=== PATIENT | female | born 1940 | race Caucasian/White ===

== ENCOUNTER 2016-06-23 11:47 | Emergency (ER) | payer OTHER ==
[~2016-06-23] VITALS: Ht 157.5 cm; Wt 65.1 kg
[~2016-06-23 11:47] MED LIST: ESTCR PV
[2016-06-23 11:53] VITALS: TEMP 36.6; Ht 157.5 cm; Wt 65.1 kg
[2016-06-23] MEDS ORDERED: AMOX500C3 PO (12:12)
[2016-06-23] MEDS ORDERED: ALBUT/IPRATROP 3MG/0.5MG NEB 3 ML VIAL INH STA (12:40)
[2016-06-23 13:08] LABS: BASO % 0.7 %; BASO ABS # 0.05 K/uL (0-0.2); COMPLETE YES; EOS % 3.1 %; HEMATOCRIT 43.4 % (37-47); IG% 0.3 %; LYMPH % 32.3 %; LYMPH ABS # 2.22 K/uL (1.2-3.4); MEAN CELL VOLUME 91.8 fL (80-100); MEAN CORPUSCULAR HEMOGLOBIN 31.9 pg (25-34); MEAN CORPUSCULAR HGB CONC 34.8 g/dl (32-36); MEAN PLATELET VOLUME 9.5 fL (7.4-10.4); MONO % 14.7 %; NEUT % 48.9 %; PLATELET COUNT 241 K/uL (130-400); RED BLOOD COUNT 4.73 M/uL (4.2-5.4); WHITE BLOOD COUNT 6.88 K/uL (4.8-10.8)
--- NOTE | 2016-06-23 13:15 | EMERGENCY ROOM VISIT NOTE ---
History Report prepared by Yo: Karen Gabriel Under the Supervision of: Dr. Anabel Lui M.D. First contact with patient: 12:07 Chief Complaint: FLU LIKE SX Stated Complaint: HEADACHE, COUGHING History of Present Illness The patient is a 76 year old female who presents to the Emergency Room with complaints of worsening flu-like symptoms that started 2 days ago. The patient is experiencing a headache, "scratchy" throat, cough, rhinorrhea, and fatigue. She has not noticed any fevers. She also experienced shortness of breath but she states that resolved with Advair and an albuterol inhaler. The patient has COPD which is why she has those medications at home. She does not have a nebulizer and denies recent prednisone use. The patient got her flu shot this year. Her adds that the patient experiences similar symptoms annually and they wanted to catch it before it developed into bronchitis like it typically does. The patient states that she called her PCP two days ago and he prescribed her amoxicillin. Source of History: patient, spouse/significant other () Onset: two days ago Position: other (generalized) Quality: other (flu-like symptoms) Timing: worsening Associated Symptoms: + SOB, + cough, + fatigue, + headache, + sorethroat ( "scratchy throat"), No fevers Note: rhinorrhea Review of Systems See HPI for pertinent positives & negatives. A total of 10 systems reviewed and were otherwise negative. Past Medical & Surgical Medical Problems: (1) Emphysema/COPD (2) GERD (gastroesophageal reflux disease) (3) HTN (hypertension) Surgical Problems: (1) History of cataract extraction Family History No pertinent family history Social History Smoking Status: Never Smoker Alcohol Use: none Marital Status: Housing Status: lives with family Occupation Status: retired Current/Historical Medications Scheduled Amoxicillin (Amoxil), 500 MG PO BID Aspirin (Aspirin Ec), 81 MG PO DAILY Atenolol (Tenormin), 50 MG PO DAILY Estradiol Vag 0.01% (Estrace Vag 0.01% ), 0.5 GM PV 2XWK Estrogens, Conjugated (Premarin), 1.25 MG PO DAILY Fluticasone Prop/Salmeterol (Advair Diskus 250/50 60 Dose), 1 PUFF INH BID Pantoprazole (Protonix), 20 MG PO DAILY Prednisone (Prednisone), 10 MG PO DIRECTED Allergies Coded Allergies: Ciprofloxacin (Verified Allergy, Unknown, HEADACHE "feel DRUNK", 06/23/16) Physical Exam Vital Signs Date Time Temp Pulse Resp B/P Pulse Ox O2 Delivery O2 Flow Rate FiO2 06/23/16 14:43 65 13 156/79 97 Room Air 06/23/16 13:46 66 15 155/80 94 Room Air 06/23/16 13:11 84 06/23/16 11:53 36.6 68 18 156/74 93 Room Air Physical Exam Vital signs reviewed. General: Well-appearing female, in no significant distress. HEENT: No scleral icterus, PERRLA, neck supple. TMs clear bilaterally. Posterior oropharynx is clear. Atraumatic. Cardiovascular: Regular rate and rhythm, no extra sounds. Pulmonary: Rancorous breath sounds bilaterally, normal work of breathing. Abdomen: Soft, nontender, nondistended, positive bowel sounds. Musculoskeletal: Atraumatic, no peripheral edema. Neurologic: Patient awake alert and oriented x 3, full strength in all 4 extremities. Cranial nerves 2 through 12 grossly intact. Skin: Warm, dry, no rash Medical Decision & Procedures ER Provider Diagnostic Interpretation: X-ray results as stated below per interpretation by me and the radiologist: CHEST ONE VIEW PORTABLE IMPRESSION: No acute process. Electronically signed by: Kishore Evans M.D. 06/23/2016 1:18 PM Dictated Date/Time: 06/23/2016 1:16 PM Laboratory Results 06/23/16 12:50 Red Blood Count 4.73, Mean Corpuscular Volume 91.8, Mean Corpuscular Hemoglobin 31.9, Mean Corpuscular Hemoglobin Concent 34.8, Mean Platelet Volume 9.5, Neutrophils (%) (Auto) 48.9, Lymphocytes (%) (Auto) 32.3, Monocytes (%) (Auto) 14.7, Eosinophils (%) (Auto) 3.1, Basophils (%) (Auto) 0.7, Neutrophils # (Auto ) 3.37, Lymphocytes # (Auto) 2.22, Monocytes # (Auto) 1.01, Eosinophils # (Auto ) 0.21, Basophils # (Auto) 0.05 06/23/16 12:50 Test 06/23/16 12:50 06/23/16 12:56 White Blood Count 6.88 K/uL (4.8-10.8) Red Blood Count 4.73 M/uL (4.2-5.4) Hemoglobin 15.1 g/dL (12.0-16.0) Hematocrit 43.4 % (37-47) Mean Corpuscular Volume 91.8 fL (80-100) Mean Corpuscular Hemoglobin 31.9 pg (25-34) Mean Corpuscular Hemoglobin Concent 34.8 g/dl (32-36) Platelet Count 241 K/uL (130-400) Mean Platelet Volume 9.5 fL (7.4-10.4) Neutrophils (%) (Auto) 48.9 % Lymphocytes (%) (Auto) 32.3 % Monocytes (%) (Auto) 14.7 % Eosinophils (%) (Auto) 3.1 % Basophils (%) (Auto) 0.7 % Neutrophils # (Auto) 3.37 K/uL (1.4-6.5) Lymphocytes # (Auto) 2.22 K/uL (1.2-3.4) Monocytes # (Auto) 1.01 K/uL (0.11-0.59) Eosinophils # (Auto) 0.21 K/uL (0-0.5) Basophils # (Auto) 0.05 K/uL (0-0.2) RDW Standard Deviation 48.1 fL (36.4-46.3) RDW Coefficient of Variation 14.1 % (11.5-14.5) Immature Granulocyte % (Auto) 0.3 % Immature Granulocyte # (Auto) 0.02 K/uL (0.00-0.02) Anion Gap 11.0 mmol/L (3-11) Est Creatinine Clear Calc Drug Dose 44.9 ml/min Estimated GFR () 67.1 Estimated GFR (Non- 57.9 BUN/Creatinine Ratio 19.9 (10-20) Calcium Level 8.9 mg/dl (8.5-10.1) Magnesium Level 2.1 mg/dl (1.8-2.4) Total Bilirubin 0.6 mg/dl (0.2-1) Direct Bilirubin 0.1 mg/dl (0-0.2) Aspartate Amino Transf (AST/SGOT) 15 U/L (15-37) Alanine Aminotransferase (ALT/SGPT) 11 U/L (12-78) Alkaline Phosphatase 70 U/L (45-117) Total Protein 7.2 gm/dl (6.4-8.2) Albumin 3.3 gm/dl (3.4-5.0) Influenza Type A Antigen Neg for Influ A (NEG) Influenza Type B Antigen Neg for Influ B (NEG) Laboratory results per my review. Medications Administered Medications (Trade) Dose Ordered Sig/Chela Route Start Time Stop Time Status Last Admin Dose Admin Albuterol/ Ipratropium (Duoneb) 3 ml NOW STAT INH 06/23/16 12:40 06/23/16 12:43 DC 06/23/16 13:00 3 ML ED Course 1238: Past medical records reviewed. The patient was evaluated in room C11. A complete history and physical examination was performed. 1240: Ordered DuoNeb 3 ml INH 1444: Upon reevaluation, the patient appeared to have improvement of her symptoms. I discussed findings with her. She verbalized agreement of the treatment plan. She was discharged home. Medical Decision The patient is a 76 year old female who presents to the Emergency Room with complaints of worsening flu-like symptoms that started 2 days ago. Differentials include viral upper respiratory infection, bronchitis, COPD exacerbation, pneumonia. This patient was evaluated and appeared to be in no significant distress. IV access was obtained and laboratory work was drawn. 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 Patient was given a nebulizer treatment with some improvement. Chest x-ray was obtained and is negative for acute process. The patient is currently taking amoxicillin and will finish this course. She was given a prescription for prednisone taper. The patient's primary care doctor's office was contacted and they will arrange for a nebulizer. The patient will be discharged in care of her and return to the ER for worsening of symptoms or any medical concerns. Impression Primary Impression: COPD exacerbation Additional Impression: Upper respiratory infection Scribe Attestation The scribe's documentation has been prepared under my direction and personally reviewed by me in its entirety. I confirm that the note above accurately reflects all work, treatment, procedures, and medical decision making performed by me. Departure Information Dispostion Home / Self-Care Prescriptions Prednisone (Prednisone) 10 Mg Tab 10 MG PO DIRECTED, #31 TAB 40 mg daily for 4 days, 30 mg for 3 days, 20 mg for 2 days, 10 mg for 2 days Prov: Anabel Lui M.D. 06/23/16 Referrals Arthur Hernandez (PCP) Forms HOME CARE DOCUMENTATION FORM, IMPORTANT VISIT INFORMATION Patient Instructions My [facility] Additional Instructions Diagnosis: Viral upper respiratory infection, bronchitis Continue the amoxicillin as prescribed by your physician. Prednisone 40 mg for 4 days, 30 mg for 3 days, 20 mg for 2 days, 10 mg for 2 days, start tomorrow. Albuterol nebulizer every 4 hours as needed for increased work of breathing or cough. Follow-up with your physician in one week for reevaluation. Return to the ER for worsening of symptoms or any medical concerns. Problem Qualifiers Additional Impression: Upper respiratory infection URI type: unspecified viral URI Qualified Codes: J06.9 - Acute upper respiratory infection, unspecified; B97.89 - Other viral agents as the cause of diseases classified elsewhere
--- NOTE | 2016-06-23 13:20 | DIAGNOSTIC IMAGING REPORT ---
CHEST ONE VIEW PORTABLE HISTORY: cough COMPARISON: Chest and left rib series 12/28/2015. FINDINGS: Small linear density within the right lung base favor scarring or subsegmental atelectasis. No focal lung consolidations to suggest pneumonia. The left lung is clear. Cardiac silhouette is normal in size. No pleural effusions. No pneumothorax. IMPRESSION: No acute process. Electronically signed by: Kishore Evans M.D. 06/23/2016 1:18 PM Dictated Date/Time: 06/23/2016 1:16 PM
[2016-06-23 13:32] LABS: BUN/CREATININE RATIO 19.9 (10-20); CALCIUM 8.9 mg/dl (8.5-10.1); CREATININE 0.96 mg/dl (0.60-1.20); MAGNESIUM 2.1 mg/dl (1.8-2.4); POTASSIUM 3.9 mmol/L (3.5-5.1)
[2016-06-23] MEDS ORDERED: PRED10TA PO ×2 (14:38→14:39)
[2016-06-23 14:43] VITALS: BP 156/79; PULSE 65; O2SAT 97
[2016-09-15] MEDS ORDERED: ESTR1.252 PO (11:10)
[2016-09-15] MEDS ORDERED: ADVIN25/60 INH (11:10)
[2016-09-15] MEDS ORDERED: ASPI81TA28 PO (11:10)
[2016-09-15] MEDS ORDERED: ATEN50TA8 PO (11:10)
[2016-09-15] MEDS ORDERED: PRT/20 PO (11:10)
[2016-11-25] MEDS ORDERED: VNTHFA/IN INH (08:27)
[2016-11-25] MEDS ORDERED: PRD20 PO (08:27)
== END 2016-06-23 15:05 | disposition home or self-care (01) ==
LOC: C.EDB 11:52 → C.EDC 15:05
DX: J44.1 Chronic obstructive pulmonary disease with (acute) exacerbation (principal); J06.9 Acute upper respiratory infection, unspecified; I10 Essential (primary) hypertension; K21.9 Gastro-esophageal reflux disease without esophagitis; Z79.82 Long term (current) use of aspirin; Z79.899 Other long term (current) drug therapy; Z88.2 Allergy status to sulfonamides

== ENCOUNTER 2016-09-15 13:59 | Emergency (ER) | payer OTHER ==
[~2016-09-15] VITALS: Ht 157.5 cm; Wt 64.6 kg
[~2016-09-15 13:59] MED LIST changes: +AMOX500C3 PO; +ASPI81TA28 PO; +ATEN50TA8 PO; +PRED10TA PO; +PRT/20 PO
[2016-09-15 14:06] VITALS: TEMP 36.4; Ht 157.5 cm; Wt 64.6 kg
[2016-09-15] MEDS ORDERED: SODIUM CHLORIDE 0.9% 1000ML 1,000 ML IV STA (16:14)
[2016-09-15] MEDS ORDERED: METHYLPREDNISOLONE 125 MG VIAL IV STA (16:24)
[2016-09-15] MEDS ORDERED: ALBUT/IPRATROP 3MG/0.5MG NEB 3 ML VIAL INH STA ×2 (16:24→18:02)
--- NOTE | 2016-09-15 16:49 | DIAGNOSTIC IMAGING REPORT ---
CHEST ONE VIEW PORTABLE CLINICAL HISTORY: Weakness, cough, headache COMPARISON STUDY: 06/23/2016 FINDINGS: The cardiac and mediastinal contours are normal. There is no evidence of focal pulmonary consolidation. There is no evidence of failure. No pleural effusions are visualized.[ There are minor basilar atelectatic changes. IMPRESSION: No active disease in the chest. Electronically signed by: Manjinder Moreno M.D. 09/15/2016 4:47 PM Dictated Date/Time: 09/15/2016 4:47 PM
[2016-09-15] MEDS ORDERED: AMOX875T PO (16:56)
[2016-09-15] MEDS ORDERED: ESTCR PV (16:56)
[2016-09-15] MEDS ORDERED: METH1TAB81 PO (16:56)
[2016-09-15 16:59] VITALS: O2SAT 94
[2016-09-15 17:08] LABS: BASO % 0.1 %; BASO ABS # 0.01 K/uL (0-0.2); COMPLETE YES; HEMATOCRIT 43.2 % (37-47); IG% 0.2 %; LYMPH % 22.3 %; LYMPH ABS # 2.54 K/uL (1.2-3.4); MEAN CELL VOLUME 90.4 fL (80-100); MEAN CORPUSCULAR HEMOGLOBIN 31.6 pg (25-34); MEAN PLATELET VOLUME 9.5 fL (7.4-10.4); NEUT % 69.4 %; PLATELET COUNT 266 K/uL (130-400); RED BLOOD COUNT 4.78 M/uL (4.2-5.4); WHITE BLOOD COUNT 11.41 K/uL (4.8-10.8)
[2016-09-15 17:17] LABS: INR 0.9 (0.9-1.1); PARTIAL THROMBOPLASTIN RATIO 0.9; PROTHROMBIN TIME (PATIENT) 9.6 SECONDS (9.0-12.0)
[2016-09-15 17:35] LABS: ALT/SGPT 12 U/L (12-78); BLOOD UREA NITROGEN 30 mg/dl (7-18); BUN/CREATININE RATIO 31.7 (10-20); CALCIUM 9.2 mg/dl (8.5-10.1); CARBON DIOXIDE 21 mmol/L (21-32); CHLORIDE 105 mmol/L (98-107); CREATININE 0.95 mg/dl (0.60-1.20); GLUCOSE 95 mg/dl (70-99); MAGNESIUM 2.2 mg/dl (1.8-2.4); POTASSIUM 4.2 mmol/L (3.5-5.1); SODIUM 140 mmol/L (136-145)
[2016-09-15 17:44] LABS: ALKALINE PHOSPHATASE 77 U/L (45-117); AST/SGOT 17 U/L (15-37)
[2016-09-15] MEDS ORDERED: AZIT250T PO (18:19)
[2016-09-15] MEDS ORDERED: AZITHROMYCIN 250 MG TAB PO STA (18:20)
--- NOTE | 2016-09-15 18:20 | EMERGENCY ROOM VISIT NOTE ---
History Report prepared by Yo: Betty Al Under the Supervision of: Dr. Onel Rodrigez M.D. First contact with patient: 16:14 Chief Complaint: COUGH Stated Complaint: COUGH, HEADACHE Nursing Triage Summary: Triage note: pt reports for the past week she has had head congestion, sore throat, cough with sputum. pt reports she saw her pcp last week and was started on antibiotic and steroid. pt reports diarrhea since starting antibiotic sunday. History of Present Illness The patient is a 76 year old female who presents to the Emergency Room with complaints of persistent flu like symptoms for the past several days. She is accompanied by her . She reports she has been experiencing a productive cough, congestion, sore throat and headache. She was started on an antibiotic and a steroid last week by her primary care physician, Dr. Hernandez in [place], but states the antibiotic gives her diarrhea. She complains of some wheezing when she coughs and admits to a history of COPD. The patient denies LOC, chills , diaphoresis, visual changes, neck pain, chest pain, nausea, vomiting, abdominal pain, back pain, melena, hematochezia, urinary symptoms, numbness, weakness, lymphadenopathy, rash, or other complaints. 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 A total of ten systems were reviewed and were otherwise negative. Past Medical & Surgical Medical Problems: (1) Emphysema/COPD (2) GERD (gastroesophageal reflux disease) (3) HTN (hypertension) Surgical Problems: (1) History of cataract extraction Family History No pertinent family history Social History Smoking Status: Never Smoker Alcohol Use: none Drug Use: none Marital Status: Housing Status: lives with family Occupation Status: retired Current/Historical Medications Scheduled Amoxicillin & Pot Clavulanate (Augmentin 875-125 mg), 1 TAB PO BID Aspirin (Aspirin Ec), 81 MG PO DAILY Atenolol (Tenormin), 50 MG PO DAILY Azithromycin (Zithromax), 250 MG PO DAILY Estradiol Vaginal (Estrace), 1 DOSE PV 2XWK Estrogens, Conjugated (Premarin), 1.25 MG PO DAILY Fluticasone Prop/Salmeterol (Advair Diskus 250/50 60 Dose), 1 PUFF INH BID Methylprednisolone (Medrol), 4 MG PO TAPER UD Pantoprazole (Protonix), 20 MG PO DAILY Allergies Coded Allergies: Ciprofloxacin (Verified Allergy, Unknown, HEADACHE "feel DRUNK", 06/23/16) Physical Exam Vital Signs Date Time Temp Pulse Resp B/P Pulse Ox O2 Delivery O2 Flow Rate FiO2 09/15/16 19:10 71 20 181/98 95 Room Air 09/15/16 17:24 78 20 174/91 93 Room Air 09/15/16 16:59 94 Room Air 09/15/16 16:57 72 09/15/16 16:57 75 20 176/101 94 Room Air 09/15/16 14:06 36.4 73 18 193/103 93 Room Air Physical Exam GENERAL: Awake, alert, well-appearing, in no distress HENT: Normocephalic, atraumatic. Oropharynx unremarkable. EYES: Normal conjunctiva. Sclera non-icteric. NECK: Supple. No nuchal rigidity. FROM. No JVD. RESPIRATORY: Coarse breath sounds and wheezing bilaterally. CARDIAC: Regular rate, normal rhythm. Extremities warm and well perfused. Pulses equal. ABDOMEN: Soft, non-distended. No tenderness to palpation. No rebound or guarding. No masses. RECTAL: Deferred. MUSCULOSKELETAL: Chest examination reveals no tenderness. The back is symmetrical on inspection without obvious abnormality. There is no CVA tenderness to palpation. No joint edema. LOWER EXTREMITIES: Calves are equal size bilaterally and non-tender. No edema. No discoloration. NEURO: Normal sensorium. No sensory or motor deficits noted. SKIN: No rash or jaundice noted. Medical Decision & Procedures ER Provider Diagnostic Interpretation: This X-Ray was reviewed and interpreted by myself and the radiologist. CHEST ONE VIEW PORTABLE CLINICAL HISTORY: Weakness, cough, headache COMPARISON STUDY: 06/23/2016 FINDINGS: The cardiac and mediastinal contours are normal. There is no evidence of focal pulmonary consolidation. There is no evidence of failure. No pleural effusions are visualized. There are minor basilar atelectatic changes. IMPRESSION: No active disease in the chest. Electronically signed by: Manjinder Moreno M.D. 09/15/2016 4:47 PM Laboratory Results 09/15/16 16:35 Red Blood Count 4.78, Mean Corpuscular Volume 90.4, Mean Corpuscular Hemoglobin 31.6, Mean Corpuscular Hemoglobin Concent 35.0, Mean Platelet Volume 9.5, Neutrophils (%) (Auto) 69.4, Lymphocytes (%) (Auto) 22.3, Monocytes (%) (Auto) 8.0, Eosinophils (%) (Auto) 0.0, Basophils (%) (Auto) 0.1, Neutrophils # (Auto) 7.93, Lymphocytes # (Auto) 2.54, Monocytes # (Auto) 0.91, Eosinophils # (Auto) 0.00, Basophils # (Auto) 0.01 09/15/16 16:35 Test 09/15/16 16:35 09/15/16 17:00 White Blood Count 11.41 K/uL (4.8-10.8) Red Blood Count 4.78 M/uL (4.2-5.4) Hemoglobin 15.1 g/dL (12.0-16.0) Hematocrit 43.2 % (37-47) Mean Corpuscular Volume 90.4 fL (80-100) Mean Corpuscular Hemoglobin 31.6 pg (25-34) Mean Corpuscular Hemoglobin Concent 35.0 g/dl (32-36) Platelet Count 266 K/uL (130-400) Mean Platelet Volume 9.5 fL (7.4-10.4) Neutrophils (%) (Auto) 69.4 % Lymphocytes (%) (Auto) 22.3 % Monocytes (%) (Auto) 8.0 % Eosinophils (%) (Auto) 0.0 % Basophils (%) (Auto) 0.1 % Neutrophils # (Auto) 7.93 K/uL (1.4-6.5) Lymphocytes # (Auto) 2.54 K/uL (1.2-3.4) Monocytes # (Auto) 0.91 K/uL (0.11-0.59) Eosinophils # (Auto) 0.00 K/uL (0-0.5) Basophils # (Auto) 0.01 K/uL (0-0.2) RDW Standard Deviation 46.6 fL (36.4-46.3) RDW Coefficient of Variation 14.1 % (11.5-14.5) Immature Granulocyte % (Auto) 0.2 % Immature Granulocyte # (Auto) 0.02 K/uL (0.00-0.02) Prothrombin Time 9.6 SECONDS (9.0-12.0) Prothromb Time International Ratio 0.9 (0.9-1.1) Activated Partial Thromboplast Time 23.1 SECONDS (21.0-31.0) Partial Thromboplastin Ratio 0.9 Anion Gap 14.0 mmol/L (3-11) Est Creatinine Clear Calc Drug Dose 45.2 ml/min Estimated GFR () 67.9 Estimated GFR (Non- 58.6 BUN/Creatinine Ratio 31.7 (10-20) Calcium Level 9.2 mg/dl (8.5-10.1) Magnesium Level 2.2 mg/dl (1.8-2.4) Total Bilirubin 0.3 mg/dl (0.2-1) Direct Bilirubin mg/dl (0-0.2) Aspartate Amino Transf (AST/SGOT) 17 U/L (15-37) Alanine Aminotransferase (ALT/SGPT) 12 U/L (12-78) Alkaline Phosphatase 77 U/L (45-117) Troponin I < 0.015 ng/ml (0-0.045) Total Protein 7.6 gm/dl (6.4-8.2) Albumin 3.5 gm/dl (3.4-5.0) Lipase 131 U/L (73-393) Thyroid Stimulating Hormone (TSH) 1.150 uIu/ml (0.300-4.500) Chemistry Specimen Hemolysis Influenza Type A Antigen Neg for Influ A (NEG) Influenza Type B Antigen Neg for Influ B (NEG) Laboratory results reviewed by me Medications Administered Medications (Trade) Dose Ordered Sig/Chela Route Start Time Stop Time Status Last Admin Dose Admin Sodium Chloride (Nss 1000ml) 1,000 ml @ 125 mls/hr Q8H STAT IV 09/15/16 16:14 09/15/16 19:55 DC 09/15/16 16:49 125 MLS/HR Albuterol/ Ipratropium (Duoneb) 3 ml NOW STAT INH 09/15/16 16:24 09/15/16 16:25 DC 09/15/16 16:47 3 ML Methylprednisolone Sodium Succinate (Solu-Medrol IV) 125 mg NOW STAT IV 09/15/16 16:24 09/15/16 16:25 DC 09/15/16 16:47 125 MG Albuterol/ Ipratropium (Duoneb) 3 ml NOW STAT INH 09/15/16 18:02 09/15/16 18:03 DC 09/15/16 18:45 3 ML Azithromycin (Zithromax Tab) 500 mg NOW STAT PO 09/15/16 18:20 09/15/16 18:21 DC 09/15/16 18:46 500 MG ECG Indication: other (persistent flu like symptoms) Rate (beats per minute): 65 Rhythm: sinus rhythm Findings: 1st degree AV block, no acute ischemic change, left axis deviation, no ectopy ED Course 1614: NSS 1000 ml @ 125 mls/hr IV. 1620: The patient was evaluated in room C7. A complete history and physical exam was performed. 162: Solu-Medrol 125 mg IV, DuoNeb 3 ml INH. 1800: I reevaluated the patient. She is feeling better but is still experiencing some breathing difficulties, so she will get a second breathing treatment. 180: DuoNeb 3 ml INH. 1820: Zithromax Tab 500 mg PO. 1924: I reevaluated the patient. She is feeling much better. I discussed her results and discharge instructions and she verbalized complete understanding and agreement. Medical Decision . Triage Nursing notes reviewed. The patient's presentation and history were concerning for flulike symptoms. Etiologies such as pneumonia, COPD, reactive airway disease, CHF, cardiac ischemia, pulmonary embolism, pneumothorax, musculoskeletal, infections, gastrointestinal, as well as others were entertained. The patient was evaluated. She is history COPD. She is on a Medrol Dosepak, inhalers, and Augmentin. She gets a lot of diarrhea and it sounds like this may be directly related to the Augmentin. She did have some wheezing on examination. She was given Solu-Medrol as well as a DuoNeb 2. Chest imaging did not reveal any evidence of pneumonia. The patient had a slight leukocytosis on CBC that this could be related to her steroid use. CBC and chemistry panel otherwise unremarkable. I discussed conservative management with continuation of her steroid and cessation of the Augmentin. We will initiate azithromycin. The patient was given the first dose of the azithromycin here. This seems to be most consistent with a COPD exacerbation likely triggered by an upper respiratory infection. The patient will use her inhaler, steroid, and Zithromax. She is feeling significantly better at this point in time. I believe she had an adverse effect of the Augmentin with the GI issues and should do better with the Zithromax. If she worsens in any way she will come back to the emergency department otherwise she'll follow-up with her primary physician.I gave my usual and customary discussion regarding this issue. By the evaluation outlined above other emergent etiologies such as those listed in the differential, as well as others, were deemed relatively unlikely. The patient and were informed about the findings as listed above. All questions were answered and they were pleased with the treatment. Return instructions were outlined and the patient was discharged in stable condition. The patient was referred to her PCP for follow-up Sunday for a recheck of the current condition. The chart was completed utilizing [employer] Speech voice recognition software. Grammatical errors, random word insertions, pronoun errors, and incomplete sentences are an occasional consequence of this system due to software limitations, ambient noise, and hardware issues. Any formal questions or concerns about the content, text, or information contained within the body of this dictation should be directly addressed to the physician for clarification. Impression Primary Impression: Chronic obstructive pulmonary disease Additional Impression: Upper respiratory infection Scribe Attestation The scribe's documentation has been prepared under my direction and personally reviewed by me in its entirety. I confirm that the note above accurately reflects all work, treatment, procedures, and medical decision making performed by me. Departure Information Dispostion Home / Self-Care Prescriptions Azithromycin (Zithromax) 250 Mg Tab 250 MG PO DAILY, #4 TAB Prov: Onel Rodrigez MD 09/15/16 Referrals Arthur Hernandez (PCP) Patient Instructions My [facility] Additional Instructions Continue the Medrol Dosepak. Stop the Augmentin. Azithromycin(Zithromax) 250mg: Take one a day for 4 additional days. All antibiotics can cause diarrhea. If this occurs and you feel worse or it does not resolve in 1-2 days follow up with your doctor or return to the Emergency Department as this could be signs of serious underlying problems. Any medication can cause an allergic reaction, stop the pills immediately and return to the ER for rash, hives, breathing difficulties, or swelling. Albuterol Inhaler: Take 2 puffs four times daily for seven days, then as needed. Acetaminophen(Tylenol) may be used for fever or pain. Use 1000mg every six hours as needed. Avoid using more than 4000mg in a 24 hour period. Rest and drink plenty of fluids. Avoid strenuous activity until your symptoms resolve and your breathing returns to normal. Return to the ER for chest pain, difficulty breathing, persistent fevers, vomiting, worsening of your condition, or as needed. Follow up with your primary physician in 3 s for a recheck of the current condition. Problem Qualifiers Primary Impression: Chronic obstructive pulmonary disease COPD type: COPD with acute exacerbation Qualified Codes: J44.1 - Chronic obstructive pulmonary disease with (acute) exacerbation Additional Impression: Upper respiratory infection URI type: unspecified URI Qualified Codes: J06.9 - Acute upper respiratory infection, unspecified
[2016-09-15 19:10] VITALS: BP 181/98; PULSE 71; O2SAT 95
--- NOTE | 2016-09-20 09:33 | CODING QUERY MEDICAL NECESSITY ---
SUPPORTING DIAGNOSIS NEEDED Dr. Petty, A supporting diagnosis is required for the test/procedure performed on this patient in order for us to be reimbursed by the patient's insurance. Please provide a supporting diagnosis for the following test/procedure listed below next to the test name along with your signature. *If there is no additional diagnosis for this patient that would support the following test/procedure please document that below next to the test/procedure. Test(s)/Procedure(s) that require a supporting diagnosis: * ([id number]) B12 VITAMIN LEVEL DIAGNOSIS: DATE OF SERVICE: 09/15/16 Provider Signature: Date: Thank you Eduardo Gil [facility] Information Management Once completed, please kindly fax back to [phone] For questions please call [phone]
[2016-11-25] MEDS ORDERED: PRD20 PO (08:27)
[2016-11-25] MEDS ORDERED: VNTHFA/IN INH (08:27)
[2017-03-29] MEDS ORDERED: ESTR1.252 PO (11:10)
[2017-03-29] MEDS ORDERED: ADVIN25/60 INH (11:10)
== END 2016-09-15 19:39 | disposition home or self-care (01) ==
LOC: C.EDB 14:00 → C.EDC 19:39
DX: J44.1 Chronic obstructive pulmonary disease with (acute) exacerbation (principal); J06.9 Acute upper respiratory infection, unspecified; I10 Essential (primary) hypertension; K21.9 Gastro-esophageal reflux disease without esophagitis; Z79.82 Long term (current) use of aspirin

== ENCOUNTER 2016-11-23 10:28 | Inpatient (IN) | payer OTHER ==
[~2016-11-23] VITALS: Ht 157.5 cm; Wt 64.2 kg
[~2016-11-23 10:28] MED LIST changes: -AMOX500C3 PO; +AMOX875T PO; +AZIT250T PO; +METH1TAB81 PO; -PRED10TA PO
[2016-11-23] MEDS ORDERED: SODIUM CHLORIDE 0.9% 1000ML 1,000 ML IV STA (11:10)
[2016-11-23 11:21] LABS: BASO % 0.2 %; BASO ABS # 0.02 K/uL (0-0.2); COMPLETE YES; EOS % 1.4 %; HEMATOCRIT 43.3 % (37-47); IG% 0.1 %; LYMPH ABS # 1.95 K/uL (1.2-3.4); MEAN CELL VOLUME 93.7 fL (80-100); MEAN CORPUSCULAR HEMOGLOBIN 31.8 pg (25-34); MEAN CORPUSCULAR HGB CONC 33.9 g/dl (32-36); MEAN PLATELET VOLUME 9.1 fL (7.4-10.4); MONO % 13.1 %; NEUT % 61.2 %; PLATELET COUNT 230 K/uL (130-400); RED BLOOD COUNT 4.62 M/uL (4.2-5.4); WHITE BLOOD COUNT 8.12 K/uL (4.8-10.8)
[2016-11-23 11:31] LABS: INR 0.9 (0.9-1.1); PROTHROMBIN TIME (PATIENT) 9.7 SECONDS (9.0-12.0)
[2016-11-23 11:33] LABS: CALCIUM 8.7 mg/dl (8.5-10.1)
[2016-11-23 11:38] LABS: ALT/SGPT 15 U/L (12-78); BLOOD UREA NITROGEN 20 mg/dl (7-18); BUN/CREATININE RATIO 17.8 (10-20); CARBON DIOXIDE 21 mmol/L (21-32); CHLORIDE 107 mmol/L (98-107); GLUCOSE 97 mg/dl (70-99); MAGNESIUM 2.1 mg/dl (1.8-2.4); POTASSIUM 4.5 mmol/L (3.5-5.1); SODIUM 139 mmol/L (136-145)
--- NOTE | 2016-11-23 11:43 | DIAGNOSTIC IMAGING REPORT ---
CHEST ONE VIEW PORTABLE CLINICAL HISTORY: EVALUATE ALTERED MENTAL STATUS/WEAKNESS COMPARISON STUDY: 09/15/2016 FINDINGS: The bones soft tissues and hemidiaphragms are normal. The cardiomediastinal silhouette is normal. The lungs are clear. The pulmonary vasculature is normal. IMPRESSION: Negative chest. Electronically signed by: Conner Glaser M.D. 11/23/2016 11:41 AM Dictated Date/Time: 11/23/2016 11:41 AM
[2016-11-23 11:48] LABS: ALKALINE PHOSPHATASE 74 U/L (45-117); AST/SGOT 17 U/L (15-37); CKMB/CK RATIO 2.1 (0-3.0)
[2016-11-23] MEDS ORDERED: ALUMINUM/MAGNESIUM/SIMETH (MAALOX MAX) 30 ML UDC PO PRN (13:00)
[2016-11-23] MEDS ORDERED: MAGNESIUM HYDROXIDE SUSP 30 ML UDC PO PRN (13:00)
[2016-11-23] MEDS ORDERED: ONDANSETRON INJ 2 MG/ML 2 ML VIAL IV PRN (13:00)
[2016-11-23] MEDS ORDERED: ACETAMINOPHEN 325 MG TAB PO PRN (13:00)
[2016-11-23] MEDS ORDERED: POLYETHYLENE (MIRALAX) 17 GM PACK PO PRN (13:00)
--- NOTE | 2016-11-23 13:11 | History and Physical ---
History & Physical Date & Time of Service: Nov 23, 2016 at 12:54 Chief Complaint: Sorethroat, Headache Primary Care Physician: Arthur Hernandez History of Present Illness Source: patient 76 y/o F Hx COPD, HTN - states that she has had upper respiratory symptoms such as cough and congestion for approximately 2 weeks. Her symptoms have worsened over the past day as well. She also describes a brief episode of dizziness, blurred vision and near-syncope. She has been having these episodes for several months and has previously had nondiagnostic workups. While in the ER she developed a 5 second pause on her EKG. This corresponded with her above symptoms. She denies CP, N/V, fevers prior to arrival. Past Medical/Surgical History Medical Problems: (1) Emphysema/COPD Status: Chronic (2) GERD (gastroesophageal reflux disease) Status: Chronic (3) HTN (hypertension) Status: Chronic Surgical Problems: (1) History of cataract extraction Status: Resolved Family History No pertinent family history Mother COPD Social History Quit smoking x 15 years Smoking Status: Former Smoker Drug Use: none Marital Status: Occupational Status: retired Allergies Coded Allergies: Ciprofloxacin (Verified Allergy, Unknown, HEADACHE "feel DRUNK", 11/23/16) Home Medications Scheduled Aspirin (Aspirin Ec), 81 MG PO DAILY Atenolol (Tenormin), 50 MG PO DAILY Estradiol Vaginal (Estrace), 1 DOSE PV 2XWK Estrogens, Conjugated (Premarin), 1.25 MG PO DAILY Fluticasone Prop/Salmeterol (Advair Diskus 250/50 60 Dose), 1 PUFF INH BID Pantoprazole (Protonix), 20 MG PO DAILY Review of Systems Constitutional: No fever, No chills, No sweats Eyes: No worsening of vision ENT: + sore throat, No hearing loss, No unusual epistaxis, No nasal symptoms Respiratory: + cough, + shortness of breath Cardiovascular: No chest pain, No orthopnea, No PND Abdomen: No pain, No nausea, No vomiting Musculoskeletal: No joint pain Genitourinary - Female: No dysuria Neurologic: No memory loss Psychiatric: No depression symptoms Endocrine: No fatigue Hematologic / Lymphatic: No abnormal bleeding/bruising Allergic / Immunologic: No environmental allergies Physical Exam Vital Signs Date Time Temp Pulse Resp B/P (MAP) Pulse Ox O2 Delivery O2 Flow Rate FiO2 11/23/16 12:48 42 11/23/16 12:00 72 16 155/101 96 Room Air 11/23/16 11:18 96 Room Air 11/23/16 11:14 37 11/23/16 11:14 46 11/23/16 11:09 56 11/23/16 11:01 76 11/23/16 11:00 74 11/23/16 10:58 76 11/23/16 10:45 96 Room Air 11/23/16 10:29 36.6 75 18 157/88 96 Room Air General Appearance: WD/WN, no apparent distress Head: normocephalic Eyes: normal inspection ENT: normal ENT inspection Neck: supple, no JVD Respiratory/Chest: chest non-tender, lungs clear, normal breath sounds, + decreased breath sounds Cardiovascular: regular rate, rhythm, no edema, no gallop Abdomen/GI: normal bowel sounds, non tender, soft Back: normal inspection, no CVA tenderness, no muscle spasm, normal range of motion Extremities/Musculoskelatal: normal inspection, normal range of motion Neurologic/Psych: pattern puncher II-XII nml as tested, no motor/sensory deficits, alert, normal mood/affect, normal reflexes, oriented x 3 Skin: normal color Diagnostics Laboratory Results Results Past 24 Hours Test 11/23/16 10:48 11/23/16 11:10 Range/Units Bedside Glucose 100 70-90 mg/dl White Blood Count 8.12 4.8-10.8 K/uL Red Blood Count 4.62 4.2-5.4 M/uL Hemoglobin 14.7 12.0-16.0 g/dL Hematocrit 43.3 37-47 % Mean Corpuscular Volume 93.7 80-100 fL Mean Corpuscular Hemoglobin 31.8 25-34 pg Mean Corpuscular Hemoglobin Concent 33.9 32-36 g/dl Platelet Count 230 130-400 K/uL Mean Platelet Volume 9.1 7.4-10.4 fL Neutrophils (%) (Auto) 61.2 % Lymphocytes (%) (Auto) 24.0 % Monocytes (%) (Auto) 13.1 % Eosinophils (%) (Auto) 1.4 % Basophils (%) (Auto) 0.2 % Neutrophils # (Auto) 4.97 1.4-6.5 K/uL Lymphocytes # (Auto) 1.95 1.2-3.4 K/uL Monocytes # (Auto) 1.06 0.11-0.59 K/uL Eosinophils # (Auto) 0.11 0-0.5 K/uL Basophils # (Auto) 0.02 0-0.2 K/uL RDW Standard Deviation 48.3 36.4-46.3 fL RDW Coefficient of Variation 14.2 11.5-14.5 % Immature Granulocyte % (Auto) 0.1 % Immature Granulocyte # (Auto) 0.01 0.00-0.02 K/uL Prothrombin Time 9.7 9.0-12.0 SECONDS Prothromb Time International Ratio 0.9 0.9-1.1 Activated Partial Thromboplast Time 25.7 21.0-31.0 SECONDS Partial Thromboplastin Ratio 1.0 Sodium Level 139 136-145 mmol/L Potassium Level 4.5 3.5-5.1 mmol/L Chloride Level 107 98-107 mmol/L Carbon Dioxide Level 21 21-32 mmol/L Anion Gap 11.0 3-11 mmol/L Blood Urea Nitrogen 20 7-18 mg/dl Creatinine 1.10 0.60-1.20 mg/dl Est Creatinine Clear Calc Drug Dose 39.3 ml/min Estimated GFR () 56.9 Estimated GFR (Non- 49.1 BUN/Creatinine Ratio 17.8 10-20 Random Glucose 97 70-99 mg/dl Calcium Level 8.7 8.5-10.1 mg/dl Magnesium Level 2.1 1.8-2.4 mg/dl Total Bilirubin 0.4 0.2-1 mg/dl Direct Bilirubin < 0.1 0-0.2 mg/dl Aspartate Amino Transf (AST/SGOT) 17 15-37 U/L Alanine Aminotransferase (ALT/SGPT) 15 12-78 U/L Alkaline Phosphatase 74 45-117 U/L Total Creatine Kinase 66 26-192 U/L Creatine Kinase MB 1.4 0.5-3.6 ng/ml Creatine Kinase MB Ratio 2.1 0-3.0 Troponin I 0.018 0-0.045 ng/ml Total Protein 7.1 6.4-8.2 gm/dl Albumin 3.2 3.4-5.0 gm/dl Lipase 159 73-393 U/L Thyroid Stimulating Hormone (TSH) 2.150 0.300-4.500 uIu/ml Diagnostic Radiology CXR: The bones soft tissues and hemidiaphragms are normal. The cardiomediastinal silhouette is normal. The lungs are clear. The pulmonary vasculature is normal. EKG 5 second pause seen on initial EKG Impression Assessment and Plan 6 y/o F Hx COPD, HTN - states that she has had upper respiratory symptoms such as cough and congestion for approximately 2 weeks. Her symptoms have worsened over the past day as well. She also describes a brief episode of dizziness, blurred vision and near-syncope. She has been having these episodes for several months and has previously had a nondiagnostic workup. While in the ER she developed a 5 second pause on her EKG. This corresponded with her above symptoms. She denies CP, N/V, fevers prior to arrival. 1) Upper respiratory system - appears to be a bronchitis related to her COPD - symptoms are persistent bu relatively mild - will treat with nebs, steroids, low dose antibiotics. This in itself would no keep her in the hospital. 2) Pauses - pt to be evaluated by cardiology - may need pacer prior to d/ - monitor on telemetry and DC Atenolol Full code - Heparin prophylaxis Total time for this admit including review of labs , meds , EKG Discussion with pt and ground crew chief - 38 min Level of Care Telemetry Resuscitation Status FULL RESUSCITATION VTE Prophylaxis Given or contraindicated: Unfractionated heparin SQ
--- NOTE | 2016-11-23 14:34 | EMERGENCY ROOM VISIT NOTE ---
History Report prepared by Yo: Stefanie Vázquez Under the Supervision of: Dr. Natalio Ott D.O. First contact with patient: 10:49 Chief Complaint: SORETHROAT Stated Complaint: SORETHROAT, HEADACHE History of Present Illness The patient is a 76 year old female who presents to the Emergency Room with complaints of a worsening illness beginning last night. The patient states that she was feeling fine yesterday and went to a baseball game last night with her . While she was there she started sneezing and developed sinus congestion. When she got home she developed a cough that worsened throughout the night. This morning she woke up with the same symptoms and a sore throat. states that he has been sick with similar symptoms for the past two weeks. The patient also notes that this morning she had an episode of dizziness and blurred vision that resolved after a few seconds. She felt like she was going to pass out. She states that this has happened to her multiple times over the past 6 years, and she has been evaluated by her PCP for these symptoms. She did not eat anything this morning and came to the ED for further evaluation. Source of History: patient Onset: last night Position: other (global) Quality: other (illness) Timing: worsening Associated Symptoms: + sorethroat, + cough Note: Pt had an episode of dizziness and blurry vision. Review of Systems See HPI for pertinent positives & negatives. A total of 10 systems reviewed and were otherwise negative. Past Medical & Surgical Medical Problems: (1) Bronchitis (2) Emphysema/COPD (3) GERD (gastroesophageal reflux disease) (4) HTN (hypertension) (5) Sinus pause Surgical Problems: (1) History of cataract extraction Family History No pertinent family history Social History Smoking Status: Former Smoker Alcohol Use: none Drug Use: none Marital Status: Housing Status: lives with family Occupation Status: retired Current/Historical Medications Scheduled Aspirin (Aspirin Ec), 81 MG PO DAILY Atenolol (Tenormin), 50 MG PO DAILY Estradiol Vaginal (Estrace), 1 DOSE PV 2XWK Estrogens, Conjugated (Premarin), 1.25 MG PO DAILY Fluticasone Prop/Salmeterol (Advair Diskus 250/50 60 Dose), 1 PUFF INH BID Pantoprazole (Protonix), 20 MG PO DAILY Allergies Coded Allergies: Ciprofloxacin (Verified Allergy, Unknown, HEADACHE "feel DRUNK", 11/23/16) Physical Exam Vital Signs Date Time Temp Pulse Resp B/P (MAP) Pulse Ox O2 Delivery O2 Flow Rate FiO2 11/23/16 14:28 66 16 162/86 96 Room Air 11/23/16 12:55 25 11/23/16 12:48 42 11/23/16 12:00 72 16 155/101 96 Room Air 11/23/16 11:18 96 Room Air 11/23/16 11:14 37 11/23/16 11:14 46 11/23/16 11:09 56 11/23/16 11:01 76 11/23/16 11:00 74 11/23/16 10:58 76 11/23/16 10:45 96 Room Air 11/23/16 10:29 36.6 75 18 157/88 96 Room Air Physical Exam CONSTITUTIONAL/VITAL SIGNS: Reviewed / noted above. GENERAL: Non-toxic in appearance. INTEGUMENTARY: Warm, dry, and [place]. HEAD: Normocephalic. EYES: without scleral icterus or trauma. ENT/OROPHARYNX: clear and moist. LYMPHADENOPATHY/NECK: Is supple without lymphadenopathy or meningismus. RESPIRATORY: Lungs clear and equal. CARDIOVASCULAR: Regular rate and rhythm. She has several episodes of feeling lightheaded with slow pulse rate at that time. GI/ABDOMEN: Soft and nontender. No organomegaly or pulsatile mass. No rebound or guarding. Normal bowel sounds. EXTREMITIES: Warm and well perfused. BACK: No CVA tenderness. NEUROLOGICAL: Intact without focal deficits. PSYCHIATRIC: normal affect. MUSCULOSKELETAL: Normally developed with good muscle tone. Medical Decision & Procedures ER Provider Diagnostic Interpretation: Radiology results as stated below per my review and radiologist interpretation: CHEST ONE VIEW PORTABLE CLINICAL HISTORY: EVALUATE ALTERED MENTAL STATUS/WEAKNESS COMPARISON STUDY: 09/15/2016 FINDINGS: The bones soft tissues and hemidiaphragms are normal. The cardiomediastinal silhouette is normal. The lungs are clear. The pulmonary vasculature is normal. IMPRESSION: Negative chest. Electronically signed by: Conner Glaser M.D. 11/23/2016 11:41 AM Dictated Date/Time: 11/23/2016 11:41 AM Laboratory Results 11/23/16 11:10 Red Blood Count 4.62, Mean Corpuscular Volume 93.7, Mean Corpuscular Hemoglobin 31.8, Mean Corpuscular Hemoglobin Concent 33.9, Mean Platelet Volume 9.1, Neutrophils (%) (Auto) 61.2, Lymphocytes (%) (Auto) 24.0, Monocytes (%) (Auto) 13.1, Eosinophils (%) (Auto) 1.4, Basophils (%) (Auto) 0.2, Neutrophils # (Auto ) 4.97, Lymphocytes # (Auto) 1.95, Monocytes # (Auto) 1.06, Eosinophils # (Auto ) 0.11, Basophils # (Auto) 0.02 11/23/16 11:10 Test 11/23/16 10:48 11/23/16 11:10 Bedside Glucose 100 mg/dl (70-90) White Blood Count 8.12 K/uL (4.8-10.8) Red Blood Count 4.62 M/uL (4.2-5.4) Hemoglobin 14.7 g/dL (12.0-16.0) Hematocrit 43.3 % (37-47) Mean Corpuscular Volume 93.7 fL (80-100) Mean Corpuscular Hemoglobin 31.8 pg (25-34) Mean Corpuscular Hemoglobin Concent 33.9 g/dl (32-36) Platelet Count 230 K/uL (130-400) Mean Platelet Volume 9.1 fL (7.4-10.4) Neutrophils (%) (Auto) 61.2 % Lymphocytes (%) (Auto) 24.0 % Monocytes (%) (Auto) 13.1 % Eosinophils (%) (Auto) 1.4 % Basophils (%) (Auto) 0.2 % Neutrophils # (Auto) 4.97 K/uL (1.4-6.5) Lymphocytes # (Auto) 1.95 K/uL (1.2-3.4) Monocytes # (Auto) 1.06 K/uL (0.11-0.59) Eosinophils # (Auto) 0.11 K/uL (0-0.5) Basophils # (Auto) 0.02 K/uL (0-0.2) RDW Standard Deviation 48.3 fL (36.4-46.3) RDW Coefficient of Variation 14.2 % (11.5-14.5) Immature Granulocyte % (Auto) 0.1 % Immature Granulocyte # (Auto) 0.01 K/uL (0.00-0.02) Prothrombin Time 9.7 SECONDS (9.0-12.0) Prothromb Time International Ratio 0.9 (0.9-1.1) Activated Partial Thromboplast Time 25.7 SECONDS (21.0-31.0) Partial Thromboplastin Ratio 1.0 Anion Gap 11.0 mmol/L (3-11) Est Creatinine Clear Calc Drug Dose 39.3 ml/min Estimated GFR () 56.9 Estimated GFR (Non- 49.1 BUN/Creatinine Ratio 17.8 (10-20) Calcium Level 8.7 mg/dl (8.5-10.1) Magnesium Level 2.1 mg/dl (1.8-2.4) Total Bilirubin 0.4 mg/dl (0.2-1) Direct Bilirubin < 0.1 mg/dl (0-0.2) Aspartate Amino Transf (AST/SGOT) 17 U/L (15-37) Alanine Aminotransferase (ALT/SGPT) 15 U/L (12-78) Alkaline Phosphatase 74 U/L (45-117) Total Creatine Kinase 66 U/L (26-192) Creatine Kinase MB 1.4 ng/ml (0.5-3.6) Creatine Kinase MB Ratio 2.1 (0-3.0) Troponin I 0.018 ng/ml (0-0.045) Total Protein 7.1 gm/dl (6.4-8.2) Albumin 3.2 gm/dl (3.4-5.0) Lipase 159 U/L (73-393) Thyroid Stimulating Hormone (TSH) 2.150 uIu/ml (0.300-4.500) Lyme Disease IgM Antibody NEG (NEG) Laboratory results as stated above per my review. Medications Administered Medications (Trade) Dose Ordered Sig/Chela Route Start Time Stop Time Status Last Admin Dose Admin Sodium Chloride 1,000 ml @ 200 mls/hr Q5H STAT IV 11/23/16 11:10 11/23/16 16:09 11/23/16 11:24 200 MLS/HR ECG Indication: weakness Rate (beats per minute): 45 Rhythm: sinus bradycardia Findings: no acute ischemic change, other (sinus arrest) ED Course 1049: Previous medical records were reviewed. The patient was evaluated in room B5. A complete history and physical examination was performed. 1110: NSS 1000 ml @ 200 mls/hr IV 1248: I spoke with Dr. Cooper. We discussed the patient's results and treatment plan. The patient will be evaluated by the [facility] for further management. 1250: I reassessed the patient at this time. She is resting comfortably. I discussed the results and treatment plan with the patient. I answered all pertaining questions that she had. She expressed understanding and verbalized agreement. Medical Decision The differential was considered includes acute myocardial infarction, acute coronary syndrome, myocarditis, pericarditis, pericardial effusions/tamponade, esophageal perforation, thoracic aortic dissection, pulmonary embolism, pneumonia, pneumothorax, pancreatitis, shingles, acute cholecystitis, perforated abdominal viscus. Medication Reconciliation: I attest that I have personally reviewed the patient' s current medication list. This is a 76-year-old female who presents to the ED with a chief complaint of a sore throat. She also reports having episodes of lightheadedness. She has had sore throat for the past few days. She is had some nasal congestion and a slight cough. The transient lightheadedness, the patient attributed to low blood sugars. She states that she has had Ingerman symptoms like this for years but it has recently increased over the past few days. The patient states that she feels as though she might pass out and she does not lie down. Her initial blood pressure was slightly elevated. Her vital signs are otherwise stable. Her physical exam was unremarkable. Chest x-ray did not show acute disease. CBC, complete metabolic panel, TSH and troponin are normal. Monitor revealed sinus arrest as did a twelve-lead EKG. During these episodes, the patient will become symptomatic and feels that she might pass out. She had several episodes during her initial ED evaluation here. Because of this, pacemaker pads were placed on the patient's chest. The patient's vital signs remained stable otherwise. She will be seen the hospital for further inpatient evaluation and intervention. Consults Time Called: 1235 Consulting Physician: Dr. Cooper Returned Call: [address] Cooper. We discussed the patient's results and treatment plan. The patient will be evaluated by the [facility] for further management. Impression Primary Impression: Sinus arrest Additional Impression: Near syncope Scribe Attestation The scribe's documentation has been prepared under my direction and personally reviewed by me in its entirety. I confirm that the note above accurately reflects all work, treatment, procedures, and medical decision making performed by me. Departure Information Dispostion Being Evaluated By Hospitalist Referrals Arthur Hernandez (PCP) Patient Instructions My [facility] Problem Qualifiers
--- NOTE | 2016-11-23 15:29 | CARDIOLOGY CONSULTATION ---
DATE OF CONSULTATION: 11/23/2016 TIME: 14:48 p.m. CONSULTING PHYSICIAN: Dr. Cooper. REASON FOR CONSULTATION: Sinus pauses. HISTORY OF PRESENT ILLNESS: Ms. Chaudhary is a very pleasant 76-year-old female with a history significant for COPD and hypertension, who presented to [facility] Emergency Department today with a 1-day history of sore throat and headache. She developed headache and sore throat last evening. She has COPD and was concerned about developing bronchitis. Her became ill approximately 2 weeks ago with the same symptoms, which progressed to bronchitis and he is currently on a Z-COURTNEY. She was hoping to obtain early treatment to avoid issues with her lungs given her COPD. While walking to the Emergency Department from her car, she had an episode of near syncope. She continued to have episodes of near syncope while in the Emergency Department. On telemetry, it was noted that she was having sinus pauses of up to 5-6 seconds in length. On further questioning, she has been having near syncope for a few years and these episodes can occur at any time. She denies any actual true syncope. Episodes have been increasing in frequency and severity over the past 6-8 months. She states that she has had "quite a few" episodes today. It was also noted that she was not symptomatic with all the episodes that were on telemetry. She has a history of palpitations in the past, described as a pounding sensation. She has not had any palpitations today. These episodes tend to occur when she was anxious or nervous. She denies shortness of breath at rest, orthopnea, chest pain, edema, melena, hematochezia, hematuria, or other bleeding. She denies fevers or chills. She denies nausea, vomiting or abdominal pain. She has occasional dyspnea with exertion, especially while climbing stairs and overall feels weak at times while walking. She was placed on atenolol many years ago for hypertension. She is certain that she did not take any extra doses of this medication. REVIEW OF SYSTEMS: As above and review of systems is otherwise negative. PAST MEDICAL HISTORY: 1. Hypertension. 2. GERD. 3. Emphysema/COPD. 4. Status post appendectomy. 5. Status post hysterectomy. 6. Status post cataract extraction. HOME MEDICATIONS: Include atenolol 50 mg daily, aspirin 81 mg daily, Premarin, Advair Diskus, and Protonix 20 mg daily. CURRENT INPATIENT MEDICATIONS THAT ARE ORDERED: Aspirin 81 mg daily, heparin 5,000 units subQ q. 8 hours, Protonix 40 mg daily, and Advair Diskus 1 puff b.i.d. ALLERGIES: CIPROFLOXACIN. SOCIAL HISTORY: Quit smoking in approximately 1999. She smoked for approximately 20 years, less than 1 pack per day. Rare alcohol. No drugs. She is and lives with her . Her is present at the bedside. They have 2 children. One grandchild. FAMILY HISTORY: No known premature CAD. PHYSICAL EXAMINATION: VITAL SIGNS: Temperature 36.6 degrees, heart rate 66 beats per minute, respiratory rate 16, blood pressure 162/86 mmHg, oxygen saturation 96% on room air, and weight 65.8 kg. GENERAL: No acute distress. She is alert and oriented. HEENT: Anicteric sclerae. NECK: No appreciable JVD. No bruits. Normal carotid upstrokes bilaterally. CARDIAC EXAMINATION: PMI was nonpalpable. There was no ventricular heave. Regular, normal S1 and S2. There were no audible murmurs, rubs or gallops. LUNGS: Clear to auscultation bilaterally without wheezes, rales or rhonchi. ABDOMEN: Soft, nontender, and nondistended. Normoactive bowel sounds. No bruits noted. EXTREMITIES: No cyanosis or pitting edema. 2+ radial pulses bilaterally. 2+ dorsalis pedis pulses bilaterally. No palpable cords. PSYCHIATRIC: Affect appears appropriate. LABORATORY DATA: White blood cell count 8.12, hemoglobin 14.7, and platelets 230. Sodium 139, potassium 4.5, BUN 20, creatinine 1.1, glucose 97, and magnesium 2.1. AST 17 and ALT 15. Troponin 0.018. Albumin 3.2. TSH 2.15. INR is 0.9. Lyme IgM antibody negative. Telemetry personally reviewed. Predominantly sinus rhythm with first degree AV block. There were episodes of sinus pause up to 5-6 seconds in duration. ECG personally reviewed at 11:14 a.m., sinus rhythm with Mobitz I. Possible septal infarct. Chest x-ray image personally reviewed. No obvious infiltrate on personally review. Radiology as interpreted this chest x-ray as "negative chest." ASSESSMENT AND PLAN: 1. Sinus pauses: She is having symptomatic sinus pauses. She is on beta-dorian and this medication will be discontinued. It was recommended that she remain on bed rest. We have discussed potential for pacemaker placement. Electrophysiology consultation is being ordered. Case has been discussed with Dr. Tolliver, who plans on meeting with her this evening with tentative pacemaker placement tomorrow. She has not had syncope and is not always symptomatic, but does have near syncope. No urgent indication for temporary transvenous pacemaker or permanent pacemaker, especially given the fact that her symptoms have been occurring for several years, but have been increasing in frequency recently. Continue to keep pacing pads in place and use as necessary. Currently, she does not require transcutaneous pacing. Avoid any medications that may further slower her heart rate. 2. Near syncope: Symptoms seem to correlate with sinus pauses as above. Plan as above. 3. Mobitz I: She does have Mobitz 1 on her ECG, but sinus pauses noted on telemetry. Beta-dorian discontinued. Echocardiogram ordered due to her presentation and near syncope and rhythm issues. 4. Hypertension: Blood pressure is elevated. Would recommend treatment as appropriate with medications that would not slow her heart rate. Can consider CHARLIE inhibitor if her blood pressure remains elevated. 5. Disposition: Electrophysiology consultation is recommended. Plan of care has been discussed with Dr. Tolliver of electrophysiology and Dr. Cooper of the admitting hospitalist service. Highly complex medical issues. Thank you for allowing me to participate in the care of Ms. Chaudhary. Please call with any further questions or concerns. Dr. Tolliver will continue with her cardiology care from electrophysiology standpoint.
[2016-11-23 15:39] VITALS: BP 175/85; PULSE 70; TEMP 36.9; O2SAT 95
[2016-11-23 15:45] VITALS: BP 175/85; PULSE 70; TEMP 36.9; O2SAT 95; Ht 157.5 cm; Wt 64.2 kg
--- NOTE | 2016-11-23 16:10 | ECHOCARDIOGRAM REPORT ---
*NOTICE TO RECEIVING [employer]Y This information is strictly Confidential and protected under [place] law. [place] law prohibits you from making any further disclosure of this information unless further disclosure is expressly permitted by the written consent of the person to whom it pertains or is authorized by law. A general authorization for the release of medical or other information is not sufficient for this purpose. Hospital accepts no responsibility if the information is made available to any other person, INCLUDING THE PATIENT. Interpretation Summary * Name: TEVIN ALFORD Study Date: 11/23/2016 02:54 PM BP: 162/86 mmHg * Patient Location: C.EDB HR: 66 * : 1940 (M/d/yyyy) Gender: Female Height: 62 in * Age: 76 yrs Ethnicity: CA Weight: 145 lb * Ordering Physician: Darwin Thakkar * Referring Physician: Self, Referred * Performed By: Mago Stewart RDCS * * Reason For Study: NEAR SYNCOPE, SINUS PAUSE * BSA: 1.7 m2 * -- Conclusions -- * 1. Normal left ventricular size and systolic function. EF 55-60%. No regional wall motion abnormalities. No left ventricular hypertrophy. Type I diastolic dysfunction. * 2. No significant valvular abnormalities visualized. * 3. Normal estimated right ventricular systolic pressure; 22mmHg. * 4. No prior study available for comparison. Procedure Details * A complete two-dimensional transthoracic echocardiogram was performed (2D, M-mode, Doppler and color flow Doppler). Left Ventricle * Normal left ventricular size and systolic function. EF 55-60%. No regional wall motion abnormalities. No left ventricular hypertrophy. Type I diastolic dysfunction. Right Ventricle * The right ventricle is normal in size and function. * The right ventricular systolic function is normal as assessed by tricuspid annular plane systolic excursion (TAPSE) (normal >1.5 cm). Atria * The left atrial size is normal. * Right atrial size is normal. * There is no evidence of atrial septal defect, but resolution does not allow assessment for a patent foramen ovale. Mitral Valve * The mitral valve is grossly normal. * There is no mitral valve stenosis. * There is trace mitral regurgitation. Tricuspid Valve * The tricuspid valve is not well visualized, but is grossly normal. * There is no tricuspid stenosis. * There is trace tricuspid regurgitation. Aortic Valve * The aortic valve is trileaflet. * No hemodynamically significant valvular aortic stenosis. * Trace aortic regurgitation. Pulmonic Valve * The pulmonary valve is inadequately visualized, but the Doppler data is adequate for interpretation. * There is no pulmonic valvular stenosis. * There is no significant pulmonary regurgitation. Great Vessels * The aortic root is normal size. * Aortic arch of normal dimension. Pericardium/Pleural * There is no pericardial effusion. Great Vessels * Normal inferior vena cava size and collapsability with sniff indicates a normal right atrial pressure of 3 mmHg MMode 2D Measurements and Calculations IVSd 1.1 cm IVSs 1.8 cm LVIDd 4.1 cm LVIDs 2.9 cm LVPWd 0.94 cm LVPWs 1.3 cm IVS/LVPW 1.2 FS 29.5 % EDV(Teich) 75.1 ml ESV(Teich) 32.3 ml EF(Teich) 57.0 % EDV(cubed) 70.0 ml ESV(cubed) 24.5 ml EF(cubed) 65.0 % % IVS thick 64.7 % % LVPW thick 34.2 % LV mass(C)d 138.0 grams LV mass(C)dI 82.8 grams/m\S\2 LV mass(C)s 159.5 grams LV mass(C)sI 95.6 grams/m\S\2 SV(Teich) 42.8 ml SI(Teich) 25.7 ml/m\S\2 SV(cubed) 45.5 ml SI(cubed) 27.3 ml/m\S\2 Ao root diam 3.3 cm Ao root area 8.8 cm\S\2 LA dimension 3.2 cm LA/Ao 0.97 LVAd ap4 24.7 cm\S\2 LVLd ap4 7.8 cm EDV(MOD-sp4) 65.4 ml EDV(sp4-el) 66.3 ml LVAs ap4 14.5 cm\S\2 LVLs ap4 6.7 cm ESV(MOD-sp4) 27.2 ml ESV(sp4-el) 26.4 ml EF(MOD-sp4) 58.5 % EF(sp4-el) 60.2 % LVAd ap2 25.9 cm\S\2 LVLd ap2 8.4 cm EDV(MOD-sp2) 66.4 ml EDV(sp2-el) 68.1 ml LVAs ap2 15.4 cm\S\2 LVLs ap2 6.9 cm ESV(MOD-sp2) 29.3 ml ESV(sp2-el) 28.9 ml EF(MOD-sp2) 55.9 % EF(sp2-el) 57.6 % LVLd %diff 6.4 % EDV(MOD-bp) 67.9 ml LVLs %diff 2.9 % ESV(MOD-bp) 28.6 ml EF(MOD-bp) 57.8 % SV(MOD-sp4) 38.3 ml SI(MOD-sp4) 23.0 ml/m\S\2 SV(MOD-sp2) 37.1 ml SI(MOD-sp2) 22.3 ml/m\S\2 SV(MOD-bp) 39.3 ml SI(MOD-bp) 23.6 ml/m\S\2 SV(sp4-el) 40.0 ml SI(sp4-el) 24.0 ml/m\S\2 SV(sp2-el) 39.2 ml SI(sp2-el) 23.5 ml/m\S\2 Doppler Measurements and Calculations MV E max hermes 83.9 cm/sec MV A max hermes 115.1 cm/sec MV E/A 0.73 MV dec time 0.25 sec Ao V2 max 108.0 cm/sec Ao max PG 4.7 mmHg Ao max PG (full) 2.8 mmHg LV V1 max PG 1.9 mmHg LV V1 max 69.2 cm/sec TR max hermes 217.2 cm/sec RVSP(TR) 21.9 mmHg RAP systole 3.0 mmHg
--- NOTE | 2016-11-23 17:13 | Cardiology Consultation ---
Cardiology Consultation Date of Consultation: Nov 23, 2016. Requesting Physician: Dr. Thakkar Reason for Consultation: Symptomatic bradycardia Pt evaluation today including: conversation w/ patient, conversation w/ family , physical exam, lab review, review of studies, conversation w/ knowledge management consultant, review of inpatient medication list History of Present Illness This is a very pleasant 76-year-old woman with a long history of hypertension treated with atenolol for many years, as well as COPD. The reason for her visit today was 4 possible URI symptoms, however her background history is notable for a long history of presyncope. These symptoms go back about 6 years when she first got them following a surgical procedure for an abdominal mesh, she had multiple episodes of lightheadedness, dizziness and near syncope at the time. She then did not have much difficulty for some time after that but occasionally would get presyncopal events. The episodes are becoming more frequent and today she was having a lot of difficulty with them when she came into the emergency room and was observed to have periods of sinus arrest. Of note, she will sometimes have these episodes of presyncope when she gets out of bed in the morning before she takes her medications and she takes her atenolol 50 mg in the morning. This makes it unlikely that the atenolol is the sole cause of these symptoms. She has never passed out, the symptoms are not exertional and she is not have a specific limitation in her exercise ability. Past Medical/Surgical History (1) Near syncope (2) Emphysema/COPD (3) GERD (gastroesophageal reflux disease) (4) HTN (hypertension) Family History No pertinent family history Social History Smoking Status: Former Smoker Review of Systems Constitutional: No fever, No weight loss, No weakness Respiratory: + see HPI, + problem reported (sore throat), No cough, No wheezing , No shortness of breath, No dyspnea on exertion Cardiac: + see HPI, + problem reported (dizziness and presyncope), No chest pain, No orthopnea, No PND, No edema, No palpitations Abdomen: No pain, No nausea, No vomiting, No diarrhea, No GI bleeding Female : No problem reported Neurologic: No paralysis, No weakness, No numbness/tingling, No balance problems Heme: No abnormal bleeding/bruising, No clotting problems Endo: No fatigue Skin: No problem reported All Other Systems: Reviewed and Negative Allergies Coded Allergies: Ciprofloxacin (Verified Allergy, Unknown, HEADACHE "feel DRUNK", 11/23/16) Medications Current Inpatient Medications Medications (Trade) Dose Ordered Sig/Chela Route Start Time Stop Time Status Last Admin Dose Admin Aspirin (Ecotrin Tab) 81 mg DAILY PO 11/24/16 09:00 12/24/16 08:59 Salmeterol Xinafoate/ Fluticasone (Advair Diskus 250/50 Inh) 1 puff BID INH 11/23/16 21:00 12/23/16 20:59 Estrogens Conjugated (Premarin Tab) 1.25 mg DAILY PO 11/24/16 09:00 12/24/16 08:59 Pantoprazole Sodium (Protonix Tab) 40 mg DAILY PO 11/24/16 09:00 12/24/16 08:59 Heparin Sodium (Porcine) (Heparin Sq 5000 Unit/0.5ml) 5,000 unit Q8 SQ 11/23/16 14:00 12/23/16 13:59 UNV Acetaminophen (Tylenol Tab) 650 mg Q4H PRN PO 11/23/16 13:00 12/23/16 12:59 Al Hydrox/Mg Hydrox/Simethicone (Maalox Max Susp) 15 ml Q4H PRN PO 11/23/16 13:00 12/23/16 12:59 Magnesium Hydroxide (Milk Of Magnesia Susp) 30 ml Q12H PRN PO 11/23/16 13:00 12/23/16 12:59 Ondansetron HCl (Zofran Inj) 4 mg Q6H PRN IV 11/23/16 13:00 12/23/16 12:59 Polyethylene (Miralax Powder Packet) 17 gm DAILY PRN PO 11/23/16 13:00 12/23/16 12:59 Physical Exam Vital Signs Past 12 Hours Date Time Temp Pulse Resp B/P (MAP) Pulse Ox O2 Delivery O2 Flow Rate FiO2 11/23/16 15:45 36.9 70 22 175/85 95 Room Air 11/23/16 15:39 36.9 70 22 175/85 (115) 95 Room Air 11/23/16 15:29 66 16 162/86 96 11/23/16 14:28 66 16 162/86 96 Room Air 11/23/16 12:55 25 11/23/16 12:48 42 11/23/16 12:00 72 16 155/101 96 Room Air 11/23/16 11:18 96 Room Air 11/23/16 11:14 37 11/23/16 11:14 46 11/23/16 11:09 56 11/23/16 11:01 76 11/23/16 11:00 74 11/23/16 10:58 76 11/23/16 10:45 96 Room Air 11/23/16 10:29 36.6 75 18 157/88 96 Room Air Constitutional: General Apperance: heathly-appearing Level of Distress: NAD Psychiatric: Mental Status: active & alert Head: normocephalic Eyes: EOM: EOMI ENMT: normal ENT inspection, hearing grossly normal Neck: supple, no masses Lungs: Respiratory effort: no dyspnea, good air movement Auscultation: breath sounds normal, no wheezing Cardiovascular: Heart Auscultation: RRR, no murmurs, no rubs, no gallops Peripheral Pulses: Bruits: none appreciated Abdomen: Bowel Sounds: normal Inspection & Palpation: soft, no tenderness, guarding & rebound, no masses Musculoskeletal: normal strength (5/5 throughout) Extremities: no edema Neurologic: Cranial Nerves: grossly intact Sensation: grossly intact Data Laboratory Results: Last 24 Hours Test 11/23/16 10:48 11/23/16 11:10 Bedside Glucose 100 mg/dl White Blood Count 8.12 K/uL Red Blood Count 4.62 M/uL Hemoglobin 14.7 g/dL Hematocrit 43.3 % Mean Corpuscular Volume 93.7 fL Mean Corpuscular Hemoglobin 31.8 pg Mean Corpuscular Hemoglobin Concent 33.9 g/dl Platelet Count 230 K/uL Mean Platelet Volume 9.1 fL Neutrophils (%) (Auto) 61.2 % Lymphocytes (%) (Auto) 24.0 % Monocytes (%) (Auto) 13.1 % Eosinophils (%) (Auto) 1.4 % Basophils (%) (Auto) 0.2 % Neutrophils # (Auto) 4.97 K/uL Lymphocytes # (Auto) 1.95 K/uL Monocytes # (Auto) 1.06 K/uL Eosinophils # (Auto) 0.11 K/uL Basophils # (Auto) 0.02 K/uL RDW Standard Deviation 48.3 fL RDW Coefficient of Variation 14.2 % Immature Granulocyte % (Auto) 0.1 % Immature Granulocyte # (Auto) 0.01 K/uL Prothrombin Time 9.7 SECONDS Prothromb Time International Ratio 0.9 Activated Partial Thromboplast Time 25.7 SECONDS Partial Thromboplastin Ratio 1.0 Sodium Level 139 mmol/L Potassium Level 4.5 mmol/L Chloride Level 107 mmol/L Carbon Dioxide Level 21 mmol/L Anion Gap 11.0 mmol/L Blood Urea Nitrogen 20 mg/dl Creatinine 1.10 mg/dl Est Creatinine Clear Calc Drug Dose 39.3 ml/min Estimated GFR () 56.9 Estimated GFR (Non- 49.1 BUN/Creatinine Ratio 17.8 Random Glucose 97 mg/dl Calcium Level 8.7 mg/dl Magnesium Level 2.1 mg/dl Total Bilirubin 0.4 mg/dl Direct Bilirubin < 0.1 mg/dl Aspartate Amino Transf (AST/SGOT) 17 U/L Alanine Aminotransferase (ALT/SGPT) 15 U/L Alkaline Phosphatase 74 U/L Total Creatine Kinase 66 U/L Creatine Kinase MB 1.4 ng/ml Creatine Kinase MB Ratio 2.1 Troponin I 0.018 ng/ml Total Protein 7.1 gm/dl Albumin 3.2 gm/dl Lipase 159 U/L Thyroid Stimulating Hormone (TSH) 2.150 uIu/ml Lyme Disease IgM Antibody NEG Imaging: Chest x-ray is unremarkable. Echocardiography: Normal left ventricular size and function EKG: Sinus rhythm with periods of sinus arrest Telemetry reviewed: Sinus rhythm with periods of sinus arrest with pauses as long as 5 or 6 seconds. Assessment & Plan #1. Lightheadedness and presyncope: These are almost certainly due to her pauses , which are primarily sinus [place]. She may have AV afriac disease as well but her bradycardia appears to be due to periods of sinus arrest. #2. Sinus node dysfunction: She has clear evidence of sinus node dysfunction on monitoring, some of this may be aggravated by atenolol however it is unlikely that a low dose of atenolol would have this marked in effect and this has been getting progressively worse over the last 6 years. In addition atenolol is a relatively short acting drug and she is on a relatively low dose and she has had symptoms upon arising in the morning for she takes her medications, this would argue against it being a significant beta-blocking effect. I discussed options with her which include discontinuation of atenolol and observation, but it is unlikely that would correct the problem, even if it did it is almost certainly progressive and she will probably need a pacemaker in the near future in any case. The other option is to proceed with a pacemaker which is my recommendation. She is agreeable and I discussed on the telephone with her and he is agreeable as well. I discussed the indications, procedure, risks and alternatives to pacemaker implantation and they understand and she agrees to proceed. Consent obtained. We will plan on pacemaker implantation tomorrow morning first case. Thank you for allowing me to participate in her care.
[2016-11-23 20:00] VITALS: BP 158/91; PULSE 73; TEMP 36.8; O2SAT 97
[2016-11-23] MEDS: FLUTICASONE/SALMETEROL 250/50 (ADVAIR) 14 PUFF/1 INHALER INH SCH (20:24)
[2016-11-23] MEDS: HEPARIN SOD 5000 UNIT/0.5 ML CARP SQ SCH (21:57)
[2016-11-23 23:35] VITALS: BP 142/77; PULSE 67; TEMP 37.1; O2SAT 92
[2016-11-24] VITALS (8 sets, daily range): BP systolic 113–174; BP diastolic 75–95; PULSE 68–98; TEMP 36.6–37; O2SAT 91–94
[2016-11-24] MEDS: HEPARIN SOD 5000 UNIT/0.5 ML CARP SQ SCH ×3 (05:16→21:33)
[2016-11-24] MEDS ORDERED: LACTATED RINGER'S 1000ML 1,000 ML IV ONE (06:00)
[2016-11-24] MEDS ORDERED: CEFAZOLIN IV 1,000 MG in DEXTROSE 5% 50ML 50 ML IV SCH (06:00)
[2016-11-24] MEDS ORDERED: CEFAZOLIN SOD 1000MG/55 ML D5W IV SCH (06:00)
[2016-11-24] MEDS ORDERED: BACITRACIN OINT 0.9 GM PKT ONE (07:24)
[2016-11-24] MEDS ORDERED: MIDAZOLAM HCL 5 MG/ML 1 ML VIAL ONE (07:24)
[2016-11-24] MEDS ORDERED: BACITRACIN 50000 UNIT VIAL ONE (07:24)
[2016-11-24] MEDS ORDERED: FENTANYL CITRATE INJ 50 MCG/1 ML 2 ML VIAL ONE (07:24)
[2016-11-24] MEDS ORDERED: LIDOCAINE HCL 1% 20 ML VIAL ONE (07:26)
--- NOTE | 2016-11-24 08:27 | Procedure Note ---
Pre-Mod Sedation Assessment General Date of Moderate Sedation: Nov 24, 2016. Vital Signs: Vital Signs Past 12 Hours Date Time Temp Pulse Resp B/P (MAP) Pulse Ox O2 Delivery O2 Flow Rate FiO2 11/24/16 07:55 36.6 68 20 161/83 (109) 93 Room Air 11/24/16 04:00 Room Air 11/24/16 03:05 37.0 69 19 138/90 (106) 94 Room Air 11/24/16 00:00 Room Air 11/23/16 23:35 37.1 67 18 142/77 (98) 92 Room Air Review Cardiovascular: regular rate, rhythm Abdomen: normal bowel sounds Lungs: lungs clear Pre-Sedation Airway Assessment Smoking Status: Former Smoker Procedure Planning Contraindications-for Mod Sed: None Yes Notes The planned sedation has been discussed with the patient and consent obtained. I have identified the patient, determined the appropriateness of sedation and have assessed the patient immediately prior to the procedure. All medicine(s) and interventions are by my order.
--- NOTE | 2016-11-24 08:27 | History & Physical Bridge Note ---
H&P Re-Evaluation Bridge Note: I have examined the patient, reviewed the History & Physical and in the interval since the performance of the History & Physical I have noted the following changes of clinical significance: No changes noted
--- NOTE | 2016-11-24 09:35 | Cardiology Procedure Brief Nt ---
Preliminary Cardiology Note Procedure Date Nov 24, 2016. Pre-Procedure Diagnosis sinus node dysfunction Post-Procedure Diagnosis same Procedure(s) Performed Left subclavian venogram Dual chamber pacemaker implantation Temperature Regulator Dr. Tolliver Ceramic Mold Designer(s) none Estimated Blood Loss 30 cc Preliminary Findings Good lead position, good measurements Recommendations Monitor overnight Specimens None Anesthesia local with sedation Complication(s) None Disposition PCU
--- NOTE | 2016-11-24 09:35 | Procedure Note ---
Post-Mod Sedation Assessment General Date of Moderate Sedation Nov 24, 2016. Vital Signs: Vital Signs Past 12 Hours Date Time Temp Pulse Resp B/P (MAP) Pulse Ox O2 Delivery O2 Flow Rate FiO2 11/24/16 07:55 36.6 68 20 161/83 (109) 93 Room Air 11/24/16 04:00 Room Air 11/24/16 03:05 37.0 69 19 138/90 (106) 94 Room Air 11/24/16 00:00 Room Air 11/23/16 23:35 37.1 67 18 142/77 (98) 92 Room Air Review - Discharge Criteria Vital Signs Stable: Yes Alert/Oriented/Conversant: Yes Returned to Baseline Mental St: Yes Nausea Absent/Minimal: Yes Pain/Discomfort/Absent/Minimal: Yes Normal/Baseline Respirations: Yes Active Bleeding?: No
[2016-11-24] MEDS ORDERED: KETOROLAC TROMETHAMINE 10 MG TAB PO PRN (09:45)
[2016-11-24] MEDS ORDERED: ACETAMINOPHEN 325 MG TAB PO PRN (09:45)
[2016-11-24] MEDS: ASPIRIN 81 MG ECTAB PO SCH (12:36)
[2016-11-24] MEDS: ESTROGENS, CONJUGATED 0.625 MG TAB PO SCH (12:36)
[2016-11-24] MEDS: PANTOprazole SOD 40 MG TAB PO SCH (12:36)
[2016-11-24] MEDS: CEFAZOLIN IV 1,000 MG in DEXTROSE 5% 50ML 50 ML IV SCH ×2 (12:36→19:54)
[2016-11-24] MEDS: FLUTICASONE/SALMETEROL 250/50 (ADVAIR) 14 PUFF/1 INHALER INH SCH (12:36)
--- NOTE | 2016-11-24 16:15 | Progress Note ---
Subjective Date of Service: Nov 24, 2016. Subjective Pt evaluation today including: conversation w/ patient, conversation w/ family (), physical exam, lab review, review of studies, conversation w/ consultant dietitian, review of inpatient medication list Pain: sore throat PO Intake: adequate Voiding: no voiding problems permanent pacer placed today, left chest, no issues ate well afterwards denies chest pain, dyspnea still with mild cough and sore throat, ongoing bronchitis Problem List Medical Problems: (1) Chronic obstructive pulmonary disease Status: Acute (2) Contusion of left knee Status: Acute (3) Contusion of right wrist Status: Acute (4) COPD exacerbation Status: Acute (5) Corneal foreign body Status: Acute (6) Emphysema/COPD Status: Chronic (7) GERD (gastroesophageal reflux disease) Status: Chronic (8) HTN (hypertension) Status: Chronic (9) Near syncope Status: Chronic (10) Rib contusion Status: Acute (11) Sinus arrest Status: Acute (12) Upper respiratory infection Status: Acute (13) Upper respiratory infection Status: Acute Review of Systems ENT: + sore throat Respiratory: + cough All Other Systems: Reviewed and Negative Medications Current Inpatient Medications Medications (Trade) Dose Ordered Sig/Chela Route Start Time Stop Time Status Last Admin Dose Admin Aspirin (Ecotrin Tab) 81 mg DAILY PO 11/24/16 09:00 12/24/16 08:59 11/24/16 12:36 81 MG Salmeterol Xinafoate/ Fluticasone (Advair Diskus 250/50 Inh) 1 puff BID INH 11/23/16 21:00 12/23/16 20:59 11/24/16 12:36 1 PUFF Estrogens Conjugated (Premarin Tab) 1.25 mg DAILY PO 11/24/16 09:00 12/24/16 08:59 11/24/16 12:36 1.25 MG Pantoprazole Sodium (Protonix Tab) 40 mg DAILY PO 11/24/16 09:00 12/24/16 08:59 11/24/16 12:36 40 MG Heparin Sodium (Porcine) (Heparin Sq 5000 Unit/0.5ml) 5,000 unit Q8 SQ 11/23/16 22:00 12/23/16 21:59 11/23/16 21:57 5,000 UNIT Acetaminophen (Tylenol Tab) 650 mg Q4H PRN PO 11/23/16 13:00 12/23/16 12:59 Al Hydrox/Mg Hydrox/Simethicone (Maalox Max Susp) 15 ml Q4H PRN PO 11/23/16 13:00 12/23/16 12:59 Magnesium Hydroxide (Milk Of Magnesia Susp) 30 ml Q12H PRN PO 11/23/16 13:00 12/23/16 12:59 Ondansetron HCl (Zofran Inj) 4 mg Q6H PRN IV 11/23/16 13:00 12/23/16 12:59 Polyethylene (Miralax Powder Packet) 17 gm DAILY PRN PO 11/23/16 13:00 12/23/16 12:59 Lactated Ringer's 1,000 ml @ 15 mls/hr Q24H ONCE IV 11/24/16 06:00 11/25/16 05:59 11/24/16 06:00 15 MLS/HR Cefazolin Sodium 1000 mg/Dextrose 55 ml @ 100 mls/hr Q8H IV 11/24/16 12:00 11/25/16 11:59 11/24/16 12:36 100 MLS/HR Acetaminophen (Tylenol Tab) 650 mg Q4H PRN PO 11/24/16 09:45 12/24/16 09:44 Ketorolac Tromethamine (Toradol Tab) 10 mg Q6H PRN PO 11/24/16 09:45 11/29/16 09:44 Objective Vital Signs Date Time Temp Pulse Resp B/P (MAP) Pulse Ox O2 Delivery O2 Flow Rate FiO2 11/24/16 15:27 36.7 80 16 130/85 (100) 91 Room Air 11/24/16 12:00 Room Air 11/24/16 11:38 36.6 73 22 113/75 (88) 93 Room Air 11/24/16 09:40 77 18 123/78 (93) 92 Room Air 11/24/16 09:30 70 18 114/82 (93) 95 Room Air 11/24/16 08:00 Room Air 11/24/16 07:55 36.6 68 20 161/83 (109) 93 Room Air 11/24/16 07:30 Room Air 11/24/16 04:00 Room Air 11/24/16 03:05 37.0 69 19 138/90 (106) 94 Room Air 11/24/16 00:00 Room Air 11/23/16 23:35 37.1 67 18 142/77 (98) 92 Room Air 11/23/16 20:00 Room Air 11/23/16 20:00 36.8 73 18 158/91 (113) 97 Room Air Physical Exam General Appearance: WD/WN, no apparent distress ENT: normal ENT inspection, hearing grossly normal, pharynx normal Neck: supple, no adenopathy, no JVD Respiratory/Chest: chest non-tender, lungs clear, normal breath sounds, no respiratory distress, no accessory muscle use, + pertinent finding (left chest with pacer, skin clean, dressing dry) Cardiovascular: regular rate, rhythm, no edema, no gallop, no JVD, no murmur Abdomen: normal bowel sounds, non tender, soft, no organomegaly Extremities: normal range of motion, non-tender, normal inspection, no pedal edema, no calf tenderness, pelvis stable Neurologic/Psychiatric: 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 Her symptoms have worsened over the past day as well. She also describes a brief episode of dizziness, blurred vision and near-syncope. She has been having these episodes for several months and has previously had a nondiagnostic workup. While in the ER she developed a 5 second pause on her EKG. This corresponded with her above symptoms. She denies CP, N/V, fevers prior to arrival. - Sinus pause, 5 seconds, recent h/o pre-syncope s/p pacer today, tolerated well keep overnight, empiric antibiotics likely d/c tomorrow - Bronchitis: nebulizers, no need for antibiotics, steroids - COPD: no exacerbation, continue maintenance inhalers DVT prophylaxis: heparin
[2016-11-24] MEDS ORDERED: ALBUT/IPRATROP 3MG/0.5MG NEB 3 ML VIAL INH PRN (16:30)
[2016-11-24] MEDS: ALBUT/IPRATROP 3MG/0.5MG NEB 3 ML VIAL INH SCH (19:26)
[2016-11-25] MEDS: CEFAZOLIN IV 1,000 MG in DEXTROSE 5% 50ML 50 ML IV SCH (03:36)
[2016-11-25 03:40] VITALS: BP 155/89; PULSE 87; TEMP 36.3; O2SAT 94
[2016-11-25] MEDS: HEPARIN SOD 5000 UNIT/0.5 ML CARP SQ SCH (05:27)
--- NOTE | 2016-11-25 06:53 | DIAGNOSTIC IMAGING REPORT ---
CHEST 2 VIEWS ROUTINE CLINICAL HISTORY: EXACT TIME ORDERED Evaluate for pneumothorax and lead placement COMPARISON STUDY: 11/23/2016 FINDINGS: Permanent bipolar cardiac pacemaker. Leads are in good position. No evidence of pneumothorax. IMPRESSION: Bipolar cardiac pacemaker in good position. No evidence pneumothorax. Electronically signed by: Conner Glaser M.D. 11/25/2016 6:52 AM Dictated Date/Time: 11/25/2016 6:51 AM
[2016-11-25 07:13] VITALS: BP 177/69; PULSE 70; TEMP 36.4; O2SAT 95
[2016-11-25] MEDS: ALBUT/IPRATROP 3MG/0.5MG NEB 3 ML VIAL INH SCH (07:23)
[2016-11-25 07:25] VITALS: PULSE 80; O2SAT 94
[2016-11-25] MEDS: ASPIRIN 81 MG ECTAB PO SCH (07:35)
[2016-11-25] MEDS: PANTOprazole SOD 40 MG TAB PO SCH (07:36)
[2016-11-25] MEDS: ESTROGENS, CONJUGATED 0.625 MG TAB PO SCH (07:39)
--- NOTE | 2016-11-25 08:19 | Cardiology Follow-Up ---
Subjective Date of Service: Nov 25, 2016. Pt evaluation today including: conversation w/ patient, physical exam, lab review, review of studies, review of inpatient medication list History of Present Illness This is a very pleasant 76-year-old woman with a long history of hypertension treated with atenolol for many years, as well as COPD. The reason for her visit today was 4 possible URI symptoms, however her background history is notable for a long history of presyncope. These symptoms go back about 6 years when she first got them following a surgical procedure for an abdominal mesh, she had multiple episodes of lightheadedness, dizziness and near syncope at the time. She then did not have much difficulty for some time after that but occasionally would get presyncopal events. The episodes are becoming more frequent and today she was having a lot of difficulty with them when she came into the emergency room and was observed to have periods of sinus arrest. Of note, she will sometimes have these episodes of presyncope when she gets out of bed in the morning before she takes her medications and she takes her atenolol 50 mg in the morning. This makes it unlikely that the atenolol is the sole cause of these findings. She has never passed out, the symptoms are not exertional and she is not have a specific limitation in her exercise ability. With severe symptomatic sinus node dysfunction she underwent dual-chamber pacemaker implantation yesterday without apparent difficulty. Today she has only minor incisional discomfort. Social History Smoking Status: Former Smoker Review of Systems Respiratory: + cough Cardiac: + see HPI, No chest pain, No orthopnea, No PND, No edema, No palpitations Objective Vital Signs Past 12 Hours Date Time Temp Pulse Resp B/P (MAP) Pulse Ox O2 Delivery O2 Flow Rate FiO2 11/25/16 07:25 80 16 94 Room Air 11/25/16 07:13 36.4 70 18 177/69 (105) 95 Room Air 11/25/16 04:00 Room Air 11/25/16 03:40 36.3 87 18 155/89 (111) 94 Room Air 11/25/16 00:01 Room Air 11/24/16 23:08 36.7 98 18 159/93 (115) 92 Room Air 11/24/16 20:54 98 163/92 (115) Last Recorded Weight-Kilograms: 64.200 Physical Exam Constitutional: General Apperance: heathly-appearing Level of Distress: NAD Lungs: Respiratory effort: no dyspnea, good air movement Auscultation: breath sounds normal, no wheezing Cardiovascular: Heart Auscultation: RRR, no murmurs, no rubs, no gallops Peripheral Pulses: Bruits: none appreciated Extremities: no edema Pacer site is clean and dry Data Imaging: Chest x-ray shows good lead position, no pneumothorax EKG: Nl pacer operation Telemetry reviewed: Normal pacemaker function Pacer evaluation: Normal function Assessment and Plan #1. Lightheadedness and presyncope: These are almost certainly due to her pauses , which are primarily sinus africa. She may have AV africa disease as well but her bradycardia appears to be due to periods of sinus arrest. #2. Sinus node dysfunction: Now with pacer in place #3. Post-op day #1: Doing well, site looks good, pacer working well. Stable for discharge from my standpoint. I will arrange followup on Sunday, will provide instructions Thank you for allowing me to participate in her care.
--- NOTE | 2016-11-25 08:21 | Consultant Recommendations ---
Appeals Examiner Recommendations Date of Service Nov 25, 2016. Appeals Examiner Recommendations ACTIVITY RECOMMENDATIONS: * Do not raise affected arm over head for 2 weeks. SPECIAL CARE INSTRUCTIONS: * If bleeding occurs, apply direct pressure to area for 5 minutes. * Call your doctor if you have severe pain, fever, drainage or bleeding at site. * Keep dressing on and dry for 48 hours then remove. * Keep any scheduled doctor's appointment. * Implant Card - hand held device with website information given. SKIN IRRITATION: * You may experience some redness and/or swelling in the area where radiation was administered. If any skin irritation occurs, please contact your family physician. FOLLOW UP VISIT: Followup Dr. Tolliver Sunday11/27/2016 11:00 AM
[2016-11-25] MEDS ORDERED: VNTHFA/IN INH (08:27)
[2016-11-25] MEDS ORDERED: PRD20 PO (08:27)
--- NOTE | 2016-11-25 08:33 | Discharge Instructions ---
Discharge Instructions Date of Service Nov 25, 2016. Admission Reason for Admission: Bronchitis, Sinus Pause Discharge Discharge Diagnosis / Problem: Sinus pause, s/p pacemaker, acute bronchitis Discharge Goals Goal(s): Improve function, Improve disease control Activity Recommendations Activity Limitations: resume your previous activity Shower/Bathe: keep incision dry Driving or Machine Use: no limitations Instructions / Follow-Up Instructions / Follow-Up Medications: - PREDNISONE: take 20mg daily for 3 more days, starting tomorrow, for bronchitis - ALBUTEROL: take as needed for dyspnea for the next several days Pacemaker: see the below instructions from Dr. Tolliver, follow up in office on November 27 FOLLOW UP - Dr. Hernandez in 1-2 weeks, call for hospital follow up Current Hospital Diet Patient's current hospital diet: AHA Diet (Heart Healthy) Discharge Diet Recommended Diet: AHA Diet (Heart Healthy) Pending Studies Studies pending at discharge: no Medical Emergencies . Who to Call and When: Medical Emergencies: If at any time you feel your situation is an emergency, please call 911 immediately. . Non-Emergent Contact Non-Emergency issues call your: Primary Care Provider, Music Instructor Call Non-Emergent contact if: you have a fever, your pain is worsening, wound has increased drainage, wound has increased redness, wound has increased pain, you have any medication questions . . "Provider Documentation" section prepared by Dejuan Szymanski. . Industrial Servicer Recommendations Industrial Servicer Recommendations: ACTIVITY RECOMMENDATIONS: * Do not raise affected arm over head for 2 weeks. SPECIAL CARE INSTRUCTIONS: * If bleeding occurs, apply direct pressure to area for 5 minutes. * Call your doctor if you have severe pain, fever, drainage or bleeding at site. * Keep dressing on and dry for 48 hours then remove. * Keep any scheduled doctor's appointment. * Implant Card - hand held device with website information given. SKIN IRRITATION: * You may experience some redness and/or swelling in the area where radiation was administered. If any skin irritation occurs, please contact your family physician. FOLLOW UP VISIT: Followup Dr. Tolliver Sunday11/27/2016 11:00 AM VTE Core Measure Inpt VTE Proph given/why not?: Unfractionated heparin SQ [place] Drug Monitoring Program Search Results: no issues identified
[2016-11-25 09:49] VITALS: BP 177/69; PULSE 80; TEMP 36.4; O2SAT 94
--- NOTE | 2016-11-25 15:01 | Discharge Summary ---
Discharge Summary Date of Service Nov 25, 2016. Discharge Summary Admission Date: Nov 23, 2016 at 12:58 Discharge Date: Nov 25, 2016 Discharge Disposition: Home Principal Diagnosis: Sinus pause s/p pacemaker Problems/Secondary Diagnoses: Acute bronchitis Procedures: Permanent pacemaker placement, 11/24 Consultations: Cardiology Medication Reconciliation New Medications: Albuterol Hfa (Ventolin Hfa) 200 Puffs/58540 Mcg Aers 2-4 PUFFS INH Q6H PRN for Shortness of Breath, #1 INHALER Prednisone (Prednisone) 20 Mg Tab 20 MG PO QAM, #3 TAB 0 Refills Continued Medications: Aspirin (Aspirin Ec) 81 Mg Tab 81 MG PO DAILY Atenolol (Tenormin) 50 Mg Tab 50 MG PO DAILY, TAB Estradiol Vaginal (Estrace) Unknown Strength Cre 1 DOSE PV 2XWK Estrogens, Conjugated (Premarin) 1.25 Mg Tab 1.25 MG PO DAILY, TAB Fluticasone Prop/Salmeterol (Advair Diskus 250/50 60 Dose) 1 Ea Aerp 1 PUFF INH BID, INHALER Pantoprazole (Protonix) 20 Mg Tab 20 MG PO DAILY, #30 TAB Discharge Exam patient feeling well this AM, cough improving, no sore throat, breathing stable some mild chest discomfort on left side, likely from pacemaker placement ready to go home Review of Systems: Constitutional: No fever, No chills, No sweats, No weight loss, No weakness , No fatigue, No problem reported Eyes: No worsening of vision, No eye pain, No redness, No discharge, No diplopia, No problem reported ENT: No hearing loss, No unusual epistaxis, No nasal symptoms, No sore throat, No tinnitus, No dental problems, No trouble swallowing, No problem reported Respiratory: + cough (improving), No sputum, No wheezing, No shortness of breath, No dyspnea on exertion, No dyspnea at rest, No hemoptysis, No problem reported Cardiovascular: + chest pain (mild, left sided from pacer), No orthopnea, No PND, No edema, No claudication, No palpitations, No problem reported Abdomen: No pain, No nausea, No vomiting, No diarrhea, No constipation, No GI bleeding, No problem reported Musculoskeletal: No joint pain, No muscle pain, No swelling, No calf pain, No problem reported Genitourinary - Female: No dysuria, No urinary frequency, No urinary urgency , No urinary incontinence, No urinary retention, No hematuria Neurologic: No memory loss, No paralysis, No weakness, No numbness/tingling , No vertigo, No balance problems, No problem reported Psychiatric: No depression symptoms, No anhedonism, No anxiety, No insomnia , No substance abuse, No problem reported Endocrine: No fatigue, No excessive thirst, No excessive urination, No problem reported Integumentary: No rash, No itch, No new/changing skin lesions, No color change, No bleeding, No problem reported Physical Exam: General Appearance: WD/WN, no apparent distress Eyes: normal inspection, EOMI, sclerae normal ENT: normal ENT inspection, hearing grossly normal, pharynx normal Neck: supple, no adenopathy, no JVD, trachea midline Respiratory/Chest: chest non-tender, lungs clear, normal breath sounds, no respiratory distress, no accessory muscle use Cardiovascular: regular rate, rhythm, no edema, no gallop, no JVD, no murmur , normal peripheral pulses Abdomen / GI: normal bowel sounds, non tender, soft, no organomegaly Extremities: normal inspection, no calf tenderness, normal capillary refill , no pedal edema, normal range of motion, pelvis stable Neurologic/Psychiatric: transit vehicle inspector II-XII nml as tested, no motor/sensory deficits , alert, normal mood/affect, normal reflexes, oriented x 3 Skin: normal color, warm/dry, no rash, + pertinent finding (pacemaker incision clean and dry, no erythema) Lymphatic: no adenopathy Hospital Course 76 y/o F Hx COPD, HTN - states that she has had upper respiratory symptoms such as cough and congestion for approximately 2 weeks. Her symptoms have worsened over the past day as well. She also describes a brief episode of dizziness, blurred vision and near-syncope. She has been having these episodes for several months and has previously had a nondiagnostic workup. While in the ER she developed a 5 second pause on her EKG. This corresponded with her above symptoms. She denies CP, N/V, fevers prior to arrival. - Sinus pause, 5 seconds, recent h/o pre-syncope s/p pacemaker on 11/24, tolerated well kept overnight for empiric antibiotics d/c home today, follow up with Dr. Tolliver on Monday 11/27 instruction given to keep incision dry, keep left arm below shoulder and do not reach back - acute Bronchitis: continue albuterol PRN and complete 3 more days of Prednisone 20mg daily - COPD: continue Advair DVT prophylaxis: heparin Total Time Spent: Less than 30 minutes This includes examination of the patient, discharge planning, medication reconciliation, and communication with other providers. Discharge Instructions Please refer to the electronic Patient Visit Report (Discharge Instructions) for additional information. Follow-Up Dr. Tolliver on 11/27 PCP in one week Additional Copies To Jordon Tolliver M.D.; Arthur Hernandez
--- NOTE | 2016-12-18 06:30 | [facility] Operative Report ---
Operative Report Operative Date Dec 18, 2016. Pre-Operative Diagnosis Sinus node dysfunction Post-Operative Diagnosis Same Procedure(s) Performed Left subclavian venogram Dual chamber pacemaker implantation Surgeon Dr. Tolliver Neuro Intensivist Physician Surgeon(s) None Estimated Blood Loss 30 cc Findings Left subclavian vein patent Good atrial and ventricular lead position Specimens None Anesthesia Local with sedation Complication(s) None Disposition PCU Description of Procedure After obtaining informed consent for the procedure, the patient was brought to the laboratory and prepped and draped in the standard sterile manner. The left prepectoral region was anesthetized with 1% lidocaine local anesthetic and left axillary venipuncture was attempted, however initial venipuncture was unsuccessful. Dye was injected via the left arm IV site to opacify left subclavian vein which was found to be patent. Once the location of the vein was identified left subclavian venipuncture was performed by percutaneous technique and a guidewire placed through the left subclavian vein into the superior vena cava. The area was further infiltrated with 1% lidocaine local anesthetic and a 5 cm incision was made parallel to the left clavicle and 2 cm below it and carried down to the anterior pectoralis fascia. A pacemaker pocket was formed by blunt dissection anterior to the pectoralis fascia and a bacitracin-soaked sponge (50,000 units in 50 cc normal saline solution) was placed in the pocket. An 8 Cypriot Medtronic lead introducer was placed over the guidewire into the left subclavian vein, the dilator and guidewire were removed and a bipolar active fixation steroid tipped ventricular lead was advanced through the introducer into the superior vena cava. A guidewire was placed through the introducer and the introducer was stripped from the lead and guidewire. Another 8 Cypriot Medtronic lead introducer was placed over the guidewire into the left subclavian vein, the dilator and guidewire were removed and a bipolar active fixation steroid tipped atrial lead was advanced through the introducer into the superior vena cava. A guidewire was placed back through the introducer and the introducer was stripped from the lead and guidewire. Using a curved stylette the ventricular lead was advanced through the right ventricular outflow tract into the pulmonary artery and then using a straight stylette was positioned in the right ventricular apex. The screw was extended fixing the lead in position. Pacing and sensing thresholds were evaluated in bipolar configuration and are recorded on the implant data sheet. Using a curved stylette the atrial lead was positioned in the region of the atrial appendage and the screw extended fixing the lead in position. Pacing and sensing thresholds were evaluated in bipolar configuration and are recorded on the implant data sheet. Once the leads were in position they were attached to the anterior pectoralis fascia using 2 sutures of 2-0 silk around each lead collar. The bacitracin- soaked sponge was removed from the pocket, hemostasis was obtained, the pacemaker was attached to the leads and placed in the pocket with the leads coiled beneath it. The incision was closed with a running double subcutaneous closure of 3-0 V-Lock absorbable suture, followed by running subcuticular skin closure of 4-0 V-Lock absorbable suture. Bacitracin ointment was placed on the incision and a pressure dressing applied. I attest to the content of the Intraoperative Record and any orders documented therein. Any exceptions are noted below.
[2017-03-29] MEDS ORDERED: ESTR1.252 PO (11:10)
[2017-03-29] MEDS ORDERED: ADVIN25/60 INH (11:10)
== END 2016-11-25 10:35 | disposition home or self-care (01) | DRG 243 ==
LOC: C.EDB 10:29 → C.2T 12:58 → ENRESERV 13:25
PROVIDERS: ADMIT Internal Medicine; ATTEND Internal Medicine
PROC: 02H63JZ Insertion of Pacemaker Lead into Right Atrium, Percutaneous Approach (ICD-10-PCS; principal; 2016-11-24 07:15)
PROC: 0JH606Z Insertion of Pacemaker, Dual Chamber into Chest Subcutaneous Tissue and Fascia, Open Approach (ICD-10-PCS; principal; 2016-11-24 07:15)
PROC: 02HK3JZ Insertion of Pacemaker Lead into Right Ventricle, Percutaneous Approach (ICD-10-PCS; principal; 2016-11-24 07:15)
DX: I49.5 Sick sinus syndrome (principal); J44.0 Chronic obstructive pulmonary disease with (acute) lower respiratory infection; R55 Syncope and collapse; J44.9 Chronic obstructive pulmonary disease, unspecified; J20.9 Acute bronchitis, unspecified; I10 Essential (primary) hypertension; K21.9 Gastro-esophageal reflux disease without esophagitis; Z79.82 Long term (current) use of aspirin; Z79.899 Other long term (current) drug therapy; Z87.891 Personal history of nicotine dependence; Z98.49 Cataract extraction status, unspecified eye; Z83.6 Family history of other diseases of the respiratory system; Z79.2 Long term (current) use of antibiotics; Z88.1 Allergy status to other antibiotic agents

== ENCOUNTER 2017-03-29 19:12 | Emergency (ER) | payer OTHER ==
[~2017-03-29] VITALS: Ht 157.5 cm; Wt 78.2 kg
[~2017-03-29 19:12] MED LIST changes: +ADVIN25/60 INH; -AMOX875T PO; -AZIT250T PO; +ESTR1.252 PO; -METH1TAB81 PO; +PRD20 PO; +VNTHFA/IN INH
[2017-03-29 19:20] VITALS: TEMP 36.7; Ht 157.5 cm; Wt 78.2 kg
[2017-03-29] MEDS ORDERED: OXYCODONE HCL IR 5 MG TAB (IMMEDIATE RELEASE) PO STA ×2 (19:24→21:39)
[2017-03-29] MEDS ORDERED: ONDANSETRON 4MG OD TAB PO ONE (19:30)
--- NOTE | 2017-03-29 19:59 | EMERGENCY ROOM VISIT NOTE ---
History Report prepared by Yo: Juma Prater Under the Supervision of: Dr. Shon Rizzo D.O. First contact with patient: 19:18 Chief Complaint: FALL Stated Complaint: FALL History of Present Illness The patient is a 77 year old female who presents to the Emergency Room with complaints of constant arm pain that started prior to arrival. She rates her pain as a 5/10 in severity. The patient states that she went around the corner at [facility] and slipped. She reports that she fell on the floor and following the incident she needed help getting up. The patient states that after , she started to experience left arm pain, which prompted her to report to the ED. The patient admits that she has a history of hypertension, which she takes medication for, and an irregular heart beat, which she has a pacemaker for. She reports that she takes Xarelto and admits to an allergy to Cipro. The patient denies any loss of consciousness, hitting her head, headache, and tobacco use or alcohol use. Source of History: patient Onset: prior to arrival Position: arm (left) Symptom Intensity: 5/10 Timing: constant Associated Symptoms: No LOC, No headache Review of Systems See HPI for pertinent positives & negatives. A total of 10 systems reviewed and were otherwise negative. Past Medical & Surgical Medical Problems: (1) Bronchitis (2) Emphysema/COPD (3) GERD (gastroesophageal reflux disease) (4) HTN (hypertension) (5) Near syncope (6) Sinus pause Surgical Problems: (1) History of cataract extraction Family History No pertinent family history Social History Smoking Status: Former Smoker Alcohol Use: none Drug Use: none Marital Status: Housing Status: lives with family Occupation Status: retired Current/Historical Medications Scheduled Albuterol Hfa (Ventolin Hfa), 2-4 PUFFS INH Q6H Estrogens, Conjugated (Premarin), 1.25 MG PO DAILY Fluticasone Prop/Salmeterol (Advair Diskus 250/50 60 Dose), 1 PUFF INH BID Gabapentin (Neurontin), 300 MG PO BID Metoprolol Tartrate (Lopressor) (Lopressor), 50 MG PO DAILY Pantoprazole (Protonix), 40 MG PO DAILY Rivaroxaban (Xarelto), 20 MG PO DAILY Allergies Coded Allergies: Ciprofloxacin (Verified Allergy, Unknown, HEADACHE "feel DRUNK", 11/23/16) Physical Exam Vital Signs Date Time Temp Pulse Resp B/P (MAP) Pulse Ox O2 Delivery O2 Flow Rate FiO2 03/29/17 22:30 81 20 180/98 96 03/29/17 21:19 76 18 196/107 94 Room Air 03/29/17 19:20 36.7 81 18 191/108 97 Room Air Physical Exam GENERAL: Patient is awake, alert, and very anxious and uncomfortable appearing. EYES: The conjunctivae are clear. The pupils are round and reactive. EARS, NOSE, MOUTH AND THROAT: The nose is without any evidence of any deformity. Mucous membranes are moist tongue is midline NECK: The neck is nontender and supple. RESPIRATORY: Normal respiratory effort is noted there is no evidence of wheezing rhonchi or rales CARDIOVASCULAR: Regular rate and rhythm noted there no murmurs rubs or gallops normal S1 normal S2 GASTROINTESTINAL: The abdomen is soft. Bowel sounds are present in all quadrants. Abdomen is nontender PELVIS: The Pelvis is stable. No tenderness to palpation is noted. BACK: No midline tenderness or or step-off noted range of motion in flexion extension as well as rotation no signs of muscle spasm noted MUSCULOSKELETAL/EXTREMITIES: Extensive tenderness over the left shoulder. Deltoid step off noted with significant swelling. No tenderness at elbow or wrist. ROM in hips normal. SKIN: There is no obvious evidence of any rash. There are no petechiae, pallor or cyanosis noted. NEUROLOGIC: Patient is awake alert and oriented x3. Medical Decision & Procedures ER Provider Diagnostic Interpretation: Radiology results as stated below per my review and radiologist interpretation: L SHOULDER MIN 2 VIEWS ROUTINE CLINICAL HISTORY: Left shoulder pain following fall. COMPARISON: None FINDINGS: The left humeral head is displaced anteriorly with respect to the glenoid consistent with anterior dislocation. There is a possible Hill-Sachs. No additional fractures are identified. A dual lead left subclavian pacemaker is partially imaged. 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 IMPRESSION: 1. Anterior left shoulder dislocation. 2. Suspected Hill-Sachs. Electronically signed by: Mariano Granados M.D. 03/29/2017 9:20 PM Dictated Date/Time: 03/29/2017 9:19 PM L SHOULDER MIN 2 VIEWS ROUTINE CLINICAL HISTORY: Post reduction. COMPARISON: Left shoulder radiographs March 29, 2017 at 9:12 PM. FINDINGS: Alignment of the left shoulder is anatomic status post reduction. No definite fractures are identified. A left subclavian pacer is incidentally noted. IMPRESSION: Anatomic alignment of the left glenohumeral joint status post reduction. No fracture identified. Electronically signed by: Mariano Granados M.D. 03/29/2017 10:09 PM Dictated Date/Time: 03/29/2017 10:08 PM Medications Administered Medications (Trade) Dose Ordered Sig/Chela Route Start Time Stop Time Status Last Admin Dose Admin Oxycodone HCl (Roxicodone Immediate Rel Tab) 5 mg NOW STAT PO 03/29/17 19:24 03/29/17 19:26 DC 03/29/17 19:43 5 MG Ondansetron HCl (Zofran Odt) 4 mg ONE ONCE PO 03/29/17 19:30 03/29/17 19:31 DC 03/29/17 19:42 4 MG Oxycodone HCl (Roxicodone Immediate Rel Tab) 5 mg NOW STAT PO 03/29/17 21:39 03/29/17 21:40 DC 03/29/17 21:45 5 MG Oxycodone HCl (Roxicodone Immediate Rel 5MG Home Pack) 1 homepack UD ONCE PO 03/29/17 22:15 03/29/17 22:16 DC 03/29/17 22:27 1 HOMEPACK ED Course 1918: The patient was evaluated in room A04A. A complete history and physical examination were performed. 1923: Ordered Oxycodone HCl 5 mg PO. 1929: Ordered Odansetron HCl 4 mg PO. 2138: Ordered Oxycodone HCl 5 mg PO. 2208: Upon reevaluation, the patient is resting comfortably. I discussed the results and treatment plan with the patient. She verbalized agreement of the treatment plan. The patient was discharged home. 2214: Ordered Oxycodone HCl 1 homepack PO. Medical Decision Prior records reviewed and summarized above. Triage Nursing notes reviewed and agree them. Additional history obtained from patient. The patient's history was concerning for traumatic injury. Differential diagnosis: Etiologies such as fracture, dislocation, neurovascular compromise, compartment syndrome, soft tissue injury, as well as others were entertained. The patient is a 77-year-old female who presented to the emergency department for an evaluation of shoulder pain. The patient suffered a mechanical fall and had a shoulder injury. Physical exam appeared to be consistent with shoulder dislocation. X-rays confirm shoulder dislocation. The patient was able to be reduced in usual fashion with her lying prone. She was treated with pain medication. She was placed in a sling. She was given follow-up information with orthopedics and encouraged to follow up this is possible. Otherwise she was encouraged to return to the emergency department immediately symptoms change worsen or the need arises. Medication Reconcilliation Current Medication List: was personally reviewed by me Blood Pressure Screening Patient's blood pressure: Elevated blood pressure Blood pressure disposition: Elevated BP felt to be situational, Referred to PCP Impression Primary Impression: Anterior shoulder dislocation Scribe Attestation The scribe's documentation has been prepared under my direction and personally reviewed by me in its entirety. I confirm that the note above accurately reflects all work, treatment, procedures, and medical decision making performed by me. Departure Information Dispostion Home / Self-Care Referrals Arthur Hernandez (PCP) Forms HOME CARE DOCUMENTATION FORM, IMPORTANT VISIT INFORMATION Patient Instructions ED Dislocation Shoulder Redu, My [facility] Additional Instructions Continue all medications as prescribed. Continue to use Motrin and Tylenol as directed for mild pain. Follow-up with the orthopedic physician as soon as possible. Problem Qualifiers Primary Impression: Anterior shoulder dislocation Encounter type: initial encounter Laterality: left Qualified Codes: S43.015A - Anterior dislocation of left humerus, initial encounter
[2017-03-29] MEDS ORDERED: PANT40TA PO (20:45)
[2017-03-29] MEDS ORDERED: VNTHFA/IN INH (20:45)
[2017-03-29] MEDS ORDERED: METO50TA16 PO (20:47)
[2017-03-29] MEDS ORDERED: GABA-113 PO (20:47)
[2017-03-29] MEDS ORDERED: RIVA1TAB4 PO (20:47)
--- NOTE | 2017-03-29 21:22 | DIAGNOSTIC IMAGING REPORT ---
L SHOULDER MIN 2 VIEWS ROUTINE CLINICAL HISTORY: Left shoulder pain following fall. COMPARISON: None FINDINGS: The left humeral head is displaced anteriorly with respect to the glenoid consistent with anterior dislocation. There is a possible Hill-Sachs. No additional fractures are identified. A dual lead left subclavian pacemaker is partially imaged. 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 IMPRESSION: 1. Anterior left shoulder dislocation. 2. Suspected Hill-Sachs. Electronically signed by: Mariano Granados M.D. 03/29/2017 9:20 PM Dictated Date/Time: 03/29/2017 9:19 PM
--- NOTE | 2017-03-29 22:11 | DIAGNOSTIC IMAGING REPORT ---
L SHOULDER MIN 2 VIEWS ROUTINE CLINICAL HISTORY: Post reduction. COMPARISON: Left shoulder radiographs March 29, 2017 at 9:12 PM. FINDINGS: Alignment of the left shoulder is anatomic status post reduction. No definite fractures are identified. A left subclavian pacer is incidentally noted. IMPRESSION: Anatomic alignment of the left glenohumeral joint status post reduction. No fracture identified. Electronically signed by: Mariano Granados M.D. 03/29/2017 10:09 PM Dictated Date/Time: 03/29/2017 10:08 PM
[2017-03-29] MEDS ORDERED: OXYCODONE IR HOME PACK PO ONE (22:15)
[2017-03-29 22:30] VITALS: BP 180/98; PULSE 81; O2SAT 96
== END 2017-03-29 22:30 | disposition home or self-care (01) ==
LOC: EDBD 19:12 → C.EDA 19:13
DX: S43.015A Anterior dislocation of left humerus, initial encounter (principal); W01.0XXA Fall on same level from slipping, tripping and stumbling without subsequent striking against object, initial encounter; Y92.511 Restaurant or cafe as the place of occurrence of the external cause; I10 Essential (primary) hypertension; I45.5 Other specified heart block; Z95.0 Presence of cardiac pacemaker; Z79.01 Long term (current) use of anticoagulants; J44.9 Chronic obstructive pulmonary disease, unspecified; K21.9 Gastro-esophageal reflux disease without esophagitis

== ENCOUNTER → 2017-04-02 | Outpatient (CLI) | payer OTHER ==
[~2017-04-02] MED LIST changes: -ASPI81TA28 PO; -ATEN50TA8 PO; -ESTCR PV; +GABA-113 PO; +METO50TA16 PO; +PANT40TA PO; -PRD20 PO; -PRT/20 PO; +RIVA1TAB4 PO
--- NOTE | 2017-04-02 11:19 | DIAGNOSTIC IMAGING REPORT ---
(RENAL)RETROPERITON COMP HISTORY: 77 years-old Female N28.1 Renal cyst follow-up study to assess large right renal cysts. COMPARISON: CT 09/09/2015 TECHNIQUE: Multiple real-time sonographic images of the kidneys and urinary bladder were obtained assessing grayscale appearance and color flow FINDINGS: Right kidney measures 9.5 x 4.9 x 5.4 cm. No right-sided renal calculi or hydronephrosis. Large simple appearing cyst of the mid pole right kidney is seen, 6.4 x 5.4 x 6.6 cm which appears stable from comparison. Additionally, there is a 6.3 x 5.9 x 5.9 cm cyst of the upper pole right kidney containing thick and nodular calcified septations causing some posterior acoustic shadowing measuring up to 3 mm. These findings also appear unchanged from comparison CT. No mural soft tissue nodularity identified. The left kidney measures 9.7 x 5.8 x 4.7 cm and demonstrates a few small subcentimeter renal cysts. 8 x 4 mm non-shadowing echogenicity of the mid pole left kidney as noted on image 31 suggesting calculus.. The urinary bladder is unremarkable with bilateral ureteral jets documented. IMPRESSION: 1. Right renal cysts are again seen with unchanged size and appearance from comparison CT 09/09/2015. Cyst within the superior pole right kidney demonstrates internal calcified septations which are somewhat thick and nodular compatible with Bosniak 2F classification. Six-month follow-up recommended. 2. Nonshadowing 8 mm echogenicity of the mid pole left kidney suggests calculus. No hydronephrosis. The above report was generated using voice recognition software. It may contain grammatical, syntax or spelling errors. Electronically signed by: Dony Wallis M.D. 04/02/2017 11:17 AM Dictated Date/Time: 04/02/2017 11:09 AM
== END | disposition home or self-care (01) ==
LOC: C.ULTR 10:33
PROVIDERS: ATTEND Urology
DX: N28.1 Cyst of kidney, acquired (principal)

== ENCOUNTER 2017-06-29 11:17 | Emergency (ER) | payer OTHER ==
[~2017-06-29] VITALS: Ht 157.5 cm; Wt 62.7 kg
[2017-06-29 11:21] VITALS: TEMP 36.5; Ht 157.5 cm; Wt 62.7 kg
--- NOTE | 2017-06-29 12:28 | EMERGENCY ROOM VISIT NOTE ---
History Report prepared by Yo: Tarik Bro Under the Supervision of: Dr. Homar Erickson M.D. First contact with patient: 12:16 Chief Complaint: URINARY SYMPTOMS Stated Complaint: BLOOD IN BLADDER Nursing Triage Summary: pt reports blood in urine started 2 days ago and having frequent urination. denies any n/v/flank pain or abd pain History of Present Illness The patient is a 77 year old female who presents to the Emergency Room for evaluation of blood in urine. Notes chills overnight with increased urinary frequency and suprapubic discomfort. No flank pain, nausea, vomiting, fevers, weakness, swelling, rashes, abdominal pain nor other symptoms. She has history of kidney stones which this is not similar to. Recently on abx last month for foot infection. No significant burning with urination. She is on Xarelto. She is allergic to cipro. Source of History: patient Onset: 1 day ago Position: other (urogenital) Timing: constant Associated Symptoms: + chills, + urinary symptoms, No fevers, No vomiting, No weakness Note: Pt denies swelling in lower extremities. Review of Systems See HPI for pertinent positives & negatives. A total of 10 systems reviewed and were otherwise negative. Past Medical & Surgical Medical Problems: (1) Bronchitis (2) Emphysema/COPD (3) GERD (gastroesophageal reflux disease) (4) HTN (hypertension) (5) Near syncope (6) Sinus pause Surgical Problems: (1) History of cataract extraction Family History No pertinent family history Social History Smoking Status: Never Smoker Alcohol Use: none Drug Use: none Marital Status: Housing Status: lives with family Occupation Status: retired Current/Historical Medications Scheduled Albuterol Hfa (Ventolin Hfa), 2-4 PUFFS INH Q6H Cefdinir (Omnicef), 300 MG PO Q12H Estrogens, Conjugated (Premarin), 1.25 MG PO DAILY Fluticasone Prop/Salmeterol (Advair Diskus 250/50 60 Dose), 1 PUFF INH BID Metoprolol Tartrate (Lopressor) (Lopressor), 50 MG PO DAILY Pantoprazole (Protonix), 40 MG PO DAILY Rivaroxaban (Xarelto), 20 MG PO DAILY Scheduled PRN Gabapentin (Neurontin), 300 MG PO BID PRN for FOOT PAIN Allergies Coded Allergies: Ciprofloxacin (Verified Allergy, Unknown, HEADACHE "feel UNK", 06/29/17) Physical Exam Vital Signs Date Time Temp Pulse Resp B/P (MAP) Pulse Ox O2 Delivery O2 Flow Rate FiO2 06/29/17 12:57 75 136/86 95 06/29/17 11:21 36.5 69 18 139/84 94 Room Air Physical Exam GENERAL: Patient is elderly appearing and in no acute distress. HEENT: No acute trauma, normocephalic atraumatic, mucous membranes moist, no nasal congestion, no scleral icterus. NECK: No stridor, no adenopathy, no meningismus, trachea is midline. LUNGS: No dyspnea. Clear to auscultation and equal bilaterally. No wheeze, no rhonchi. HEART: Regular rate and rhythm. No murmurs, rubs, gallops appreciated. ABDOMEN: Soft, bowel sounds positive, no masses appreciated, no peritonitis. Mild super pubic tenderness to palpation BACK: No midline tenderness, no CVA tenderness EXTREMITIES: Normal motion all extremities, no cyanosis, no edema. NEUROLOGIC: Alert and oriented, no acute motor or sensory deficits, no focal weakness, cranial nerves grossly intact. SKIN: No rash, no jaundice, no diaphoresis. Medical Decision & Procedures Laboratory Results Test 06/29/17 11:35 Urine Color BROWN Urine Appearance CLOUDY (CLEAR) Urine pH 5.5 (4.5-7.5) Urine Specific [place] 1.025 (1.000-1.030) Urine Protein 2+ (NEG) Urine Glucose (UA) NEG (NEG) Urine Ketones NEG (NEG) Urine Occult Blood 3+ (NEG) Urine Nitrite POS (NEG) Urine Bilirubin NEG (NEG) Urine Urobilinogen NEG (NEG) Urine Leukocyte Esterase TRACE (NEG) Urine RBC >30 /hpf (0-4) Urine WBC >30 /hpf (0-5) Urine Epithelial Cells >30 /lpf (0-5) Urine Renal Cells 5-10 /lpf (FEW) Urine Bacteria 4+ (NEG) Laboratory results as reviewed by me. Medications Administered Medications (Trade) Dose Ordered Sig/Chela Route Start Time Stop Time Status Last Admin Dose Admin Cephalexin Monohydrate (Keflex Cap) 1,000 mg NOW ONCE PO 06/29/17 13:00 06/29/17 13:01 DC 06/29/17 12:55 1,000 MG ED Course 1216: The patient was evaluated in room C9. A complete history and physical exam was performed. 1300: Reevaluated the patient. Discussed results and discharge instructions: The patient verbalized understanding and agreement. The patient is ready for discharge. Medical Decision Differential: UTI, Urethritis, Pyelonephritis, Ureteral Stone, Cancer, Bleeding mass, Hemorrhagic Cystitis, amongst other pathologies entertained. 77 yr old female with history of kidney stones arrives with 1 day bloody urine and increased urinary frequency with suprapubic discomfort. Notes maybe some chills last night. Not septic appearing. No pain to suggest stone. 4+ bacteria and nit in urine along with blood thus I feel this is UTI cause of hematuria as she is on Xarelto. She looks well and in no distress. Perfectly comfortable with avoiding labs other than UA which has already been done so that she can get to lunch. Given Keflex but as unclear what abx she was on for foot infection last month will bump up to Omnicef as outpatient. Stressed PCP re-eval with repeat UA. Discussed symptoms requiring RTED. Medication Reconcilliation Current Medication List: was personally reviewed by me Blood Pressure Screening Patient's blood pressure: Normal blood pressure Blood pressure disposition: Did not require urgent referral Impression Primary Impression: Urinary tract infection Additional Impression: Hematuria Scribe Attestation The scribe's documentation has been prepared under my direction and personally reviewed by me in its entirety. I confirm that the note above accurately reflects all work, treatment, procedures, and medical decision making performed by me. Departure Information Dispostion Home / Self-Care Prescriptions Cefdinir (Omnicef) 300 Mg Cap 300 MG PO Q12H for 10 Days, #20 CAP Prov: Homar Erickson M.D. 06/29/17 Referrals Arthur Hernandez (PCP) Patient Instructions My [facility] Additional Instructions It is important you follow up with your primary care provider in 1 week for repeat urine evaluation. Return if fevers, vomiting, passing out, pain or other concerns. Continue to keep well hydrated. Problem Qualifiers
[2017-06-29] MEDS ORDERED: CEFD1CAP14 PO (12:36)
[2017-06-29 12:57] VITALS: BP 136/86; PULSE 75; O2SAT 95
[2017-06-29] MEDS ORDERED: CEPHALEXIN MONOHYDRATE 250 MG CAP PO ONE (13:00)
== END 2017-06-29 12:57 | disposition home or self-care (01) ==
LOC: C.EDB 11:18 → C.EDC 12:57
DX: N39.0 Urinary tract infection, site not specified (principal); R31.9 Hematuria, unspecified; J44.9 Chronic obstructive pulmonary disease, unspecified; J43.9 Emphysema, unspecified; K21.9 Gastro-esophageal reflux disease without esophagitis; I10 Essential (primary) hypertension; Z79.01 Long term (current) use of anticoagulants; Z79.899 Other long term (current) drug therapy

== ENCOUNTER → 2017-07-03 | Outpatient (CLI) | payer OTHER ==
[~2017-07-03] MED LIST changes: +CEFD1CAP14 PO
[2017-07-03 18:33] LABS: BLOOD UREA NITROGEN 18 mg/dl (7-18)
== END | disposition home or self-care (01) ==
LOC: C.LABPBG 11:40
PROVIDERS: ATTEND Nurse Practitioner Adult Health
DX: N28.1 Cyst of kidney, acquired (principal)

== ENCOUNTER → 2017-07-06 | Outpatient (CLI) | payer OTHER ==
[~2017-07-06] MED LIST changes: +OPTIRAY 320 IV PRN
--- NOTE | 2017-07-06 13:39 | DIAGNOSTIC IMAGING REPORT ---
CT ABD/PELVIS COMBO CLINICAL HISTORY: Renal cyst. Hematuria. COMPARISON STUDY: CT of the abdomen and pelvis September 09, 2015 and renal ultrasound April 02, 2017. TECHNIQUE: Initially, unenhanced axial images of the abdomen and pelvis were obtained. Nephrographic phase imaging of the abdomen was then performed following intravenous injection of 119 cc of Optiray 320 IV. 5 minute delayed phase imaging of the abdomen and pelvis was then performed. A dose lowering technique was utilized adhering to the principles of ALARA. CT DOSE: 1697.41 mGycm FINDINGS: Visualized portions of the lower chest demonstrate moderate emphysema. There is right lower lobe atelectasis. Pacer leads are partially imaged. The liver, spleen, adrenal glands and pancreas are unremarkable. There is no biliary or pancreatic ductal dilatation. No renal or ureteral calculi are present. Note is made of a 6.5 cm cyst within the midpole of the right kidney. There is a 6.8 cm cystic lesion within the upper pole the right kidney which contains a thin septation within calcification. This is unchanged and CT of September 09, 2015 and corresponds to the lesion shown on prior ultrasound. This has benign imaging characteristics. There are a few subcentimeter left renal cysts. Bilateral parapelvic cysts are noted. No upper tract urothelial lesions are present. There is evidence for significant pelvic floor relaxation. Bladder is moderately distended. There is multifocal moderate bladder wall irregularity. Numerous tiny bladder calculi measure up to 5 mm. No lymphadenopathy is present within the abdomen or pelvis. Caliber and wall thickness of small and large bowel are normal. There are no suspicious osseous lesions. The uterus has been resected. IMPRESSION: 1. No renal or ureteral calculi. Multiple bladder calculi measure up to 5 mm. 2. No hydronephrosis or hydroureter. No upper tract urothelial lesions. 3. Moderate multifocal bladder wall irregularity, most prominent along the posterior wall of the bladder. This is nonspecific and could be related to chronic obstruction or a neurogenic bladder. However, urothelial lesions could appear similar and could be correlated with cystoscopy. 4. 6.8 cm cystic lesion within the upper pole of the right kidney which contains a thin septation containing thin calcification. This is considered benign given the imaging appearance and stability since earlier CT of September 09, 2015. 5. Pelvic floor relaxation. Electronically signed by: Mariano Granados M.D. 07/06/2017 1:37 PM Dictated Date/Time: 07/06/2017 1:15 PM
== END | disposition home or self-care (01) ==
LOC: C.CTS 12:11
PROVIDERS: ATTEND Urology
DX: N21.0 Calculus in bladder (principal); N28.89 Other specified disorders of kidney and ureter; N32.89 Other specified disorders of bladder; N28.1 Cyst of kidney, acquired

== ENCOUNTER 2017-07-27 19:50 | Inpatient (IN) | payer OTHER ==
[~2017-07-27] VITALS: Ht 157.5 cm; Wt 61.4 kg
[~2017-07-27 19:50] MED LIST changes: -CEFD1CAP14 PO; -GABA-113 PO; -METO50TA16 PO; -OPTIRAY 320 IV PRN; -PANT40TA PO; -RIVA1TAB4 PO; -VNTHFA/IN INH
[2017-07-27] MEDS ORDERED: PANT40TA PO (20:45)
[2017-07-27] MEDS ORDERED: VNTHFA/IN INH (20:45)
[2017-07-27] MEDS ORDERED: GABA-113 PO (20:47)
[2017-07-27] MEDS ORDERED: RIVA1TAB4 PO (20:47)
[2017-07-27] MEDS ORDERED: METO50TA16 PO (20:47)
[2017-07-27] MEDS ORDERED: SODIUM CHLORIDE 0.9% 1000ML 1,000 ML IV STA (21:44)
[2017-07-27] MEDS ORDERED: SODIUM CHLORIDE 0.9% 500ML 500 ML IV STA (22:00)
[2017-07-27 22:20] LABS: BASO % 0.1 %; BASO ABS # 0.01 K/uL (0-0.2); EOS % 0.1 %; EOS ABS # 0.01 K/uL (0-0.5); HEMATOCRIT 50.5 % (37-47); HEMOGLOBIN 16.8 g/dL (12.0-16.0); IG# 0.02 K/uL (0.00-0.02); LYMPH % 14.9 %; LYMPH ABS # 1.13 K/uL (1.2-3.4); MEAN CELL VOLUME 94.9 fL (80-100); MEAN CORPUSCULAR HEMOGLOBIN 31.6 pg (25-34); MEAN CORPUSCULAR HGB CONC 33.3 g/dl (32-36); MEAN PLATELET VOLUME 9.8 fL (7.4-10.4); MONO % 8.3 %; MONO ABS # 0.63 K/uL (0.11-0.59); NEUT % 76.3 %; NEUT ABS # 5.78 K/uL (1.4-6.5); PLATELET COUNT 245 K/uL (130-400); RED CELL DISTRIBUTION WIDTH CV 13.9 % (11.5-14.5); RED CELL DISTRIBUTION WIDTH SD 48.1 fL (36.4-46.3); WHITE BLOOD COUNT 7.58 K/uL (4.8-10.8)
[2017-07-27 22:29] LABS: INR 1.3 (0.9-1.1); PTT PATIENT 40.4 SECONDS (21.0-31.0)
[2017-07-27] MEDS ORDERED: DIPH-416 PO (22:36)
[2017-07-27 22:41] LABS: ALBUMIN 3.5 gm/dl (3.4-5.0); CALCIUM 9.4 mg/dl (8.5-10.1); CREATININE 2.02 mg/dl (0.60-1.20); POTASSIUM 4.6 mmol/L (3.5-5.1)
[2017-07-27 23:01] LABS: CKMB 7.4 ng/ml (0.5-3.6)
[2017-07-27] MEDS ORDERED: GABAPENTIN 300 MG CAP PO PRN (23:30)
[2017-07-27] MEDS ORDERED: ALBUTEROL HFA 8 GM INHALER INH PRN (23:30)
[2017-07-27] MEDS ORDERED: ACETAMINOPHEN 325 MG TAB PO PRN (23:45)
[2017-07-27] MEDS ORDERED: ALUMINUM/MAGNESIUM/SIMETH (MAALOX MAX) 30 ML UDC PO PRN (23:45)
[2017-07-27] MEDS ORDERED: ONDANSETRON INJ 2 MG/ML 2 ML VIAL IV PRN (23:45)
[2017-07-28] VITALS (8 sets, daily range): BP systolic 104–158; BP diastolic 65–85; PULSE 60–67; TEMP 36.4–36.6; O2SAT 62–98; Ht 157.5 cm; Wt 61.4 kg
--- NOTE | 2017-07-28 00:11 | History and Physical ---
History & Physical Date & Time of Service: Jul 27, 2017 at 23:24 Chief Complaint: Diarrhea,Nausea Primary Care Physician: Arthur Hernandez History of Present Illness Source: patient 77 y/o F Hx COPD, HTN, GERD, Bradycardia and pauses with pacer placement . Presents with diarrhea x 1 day, weakness and poor appetite. She states she developed nausea and vomited 3 x after taking Imodium. She states her diarrhea resolved late afternoon. Denies fevers, CP, SOB or dysuria. Initial labs obtained in the ER reveal ARF and an elevated troponin. An EKG does not support acute ischemia. She was recently treated for a UTI with Omnicef. She underwent a cystoscopy a week earlier which revealed some suspicious lesions and is eventually due for a biopsy. She missed a pre-op appt today due to her acute illness. Past Medical/Surgical History 1) COPD 2) Bradycardia and sinus pauses lead to pacer placement in 2015 3) HTN 4) GERD 5) Bladder lesions on recent cystoscopy 6) History of paroxysmal AF Family History No pertinent family history Social History Smoking Status: Never Smoker Drug Use: none Marital Status: Occupational Status: retired Allergies Coded Allergies: Ciprofloxacin (Verified Adverse Reaction, Intermediate, HEADACHE "feel DRUNK", 07/06/17) Home Medications Scheduled Albuterol Hfa (Ventolin Hfa), 2-4 PUFFS INH Q6H Diphenoxylate/Atropine (Lomotil), 1 TAB PO prn ud Estrogens, Conjugated (Premarin), 1.25 MG PO DAILY Fluticasone Prop/Salmeterol (Advair Diskus 250/50 60 Dose), 1 PUFF INH BID Metoprolol Tartrate (Lopressor) (Lopressor), 50 MG PO DAILY Pantoprazole (Protonix), 40 MG PO DAILY Rivaroxaban (Xarelto), 20 MG PO DAILY Scheduled PRN Gabapentin (Neurontin), 300 MG PO BID PRN for FOOT PAIN Review of Systems Constitutional: + weakness, + fatigue, No fever, No chills, No sweats Eyes: No worsening of vision ENT: No hearing loss, No nasal symptoms Respiratory: No cough, No sputum, No wheezing Cardiovascular: No chest pain, No orthopnea, No PND Abdomen: + nausea, + vomiting, + diarrhea, + problem reported (poor appetite) Musculoskeletal: No joint pain Genitourinary - Female: No dysuria, No urinary frequency, No urinary urgency Neurologic: + weakness, No memory loss Psychiatric: No depression symptoms Endocrine: No fatigue, No excessive thirst Hematologic / Lymphatic: No abnormal bleeding/bruising Integumentary: No rash Allergic / Immunologic: No environmental allergies Physical Exam Vital Signs Date Time Temp Pulse Resp B/P (MAP) Pulse Ox O2 Delivery O2 Flow Rate FiO2 07/27/17 22:10 67 07/27/17 22:06 67 23 101/70 95 Room Air 07/27/17 21:55 Room Air 07/27/17 19:53 78 18 97/65 96 Room Air General Appearance: WD/WN, no apparent distress Head: normocephalic Eyes: normal inspection ENT: normal ENT inspection, pharynx normal Neck: supple, no JVD Respiratory/Chest: chest non-tender, lungs clear, normal breath sounds Cardiovascular: regular rate, rhythm, no edema, no gallop Abdomen/GI: normal bowel sounds, non tender, soft Back: normal inspection, no CVA tenderness Extremities/Musculoskelatal: normal inspection, no calf tenderness, normal capillary refill Neurologic/Psych: chicken sexer II-XII nml as tested, no motor/sensory deficits, alert, oriented x 3 Skin: normal color Diagnostics Laboratory Results Results Past 24 Hours Test 07/27/17 22:00 Range/Units White Blood Count 7.58 4.8-10.8 K/uL Red Blood Count 5.32 4.2-5.4 M/uL Hemoglobin 16.8 12.0-16.0 g/dL Hematocrit 50.5 37-47 % Mean Corpuscular Volume 94.9 80-100 fL Mean Corpuscular Hemoglobin 31.6 25-34 pg Mean Corpuscular Hemoglobin Concent 33.3 32-36 g/dl Platelet Count 245 130-400 K/uL Mean Platelet Volume 9.8 7.4-10.4 fL Neutrophils (%) (Auto) 76.3 % Lymphocytes (%) (Auto) 14.9 % Monocytes (%) (Auto) 8.3 % Eosinophils (%) (Auto) 0.1 % Basophils (%) (Auto) 0.1 % Neutrophils # (Auto) 5.78 1.4-6.5 K/uL Lymphocytes # (Auto) 1.13 1.2-3.4 K/uL Monocytes # (Auto) 0.63 0.11-0.59 K/uL Eosinophils # (Auto) 0.01 0-0.5 K/uL Basophils # (Auto) 0.01 0-0.2 K/uL RDW Standard Deviation 48.1 36.4-46.3 fL RDW Coefficient of Variation 13.9 11.5-14.5 % Immature Granulocyte % (Auto) 0.3 % Immature Granulocyte # (Auto) 0.02 0.00-0.02 K/uL Prothrombin Time 13.4 9.0-12.0 SECONDS Prothromb Time International Ratio 1.3 0.9-1.1 Activated Partial Thromboplast Time 40.4 21.0-31.0 SECONDS Partial Thromboplastin Ratio 1.6 Sodium Level 135 136-145 mmol/L Potassium Level 4.6 3.5-5.1 mmol/L Chloride Level 103 98-107 mmol/L Carbon Dioxide Level 20 21-32 mmol/L Anion Gap 13.0 3-11 mmol/L Blood Urea Nitrogen 29 7-18 mg/dl Creatinine 2.02 0.60-1.20 mg/dl Est Creatinine Clear Calc Drug Dose 20.4 ml/min Estimated GFR () 27.1 Estimated GFR (Non- 23.4 BUN/Creatinine Ratio 14.5 10-20 Random Glucose 137 70-99 mg/dl Calcium Level 9.4 8.5-10.1 mg/dl Magnesium Level 2.1 1.8-2.4 mg/dl Total Bilirubin 0.6 0.2-1 mg/dl Direct Bilirubin 0.1 0-0.2 mg/dl Aspartate Amino Transf (AST/SGOT) 16 15-37 U/L Alanine Aminotransferase (ALT/SGPT) 15 12-78 U/L Alkaline Phosphatase 72 45-117 U/L Total Creatine Kinase 79 26-192 U/L Creatine Kinase MB 7.4 0.5-3.6 ng/ml Creatine Kinase MB Ratio 9.4 0-3.0 Troponin I 1.490 0-0.045 ng/ml Total Protein 8.0 6.4-8.2 gm/dl Albumin 3.5 3.4-5.0 gm/dl Thyroid Stimulating Hormone (TSH) 2.430 0.300-4.500 uIu/ml Impression Assessment and Plan 77 y/o F Hx COPD, HTN, GERD, Bradycardia and pauses with pacer placement 2016, PAF. Presents with diarrhea x 1 day, weakness and poor appetite. She states she developed nausea and vomited 3 x after taking Imodium. She states her diarrhea resolved late afternoon. Denies fevers, CP, SOB or dysuria. Initial labs obtained in the ER reveal ARF and an elevated troponin. An EKG does not support acute ischemia. 1) Diarrhea, dehydration. Aggressive fluid resuscitation provided, C diff results pending. She had been taking Lomotil which we will hold until C diff is ruled out. 2) ARF - likely due to dehydration - Aggressive IVF as above, trend BMP - further workup to follow if renal function does not return to normal in the near -term. 3) Troponin elevation - this is more likely due to ARF and dehydration. She will be placed on telemetry and we will trend enzymes - an echo will be ordered for AM - she is anticoagulated with Xarelto and will continue daily Metoprolol. Cardiology should be consulted if her trop does not trend downward as expected , or if there are WMAs on echo. 4) COPD - no evidence of acute exacerbation - cont inhalers as needed 5) GERD - cont Pantoprazole 6) The pt may have had paroxysmal AF and is therefore on Xarelto. Her plant pathologist is considering discontinuation based on pacer interrogations per pt. Full code - Xarelto prophylaxis Total time for this admit including review of labs, meds, imaging, records, EKG - discussion with pt and ER attending - 38 min Level of Care Telemetry Resuscitation Status FULL RESUSCITATION VTE Prophylaxis Given or contraindicated: Other Anticoagulation
[2017-07-28] MEDS: SODIUM CHLORIDE 0.9% 1000ML 1,000 ML IV SCH ×2 (01:04→13:30)
--- NOTE | 2017-07-28 02:11 | EMERGENCY ROOM VISIT NOTE ---
History Report prepared by Yo: Mayra Maxwell Under the Supervision of: Dr. Onel Rodrigez M.D. First contact with patient: 21:44 Chief Complaint: GI ASSESSMENT Stated Complaint: DIARRHEA,NAUSEA Nursing Triage Summary: pt c/o abd pain with n/d that strated last night History of Present Illness The patient is a 77 year old female who presents to the Emergency Room with complaints of persistent diarrhea since 0830 this morning. Per , the patient has been eating yogurt to help as a probiotic. She states that she called her PCP and they prescribed medication for the diarrhea. She was seen in June 2017 for a UTI and was prescribed Omnicef. She takes regularly takes Xarelto. She was supposed to come in today for a follow up of her bladder. She reports weakness. She states that she was able to eat half a slice of toast and drank cranberry and Scarlet lalit this afternoon. She states that she was able to eat a cup of Jell-o. She feels dehydrated. She reports a stuffy nose. Pt denies LOC, headache, fevers, chills, diaphoresis, visual changes, neck pain, chest pain, breathing difficulties, nausea, vomiting, abdominal pain, back pain, melena, hematochezia, urinary symptoms, numbness, swelling, rash, or other complaints. Source of History: patient, spouse/significant other Onset: 0830 this morning Position: other (global ) Quality: other (diarrhea) Timing: other (persistent) Associated Symptoms: + weakness Note: She notes dehydration and a stuffy nose. Review of Systems See HPI for pertinent positives and negatives. A total of ten systems were reviewed and were otherwise negative. Past Medical & Surgical Medical Problems: (1) ARF (acute renal failure) (2) Bronchitis (3) Emphysema/COPD (4) GERD (gastroesophageal reflux disease) (5) HTN (hypertension) (6) Near syncope (7) Sinus pause (8) Troponin I above reference range Surgical Problems: (1) History of cataract extraction Family History No pertinent family history Social History Smoking Status: Never Smoker Alcohol Use: none Drug Use: none Marital Status: Housing Status: lives with family Occupation Status: retired Current/Historical Medications Scheduled Albuterol Hfa (Ventolin Hfa), 2-4 PUFFS INH Q6H Diphenoxylate/Atropine (Lomotil), 1 TAB PO prn ud Estrogens, Conjugated (Premarin), 1.25 MG PO DAILY Fluticasone Prop/Salmeterol (Advair Diskus 250/50 60 Dose), 1 PUFF INH BID Metoprolol Tartrate (Lopressor) (Lopressor), 50 MG PO DAILY Pantoprazole (Protonix), 40 MG PO DAILY Rivaroxaban (Xarelto), 20 MG PO DAILY Scheduled PRN Gabapentin (Neurontin), 300 MG PO BID PRN for FOOT PAIN Allergies Coded Allergies: Ciprofloxacin (Verified Adverse Reaction, Intermediate, HEADACHE "feel DRUNK", 07/06/17) Physical Exam Vital Signs Date Time Temp Pulse Resp B/P (MAP) Pulse Ox O2 Delivery O2 Flow Rate FiO2 07/27/17 23:32 70 15 115/62 94 Room Air 07/27/17 22:10 67 07/27/17 22:06 67 23 101/70 95 Room Air 07/27/17 21:55 Room Air 07/27/17 19:53 78 18 97/65 96 Room Air Physical Exam GENERAL: Awake, alert, tired-appearing, in no distress HENT: Normocephalic, atraumatic. Oropharynx dry mucus membranes. EYES: Normal conjunctiva. Sclera non-icteric. NECK: Supple. No nuchal rigidity. FROM. No masses. RESPIRATORY: Clear to auscultation. No wheezes. CARDIAC: Normal rate. Normal rhythm. No murmurs. No rubs. Extremities warm and well perfused. Pulses equal. No JVD. GI: Soft, non-distended. No tenderness to palpation. No rebound or guarding. No masses. RECTAL: Deferred. MUSCULOSKELETAL: Atraumatic. Chest examination reveals no tenderness. No joint edema. LOWER EXTREMITIES: Calves are equal size bilaterally and non-tender. No edema. No discoloration. NEURO: Normal sensorium. No sensory or motor deficits noted. SKIN: No rash or jaundice noted. Medical Decision & Procedures Laboratory Results 07/27/17 22:00 Red Blood Count 5.32, Mean Corpuscular Volume 94.9, Mean Corpuscular Hemoglobin 31.6, Mean Corpuscular Hemoglobin Concent 33.3, Mean Platelet Volume 9.8, Neutrophils (%) (Auto) 76.3, Lymphocytes (%) (Auto) 14.9, Monocytes (%) (Auto) 8.3, Eosinophils (%) (Auto) 0.1, Basophils (%) (Auto) 0.1, Neutrophils # (Auto) 5.78, Lymphocytes # (Auto) 1.13, Monocytes # (Auto) 0.63, Eosinophils # (Auto) 0.01, Basophils # (Auto) 0.01 07/27/17 22:00 Test 07/27/17 22:00 White Blood Count 7.58 K/uL (4.8-10.8) Red Blood Count 5.32 M/uL (4.2-5.4) Hemoglobin 16.8 g/dL (12.0-16.0) Hematocrit 50.5 % (37-47) Mean Corpuscular Volume 94.9 fL (80-100) Mean Corpuscular Hemoglobin 31.6 pg (25-34) Mean Corpuscular Hemoglobin Concent 33.3 g/dl (32-36) Platelet Count 245 K/uL (130-400) Mean Platelet Volume 9.8 fL (7.4-10.4) Neutrophils (%) (Auto) 76.3 % Lymphocytes (%) (Auto) 14.9 % Monocytes (%) (Auto) 8.3 % Eosinophils (%) (Auto) 0.1 % Basophils (%) (Auto) 0.1 % Neutrophils # (Auto) 5.78 K/uL (1.4-6.5) Lymphocytes # (Auto) 1.13 K/uL (1.2-3.4) Monocytes # (Auto) 0.63 K/uL (0.11-0.59) Eosinophils # (Auto) 0.01 K/uL (0-0.5) Basophils # (Auto) 0.01 K/uL (0-0.2) RDW Standard Deviation 48.1 fL (36.4-46.3) RDW Coefficient of Variation 13.9 % (11.5-14.5) Immature Granulocyte % (Auto) 0.3 % Immature Granulocyte # (Auto) 0.02 K/uL (0.00-0.02) Prothrombin Time 13.4 SECONDS (9.0-12.0) Prothromb Time International Ratio 1.3 (0.9-1.1) Activated Partial Thromboplast Time 40.4 SECONDS (21.0-31.0) Partial Thromboplastin Ratio 1.6 Anion Gap 13.0 mmol/L (3-11) Est Creatinine Clear Calc Drug Dose 20.4 ml/min Estimated GFR () 27.1 Estimated GFR (Non- 23.4 BUN/Creatinine Ratio 14.5 (10-20) Calcium Level 9.4 mg/dl (8.5-10.1) Magnesium Level 2.1 mg/dl (1.8-2.4) Total Bilirubin 0.6 mg/dl (0.2-1) Direct Bilirubin 0.1 mg/dl (0-0.2) Aspartate Amino Transf (AST/SGOT) 16 U/L (15-37) Alanine Aminotransferase (ALT/SGPT) 15 U/L (12-78) Alkaline Phosphatase 72 U/L (45-117) Total Creatine Kinase 79 U/L (26-192) Creatine Kinase MB 7.4 ng/ml (0.5-3.6) Creatine Kinase MB Ratio 9.4 (0-3.0) Troponin I 1.490 ng/ml (0-0.045) Total Protein 8.0 gm/dl (6.4-8.2) Albumin 3.5 gm/dl (3.4-5.0) Thyroid Stimulating Hormone (TSH) 2.430 uIu/ml (0.300-4.500) Laboratory results reviewed by me Medications Administered Medications (Trade) Dose Ordered Sig/Chela Route Start Time Stop Time Status Last Admin Dose Admin Sodium Chloride 1,000 ml @ 125 mls/hr Q8H STAT IV 07/27/17 21:44 07/28/17 00:33 DC 07/27/17 22:07 125 MLS/HR Sodium Chloride 500 ml @ 999 mls/hr Q31M STAT IV 07/27/17 22:00 07/27/17 22:30 DC 07/27/17 22:07 999 MLS/HR ECG Per My Interpretation Indication: weakness Rate (beats per minute): 67 Rhythm: other (paced rhythm) Findings: no acute ischemic change, no ectopy Change: Patient's electrocardiogram was interpreted by me. ED Course 2158: The patient was evaluated in room C7. A complete history and physical exam was performed. 2143: Ordered Sodium Chloride 1,000 ml @ 125 mls/hr IV 0: Ordered Sodium Chloride 500 ml @ 999 mls/hr IV 2312: I reassessed the patient at this time. She is resting comfortably. I discussed the results and treatment plan with the patient. I answered all pertaining questions that she had. She expressed understanding and verbalized agreement. The patient will be further evaluated. 2339: STEPHAN Floyd hospitalist will evaluate the patient. The patient will be evaluated by the [facility] for further management. Medical Decision Triage Nursing notes reviewed. The patient's presentation and history were concerning for diarrhea and weakness. Etiologies such as metabolic, infection, hypo/hyperglycemia, electrolyte abnormalities, cardiac sources, intracerebral event, toxicologic, neurologic, as well as others were entertained. The patient was evaluated. Clinically she looked dry. IV saline hydration was initiated. Blood work was obtained. ECG showed a paced rhythm. Her blood work was for concerning. Her CBC was unremarkable but her chemistry panel revealed findings concerning for acute renal failure. Her creatinine had doubled. Cardiac markers were significantly elevated. The patient was reassessed. She was feeling better. She did not having any chest pain or shortness of breath. There is no diaphoresis. She did just notes significant weakness during this diarrheal episode. Further evaluation and management in the hospital will be necessary. Consultation was made with internal medicine. The patient was evaluated Emergency Room for further management. Medication Reconcilliation Current Medication List: was personally reviewed by me Blood Pressure Screening Patient's blood pressure: Normal blood pressure Consults Time Called: 2309 Consulting Physician: ESTEBAN Floyd hospitalist Returned Call: [phone] ESTEBAN Floyd hospitalist will evaluate the patient. The patient will be evaluated by the [facility] for further management. Impression Primary Impression: Elevated troponin Additional Impressions: Acute renal failure Dehydration Scribe Attestation The scribe's documentation has been prepared under my direction and personally reviewed by me in its entirety. I confirm that the note above accurately reflects all work, treatment, procedures, and medical decision making performed by me. Departure Information Dispostion Being Evaluated By Hospitalist Referrals Arthur Hernandez (PCP) Patient Instructions My [facility] Problem Qualifiers
[2017-07-28 07:20] LABS: HEMOGLOBIN 13.9 g/dL (12.0-16.0); MEAN CORPUSCULAR HEMOGLOBIN 31.9 pg (25-34); MEAN CORPUSCULAR HGB CONC 33.9 g/dl (32-36); MEAN PLATELET VOLUME 9.2 fL (7.4-10.4); PLATELET COUNT 212 K/uL (130-400); RED CELL DISTRIBUTION WIDTH CV 13.7 % (11.5-14.5); RED CELL DISTRIBUTION WIDTH SD 47.3 fL (36.4-46.3); WHITE BLOOD COUNT 5.63 K/uL (4.8-10.8)
[2017-07-28 07:32] LABS: CALCIUM 8.1 mg/dl (8.5-10.1); CREATININE 1.33 mg/dl (0.60-1.20); POTASSIUM 4.1 mmol/L (3.5-5.1)
[2017-07-28] MEDS: ESTROGENS, CONJUGATED 0.625 MG TAB PO SCH (08:28)
[2017-07-28] MEDS: FLUTICASONE/SALMETEROL 250/50 (ADVAIR) 14 PUFF/1 INHALER INH SCH ×2 (08:28→21:39)
[2017-07-28] MEDS: PANTOprazole SOD 40 MG TAB PO SCH (08:28)
[2017-07-28] MEDS: METOPROLOL TARTRATE 50 MG TAB PO SCH (08:29)
[2017-07-28] MEDS ORDERED: RIVAROXABAN 10 MG TAB PO SCH (09:00)
--- NOTE | 2017-07-28 09:02 | Cardiology Consultation ---
Cardiology Consultation Date of Consultation: Jul 28, 2017. Requesting Physician: Dr. Cooper Reason for Consultation: Elevated troponin Pt evaluation today including: conversation w/ patient, physical exam, lab review, review of studies, review of inpatient medication list History of Present Illness This is a very pleasant 77-year-old woman who has a history of hypertension for which she was on atenolol for many years, she developed multiple episodes of lightheadedness, dizziness and near syncope. Her atenolol was held, however she continued to have periods of sinus arrest. She therefore underwent dual-chamber pacemaker implantation on 11/24/2016. Since pacemaker implantation she has had no further lightheaded or presyncopal events. She does have a history of occasional palpitations, sometimes somewhat prolonged, and has been observed to have paroxysmal atrial fibrillation on pacemaker monitoring. It is not clear whether that is associated with symptoms of palpitations but she was started on Xarelto 20 mg daily on 12/20/2016 when this was identified. On the morning of July 27, 2017 she developed a acute GI illness which included initially diarrhea followed by nausea and vomiting. She felt very weak but had no specific cardiovascular symptoms, she had no shortness of breath or chest discomfort. She is having difficulty keeping anything down, including antinausea and diarrheal medications therefore she came to the emergency room. In the emergency room she was noted to have an elevated troponin though her electrocardiogram did not show any specific abnormality. She has not been having difficulty with bleeding on Xarelto and noted no black stools. Her hemoglobin was not low on admission. She is concerned about a fall she had last March, she fell on her left shoulder and dislocated it, and she has been worried about her pacemaker which has not been evaluated in the office since. It was evaluated remotely however in June. This morning she feels well, the diarrhea appears to have resolved and she is feeling stronger. This morning she has no complaints. Past Medical/Surgical History (1) Anterior shoulder dislocation (2) Chronic obstructive pulmonary disease (3) Contusion of left knee (4) Contusion of right wrist (5) Corneal foreign body (6) GERD (gastroesophageal reflux disease) (7) HTN (hypertension) (8) Sinus arrest Pacemaker implantation 2017 Family History No pertinent family history Social History Smoking Status: Never Smoker History of Alcohol Use: No Review of Systems Constitutional: + see HPI, + weakness, No fever, No weight loss Respiratory: No cough, No shortness of breath Cardiac: + see HPI, No chest pain, No palpitations Abdomen: + see HPI, + nausea, + vomiting, + diarrhea, No pain, No GI bleeding Female : No problem reported Neurologic: No paralysis, No weakness, No numbness/tingling, No balance problems Heme: No abnormal bleeding/bruising, No clotting problems Endo: No fatigue Skin: No problem reported All Other Systems: Reviewed and Negative Allergies Coded Allergies: Ciprofloxacin (Verified Adverse Reaction, Intermediate, HEADACHE "feel DRUNK", 07/06/17) Medications Current Inpatient Medications Medications (Trade) Dose Ordered Sig/Chela Route Start Time Stop Time Status Last Admin Dose Admin Albuterol (Ventolin Hfa Inhaler) 2 puffs Q4H PRN INH 07/27/17 23:30 08/26/17 23:29 Salmeterol Xinafoate/ Fluticasone (Advair Diskus 250/50 Inh) 1 puff BID INH 07/28/17 09:00 08/27/17 08:59 07/28/17 08:28 1 PUFF Gabapentin (Neurontin Cap) 300 mg BID PRN PO 07/27/17 23:30 08/26/17 23:29 Metoprolol Tartrate (Lopressor Tab) 50 mg DAILY PO 07/28/17 09:00 08/27/17 08:59 07/28/17 08:29 50 MG Pantoprazole Sodium (Protonix Tab) 40 mg DAILY PO 07/28/17 09:00 08/27/17 08:59 07/28/17 08:28 40 MG Rivaroxaban (Xarelto Tab) 20 mg DAILY PO 07/28/17 09:00 08/27/17 08:59 07/28/17 08:28 20 MG Estrogens Conjugated (Premarin Tab) 1.25 mg DAILY PO 07/28/17 09:00 08/27/17 08:59 07/28/17 08:28 1.25 MG Acetaminophen (Tylenol Tab) 650 mg Q4H PRN PO 07/27/17 23:45 08/26/17 23:44 Al Hydrox/Mg Hydrox/Simethicone (Maalox Max Susp) 15 ml Q4H PRN PO 07/27/17 23:45 3/18/18 23:44 Ondansetron HCl (Zofran Inj) 4 mg Q6H PRN IV 07/27/17 23:45 08/26/17 23:44 Sodium Chloride 1,000 ml @ 100 mls/hr Q10H IV 07/28/17 00:45 07/28/17 20:44 07/28/17 01:04 100 MLS/HR Physical Exam Vital Signs Past 12 Hours Date Time Temp Pulse Resp B/P (MAP) Pulse Ox O2 Delivery O2 Flow Rate FiO2 07/28/17 08:14 36.5 62 18 104/66 (79) 96 Room Air 07/28/17 04:00 Room Air 07/28/17 03:19 36.4 64 20 107/65 (79) 93 Room Air 07/28/17 00:55 36.5 67 18 108/69 97 Room Air 07/28/17 00:05 70 15 115/62 94 07/27/17 23:32 70 15 115/62 94 Room Air 07/27/17 22:10 67 07/27/17 22:06 67 23 101/70 95 Room Air 07/27/17 21:55 Room Air Constitutional: General Apperance: heathly-appearing Level of Distress: NAD Psychiatric: Mental Status: active & alert Head: normocephalic Eyes: EOM: EOMI ENMT: normal ENT inspection, hearing grossly normal Neck: supple, no masses Lungs: Respiratory effort: no dyspnea, good air movement Auscultation: breath sounds normal, no wheezing Cardiovascular: Heart Auscultation: RRR, no murmurs, no rubs, no gallops Peripheral Pulses: Bruits: none appreciated Abdomen: Bowel Sounds: normal Inspection & Palpation: soft, no tenderness, guarding & rebound, no masses Musculoskeletal: normal strength (5/5 throughout) Extremities: no edema Neurologic: Cranial Nerves: grossly intact Sensation: grossly intact Data Laboratory Results: Last 24 Hours Test 07/27/17 22:00 07/28/17 00:31 07/28/17 06:36 07/28/17 08:13 White Blood Count 7.58 K/uL 5.63 K/uL Red Blood Count 5.32 M/uL 4.36 M/uL Hemoglobin 16.8 g/dL 13.9 g/dL Hematocrit 50.5 % 41.0 % Mean Corpuscular Volume 94.9 fL 94.0 fL Mean Corpuscular Hemoglobin 31.6 pg 31.9 pg Mean Corpuscular Hemoglobin Concent 33.3 g/dl 33.9 g/dl Platelet Count 245 K/uL 212 K/uL Mean Platelet Volume 9.8 fL 9.2 fL Neutrophils (%) (Auto) 76.3 % Lymphocytes (%) (Auto) 14.9 % Monocytes (%) (Auto) 8.3 % Eosinophils (%) (Auto) 0.1 % Basophils (%) (Auto) 0.1 % Neutrophils # (Auto) 5.78 K/uL Lymphocytes # (Auto) 1.13 K/uL Monocytes # (Auto) 0.63 K/uL Eosinophils # (Auto) 0.01 K/uL Basophils # (Auto) 0.01 K/uL RDW Standard Deviation 48.1 fL 47.3 fL RDW Coefficient of Variation 13.9 % 13.7 % Immature Granulocyte % (Auto) 0.3 % Immature Granulocyte # (Auto) 0.02 K/uL Prothrombin Time 13.4 SECONDS Prothromb Time International Ratio 1.3 Activated Partial Thromboplast Time 40.4 SECONDS Partial Thromboplastin Ratio 1.6 Sodium Level 135 mmol/L 138 mmol/L Potassium Level 4.6 mmol/L 4.1 mmol/L Chloride Level 103 mmol/L 108 mmol/L Carbon Dioxide Level 20 mmol/L 21 mmol/L Anion Gap 13.0 mmol/L 9.0 mmol/L Blood Urea Nitrogen 29 mg/dl 29 mg/dl Creatinine 2.02 mg/dl 1.33 mg/dl Est Creatinine Clear Calc Drug Dose 20.4 ml/min 30.9 ml/min Estimated GFR () 27.1 44.9 Estimated GFR (Non- 23.4 38.7 BUN/Creatinine Ratio 14.5 22.1 Random Glucose 137 mg/dl 92 mg/dl Calcium Level 9.4 mg/dl 8.1 mg/dl Magnesium Level 2.1 mg/dl Total Bilirubin 0.6 mg/dl Direct Bilirubin 0.1 mg/dl Aspartate Amino Transf (AST/SGOT) 16 U/L Alanine Aminotransferase (ALT/SGPT) 15 U/L Alkaline Phosphatase 72 U/L Total Creatine Kinase 79 U/L Creatine Kinase MB 7.4 ng/ml Creatine Kinase MB Ratio 9.4 Troponin I 1.490 ng/ml Total Protein 8.0 gm/dl Albumin 3.5 gm/dl Thyroid Stimulating Hormone (TSH) 2.430 uIu/ml Urine Color YELLOW Urine Appearance CLOUDY Urine pH 5.0 Urine Specific [place] 1.019 Urine Protein NEG Urine Glucose (UA) NEG Urine Ketones NEG Urine Occult Blood 2+ Urine Nitrite NEG Urine Bilirubin NEG Urine Urobilinogen NEG Urine Leukocyte Esterase NEG Urine WBC (Auto) 1-5 /hpf Urine RBC (Auto) 0-4 /hpf Urine Hyaline Casts (Auto) 10-30 /lpf Urine Epithelial Cells (Auto) >30 /lpf Urine Bacteria (Auto) 1+ Urine Crystals CALCIUM OXALATE Imaging: Echo pending EKG: Atrial pacing with intact AV conduction with a prolonged NV interval, no acute changes on intrinsically conducted QRS. Telemetry reviewed: Predominantly atrial pacing appropriately, some sinus rhythm , predominantly intact AV conduction with a long NV interval. Pacemaker evaluation: Her pacemaker was evaluated remotely on June 18, 2017, she had no atrial fibrillation identified, lead measurements were unremarkable. Assessment & Plan #1. Acute GI illness: This appears to be improving, no evidence of GI bleed on Xarelto. #2. Elevated troponin: She does have an elevated troponin, the cause is not obvious. Her electrocardiogram looks unremarkable, she could have coronary disease but we have never investigated that to my knowledge. She did have an elevated creatinine on admission, which has now improved significantly, but that does not seem to explain it. I agree with an echocardiogram to look for wall motion abnormalities and serial cardiac enzymes. Her symptoms do not suggest an acute cardiac event although it is conceivable, she did not appear to be hypotensive or have other hemodynamic alteration to explain demand ischemia. #3. Dual-chamber pacemaker: Functioning well by electrocardiography and telemetry, when checked remotely in June everything appeared to be in order. I do not think we need to further investigate. #4. Atrial fibrillation: She had atrial fibrillation identified during the first month after pacemaker implantation, she has a history of palpitations but I don't know if her palpitations are due to the atrial fibrillation. She has had neither palpitations nor atrial fibrillation of any significance recently ( based on pacemaker monitoring which is reliable). She seems to be tolerating Xarelto well, I would probably continue it for now but if there is any concern about the need for an operative procedure or intervention it could certainly be stopped safely temporarily. #5. Sinus node dysfunction: She is pacing in the atrium consistent with sinus node dysfunction. Her overall heart rate appears to be appropriate. #6. Sick sinus syndrome: She appears to have sick sinus syndrome with sinus bradycardia and paroxysmal atrial fibrillation, although her atrial fibrillation has not been much of a problem since early after pacemaker implantation. Thank you for allowing me to participate in her care.
--- NOTE | 2017-07-28 15:47 | Hospitalist Progress Note ---
Hospitalist Progress Note Date of Service Jul 28, 2017. (Heidy Bustos .KATHERYN) Objective Vital Signs Date Time Temp Pulse Resp B/P (MAP) Pulse Ox O2 Delivery O2 Flow Rate FiO2 07/28/17 12:00 95 Room Air 07/28/17 08:14 36.5 62 18 104/66 (79) 96 Room Air 07/28/17 08:00 93 Room Air 07/28/17 04:00 Room Air 07/28/17 03:19 36.4 64 20 107/65 (79) 93 Room Air 07/28/17 00:55 36.5 67 18 108/69 97 Room Air 07/28/17 00:05 70 15 115/62 94 07/27/17 23:32 70 15 115/62 94 Room Air 07/27/17 22:10 67 07/27/17 22:06 67 23 101/70 95 Room Air 07/27/17 21:55 Room Air 07/27/17 19:53 78 18 97/65 96 Room Air (Heidy Bustos CRNP) Laboratory Results Last 24 Hours Test 07/27/17 22:00 07/28/17 00:31 07/28/17 06:36 White Blood Count 7.58 K/uL 5.63 K/uL Red Blood Count 5.32 M/uL 4.36 M/uL Hemoglobin 16.8 g/dL 13.9 g/dL Hematocrit 50.5 % 41.0 % Mean Corpuscular Volume 94.9 fL 94.0 fL Mean Corpuscular Hemoglobin 31.6 pg 31.9 pg Mean Corpuscular Hemoglobin Concent 33.3 g/dl 33.9 g/dl Platelet Count 245 K/uL 212 K/uL Mean Platelet Volume 9.8 fL 9.2 fL Neutrophils (%) (Auto) 76.3 % Lymphocytes (%) (Auto) 14.9 % Monocytes (%) (Auto) 8.3 % Eosinophils (%) (Auto) 0.1 % Basophils (%) (Auto) 0.1 % Neutrophils # (Auto) 5.78 K/uL Lymphocytes # (Auto) 1.13 K/uL Monocytes # (Auto) 0.63 K/uL Eosinophils # (Auto) 0.01 K/uL Basophils # (Auto) 0.01 K/uL RDW Standard Deviation 48.1 fL 47.3 fL RDW Coefficient of Variation 13.9 % 13.7 % Immature Granulocyte % (Auto) 0.3 % Immature Granulocyte # (Auto) 0.02 K/uL Prothrombin Time 13.4 SECONDS Prothromb Time International Ratio 1.3 Activated Partial Thromboplast Time 40.4 SECONDS Partial Thromboplastin Ratio 1.6 Sodium Level 135 mmol/L 138 mmol/L Potassium Level 4.6 mmol/L 4.1 mmol/L Chloride Level 103 mmol/L 108 mmol/L Carbon Dioxide Level 20 mmol/L 21 mmol/L Anion Gap 13.0 mmol/L 9.0 mmol/L Blood Urea Nitrogen 29 mg/dl 29 mg/dl Creatinine 2.02 mg/dl 1.33 mg/dl Est Creatinine Clear Calc Drug Dose 20.4 ml/min 30.9 ml/min Estimated GFR () 27.1 44.9 Estimated GFR (Non- 23.4 38.7 BUN/Creatinine Ratio 14.5 22.1 Random Glucose 137 mg/dl 92 mg/dl Calcium Level 9.4 mg/dl 8.1 mg/dl Magnesium Level 2.1 mg/dl Total Bilirubin 0.6 mg/dl Direct Bilirubin 0.1 mg/dl Aspartate Amino Transf (AST/SGOT) 16 U/L Alanine Aminotransferase (ALT/SGPT) 15 U/L Alkaline Phosphatase 72 U/L Total Creatine Kinase 79 U/L Creatine Kinase MB 7.4 ng/ml Creatine Kinase MB Ratio 9.4 Troponin I 1.490 ng/ml 0.791 ng/ml Total Protein 8.0 gm/dl Albumin 3.5 gm/dl Thyroid Stimulating Hormone (TSH) 2.430 uIu/ml Urine Color YELLOW Urine Appearance CLOUDY Urine pH 5.0 Urine Specific [place] 1.019 Urine Protein NEG Urine Glucose (UA) NEG Urine Ketones NEG Urine Occult Blood 2+ Urine Nitrite NEG Urine Bilirubin NEG Urine Urobilinogen NEG Urine Leukocyte Esterase NEG Urine WBC (Auto) 1-5 /hpf Urine RBC (Auto) 0-4 /hpf Urine Hyaline Casts (Auto) 10-30 /lpf Urine Epithelial Cells (Auto) >30 /lpf Urine Bacteria (Auto) 1+ Urine Crystals CALCIUM OXALATE (Heidy Bustos ., KATHERYN) Assessment and Plan 77 y/o F Hx COPD, HTN, GERD, Bradycardia and pauses with pacer placement 2016, PAF. Presents with diarrhea x 1 day, weakness and poor appetite. Diarrhea, dehydration, ARF - continue fluid resuscitation provided, C diff results pending. - diarrhea has resolved - Creat 2 on admission, 1.3 today - repeat prp in am Troponin elevation - peaked at 1.49 and trended down - will continue to trend - renal dosing Xarelto and will continue daily Metoprolol - Cardiology consulted - Echo pending COPD - no evidence of acute exacerbation - cont inhalers as needed GERD - cont Pantoprazole PAF - per cardiology pacer interrogation showed this has only occurred once since having pacer put in. Their recommendation is to continue Xeralto for now. 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 Discussed with KATHERYN Bustos and agree with findings and plan as documented in the note. Any exceptions or clarifications are listed here: Scratch that Patient feeling markedly improved today. She is no longer having any diarrhea. She is no longer nauseated or having vomiting. She tolerated eating throughout the day. No abdominal pain. No chest pain or shortness of breath. Her troponin is starting to trend downward. In telemetry she is pacing in the 60s-70s. Her creatinine is also improved. I discussed the case with cardiology today. Vitals and telemetry reviewed Gen: AAOx3, NAD HEENT: anicteric sclerae, EOMI CV: RRR no mgr nl S1S2 Pulm: CTAB no wcr Abd: +BS soft NT ND no masses or hernias Ext: no edema, 2+ DP pulses Skin: no rashes, warm/dry Neuro: full strength throughout Patient is a 77-year-old female with a history of symptomatic bradycardia with PPM, PAF on Xarelto, COPD, hypertension, GERD, abnormal bladder lesions currently undergoing workup, who presents with likely acute viral gastroenteritis with nausea vomiting and diarrhea, along with acute kidney injury and a positive troponin. ECGs negative for ischemia, troponin is trending down and is likely secondary to demand ischemia possibly from acute illness. Echo reviewed and shows mild to moderate aortic regurgitation and grade 1 diastolic dysfunction with preserved EF, there are no wall motion abnormalities. It is unlikely that she had acute coronary syndrome. -Continue IV fluids, trend troponin one more time to make sure continues to drop lower -Appreciate cardiology consultation -Can likely discharge to home tomorrow. Documented By: Iliana Farrell (Iliana Farrell MD)
--- NOTE | 2017-07-28 17:37 | ECHOCARDIOGRAM REPORT ---
*NOTICE TO RECEIVING [employer]ENCY This information is strictly Confidential and protected under [place] law. [place] law prohibits you from making any further disclosure of this information unless further disclosure is expressly permitted by the written consent of the person to whom it pertains or is authorized by law. A general authorization for the release of medical or other information is not sufficient for this purpose. Hospital accepts no responsibility if the information is made available to any other person, INCLUDING THE PATIENT. Interpretation Summary * Name: TEVIN ALFORD Study Date: 07/28/2017 10:40 AM BP: 107/65 mmHg * Patient Location: C.2T\S\S242\S\2 HR: 68 * : 1940 (M/d/yyyy) Gender: Female Height: 62 in * Age: 77 yrs Ethnicity: CA Weight: 135 lb * Ordering Physician: Tj Cooper * Referring Physician: Self, Referred * Performed By: Ashwin Ro RDCS * * Reason For Study: Troponin elevation * BSA: 1.6 m2 * -- Conclusions -- * 1. Normal LV size, borderline concentric LVH. * 2. Normal LV systolic function. LVEF 55-60%. No regional wall motion abnormalities. * 3. Normal RV size and function. * 4. Mild to moderate aortic regurgitation. * 5. Mild mitral regurgitation. * 6. Grade I diastolic dysfunction. * 7. Normal estimated RA and PA pressures. * 8. Borderline dilated ascending aorta (3.7 cm). * 8. Compared with prior study on 11/23/2016: aortic regurgitation better appreciated. No other significant changes. Procedure Details * A complete two-dimensional transthoracic echocardiogram was performed (2D, M-mode, Doppler and color flow Doppler). * The study was technically adequate. Left Ventricle * The left ventricle is grossly normal size. * There is borderline concentric left ventricular hypertrophy. * Ejection Fraction = 55-60%. Right Ventricle * The right ventricle is grossly normal size. * There is a pacemaker lead in the right ventricle. * The right ventricular systolic function is normal as assessed by tricuspid annular plane systolic excursion (TAPSE) (normal >1.5 cm). Atria * Borderline left atrial enlargement. * Right atrial size is normal. * No ASD detected; PFO is not assessed. Mitral Valve * The mitral valve is grossly normal. * There is no mitral valve stenosis. * There is mild mitral regurgitation. Tricuspid Valve * There is trace tricuspid regurgitation. Aortic Valve * The aortic valve opens well. * The aortic valve is trileaflet. * No hemodynamically significant valvular aortic stenosis. * Mild to moderate aortic regurgitation. Pulmonic Valve * The pulmonary valve is inadequately visualized, but the Doppler data is adequate for interpretation. * There is no pulmonic valvular stenosis. * Trace pulmonic valvular regurgitation. Great Vessels * Borderline dilated ascending aorta. * Asc Aorta 3.7 cm * Normal inferior vena cava size and collapsability with sniff indicates a normal right atrial pressure of 3 mmHg * There is no evidence of pulmonary hypertension. The PA systolic pressure is less than 36 mmHg. Left Ventricular Diastolic Function * Grade I diastolic dysfunction, (abnormal relaxation pattern). MMode 2D Measurements and Calculations IVSd 1.1 cm IVSs 1.4 cm LVIDd 3.7 cm LVIDs 2.3 cm LVPWd 1.1 cm LVPWs 1.5 cm IVS/LVPW 1.0 FS 36.8 % EDV(Teich) 57.5 ml ESV(Teich) 18.7 ml EF(Teich) 67.5 % EDV(cubed) 50.0 ml ESV(cubed) 12.6 ml EF(cubed) 74.7 % % IVS thick 31.9 % % LVPW thick 36.9 % LV mass(C)d 126.4 grams LV mass(C)dI 78.2 grams/m\S\2 LV mass(C)s 110.8 grams LV mass(C)sI 68.5 grams/m\S\2 SV(Teich) 38.8 ml SI(Teich) 24.0 ml/m\S\2 SV(cubed) 37.3 ml SI(cubed) 23.1 ml/m\S\2 EPSS 0.36 cm Ao root diam 3.3 cm Ao root area 8.4 cm\S\2 ACS 1.9 cm LA dimension 3.3 cm asc Aorta Diam 3.6 cm LA/Ao 1.0 LVOT diam 2.0 cm LVOT area 3.1 cm\S\2 LVAd ap4 24.3 cm\S\2 LVLd ap4 8.0 cm EDV(MOD-sp4) 58.5 ml EDV(sp4-el) 62.3 ml LVAs ap4 14.1 cm\S\2 LVLs ap4 7.1 cm ESV(MOD-sp4) 25.1 ml ESV(sp4-el) 24.0 ml EF(MOD-sp4) 57.1 % EF(sp4-el) 61.4 % LVAd ap2 23.4 cm\S\2 LVLd ap2 8.0 cm EDV(MOD-sp2) 57.7 ml EDV(sp2-el) 58.3 ml LVAs ap2 13.5 cm\S\2 LVLs ap2 7.0 cm ESV(MOD-sp2) 21.8 ml ESV(sp2-el) 22.3 ml EF(MOD-sp2) 62.2 % EF(sp2-el) 61.7 % LVLd %diff -0.28 % EDV(MOD-bp) 58.0 ml LVLs %diff -0.98 % ESV(MOD-bp) 23.2 ml EF(MOD-bp) 60.1 % SV(MOD-sp4) 33.4 ml SI(MOD-sp4) 20.6 ml/m\S\2 SV(MOD-sp2) 35.9 ml SI(MOD-sp2) 22.2 ml/m\S\2 SV(MOD-bp) 34.9 ml SI(MOD-bp) 21.6 ml/m\S\2 SV(sp4-el) 38.3 ml SI(sp4-el) 23.7 ml/m\S\2 SV(sp2-el) 36.0 ml SI(sp2-el) 22.2 ml/m\S\2 Doppler Measurements and Calculations MV E max hermes 68.8 cm/sec MV A max hermes 88.7 cm/sec MV E/A 0.78 MV dec time 0.20 sec Ao V2 max 130.1 cm/sec Ao max PG 6.8 mmHg Ao max PG (full) 4.4 mmHg JOSE(V,A) 1.9 cm\S\2 JOSE(V,D) 1.9 cm\S\2 AI max hermes 393.8 cm/sec AI max PG 62.0 mmHg AI dec slope 251.5 cm/sec\S\2 AI P1/2t 458.6 msec LV V1 max PG 2.4 mmHg LV V1 max 77.3 cm/sec PA V2 max 71.6 cm/sec PA max PG 2.1 mmHg PA acc slope 275.9 cm/sec\S\2 PA acc time 0.18 sec PI end-d hermes 113.0 cm/sec TR max hermes 206.4 cm/sec PA pr(Accel) -0.17 mmHg
[2017-07-29] VITALS (8 sets, daily range): BP systolic 138–156; BP diastolic 70–80; PULSE 60–65; TEMP 36.3–36.6; O2SAT 95–97
[2017-07-29 05:47] LABS: HEMATOCRIT 37.4 % (37-47); HEMOGLOBIN 12.7 g/dL (12.0-16.0); MEAN CELL VOLUME 92.8 fL (80-100); MEAN CORPUSCULAR HEMOGLOBIN 31.5 pg (25-34); PLATELET COUNT 188 K/uL (130-400); RED CELL DISTRIBUTION WIDTH CV 13.4 % (11.5-14.5); RED CELL DISTRIBUTION WIDTH SD 45.8 fL (36.4-46.3); WHITE BLOOD COUNT 6.28 K/uL (4.8-10.8)
[2017-07-29 06:28] LABS: CALCIUM 8.1 mg/dl (8.5-10.1); CREATININE 0.91 mg/dl (0.60-1.20)
[2017-07-29] MEDS: FLUTICASONE/SALMETEROL 250/50 (ADVAIR) 14 PUFF/1 INHALER INH SCH (08:49)
[2017-07-29] MEDS: PANTOprazole SOD 40 MG TAB PO SCH (08:50)
[2017-07-29] MEDS: ESTROGENS, CONJUGATED 0.625 MG TAB PO SCH (08:50)
[2017-07-29] MEDS: METOPROLOL TARTRATE 50 MG TAB PO SCH (08:50)
[2017-07-29] MEDS ORDERED: RIVAROXABAN TAB 15 MG TAB PO SCH (09:00)
[2017-07-29] MEDS ORDERED: XRL15 PO (09:55)
[2017-07-29] MEDS ORDERED: METR500T PO (09:55)
[2017-07-29] MEDS ORDERED: METRONIDAZOLE 500 MG TAB PO STA (09:56)
--- NOTE | 2017-07-29 10:04 | Discharge Instructions ---
Discharge Instructions Date of Service Jul 29, 2017. Admission Reason for Admission: Arf, Troponin I Level Above Reference Range Discharge Discharge Diagnosis / Problem: C.diff colitis, acute renal failure, elevated troponin Discharge Goals Goal(s): Improve disease control Activity Recommendations Activity Limitations: resume your previous activity . Instructions / Follow-Up Instructions / Follow-Up Please follow up with your primary care provider in about a week. Please finish your antibiotics as prescribed Current Hospital Diet Patient's current hospital diet: AHA Diet (Heart Healthy) Discharge Diet Recommended Diet: AHA Diet (Heart Healthy) Pending Studies Studies pending at discharge: no Medical Emergencies . Who to Call and When: Medical Emergencies: If at any time you feel your situation is an emergency, please call 911 immediately. . Non-Emergent Contact Non-Emergency issues call your: Primary Care Provider Call Non-Emergent contact if: you have a fever, you have any medication questions . . "Provider Documentation" section prepared by Heidy Bustos. . VTE Core Measure Inpt VTE Proph given/why not?: Other Anticoagulation
--- NOTE | 2017-07-29 10:08 | Discharge Summary ---
Discharge Summary Date of Service Jul 29, 2017. Discharge Summary Admission Date: Jul 27, 2017 at 23:43 Discharge Date: Jul 29, 2017 Discharge Disposition: Home Principal Diagnosis: C.diff, ARF, elevated troponin Problems/Secondary Diagnoses: Demand ischemia Dehydration COPD GERD PAF on long term care social worker anticoagulant with Xarelto Pacer in situ HTN Abnormal bladder lesions Mild to moderate aortic regurgitation Chronic diastolic CHF Procedures: Echo Interpretation Summary * Name: TEVIN ALFORD Study Date: 07/28/2017 10:40 AM BP: 107/65 mmHg * Patient Location: .2T\S\S242\S\2 HR: 68 * : 1940 (M/d/yyyy) Gender: Female Height: 62 in * Age: 77 yrs Ethnicity: [place] Weight: 135 lb * Ordering Physician: Tj Cooper * Referring Physician: Self, Referred * Performed By: Ashwin Ro RDCS * * Reason For Study: Troponin elevation * BSA: 1.6 m2 * -- Conclusions -- * 1. Normal LV size, borderline concentric LVH. * 2. Normal LV systolic function. LVEF 55-60%. No regional wall motion abnormalities. * 3. Normal RV size and function. * 4. Mild to moderate aortic regurgitation. * 5. Mild mitral regurgitation. * 6. Grade I diastolic dysfunction. * 7. Normal estimated RA and PA pressures. * 8. Borderline dilated ascending aorta (3.7 cm). * 8. Compared with prior study on 11/23/2016: aortic regurgitation better appreciated. No other significant changes. Procedure Details * A complete two-dimensional transthoracic echocardiogram was performed (2D, M-mode, Doppler and color flow Doppler). * The study was technically adequate. Left Ventricle * The left ventricle is grossly normal size. * There is borderline concentric left ventricular hypertrophy. * Ejection Fraction = 55-60%. Right Ventricle * The right ventricle is grossly normal size. * There is a pacemaker lead in the right ventricle. * The right ventricular systolic function is normal as assessed by tricuspid annular plane systolic excursion (TAPSE) (normal >1.5 cm). Atria * Borderline left atrial enlargement. * Right atrial size is normal. * No ASD detected; PFO is not assessed. Mitral Valve * The mitral valve is grossly normal. * There is no mitral valve stenosis. * There is mild mitral regurgitation. Tricuspid Valve * There is trace tricuspid regurgitation. Aortic Valve * The aortic valve opens well. * The aortic valve is trileaflet. * No hemodynamically significant valvular aortic stenosis. * Mild to moderate aortic regurgitation. Pulmonic Valve * The pulmonary valve is inadequately visualized, but the Doppler data is adequate for interpretation. * There is no pulmonic valvular stenosis. * Trace pulmonic valvular regurgitation. Great Vessels * Borderline dilated ascending aorta. * Asc Aorta 3.7 cm * Normal inferior vena cava size and collapsability with sniff indicates a normal right atrial pressure of 3 mmHg * There is no evidence of pulmonary hypertension. The PA systolic pressure is less than 36 mmHg. Left Ventricular Diastolic Function * Grade I diastolic dysfunction, (abnormal relaxation pattern). Consultations: Cardiology Medication Reconciliation New Medications: Metronidazole (Flagyl) 500 Mg Tab 500 MG PO TID for 10 Days, #30 TAB Rivaroxaban (Xarelto) 15 Mg Tab 15 MG PO DAILY for 30 Days, #30 TAB Continued Medications: Albuterol Hfa (Ventolin Hfa) 200 Puffs/73055 Mcg Aers 2-4 PUFFS INH Q6H for SOB/Wheezing, #1 INHALER Diphenoxylate/Atropine (Lomotil) Tab 1 TAB PO prn ud, TAB max 8 tabs in 24 hr period. Estrogens, Conjugated (Premarin) 1.25 Mg Tab 1.25 MG PO DAILY, TAB Fluticasone Prop/Salmeterol (Advair Diskus 250/50 60 Dose) 1 Ea Aerp 1 PUFF INH BID, INHALER Gabapentin (Neurontin) 300 Mg Cap 300 MG PO BID PRN for FOOT PAIN, SPRAY Metoprolol Tartrate (Lopressor) (Lopressor) 50 Mg Tab 50 MG PO DAILY, TAB Pantoprazole (Protonix) 40 Mg Tab 40 MG PO DAILY, #30 TAB Discontinued Medications: Rivaroxaban (Xarelto) 20 Mg Tab 20 MG PO DAILY, TAB Discharge Exam ROS Constitutional: no chills, aches, sweats or fever Respiratory: no sob,cough, sputum, or wheezing Cardiac: no chest pain, palpitations, edema, orthopnea or lightheadedness GI: no abdominal pain, nausea, vomiting, diarrhea or constipation : no dysuria or hesitancy Extremities: no joint pain or weakness Skin: no rash All other systems reviewed and negative PE General: no distress Eyes: normal inspection, PERLL Respiratory: chest non tender, clear to auscultation, normal breath sounds, no respiratory distress, no accessory muscle use Cardiac: regular rate and rhythm, no rub or gallop, no murmur, no edema, no jvd GI/: active bowel sounds, no abd pain or tenderness, soft, non distended Extremities: normal range of motion, normal strength, non tender Neuro/Psych: alert and oriented x 3, normal mood and affect Skin: normal color, dry Hospital Course 77 y/o F Hx COPD, HTN, GERD, Bradycardia and pauses with pacer placement 2016, PAF. Presents with diarrhea x 1 day, weakness and poor appetite. Diarrhea, dehydration, ARF - continue fluid resuscitation provided, C diff results pending. - diarrhea has resolved - Creat 2 on admission, 1.3 today - repeat prp in am Troponin elevation - peaked at 1.49 and trended down - will continue to trend - renal dosing Xarelto and will continue daily Metoprolol - Cardiology consulted - Echo pending COPD - no evidence of acute exacerbation - cont inhalers as needed GERD - cont Pantoprazole PAF - per cardiology pacer interrogation showed this has only occurred once since having pacer put in. Their recommendation is to continue Xeralto for now. Full code - Xarelto prophylaxis Total Time Spent: Greater than 30 minutes This includes examination of the patient, discharge planning, medication reconciliation, and communication with other providers. Discharge Instructions Please refer to the electronic Patient Visit Report (Discharge Instructions) for additional information. Follow-Up Primary care in a week Cardiology in September Additional Copies To Arthur Hernandez Reviewed: Pt Seen/Exam by Me History KATHERYN Supervision Note: I interviewed and examined the patient. Discussed with KATHERYN Bustos and agree with findings and plan as documented in the note. Any exceptions or clarifications are listed here: Patient feeling very well today. She is no longer having any diarrhea but did have some small BMs that tested positive for C. diff today. Denies abd pain, is serafin po. Video News Editor is normal. Vitals and telemetry reviewed Gen: AAOx3, NAD HEENT: anicteric sclerae, EOMI CV: RRR no mgr nl S1S2 Pulm: CTAB no wcr Abd: +BS soft NT ND no masses or hernias Ext: no edema, 2+ DP pulses Skin: no rashes, warm/dry, left foot plantar surface over MT with small callus, no surrounding erythema, with small central scab, no drainage Neuro: full strength throughout Patient is a 77-year-old female with a history of symptomatic bradycardia with PPM, PAF on Xarelto, COPD, hypertension, GERD, abnormal bladder lesions currently undergoing workup, who presents with nausea vomiting and diarrhea, along with acute kidney injury and a positive troponin. ECGs negative for ischemia, troponin is trending down and is likely secondary to demand ischemia possibly from acute illness. Echo reviewed and shows mild to moderate aortic regurgitation and grade 1 diastolic dysfunction with preserved EF, there are no wall motion abnormalities. It is unlikely that she had acute coronary syndrome. C. diff antigen returned positive and she was recently treated with abx for both a foot infection and a UTI. -Advised Flagyl 500mg tid x 10 days, probiotics or yogurt -received IV fluids and training development director normalized -Her Xarelto dose was lowered to 15mg daily due to her CrCl being < 50 (and has been at least back 2 years as per our records)-renally dosed -Stable for dc to home Documented By: Iliana Farrell
[2017-07-29] MEDS ORDERED: METRONIDAZOLE 500 MG TAB PO SCH (14:00)
== END 2017-07-29 13:41 | disposition home or self-care (01) | DRG 868 ==
LOC: C.EDB 19:51 → C.2T 23:43 → ENRESERV 23:56
PROVIDERS: ADMIT Internal Medicine; ATTEND Family Medicine
DX: B96.89 Other specified bacterial agents as the cause of diseases classified elsewhere (principal); N17.9 Acute kidney failure, unspecified; I24.8 Other forms of acute ischemic heart disease; I50.32 Chronic diastolic (congestive) heart failure; J44.9 Chronic obstructive pulmonary disease, unspecified; I10 Essential (primary) hypertension; K21.9 Gastro-esophageal reflux disease without esophagitis; R00.1 Bradycardia, unspecified; Z88.1 Allergy status to other antibiotic agents; I48.0 Paroxysmal atrial fibrillation; R19.7 Diarrhea, unspecified; E86.0 Dehydration; Z79.01 Long term (current) use of anticoagulants; N32.9 Bladder disorder, unspecified; I35.1 Nonrheumatic aortic (valve) insufficiency

== ENCOUNTER → 2017-08-13 | Day surgery (SDC) | payer OTHER ==
[2017-08-03 10:50] VITALS: BMI 25.0
--- NOTE | 2017-08-03 11:35 | PAT Medication Instructions ---
Service Date Aug 03, 2017. Current Home Medication List Albuterol Hfa (Ventolin Hfa), 2-4 PUFFS INH Q6H Estrogens, Conjugated (Premarin), 1.25 MG PO QAM Fluticasone Prop/Salmeterol (Advair Diskus 250/50 60 Dose), 1 PUFF INH BID Gabapentin (Neurontin), 300 MG PO BID PRN for FOOT PAIN Metoprolol Tartrate (Lopressor) (Lopressor), 50 MG PO QAM Metronidazole (Flagyl), 500 MG PO TID Pantoprazole (Protonix), 40 MG PO QAM Rivaroxaban (Xarelto), 20 MG PO QAM [Magnilife Db], 1 DOSE TOP UD PRN for FOOTCREAM Medication Instructions For Your Scheduled Surgery -Hold the following medications per your cardiologists instructions (OK to hold 2 days) Rivaroxaban (Xarelto), 20 MG PO QAM - Hold the following medications 24 hours prior to surgery: [Magnilife Db], 1 DOSE TOP UD PRN for FOOTCREAM - Take the following medications the morning of surgery with a sip of water: Albuterol Hfa (Ventolin Hfa), 2-4 PUFFS INH Q6H (if needed, and bring it with you to the hospital) Fluticasone Prop/Salmeterol (Advair Diskus 250/50 60 Dose), 1 PUFF INH BID Gabapentin (Neurontin), 300 MG PO BID PRN for FOOT PAIN (if needed) Metoprolol Tartrate (Lopressor) (Lopressor), 50 MG PO QAM Metronidazole (Flagyl), 500 MG PO TID Pantoprazole (Protonix), 40 MG PO QAM Estrogens, Conjugated (Premarin), 1.25 MG PO QAM - Take the following medications as scheduled the night before surgery: Albuterol Hfa (Ventolin Hfa), 2-4 PUFFS INH Q6H (if needed) Fluticasone Prop/Salmeterol (Advair Diskus 250/50 60 Dose), 1 PUFF INH BID Gabapentin (Neurontin), 300 MG PO BID PRN for FOOT PAIN Metronidazole (Flagyl), 500 MG PO TID If you have any questions please call us at [phone] or [phone] or [phone]
[2017-08-03 12:39] LABS: BASO % 0.3 %; BASO ABS # 0.03 K/uL (0-0.2); EOS % 1.1 %; EOS ABS # 0.11 K/uL (0-0.5); HEMATOCRIT 41.2 % (37-47); HEMOGLOBIN 14.3 g/dL (12.0-16.0); IG# 0.01 K/uL (0.00-0.02); LYMPH % 28.3 %; LYMPH ABS # 2.92 K/uL (1.2-3.4); MEAN CELL VOLUME 91.4 fL (80-100); MEAN CORPUSCULAR HEMOGLOBIN 31.7 pg (25-34); MEAN CORPUSCULAR HGB CONC 34.7 g/dl (32-36); MEAN PLATELET VOLUME 8.9 fL (7.4-10.4); MONO % 8.5 %; MONO ABS # 0.88 K/uL (0.11-0.59); NEUT % 61.7 %; NEUT ABS # 6.37 K/uL (1.4-6.5); PLATELET COUNT 278 K/uL (130-400); RED CELL DISTRIBUTION WIDTH CV 13.6 % (11.5-14.5); RED CELL DISTRIBUTION WIDTH SD 44.9 fL (36.4-46.3); WHITE BLOOD COUNT 10.32 K/uL (4.8-10.8)
[2017-08-03 13:11] LABS: CALCIUM 9.2 mg/dl (8.5-10.1); CREATININE 0.9 mg/dl (0.60-1.20); POTASSIUM 4.6 mmol/L (3.5-5.1)
[~2017-08-13] VITALS: Ht 157.5 cm; Wt 62.1 kg
[~2017-08-13] MED LIST changes: +ATROPINE SULFATE 0.1 MG/ML 5ML SYR IV PRN; +CEFAZOLIN 1000MG IV PUSH 7.5 ML IV SCH; +DEXAMETHASONE SOD INJ 4 MG/ML VIAL ONE; +EpHEDrine SULFATE 50MG/5ML SYR ONE; +EpHEDrine SULFATE INJ 50 MG/ML AMP IV PRN; +FENTANYL CITRATE INJ 50 MCG/1 ML 2 ML VIAL IV PRN; +FENTANYL CITRATE INJ 50 MCG/1 ML 2 ML VIAL ONE; +GABA-113 PO; +LACTATED RINGER'S 1000ML 1,000 ML IV SCH; +LIDOCAINE HCL 2% 2 ML VIAL (20MG/ML) ONE; +METO50TA16 PO; +METR-163 PO; +MIDAZOLAM HCL 1 MG/ML 2ML VIAL ONE; +MULT-506 PO; +ONDANSETRON INJ 2 MG/ML 2 ML VIAL IV PRN; +ONDANSETRON INJ 2 MG/ML 2 ML VIAL ONE; +PANT40TA PO; +PROPOFOL IV EMULSION 10 MG/ML 20 ML VIAL IV ONE; +RIVA1TAB4 PO; +TRAMADOL/ACETAMINOPHEN 37.5/325MG TAB PO PRN; +TRAMTAB5 PO; +VNTHFA/IN INH; +[UNRECOGNIZED DRUG - OTHER] TOP
[2017-08-13 05:51] VITALS: BP 145/83; PULSE 78; TEMP 36.6; O2SAT 97; BMI 25.0
[2017-08-13 05:52] VITALS: BP 145/83; PULSE 78; TEMP 36.6; O2SAT 97; Ht 157.5 cm; Wt 62.1 kg
--- NOTE | 2017-08-13 07:48 | [facility] Post Operative Brief Note ---
Immediate Operative Summary Operative Date Aug 13, 2017. Pre-Operative Diagnosis Bladder Lesion Post-Operative Diagnosis Bladder Lesion Procedure(s) Performed Cystoscopy, Bladder Biopsy, Fulguration Surgeon Dr Thompson Staff Field Engineer Surgeon(s) None Estimated Blood Loss 0cc Findings Consistent with Post-Op Diagnosis Specimens Bladder Biospy Drains None Anesthesia Type General Complication(s) none Disposition Accompanied Pt To Recover: yes Disposition: Recovery Room / PACU
--- NOTE | 2017-08-13 07:50 | Discharge Instructions ---
Discharge Instructions Date of Service Aug 13, 2017. Visit Reason for Visit: Bladder Lesions Discharge Discharge Diagnosis / Problem: bladder lesions Discharge Goals Goal(s): Therapeutic intervention Activity Recommendations Activity Limitations: per Instructions/Follow-up section Exercise/Sports Limitations: rest today May Resume Sexual Activity: when tolerated Shower/Bathe: no limitations Driving or Machine Use: resume 1 day after discharge Anesthesia . Post Anesthesia Instructions: If you have had General Anesthesia or IV Sedation: * Do not drive today. * Resume driving when surgeon permits. * Do not make important decisions or sign legal documents today. * Call surgeon for: 1. Temperature elevations greater than 101 degrees F. 2. Uncontrollable pain. 3. Excessive bleeding. 4. Persistent nausea and vomiting. 5. Medication intolerance (nausea, vomiting or rash). * For nausea and vomiting use only clear liquids such as: tea, soda, bouillon until nausea subsides, then gradually increase diet as tolerated. * If you have any concerns or questions, call your surgeon's office. If physician is unavailable and it is an emergency, call 911 or go to the nearest emergency room. . Diet Recommendations Recommended Home Diet: resume previous diet Procedures Procedures Performed: Cystoscopy, Bladder Biopsy, Fulguration Pending Studies Studies pending at discharge: no Medical Emergencies . Who to Call and When: Medical Emergencies: If at any time you feel your situation is an emergency, please call 911 immediately. . Non-Emergent Contact Non-Emergency issues call your: Urologist Call Non-Emergent contact if: temperature is above 101.5, your pain is not controlled . . "Provider Documentation" section prepared by Ethan Thompson. . [place] Drug Monitoring Program Search Results: patient reviewed within database
--- NOTE | 2017-08-13 08:03 | [facility] Operative Report ---
Operative Report Operative Date Aug 13, 2017. Pre-Operative Diagnosis Bladder Lesion Post-Operative Diagnosis Bladder Lesion Procedure(s) Performed Cystoscopy, Bladder Biopsy, Fulguration Surgeon Dr Thompson Communications Superintendent Surgeon(s) None Estimated Blood Loss 0cc Findings Cystoscopic exam revealed a normal urethra and bladder showed multiple erythematous areas with what appear to be a hemangiomas in the center patient also had some fine probable calcium oxalate crystals. She did have 1-2+ trabeculation. Both ureteral orifices were effluxing clear urine Specimens Bladder Biospy Drains None Anesthesia Type General Complication(s) none Disposition yes Recovery Room / PACU Indications Patient with irritative voiding symptoms. Abnormal bladder lesions on cystoscopy Description of Procedure After the induction of an adequate general anesthetic and appropriate timeout patient was placed in the dorsolithotomy position. Lower abdomen and genitalia were prepped with Hibiclens and draped in a sterile fashion. Next using a 22 [place] cystoscope routine cystoscopic exam was performed with the above-noted findings with 30 and 70 lenses. Next using cold cup biopsy forceps several of the abnormal bladder lesions were biopsied. The areas were then fulgurated for hemostasis. Some of the other lesions were just then fulgurated. After completing the fulguration bladder was reinspected there was no bleeding patient 's bladder was drained and cystoscope and sheath were removed. All needle sponge and instrument counts are correct at the end of the case. Patient tolerated the procedure well and was taken to the recovery room in stable condition. I attest to the content of the Intraoperative Record and any orders documented therein. Any exceptions are noted below.
[2017-08-13 08:35] VITALS: BP 124/72; PULSE 75; TEMP 36.6; O2SAT 92
[2017-08-13 09:05] VITALS: BP 122/65; PULSE 63; O2SAT 92
[2017-08-13 09:35] VITALS: BP 145/65; PULSE 66; TEMP 35.6; O2SAT 98
--- NOTE | 2017-08-13 10:00 | Anesthesiology Progress Note ---
Anesthesia Post Op Note Date & Time Aug 13, 2017 at 10:00 Vital Signs Pain Intensity: 0 Vital Signs Past 12 Hours Date Time Temp Pulse Resp B/P (MAP) Pulse Ox O2 Delivery O2 Flow Rate FiO2 08/13/17 09:35 66 18 145/65 98 Room Air 08/13/17 09:05 63 18 122/65 92 Room Air 08/13/17 08:35 36.6 75 18 124/72 92 Room Air 08/13/17 08:25 78 16 117/71 99 Oxymask 3 08/13/17 08:15 36.3 76 16 123/76 99 Oxymask 3 08/13/17 08:05 86 14 122/71 99 Oxymask 5 08/13/17 07:55 72 14 114/68 99 Oxymask 5 08/13/17 07:47 36.2 69 14 109/66 99 Oxymask 10 08/13/17 05:52 36.6 78 18 145/83 (103) 97 Room Air Notes Mental Status: alert / awake / arousable, participated in evaluation Pt Amnestic to Procedure: Yes Nausea / Vomiting: adequately controlled Pain: adequately controlled Airway Patency, RR, SpO2: stable & adequate BP & HR: stable & adequate Hydration State: stable & adequate Anesthetic Complications: no major complications apparent
[2017-08-13 10:08] VITALS: BP 163/73; PULSE 77; TEMP 35.8; O2SAT 95
== END | disposition home or self-care (01) ==
LOC: C.ACU 04:54
PROVIDERS: ATTEND Urology
DX: N30.21 Other chronic cystitis with hematuria (principal); R33.9 Retention of urine, unspecified; I10 Essential (primary) hypertension; J44.9 Chronic obstructive pulmonary disease, unspecified; I48.0 Paroxysmal atrial fibrillation; Z88.1 Allergy status to other antibiotic agents; Z87.442 Personal history of urinary calculi; Z87.440 Personal history of urinary (tract) infections; Z90.710 Acquired absence of both cervix and uterus; Z95.0 Presence of cardiac pacemaker; Z79.01 Long term (current) use of anticoagulants

== ENCOUNTER 2017-08-23 04:39 | Emergency (ER) | payer OTHER ==
[~2017-08-23] VITALS: Ht 157.5 cm; Wt 62.9 kg
[~2017-08-23 04:39] MED LIST changes: -ATROPINE SULFATE 0.1 MG/ML 5ML SYR IV PRN; -CEFAZOLIN 1000MG IV PUSH 7.5 ML IV SCH; -DEXAMETHASONE SOD INJ 4 MG/ML VIAL ONE; -EpHEDrine SULFATE 50MG/5ML SYR ONE; -EpHEDrine SULFATE INJ 50 MG/ML AMP IV PRN; -FENTANYL CITRATE INJ 50 MCG/1 ML 2 ML VIAL IV PRN; -FENTANYL CITRATE INJ 50 MCG/1 ML 2 ML VIAL ONE; -LACTATED RINGER'S 1000ML 1,000 ML IV SCH; -LIDOCAINE HCL 2% 2 ML VIAL (20MG/ML) ONE; -MIDAZOLAM HCL 1 MG/ML 2ML VIAL ONE; -ONDANSETRON INJ 2 MG/ML 2 ML VIAL IV PRN; -ONDANSETRON INJ 2 MG/ML 2 ML VIAL ONE; -PROPOFOL IV EMULSION 10 MG/ML 20 ML VIAL IV ONE; -TRAMADOL/ACETAMINOPHEN 37.5/325MG TAB PO PRN
[2017-08-23 04:43] VITALS: TEMP 36.3; Ht 157.5 cm; Wt 62.9 kg
--- NOTE | 2017-08-23 05:32 | EMERGENCY ROOM VISIT NOTE ---
History Report prepared by Yo: Betty Al Under the Supervision of: Dr. Anabel Lui M.D. First contact with patient: 04:55 Chief Complaint: URINARY SYMPTOMS Stated Complaint: HEAVY BLEEDING History of Present Illness The patient is a 77 year old female who presents to the Emergency Room with complaints of intermittent hematuria since last night. She states when she urinated last night, "it looked like straight blood". She denies passing any clots and states she has no pain. She reports she underwent a bladder biopsy by Dr. Thompson at [facility] 2 weeks ago and was placed on antibiotics , which she finished last week. She notes she has experienced difficulty emptying her bladder completely for several years and states Urology is aware. The patient does take daily Xarelto for a history of a pacemaker, that was placed in November [address] Tolliver of [facility]. She denies any recent abdominal pain. Source of History: patient Onset: last night Position: pelvis (urinary system) Timing: intermittent Modifying Factors (Worsening): other (recent bladder biopsy) Associated Symptoms: No abdominal pain Review of Systems See HPI for pertinent positives & negatives. A total of 10 systems reviewed and were otherwise negative. Past Medical & Surgical Medical Problems: (1) Anterior shoulder dislocation (2) ARF (acute renal failure) (3) Bronchitis (4) C. difficile colitis (5) Chronic obstructive pulmonary disease (6) Contusion of left knee (7) Contusion of right wrist (8) Corneal foreign body (9) Emphysema/COPD (10) GERD (gastroesophageal reflux disease) (11) HTN (hypertension) (12) Near syncope (13) Paroxysmal A-fib (14) Sinus arrest (15) Sinus pause (16) Troponin I above reference range Surgical Problems: (1) History of cataract extraction Family History No pertinent family history Social History Smoking Status: Never Smoker Alcohol Use: none Drug Use: none Marital Status: Housing Status: lives with family Occupation Status: retired Current/Historical Medications Scheduled Albuterol Hfa (Ventolin Hfa), 2-4 PUFFS INH Q6H Cephalexin Monohydrate (Keflex), 500 MG PO BID Estrogens, Conjugated (Premarin), 1.25 MG PO QAM Fluticasone Prop/Salmeterol (Advair Diskus 250/50 60 Dose), 1 PUFF INH BID Metoprolol Tartrate (Lopressor) (Lopressor), 50 MG PO QAM Multivitamin (Multivitamin), 1 TAB PO DAILY Pantoprazole (Protonix), 40 MG PO QAM Rivaroxaban (Xarelto), 20 MG PO QAM Scheduled PRN Gabapentin (Neurontin), 300 MG PO BID PRN for FOOT PAIN Tramadol/Acetaminophen (Ultracet), 1 TAB PO TID PRN for Pain Allergies Coded Allergies: Ciprofloxacin (Verified Adverse Reaction, Intermediate, HEADACHE "feel DRUNK", 08/13/17) Physical Exam Vital Signs Date Time Temp Pulse Resp B/P (MAP) Pulse Ox O2 Delivery O2 Flow Rate FiO2 08/23/17 08:25 158/78 08/23/17 06:42 78 16 162/83 95 Room Air 08/23/17 04:43 36.3 85 18 163/96 96 Room Air Physical Exam Vital signs reviewed. General: Well-appearing 77 year old female, in no significant distress. HEENT: No scleral icterus, PERRLA, neck supple. Atraumatic. Cardiovascular: Regular rate and rhythm, no extra sounds. Pulmonary: Clear to auscultation bilaterally, normal work of breathing. Abdomen: Soft, nontender, nondistended, positive bowel sounds. Musculoskeletal: Atraumatic, no peripheral edema. Neurologic: Patient awake alert and oriented x 3, full strength in all 4 extremities. Cranial nerves 2 through 12 grossly intact. Skin: Warm, dry, no rash Medical Decision & Procedures ER Provider Diagnostic Interpretation: Radiology results as stated below per my review and radiologist interpretation: (RENAL) RETROPERITON COMP CLINICAL HISTORY: 77 years-old Female presenting with hematuria, h/o stones. TECHNIQUE: Real-time grayscale and limited color Doppler ultrasound imaging of the kidneys and bladder was performed. COMPARISON: CT from 07/06/2017. FINDINGS: Right kidney: Normal echogenicity of renal parenchyma. Right kidney measures 9.3 cm. Mild pelviectasis most pronounced at the lower pole, unchanged from most recent CT. No convincing evidence of hydronephrosis Multiple cysts noted, one with thin mural calcification suggested by hyperechogenicity of the cyst wall. This cyst measures 6.2 x 5.0 x 4.8 cm. The largest simple cyst measures 5.3 x 5.4 x 5.4 cm. Left kidney: Normal echogenicity of renal parenchyma. Left kidney measures 9.4 cm. No hydronephrosis. No convincing evidence of calculus or mass. Bladder: Polypoid thickening along the superior bladder dome measuring 7 mm. No demonstrable internal vascularity on color Doppler. Bilateral ureteral jets present. Other: None. IMPRESSION: 1. No hydronephrosis. 2. Polypoid bladder wall thickening at the dome could raise concern for an underlying neoplasm. Urologic consultation recommended and/or correlation with cystoscopy. 3. Multiple right simple cysts as well as a minimally complex cyst (Bosniak 2). Electronically signed by: Mc Bowman M.D. 08/23/2017 7:02 AM Laboratory Results 08/23/17 05:11 Red Blood Count 4.55, Mean Corpuscular Volume 92.7, Mean Corpuscular Hemoglobin 31.6, Mean Corpuscular Hemoglobin Concent 34.1, Mean Platelet Volume 9.0 08/23/17 05:11 Test 08/23/17 05:11 08/23/17 05:27 White Blood Count 7.20 K/uL (4.8-10.8) Red Blood Count 4.55 M/uL (4.2-5.4) Hemoglobin 14.4 g/dL (12.0-16.0) Hematocrit 42.2 % (37-47) Mean Corpuscular Volume 92.7 fL (80-100) Mean Corpuscular Hemoglobin 31.6 pg (25-34) Mean Corpuscular Hemoglobin Concent 34.1 g/dl (32-36) Platelet Count 260 K/uL (130-400) Mean Platelet Volume 9.0 fL (7.4-10.4) RDW Standard Deviation 48.1 fL (36.4-46.3) RDW Coefficient of Variation 14.3 % (11.5-14.5) Neutrophils % (Manual) 42.4 % Lymphocytes % (Manual) 31.0 % Variant Lymphocytes % (manual) 15.9 % Monocytes % (Manual) 7.1 % Eosinophils % (Manual) 2.7 % Basophils % (Manual) 0.9 % Neutrophils # (Manual) 3.05 K/uL (1.4-6.5) Total Absolute Neutrophils 3.05 K/uL (1.4-6.5) Lymphocytes # (Manual) 2.23 K/uL (1.2-3.4) Absolute Variant Lymphocytes 1.14 K/uL Total Absolute Lymphocytes 3.38 K/uL (1.2-3.4) Monocytes # (Manual) 0.51 K/uL (0.11-0.59) Eosinophils # (Manual) 0.19 K/uL (0-0.5) Basophils # (Manual) 0.06 K/uL (0-0.2) Red Blood Cell Morphology Unremarkable Anion Gap 8.0 mmol/L (3-11) Est Creatinine Clear Calc Drug Dose 40.1 ml/min Estimated GFR () 60.4 Estimated GFR (Non- 52.1 BUN/Creatinine Ratio 24.2 (10-20) Calcium Level 8.9 mg/dl (8.5-10.1) Total Bilirubin 0.3 mg/dl (0.2-1) Direct Bilirubin < 0.1 mg/dl (0-0.2) Aspartate Amino Transf (AST/SGOT) 17 U/L (15-37) Alanine Aminotransferase (ALT/SGPT) 18 U/L (12-78) Alkaline Phosphatase 79 U/L (45-117) Total Protein 7.4 gm/dl (6.4-8.2) Albumin 3.5 gm/dl (3.4-5.0) Thyroid Stimulating Hormone (TSH) 3.180 uIu/ml (0.300-4.500) Free Thyroxine 0.92 ng/dl (0.80-1.60) Free Triiodothyronine 3.21 pg/ml (2.30-4.20) Urine Color ORANGE Urine Appearance CLOUDY (CLEAR) Urine pH 5.0 (4.5-7.5) Urine Specific Vill[place]ueva 1.013 (1.000-1.030) Urine Protein 2+ (NEG) Urine Glucose (UA) NEG (NEG) Urine Ketones NEG (NEG) Urine Occult Blood 3+ (NEG) Urine Nitrite NEG (NEG) Urine Bilirubin NEG (NEG) Urine Urobilinogen NEG (NEG) Urine Leukocyte Esterase SMALL (NEG) Urine WBC (Auto) 10-30 /hpf (0-5) Urine RBC (Auto) >30 /hpf (0-4) Urine Hyaline Casts (Auto) 1-5 /lpf (0-5) Urine Epithelial Cells (Auto) >30 /lpf (0-5) Urine Bacteria (Auto) NEG (NEG) Laboratory results per my review. ED Course 0519: Past medical records reviewed. The patient was evaluated in room B5. A complete history and physical examination was performed. 722: I discussed the patients case with Dr. Schmidt, [facility]. He thinks it sounds alright to take her off her Xarelto and will follow up with her in the office to interrogate her pacemaker. 0738: I discussed the patients case with KATHERYN Ruiz, [facility]. She will arrange for follow up in the office. 0750: I reevaluated the patient. She is feeling well and resting comfortably. I discussed her results and discharge instructions and she verbalized complete understanding and agreement. Medical Decision Differential Diagnoses: UTI, hemorrhagic neoplasm, medication effect, kidney stone and renal mass. This pt was evaluated and appeared to be in no distress. Urine was evaluated at the bedside and is a darker tea color. It has been sent for UA and Cx. UA indicated RBC, WBC and LE but is contaminated. US of the retroperitoneum was performed and reveals no obstruction, but bladder thickening, which is no surprise. Pt was d/w Dr Tolliver of cards who agrees if the pt is in a sinus rhythm she was be taken off of the xaralto. He would like close f/u in their office. Urology was paged. Case d/w KATHERYN Ruiz and pt will be placed on keflex and keep appt in several days with Dr Thompson. Urine cx is pending. Pt and were made aware of the plan. Extensive teaching regarding the issues and plan was given. Pt was d/c to and will return to the ED for worsening of symptoms or any medical concerns. Medication Reconcilliation Current Medication List: was personally reviewed by me Blood Pressure Screening Patient's blood pressure: Elevated blood pressure Blood pressure disposition: Referred to PCP Consults Time Called: 718 Consulting Physician: [facility] Returned Call: [phone] I discussed the patients case with [facility]. He thinks it sounds alright to take her off her Xarelto and will follow up with her in the office to interrogate her pacemaker. Additional Consults: Time Called: 734 Consulted Physician: KATHERYN Ruiz, [facility] Returned Call: [phone] Additional Comments: I discussed the patients case with KATHERYN Ruiz, [facility]. She will arrange for follow up in the office. Impression Primary Impression: Post-op bleeding Additional Impression: Anticoagulant effect Scribe Attestation The scribe's documentation has been prepared under my direction and personally reviewed by me in its entirety. I confirm that the note above accurately reflects all work, treatment, procedures, and medical decision making performed by me. Departure Information Dispostion Home / Self-Care Prescriptions Cephalexin Monohydrate (Keflex) 500 Mg Cap 500 MG PO BID, #10 CAP Prov: Anabel Lui M.D. 08/23/17 Referrals Arthur Hernandez (PCP) Patient Instructions My [facility] Additional Instructions Diagnosis: Postoperative bleeding, anticoagulant effect Please start Keflex 500 mg twice daily for 5 days. Drink plenty of clear fluids. Stop your Xarelto. Contact Dr. Tolliver's office for follow-up within the next 1-2 weeks. Follow-up with Dr. Thompson of urology in the office on Sunday as scheduled. Return to the emergency department for worsening of symptoms or any medical concerns. Problem Qualifiers
[2017-08-23 06:42] VITALS: PULSE 78; O2SAT 95
--- NOTE | 2017-08-23 07:04 | DIAGNOSTIC IMAGING REPORT ---
(RENAL)RETROPERITON COMP CLINICAL HISTORY: 77 years-old Female presenting with hematuria, h/o stones. TECHNIQUE: Real-time grayscale and limited color Doppler ultrasound imaging of the kidneys and bladder was performed. COMPARISON: CT from 07/06/2017. FINDINGS: Right kidney: Normal echogenicity of renal parenchyma. Right kidney measures 9.3 cm. Mild pelviectasis most pronounced at the lower pole, unchanged from most recent CT. No convincing evidence of hydronephrosis Multiple cysts noted, one with thin mural calcification suggested by hyperechogenicity of the cyst wall. This cyst measures 6.2 x 5.0 x 4.8 cm. The largest simple cyst measures 5.3 x 5.4 x 5.4 cm. Left kidney: Normal echogenicity of renal parenchyma. Left kidney measures 9.4 cm. No hydronephrosis. No convincing evidence of calculus or mass. Bladder: Polypoid thickening along the superior bladder dome measuring 7 mm. No demonstrable internal vascularity on color Doppler. Bilateral ureteral jets present. Other: None. IMPRESSION: 1. No hydronephrosis. 2. Polypoid bladder wall thickening at the dome could raise concern for an underlying neoplasm. Urologic consultation recommended and/or correlation with cystoscopy. 3. Multiple right simple cysts as well as a minimally complex cyst (Bosniak 2). Electronically signed by: Mc Bowman M.D. 08/23/2017 7:02 AM Dictated Date/Time: 08/23/2017 6:57 AM
[2017-08-23 07:26] LABS: HEMATOCRIT 42.2 % (37-47); HEMOGLOBIN 14.4 g/dL (12.0-16.0); MEAN CELL VOLUME 92.7 fL (80-100); MEAN CORPUSCULAR HEMOGLOBIN 31.6 pg (25-34); MEAN CORPUSCULAR HGB CONC 34.1 g/dl (32-36); PLATELET COUNT 260 K/uL (130-400); RED CELL DISTRIBUTION WIDTH CV 14.3 % (11.5-14.5); RED CELL DISTRIBUTION WIDTH SD 48.1 fL (36.4-46.3)
[2017-08-23 07:36] LABS: ALBUMIN 3.5 gm/dl (3.4-5.0); ALT/SGPT 18 U/L (12-78); BLOOD UREA NITROGEN 25 mg/dl (7-18); CALCIUM 8.9 mg/dl (8.5-10.1); CARBON DIOXIDE 24 mmol/L (21-32); CREATININE 1.04 mg/dl (0.60-1.20); GLUCOSE 88 mg/dl (70-99); POTASSIUM 3.8 mmol/L (3.5-5.1); SODIUM 137 mmol/L (136-145)
[2017-08-23 07:47] LABS: ALKALINE PHOSPHATASE 79 U/L (45-117); AST/SGOT 17 U/L (15-37); TOTAL PROTEIN 7.4 gm/dl (6.4-8.2)
[2017-08-23] MEDS ORDERED: CEPH500C PO (08:00)
[2017-08-23 08:25] VITALS: BP 158/78
== END 2017-08-23 08:41 | disposition home or self-care (01) ==
LOC: C.EDB 04:41
DX: N99.89 Other postprocedural complications and disorders of genitourinary system (principal); T45.515A Adverse effect of anticoagulants, initial encounter; J44.9 Chronic obstructive pulmonary disease, unspecified; I10 Essential (primary) hypertension; I48.91 Unspecified atrial fibrillation; Z79.01 Long term (current) use of anticoagulants; Z95.0 Presence of cardiac pacemaker; Z79.890 Hormone replacement therapy; Z88.1 Allergy status to other antibiotic agents

== ENCOUNTER → 2018-01-21 | Outpatient (CLI) | payer OTHER ==
[~2018-01-21] MED LIST changes: +CEPH500C PO; -METR-163 PO; -TRAMTAB5 PO; -[UNRECOGNIZED DRUG - OTHER] TOP
--- NOTE | 2018-01-21 12:24 | DIAGNOSTIC IMAGING REPORT ---
(RONA/BLAD)RETROPERITON COMP HISTORY: Renal cysts CYST COMPARISON: 08/23/2017 FINDINGS: Right kidney: Maximum linear dimension 8.8 cm. No evidence for hydronephrosis. 2 cysts seen laterally measuring 5.5 and 5.7 cm respectively. These are essentially unchanged given differences in measurements compared to the prior exam. One contains a trace amount calcification and is unchanged. Normal corticomedullary differentiation and cortical thickness. Left kidney: Maximum linear dimension 9.7 cm. 7 mm nonobstructing calcification. No evidence for hydronephrosis. Normal corticomedullary differentiation and cortical thickness. Bladder: No bladder wall thickening. The bilateral ureteral jets were identified. IMPRESSION: 1. Stable right renal cyst showing no change from the prior exam. 2. Single cyst shows several associated calcifications indicative of a Bosniak 2 category. 3. No change from the prior study. 4. Nonobstructing left renal calcification. The above report was generated using voice recognition software. It may contain grammatical, syntax or spelling errors. Electronically signed by: Conner Glaser M.D. 01/21/2018 12:22 PM Dictated Date/Time: 01/21/2018 12:19 PM
== END | disposition home or self-care (01) ==
LOC: C.ULTR 11:10
PROVIDERS: ATTEND Urology
DX: N28.1 Cyst of kidney, acquired (principal); N20.0 Calculus of kidney

== ENCOUNTER 2020-01-16 01:18 | Observation (INO) ==
[2020-01-16] MEDS ORDERED: ACETAMINOPHEN 325 MG TAB PO PRN (02:13)
[2020-01-16] MEDS ORDERED: ONDANSETRON INJ 2 MG/ML 2 ML VIAL IV PRN (02:13)
[2020-01-16] MEDS ORDERED: ALUMINUM/MAGNESIUM SUSP 30 ML UDC PO PRN (02:13)
--- NOTE | 2020-01-16 02:20 | History & Physical Report ---
Date of Service January 16, 2020 Assessment & Plan (1) UTI (urinary tract infection): 79-year-old female with past medical history GERD, COPD, pacemaker, peripheral neuropathy presents as a direct admit from OSH for management of UTI. UTI Patient afebrile on admission. WBC 12.79. Other SIRS criteria not met, VSS. UA yet to be collected this admission Urine culture from January 13, 2020 growing E. coli. Sensitivities reviewed--pansensitive except ampicillin. Previous urine culture from August 19, 2019 growing Klebsiella pneumoniae ESBL Continue IV ceftriaxone. Hold p.o. Macrobid. Patient received IV Vanco/Zosyn at OSH IVF NSS at 100 mL/hr Blood cultures pending -Will not formally consult Urology, may consider curbside courtesy consult as pt follows with Dr. Thompson Peripheral neuropathy Continue gabapentin 300 mg GERD Continue pantoprazole 40 mg COPD Stable Continue fluticasone salmeterol inhaler twice daily FEN/GI: NSS@100. Regular diet DVT prophylaxis: Lovenox SQ DNR/DNI Dispo: Med telemetry Admission and Anticipated Discharge Date Admission Date: January 16, 2020 History of Present Illness Chief Complaint: UTI Primary Care Provider: NO PCP 79-year-old female with past medical history GERD, COPD, pacemaker, peripheral neuropathy presents as a direct admit from [facility]. Patient with complaints of urinary frequency and hesitancy that began a few days ago. Notes that last UTI was years ago. Associated suprapubic pain that is described as sharp, nonradiating. Currently a 2 or 3 out of 10 on pain scale. Patient had similar pain years ago and was seen to have kidney stones. Patient states that this feels similar to that incident. Patient was seen at urology office (Dr. Thompson) where a UA and KUB x-ray was taken. KUB from January 13, 2020 showed no acute abnormalities. UA resulted January 13, 2020 and grew E. coli that was pansensitive except for ampicillin. Patient was prescribed Macrobid 100 mg tw ice daily for 7 days and Azo for which she has been taking for 1 day to this point. Patient noted ongoing fatigue today so presented to OSH ED. At OSH, pt apparently had septic picture with temp 39.3 C, HR 118. Patient otherwise denies any dysuria, hematuria, fevers, chills, nausea, vomiting, diarrhea, known sick contacts or recent travel anywhere. Patient with no other acute concerns or complaints. Patient transferred to our facility for ongoing management and pt requested transfer to our facility because that is where she sees most of her doctors, including urology. OSH pertinent labs: WBC 11.93, glucose 115, BUN 29, creatinine 1.3, sodium 135, albumin 2.6, LA WNL 1.0 Chest x-ray: No acute disease OSH ER course: P.o. Tylenol, IV Vanco, IV Zosyn, NSS 1 L Allergies Allergy/AdvReac Type Severity Reaction Status Date / Time Cipro AdvReac Intermediate HEADACHE Verified 08/13/17 05:44 "feel DRUNK" ciprofloxacin AdvReac Intermediate HEADACHE Verified 07/26/19 14:19 "feel DRUNK" Home Medications Home Medications Medication Instructions Recorded Confirmed Type conjugated estrogens 1.25 mg tablet 1.25 mg PO QAM tab 02/14/19 01/16/20 History pantoprazole 40 mg tablet,delayed 40 mg PO QAM tab 02/14/19 01/16/20 History release cyanocobalamin (vitamin B-12) 1,000 mcg PO QAM 07/26/19 07/26/19 History fluticasone propion-salmeterol 2 inh INHALATION BID 07/26/19 07/26/19 History [Advair Diskus] ondansetron 4 mg PO Q8H PRN #7 tab 07/26/19 01/16/20 Rx metoprolol succinate 100 mg 100 mg PO QAM #90 tab 09/08/19 01/16/20 Rx tablet,extended release 24 hr cefixime 400 mg PO DAILY 5 Days #5 cap 01/16/20 Rx Past Med/Surg History Social History Smoking Status: Former smoker Hx Alcohol Use: No Hx Substance Use: No Preferred Language: Citizen Of [place] Communication Ability: Effective marital status: Current Living Situation: Spouse Feels Safe at Home: Yes Review of Systems Review of Systems: All systems reviewed & are unremarkable except as noted in HPI & below Physical Exam Constitutional: WD/WN, vitals as above Eyes: PERRL, conjunctivae normal, anicteric sclerae ENMT: external ear and nose normal, oropharynx normal Respiratory: normal respiratory effort, lungs clear to auscultation Cardiovascular: RRR, no murmur, no edema Gastrointestinal (Abdomen): Inspection/Auscultation: normal bowel sounds; abdomen not distended Percussion/Palpation: + abdomen tender (Mild TTP suprapubic and over right SI) and abdomen soft; no guarding Skin: no rashes, warm and dry Psychiatric: A+Ox3, euthymic affect Results & Data Results & Data ([facility]) Vital Signs (Past 12 Hours) Vital Signs Temp Pulse Resp BP Pulse Ox 01/16/20 01:45 36.9 C 88 18 127/80 91 Code Status & VTE Plan Code Status DNR/DNI Supervising Physician Co-Signing Physician Notes Attending addendum: I have physically seen this patient, have supervised the medical residents activities, and agree with the H&P unless as otherwise noted. Assessment and Plan: Sepsis secondary to UTI- From referring hospital [facility], temperature was 39.3, heart rate 118, and WBC 11.9. Macrobid has been discontinued. Continue ceftriaxone 1 g IV daily NSS at 100 mils per hour Follow urine cultures from referring hospital and blood cultures. Follows with urology Dr. Thompson. Peripheral neuropathy- Continue gabapentin 300 mg GERD- Continue pantoprazole 40 mg daily COPD- Continue fluticasone submedial inhaler twice daily Remainder of orders and notations as noted Resident Activity Tracking Resident Involvement: Resident Care Provided Care Provided: Adult Hospital Medicine
[2020-01-16 02:59] LABS: Basophils # (auto) 0.02 K/uL (0-0.2); Basophils % (auto) 0.2 %; Eosinophils # (auto) 0.03 K/uL (0-0.5); Eosinophils % (auto) 0.2 %; Hematocrit (blood only) 37.9 % (37-47); Hemoglobin 12.8 g/dL (12.0-16.0); Immature Granulocytes # (auto) 0.03 K/uL (0.00-0.02); Immature Granulocytes % (auto) 0.2 %; Lymphocytes # (auto) 1.04 K/uL (1.2-3.4); Lymphocytes % (auto) 8.1 %; Mean Corpuscular Hemoglobin 31.7 pg (25-34); Mean Corpuscular Volume 93.8 fL (80-100); Mean Platelet Volume 9.1 fL (7.4-10.4); Monocytes % (auto) 5.5 %; Neutrophils # (auto) 10.97 K/uL (1.4-6.5); Neutrophils % (auto) 85.8 %; Platelet Count 238 K/uL (130-400); RDW Coefficient of Variation 13.6 % (11.5-14.5); RDW Standard Deviation 47.1 fL (36.4-46.3); Red Blood Count 4.04 M/uL (4.2-5.4); White Blood Count 12.79 K/uL (4.8-10.8)
[2020-01-16 03:00] LABS: Mean Corpuscular Hgb Conc 33.8 g/dL (32-36)
[2020-01-16 03:13] LABS: Albumin Level 2.2 gm/dl (3.4-5.0); BUN Creatinine Ratio 21.3 (10-20); Calcium 7.7 mg/dl (8.5-10.1); Creatinine Clr Calc Pharmacy 30.6 ml/min; Est GFR (African American) 50.1; Est GFR (Non-African American) 43.3; Potassium 3.7 mmol/L (3.5-5.1)
[2020-01-16 03:16] LABS: Albumin Globulin Ratio 0.5 (0.9-2); Bilirubin,Total 0.9 mg/dl (0.2-1); Globulin 4.3 gm/dl (2.5-4.0); Total Protein 6.5 gm/dl (6.4-8.2)
[2020-01-16] MEDS: SODIUM CHLORIDE 0.9% 1000ML 1,000 ML IV SCH ×2 (03:18→15:51)
[2020-01-16 06:32] LABS: Prothrombin Time 10.6 Seconds (9.0-12.0)
[2020-01-16] MEDS ORDERED: PANTOprazole 40 MG TAB PO SCH (09:00)
[2020-01-16] MEDS ORDERED: FLUTICASONE/VILANTEROL 100/25MCG 14 PUFFS/INHALER INH SCH (09:00)
[2020-01-16] MEDS ORDERED: METOPROLOL SUCC 50MG EXT REL TAB PO SCH (09:00)
[2020-01-16] MEDS ORDERED: ENOXAPARIN INJ 30 MG/0.3 ML SYR SQ SCH (09:00)
[2020-01-16] MEDS ORDERED: ESTROGENS, CONJUGATED 0.625 MG TAB PO SCH (09:00)
[2020-01-16] MEDS ORDERED: CYANOCOBALAMIN 500 MCG TABLET (VITAMIN B-12) PO SCH (09:00)
[2020-01-16] MEDS ORDERED: cefTRIAXone SODIUM 1,000 MG in DEXTROSE 5% 50 ML IV SCH (09:00)
[2020-01-16 12:17] LABS: Appearance Urine Slightly Cloudy (Clear); Color Urine Orange; Protein Urine Positive (Negative); Specific Gravity Urine 1.013 (1.000-1.030); Sulfosalicylic Acid Urine Positive (Negative)
[2020-01-16 12:20] LABS: Epithelial Cell Urine 20-30 /lpf (0-5); WBC Urine >30 /hpf (0-5)
[2020-01-16 12:22] LABS: Bacteria Urine 1+ (Negative)
--- NOTE | 2020-01-16 17:55 | Discharge Summary ---
Date of Service January 16, 2020 Admission HPI Per Admitting Provider 79-year-old female with past medical history GERD, COPD, pacemaker, peripheral neuropathy presents as a direct admit from [facility]. Patient with complaints of urinary frequency and hesitancy that began a few days ago. Notes that last UTI was years ago. Associated suprapubic pain that is described as sharp, nonradiating. Currently a 2 or 3 out of 10 on pain scale. Patient had similar pain years ago and was seen to have kidney stones. Patient states that this feels similar to that incident. Patient was seen at urology office (Dr. Thompson) where a UA and KUB x-ray was taken. KUB from January 13, 2020 showed no acute abnormalities. UA resulted January 13, 2020 and grew E. coli that was pansensitive except for ampicillin. Patient was prescribed Macrobid 100 mg twice daily for 7 days and Azo for which she has been taking for 1 day to this point. Patient noted ongoing fatigue today so presented to OSH ED. At OSH, pt apparently had septic picture with temp 39.3 C, HR 118. Patient otherwise denies any dysuria, hematuria, fevers, chills, nausea, vomiting, diarrhea, known sick contacts or recent travel anywhere. Patient with no other acute concerns or complaints. Patient transferred to our facility for ongoing management and pt requested transfer to our facility because that is where she sees most of her doctors, including urology. OSH pertinent labs: WBC 11.93, glucose 115, BUN 29, creatinine 1.3, sodium 135, albumin 2.6, LA WNL 1.0 Chest x-ray: No acute disease OSH ER course: P.o. Tylenol, IV Vanco, IV Zosyn, NSS 1 L Principal Diagnosis UTI, sepsis POA now resolved Discharge Exam gen aao pleasant nad heent nc at mmm breathing unlabored no accessory muscles good effort skin no rashes no pallor or icterus neuro cn2-12 grossly intact Discharge Data Allergies Allergy/AdvReac Type Severity Reaction Status Date / Time Cipro AdvReac Intermediate HEADACHE Verified 08/13/17 05:44 "feel DRUNK" ciprofloxacin AdvReac Intermediate HEADACHE Verified 07/26/19 14:19 "feel DRUNK" Hospital Course (1) UTI (urinary tract infection): sepsis present on first evaluation - WBC > 12, and initial vitals showing HR 118 -was on macrobid - improved on ceftriaxone -- feeling good and wants to go home - stable for home on PO cephalosporin (last culture showed E Coli sesnitive to all but amp and amp/sul) - suspect that macrobid wasn't aggressive enough since not bacterocidal, and/or if there was any renal parenchymal involvement it would not have covered it (not that she clinically appeared c/w pyelo - but given considerations on why macrobid may not have helped) -outpt f/u PCP and urology Total Time Total Time Spent Total Time Spent (In Minutes): <30 Discharge Plan Discharge Items Patient Disposition: Home - Self-Care Reason For Visit: SEPSIS SECONDARY TO UTI Discharge Diagnosis: UTI Condition on Discharge: Good Activity: Resume your previous activity Non-emergency contact: Primary Care Provider and Urologist Call non-emergency contact if: you have any medication questions, your symptoms worsen and your temperature is above 101.5 Follow-up/Referrals: PCP,NO [Primary Care Provider] - Diet: Regular Addtl Attending Provider Instructions: You were seen at [place] [facility] for concern of urinary tract infection (groin and right flank pain). They gave you some IV fluids, Tylenol pill, and a dose of IV antibiotics (Vancomycin and Zosyn). You were transferred to our hospital because they were concerned by your fever (39.3C) and fast heart rate (118 beats per minute) and also because you normally obtain care from our hospital. Upon transfer to our hospital, your symptoms resolved on their own. The groin pain went away and you did not have fever. The labs at our hospital showed a tiny increase in white blood cells which would point towards infection. We are discharging you with 5 days of oral cefixime 400 mg 1x/day. Please take your first dose tomorrow morning. This is a pill form of a medicine in the same family as the one we gave you through IV (ceftriaxone) while in the hospital. On Sunday, you had seen your urologist for concern of kidney stone because your groin and flank pain felt similar to your episode of kidney stone years ago. The urologist ordered an xray which did not show any stone. You did not remember passing any stone. Please stay well hydrated. The urine culture that your urologist ordered showed E coli so he prescribed you Macrobid. You took your first dose of Macrobid and some home analgesic medicine yesterday. Your urinalysis obtained here in the hospital was also suggestive of infection. It has been sent to the lab for culture. Your calcium was a little low based on our labwork. After you finish your antibiotics, please take a daily caicium + vitamin D supplement that can be obtained at any local pharmacy. There is some concern of interaction with the antibiotic ceftriaxone, so we did not give you any here. You did not have any symptoms from the calcium. Please follow up with your primary care doctor, Dr. Carreon, in 1-2 weeks. Return precautions: If you develop any new or worsening symptoms including fever, chills, sweats, chest pain, chest pressure, difficulty breathing, uncontrolled nausea/vomiting, rash, wheezing, passing out or nearly passing out, bleeding, black/bloody bowel movements, severe groin pain or new inability to control urination or other new or concerning symptoms please call your primary care physician, or call 911 for re-evaluation in the emergency department if you are very concerned. For less pressing issues, please contact your primary care provider. Pending Studies at Discharge: Yes Studies:: urine culture Stand-Alone Forms: My [facility] [employer], Smoking Cessation Medications and DC Order Prescriptions: New cefixime 400 mg capsule 400 mg PO DAILY 5 Days Qty: 5 RF: 0 Continued metoprolol succinate 100 mg tablet extended release 24 hr 100 mg PO QAM Qty: 90 RF: 3 pantoprazole 40 mg tablet,delayed release (DR/EC) 40 mg PO QAM RF: 0 conjugated estrogens 1.25 mg tablet 1.25 mg PO QAM RF: 0 ondansetron 4 mg tablet,disintegrating 4 mg PO Q8H PRN (Reason: nausea and vomiting) Qty: 7 RF: 0 fluticasone propion-salmeterol [Advair Diskus] 250-50 mcg/dose blister with device 2 inh INHALATION BID RF: 0 cyanocobalamin (vitamin B-12) 1,000 mcg Tablet 1,000 mcg PO QAM RF: 0 Discontinued nitrofurantoin monohyd/m-cryst [Macrobid] 100 mg capsule 100 mg PO BID 7 Days Qty: 14 RF: 0 Discharge Orders: Discharge Order (Routine); Ordered 01/16/20 Ordered By: Carlos Godoy Admission Data Admit Date/Time: 01/16/20 01:18 Attending Provider: Carlos Godoy Admit Provider: Raul Miller Primary Care Provider: PCP,NO Other Providers: Raul Miller Other Interventions: Discharge Summary Assessment (RN) Last Done: 01/16/20 17:45 Coding Level of Care Code D/C Day Management <30 mins Diagnoses UTI (urinary tract infection) N39.0
--- NOTE | 2020-01-17 01:07 | Billing Data ---
Date of Service January 17, 2020 Coding Level of Care Code 30115 OBS Care - Level 3
== END 2020-01-16 19:15 | disposition home or self-care (01) | DRG 872 ==
LOC: 2W 01:18 → SUATTDRO 01:18 → INTOOBSV 01:18

== ENCOUNTER 2020-08-19 18:15 | Observation (INO) ==
[2020-08-19] MEDS ORDERED: SODIUM CHLORIDE 0.9% 1000ML 1,000 ML IV SCH (19:15)
[2020-08-19] MEDS ORDERED: SODIUM CHLORIDE 0.9% 500 ML IV SCH (19:15)
[2020-08-19 19:36] LABS: Basophils # (auto) 0.01 K/uL (0-0.2); Basophils % (auto) 0.1 %; Eosinophils # (auto) 0.03 K/uL (0-0.5); Eosinophils % (auto) 0.2 %; Hematocrit (blood only) 43.8 % (37-47); Hemoglobin 15.3 g/dL (12.0-16.0); Immature Granulocytes # (auto) 0.11 K/uL (0.00-0.02); Immature Granulocytes % (auto) 0.9 %; Lymphocytes # (auto) 0.83 K/uL (1.2-3.4); Lymphocytes % (auto) 6.5 %; Mean Corpuscular Hemoglobin 31.8 pg (25-34); Mean Corpuscular Hgb Conc 34.9 g/dL (32-36); Mean Corpuscular Volume 91.1 fL (80-100); Mean Platelet Volume 9.2 fL (7.4-10.4); Monocytes % (auto) 1.6 %; Neutrophils % (auto) 90.7 %; Platelet Count 248 K/uL (130-400); RDW Coefficient of Variation 13.7 % (11.5-14.5); RDW Standard Deviation 45.7 fL (36.4-46.3); Red Blood Count 4.81 M/uL (4.2-5.4); White Blood Count 12.68 K/uL (4.8-10.8)
--- NOTE | 2020-08-19 19:41 | Emergency Department Note ---
Impression & Plan Hypoxia, SOB (shortness of breath) ED Provider Note INFORMANT: Patient ED PROVIDER(S): Onel Rodrigez MD CHIEF COMPLAINT: Shortness of breath PLAN: Disposition: Admitted Condition: Good Outpatient prescription management: none Referral: None MEDICAL DECISION MAKING: Patient presented with acute shortness of breath. She was coughing and was hypoxic. She felt better with supplemental oxygen. Blood work was obtained. Chest x-ray performed. She had some mild increased markings. The patient's ECG did not show any acute ischemic findings. She was found to have a leukocytosis and some mild dehydration on chemistry panel. Her troponin was negative. Patient's lactate was moderately elevated. She was hydrated. She was given broad-spectrum antibiotics. CT imaging was performed. No pulmonary emboli were noted. The patient was found to have consolidations in both lower lobes. Repeat lactate was performed after hydration and the patient was still elevated. She had additional hydration performed. The patient will need further management in the hospital. Consultation was made with Dr. Raul Miller of the [facility] service. Patient was evaluated in the ER for further management. Triage Nursing notes reviewed and agree them. Additional history obtained from patient's Prior medical records reviewed regarding her last visit here. She was discharged with cefdinir and doxycycline. Vital Signs: reviewed and remarkable for no significant abnormalities Differential diagnosis: Reactive airway disease, pneumonia, pneumothorax, COPD, CHF, infections, cardiac ischemia, pulmonary embolism, musculoskeletal, gastrointestinal, as well as other pathologies. Diagnostics interpreted by me: ECG: Twelve-lead ECG reveals a sinus rhythm at 80 bpm. First-degree AV block. No ST elevation or depression. No PACs or PVCs. Normal axis and QRS. Cardiac Monitoring: Cardiac monitoring ordered by me: The patient was placed on continuous cardiac monitoring and observed. It revealed sinus tachycardic rhythm at 108 beats per minute without ectopy or evidence of dysrhythmia. Imaging studies: Chest x-ray and CT scan as noted above. I refer you to the EMR for further de tails. HPI: The patient is a 80 year old female who presents to the Emergency Room with complaints of shortness of breath. This started today at 1600 hrs. and is somewhat improved after ED arrival and nasal cannula supplemental oxygen. Patient was recently admitted to the hospital for community-acquired pneumonia. She was discharged on doxycycline and Omnicef. She is finishing that course. She was feeling short of breath and had a coughing. She had a significant amount of mucus produced. states she was gasping for air. Upon arrival to the ER she was found to be mildly hypoxic. Patient does not wear oxygen at home. The patient also notes the following associated symptoms, headache. The patient has taken no new medication for relieving factors. Current pain is rated as 2/10. Pt denies LOC, fevers, chills, diaphoresis, visual changes, neck pain, chest pain, nausea, vomiting, abdominal pain, back pain, melena, hematochezia, urinary symptoms, numbness, weakness, lymphadenopathy, rash, or other complaints. ROS: See above HPI for pertinent positives & negatives. A total of 10 systems reviewed and were otherwise negative. PAST MEDICAL HISTORY:See Below , pneumonia UTI, paroxysmal A. fib PAST SURGICAL HISTORY:See Below, FAMILY HISTORY:See Below SOCIAL HISTORY:See Below, HOME MEDICATIONS:See Below ALLERGIES:See Below VITALS:See Below PHYSICAL EXAMINATION: GENERAL: Awake, alert, mildly dyspneic-appearing, in no distress HENT: Normocephalic, atraumatic. Oropharynx unremarkable. EYES: Normal conjunctiva. Sclera non-icteric. NECK: Inspection normal. Non-tender. Supple. No nuchal rigidity. FROM. No masses. RESPIRATORY: Clear to auscultation. No wheezes. Scattered crackles. Increased respiratory effort. CARDIAC: Normal rate. Normal rhythm. No murmurs. No rubs. Extremities warm and well perfused. Pulses equal. No JVD. GI: Soft, non-distended. No tenderness to palpation. No rebound or guarding. No masses. RECTAL: Deferred. MUSCULOSKELETAL: Atraumatic. Chest examination reveals no tenderness. The back is symmetrical on inspection without obvious abnormality. There is no CVA tenderness to palpation. No joint edema. LOWER EXTREMITIES: Calves are equal size bilaterally and non-tender. No edema. No discoloration. NEURO: Normal sensorium. No sensory or motor deficits noted. SKIN: No rash or jaundice noted. Onel Rodrigez MD Past Med/Surg History Medical History (Updated 08/19/20 @ 19:39 by Onel Rodrigez MD) Anterior shoulder dislocation ARF (acute renal failure) Bronchitis C. difficile colitis Pacemaker Paroxysmal A-fib Sinus pause Troponin I above reference range Surgical History No pertinent past surgical history Family History (Updated 08/13/20 @ 17:14 by Deangelo Echavarria MD) Mother Diabetes Hypertension Social History Smoking Status: Former smoker Second Hand Exposure: No; Hx Alcohol Use: No Hx Substance Use: No Preferred Language: Scottish Communication Ability: Effective Furnace Process Supervisor Required: No Beliefs That Will Affect Care: None marital status: Current Living Situation: Spouse Feels Safe at Home: Yes Assistive Devices: None Allergies Allergies Allergy/AdvReac Type Severity Reaction Status Date / Time ciprofloxacin AdvReac Intermediate HEADACHE Verified 08/19/20 20:02 "feel DRUNK" Home Meds Home Medications Medication Instructions Recorded Confirmed conjugated estrogens 1.25 mg tablet 1.25 mg PO QAM tab 02/14/19 08/19/20 pantoprazole 40 mg tablet,delayed 40 mg PO QAM tab 02/14/19 08/19/20 release cyanocobalamin (vitamin B-12) 1,000 mcg PO QAM 07/26/19 08/19/20 gabapentin 100 mg capsule 100 mg PO HS PRN cap 03/08/20 08/19/20 Combivent Respimat 1 puff INHALATION QID PRN 08/13/20 08/19/20 nitrofurantoin monohyd/m-cryst 100 mg PO Q12H 08/13/20 08/19/20 [Macrobid] Previous Rx's Medication Instructions Recorded ondansetron 4 mg PO Q8H PRN #7 tab 07/26/19 metoprolol succinate 100 mg 100 mg PO QAM #90 tab 09/08/19 tablet,extended release 24 hr fluticasone propion-salmeterol 1 inh INHALATION BID #60 ea 08/14/20 [Advair Diskus] Results & Data (ED) Vital Signs Vital Signs - 24 hr 08/19/20 18:43 08/19/20 18:47 08/19/20 19:17 Temperature 36.2 C L Temperature Source Temporal Artery Scan Pulse Rate 101 H 90 Pulse Rate from SpO2 Sensor 90 Pulse Rhythm Regular Pulse Strength Normal Respiratory Rate 24 31 H Respiratory Effort / Characteristics Non-Labored Spontaneous Respiratory Depth Normal Respiratory Pattern Regular Blood Pressure 149/83 H 149/86 H Blood Pressure Mean 105 107 Blood Pressure Position Sitting Pulse Oximetry 87 L 93 Oxygen Delivery Method Room Air Nasal Cannula Nasal Cannula Oxygen Flow Rate 2 2 Sepsis Recent Fever Within 48 Hours No Sepsis New/Unexplained Change in Mental Status No Sepsis Action Taken by Nursing No Action Required 08/19/20 19:21 08/19/20 19:34 08/19/20 20:01 Temperature Temperature Source Pulse Rate 90 86 Pulse Rate from SpO2 Sensor 91 H 86 Pulse Rhythm Pulse Strength Respiratory Rate 31 H 32 H Respiratory Effort / Characteristics Respiratory Depth Respiratory Pattern Blood Pressure 143/85 H 150/77 H Blood Pressure Mean 104 101 Blood Pressure Position Pulse Oximetry 95 94 95 Oxygen Delivery Method Nasal Cannula Nasal Cannula Nasal Cannula Oxygen Flow Rate 2 3 3 Sepsis Recent Fever Within 48 Hours Sepsis New/Unexplained Change in Mental Status Sepsis Action Taken by Nursing 08/19/20 20:30 08/19/20 21:07 08/19/20 21:31 Temperature Temperature Source Pulse Rate 87 94 H 93 H Pulse Rate from SpO2 Sensor 87 99 H 94 H Pulse Rhythm Pulse Strength Respiratory Rate 24 26 H 24 Respiratory Effort / Characteristics Respiratory Depth Respiratory Pattern Blood Pressure 161/96 H 145/94 H 179/96 H Blood Pressure Mean 117 111 123 Blood Pressure Position Pulse Oximetry 96 90 98 Oxygen Delivery Method Nasal Cannula Nasal Cannula Nasal Cannula Oxygen Flow Rate 3 3 3 Sepsis Recent Fever Within 48 Hours Sepsis New/Unexplained Change in Mental Status Sepsis Action Taken by Nursing 08/19/20 22:00 08/19/20 22:30 08/19/20 23:00 Temperature Temperature Source Pulse Rate 112 H 118 H 114 H Pulse Rate from SpO2 Sensor 112 H 118 H 114 H Pulse Rhythm Pulse Strength Respiratory Rate 24 30 H 28 H Respiratory Effort / Characteristics Respiratory Depth Respiratory Pattern Blood Pressure 162/108 H 144/103 H 140/88 Blood Pressure Mean 126 116 105 Blood Pressure Position Pulse Oximetry 96 96 96 Oxygen Delivery Method Oxygen Flow Rate Sepsis Recent Fever Within 48 Hours Sepsis New/Unexplained Change in Mental Status Sepsis Action Taken by Nursing 08/19/20 23:30 Temperature Temperature Source Pulse Rate 124 H Pulse Rate from SpO2 Sensor 115 H Pulse Rhythm Pulse Strength Respiratory Rate 28 H Respiratory Effort / Characteristics Respiratory Depth Respiratory Pattern Blood Pressure 108/88 Blood Pressure Mean 94 Blood Pressure Position Pulse Oximetry 94 Oxygen Delivery Method Nasal Cannula Oxygen Flow Rate 3 Sepsis Recent Fever Within 48 Hours Sepsis New/Unexplained Change in Mental Status Sepsis Action Taken by Nursing Laboratory Data Result diagrams: 08/19/20 19:22 08/19/20 19:22 Lab Results 08/19/20 08/19/20 08/19/20 Range/Units 19:22 19:22 19:22 WBC 12.68 H (4.8-10.8) K/uL RBC 4.81 (4.2-5.4) M/uL Hgb 15.3 (12.0-16.0) g/dL Hct 43.8 (37-47) % MCV 91.1 (80-100) fL MCH 31.8 (25-34) pg MCHC 34.9 (32-36) g/dL RDW Std Deviation 45.7 (36.4-46.3) fL RDW Coeff of Marcus 13.7 (11.5-14.5) % Plt Count 248 (130-400) K/uL MPV 9.2 (7.4-10.4) fL Immature Gran % (Auto) 0.9 % Neut % (Auto) 90.7 % Lymph % (Auto) 6.5 % Mcnairy % (Auto) 1.6 % Eos % (Auto) 0.2 % Baso % (Auto) 0.1 % Neut # (Auto) 11.50 H (1.4-6.5) K/uL Lymph # (Auto) 0.83 L (1.2-3.4) K/uL Mcnairy # (Auto) 0.20 (0.11-0.59) K/uL Eos # (Auto) 0.03 (0-0.5) K/uL Baso # (Auto) 0.01 (0-0.2) K/uL Immature Gran # (Auto) 0.11 H (0.00-0.02) K/uL Sodium 139 (136-145) mmol/L Potassium 3.9 (3.5-5.1) mmol/L Chloride 107 (98-107) mmol/L Carbon Dioxide 24 (21-32) mmol/L Anion Gap 8.0 (3-11) BUN 27 H (7-18) mg/dl Creatinine 1.27 H (0.6-1.2) mg/dl Est Cr Clr Drug Dosing 28.4 ml/min Est GFR ( Amer) 46.5 Est GFR (Non-Af Amer) 40.1 BUN/Creatinine Ratio 21.3 H (10-20) Glucose 97 (70-99) mg/dl Lactate 3.2 H* (0.4-2.0) mmol/L Calcium 9.4 (8.5-10.1) mg/dl Magnesium 1.8 (1.8-2.4) mg/dl Total Bilirubin 0.8 (0.2-1) mg/dl AST 14 L (15-37) U/L ALT 13 (12-78) U/L Alkaline Phosphatase 89 (45-117) U/L Troponin I < 0.015 (0-0.045) ng/ml Total Protein 7.8 (6.4-8.2) gm/dl Albumin 3.3 L (3.4-5.0) gm/dl Globulin 4.5 H (2.5-4.0) gm/dl Albumin/Globulin Ratio 0.7 L (0.9-2) TSH 2.680 (0.300-4.500) uIu/ml 08/19/20 Range/Units 21:43 WBC (4.8-10.8) K/uL RBC (4.2-5.4) M/uL Hgb (12.0-16.0) g/dL Hct (37-47) % MCV (80-100) fL MCH (25-34) pg MCHC (32-36) g/dL RDW Std Deviation (36.4-46.3) fL RDW Coeff of Marcus (11.5-14.5) % Plt Count (130-400) K/uL MPV (7.4-10.4) fL Immature Gran % (Auto) % Neut % (Auto) % Lymph % (Auto) % Mcnairy % (Auto) % Eos % (Auto) % Baso % (Auto) % Neut # (Auto) (1.4-6.5) K/uL Lymph # (Auto) (1.2-3.4) K/uL Mcnairy # (Auto) (0.11-0.59) K/uL Eos # (Auto) (0-0.5) K/uL Baso # (Auto) (0-0.2) K/uL Immature Gran # (Auto) (0.00-0.02) K/uL Sodium (136-145) mmol/L Potassium (3.5-5.1) mmol/L Chloride (98-107) mmol/L Carbon Dioxide (21-32) mmol/L Anion Gap (3-11) BUN (7-18) mg/dl Creatinine (0.6-1.2) mg/dl Est Cr Clr Drug Dosing ml/min Est GFR ( Amer) Est GFR (Non-Af Amer) BUN/Creatinine Ratio (10-20) Glucose (70-99) mg/dl Lactate 3.1 H* (0.4-2.0) mmol/L Calcium (8.5-10.1) mg/dl Magnesium (1.8-2.4) mg/dl Total Bilirubin (0.2-1) mg/dl AST (15-37) U/L ALT (12-78) U/L Alkaline Phosphatase (45-117) U/L Troponin I (0-0.045) ng/ml Total Protein (6.4-8.2) gm/dl Albumin (3.4-5.0) gm/dl Globulin (2.5-4.0) gm/dl Albumin/Globulin Ratio (0.9-2) TSH (0.300-4.500) uIu/ml Administered Medications Sodium Chloride (Nss 1000ml) 1,000 mls @ 125 mls/hr IV .Q8H [facility] Stop: 08/20/20 03:14 Last Admin: 08/19/20 19:36 Dose: 125 mls/hr Documented by: [id number] Discontinued Medications Enoxaparin Sodium (Enoxaparin Inj 30 Mg/0.3 Ml Syr) 30 mg SQ ONE STA Stop: 08/19/20 23:50 Last Admin: 08/20/20 00:59 Dose: 30 mg Documented by: [id number] Sodium Chloride (Nss) 500 mls @ 999 mls/hr IV .Q31M JENY Stop: 08/19/20 19:45 Last Infusion: 08/19/20 21:08 Dose: 0 mls/hr Documented by: [id number] Admin: 08/19/20 19:36 Dose: 999 mls/hr Documented by: [id number] Sodium Chloride (Nss 1000ml) 500 mls @ 999 mls/hr IV .Q31M ONE Stop: 08/19/20 21:24 Last Infusion: 08/19/20 21:50 Dose: 0 mls/hr Documented by: [id number] Admin: 08/19/20 21:09 Dose: 999 mls/hr Documented by: [id number] Cefepime HCl (Maxipime) 2,000 mg in 20 mls @ 5 mls/min IV NOW STA; Protocol Stop: 08/19/20 21:35 Last Admin: 08/19/20 21:44 Dose: 5 mls/min Documented by: [id number] Vancomycin HCl 1,250 mg/ (Sodium Chloride) 525 mls @ 200 mls/hr IV NOW ONE Stop: 08/20/20 00:09 Last Admin: 08/19/20 22:37 Dose: 200 mls/hr Documented by: [id number] Piperacillin Sod/Tazobactam Sod (Zosyn) 4.5 gm in 120 mls @ 240 mls/hr IV ONE STA Stop: 08/20/20 00:16 Last Admin: 08/20/20 01:39 Dose: 240 mls/hr Documented by: [id number] Ioversol (Optiray 320 125ml) 116 ml IV ONCE ONE Stop: 08/19/20 20:48 Last Admin: 08/19/20 20:47 Dose: 116 ml Documented by: [id number] Methylprednisolone (Methylprednisolone 40 Mg/Ml Vial) 40 mg IV ONE STA Stop: 08/19/20 23:50 Last Admin: 08/20/20 00:58 Dose: 40 mg Documented by: [id number] Discharge Plan Visit Data Chief Complaint: Shortness of Breath/Dyspnea Stated Complaint: SOB ED Provider: Onel Rodrigez Discharge Problem: Hypoxia, SOB (shortness of breath) Patient Disposition: Admitted As Inpatient Discharge Instructions Interventions: ED Discharge Assessment Last Done: 08/20/20 01:05
--- NOTE | 2020-08-19 19:42 | XRay Report ---
XR chest 1V portable HISTORY: 80 years-old Female hypoxia acute hypoxia COMPARISON: Chest radiograph and CTA chest 08/13/2020 TECHNIQUE: Portable AP view of the chest FINDINGS: Cardiomediastinal and hilar silhouettes are unchanged. Calcified plaque of the thoracic aorta. Left s ubclavian pacer. Mild bibasilar opacities have slightly progressed from the comparison chest radiogra ph. Suggested emphysema. Degenerative changes of the shoulders and spine. IMPRESSION: 1. Mildly progressed bibasilar opacities suggestive of pneumonia or aspiration pneumonitis. Atelectas is could appear similarly. 2. Emphysema. ACT 112: Negative or not required by law. The above report was generated using voice recognition software. It may contain grammatical, syntax o r spelling errors. Electronically signed by: Dony Wallis M.D. 08/19/2020 7:40 PM
[2020-08-19 19:58] LABS: Alanine Aminotransferase 13 U/L (12-78); Albumin Level 3.3 gm/dl (3.4-5.0); Aspartate Aminotransferase 14 U/L (15-37); BUN Creatinine Ratio 21.3 (10-20); Blood Urea Nitrogen 27 mg/dl (7-18); Calcium 9.4 mg/dl (8.5-10.1); Carbon Dioxide 24 mmol/L (21-32); Chloride 107 mmol/L (98-107); Creatinine Clr Calc Pharmacy 28.4 ml/min; Est GFR (African American) 46.5; Est GFR (Non-African American) 40.1; Glucose 97 mg/dl (70-99); Magnesium 1.8 mg/dl (1.8-2.4); Potassium 3.9 mmol/L (3.5-5.1); Sodium 139 mmol/L (136-145)
[2020-08-19 20:08] LABS: Albumin Globulin Ratio 0.7 (0.9-2); Alkaline Phosphatase 89 U/L (45-117); Bilirubin,Total 0.8 mg/dl (0.2-1); Globulin 4.5 gm/dl (2.5-4.0); Total Protein 7.8 gm/dl (6.4-8.2); Troponin I < 0.015 ng/ml (0-0.045)
[2020-08-19] MEDS ORDERED: OPTIRAY 320 125ml IV ONE (20:47)
[2020-08-19] MEDS ORDERED: SODIUM CHLORIDE 0.9% 1000ML 500 ML IV ONE (20:54)
[2020-08-19] MEDS ORDERED: CEFEPIME 2,000 MG/20 ML VIAL IV STA (21:32)
[2020-08-19] MEDS ORDERED: VANCOMYCIN CONSULT ACTIVE PRN ×2 (21:32→23:34)
[2020-08-19] MEDS ORDERED: VANCOMYCIN HCL 1,250 MG in SODIUM CHLORIDE 0.9% 500 ML IV ONE (21:32)
[2020-08-19] MEDS ORDERED: ONDANSETRON INJ 2 MG/ML 2 ML VIAL IV PRN (23:29)
[2020-08-19] MEDS ORDERED: ACETAMINOPHEN 325 MG TAB PO PRN (23:29)
[2020-08-19] MEDS ORDERED: PIPERACILL/TAZOBAC CONSULT ACTIVE PRN (23:34)
[2020-08-19] MEDS ORDERED: GABAPENTIN 100 MG CAP PO PRN (23:38)
[2020-08-19] MEDS ORDERED: PIPERACILLIN/TAZOBACTAM 4.5 GM/120 ML BAG IV STA (23:47)
[2020-08-19] MEDS ORDERED: ENOXAPARIN INJ 30 MG/0.3 ML SYR SQ STA (23:49)
--- NOTE | 2020-08-19 23:59 | History & Physical Report ---
Date of Service August 19, 2020 Assessment & Plan (1) Bronchopneumonia: Acute bronchopneumonia with hypoxia- Admit to monitored bed Vancomycin IV per pharmacokinetic monitoring Cefepime 1 g IV every 8 hours Duonebs every 4 hours while awake and every 2 hours when necessary. Guaifenesin extended release 600 mg p.o. twice daily Methylprednisolone 40 mg IV every 8 hours Nasal cannula oxygen, titrate to keep pulse ox 90 to 94% Present on Admission?: Yes (2) Hypoxia: See above Present on Admission?: Yes (3) GERD (gastroesophageal reflux disease): Continue pantoprazole 40 mg every morning Present on Admission?: Yes (4) Paroxysmal A-fib: Paroxysmal atrial fibrillation/hypertension continue metoprolol succinate extended release 100 mg every morning Present on Admission?: Yes (5) Hypertension: See above Present on Admission?: Yes (6) C. difficile colitis: Placed on probiotics Present on Admission?: Yes History of Present Illness Chief Complaint: The patient presents to the emergency department with worsening shortness of breath, and dyspnea on exertion over the past 24 hours. Primary Care Provider: Viraj Carreon MD The patient is a 80-year-old female with a past medical history including GERD, urinary retention with incomplete bladder emptying, UTI, elevated troponin, paroxysmal atrial fibrillation, C. difficile colitis, anterior shoulder dislocation and acute renal failure. She presents with symptoms as noted above. Chest x-ray and CT angiography chest PE protocol showed bilateral lower lobe pneumonia with bronchitis, and mediastinal/hilar lymphadenopathy. Allergies Allergy/AdvReac Type Severity Reaction Status Date / Time ciprofloxacin AdvReac Intermediate HEADACHE Verified 08/19/20 20:02 "feel DRUNK" Home Medications Medication Instructions Recorded Confirmed Type conjugated estrogens 1.25 mg tablet 1.25 mg PO QAM tab 02/14/19 08/19/20 History pantoprazole 40 mg tablet,delayed 40 mg PO QAM tab 02/14/19 08/19/20 History release cyanocobalamin (vitamin B-12) 1,000 mcg PO QAM 07/26/19 08/19/20 History ondansetron 4 mg PO Q8H PRN #7 tab 07/26/19 08/19/20 Rx metoprolol succinate 100 mg 100 mg PO QAM #90 tab 09/08/19 08/19/20 Rx tablet,extended release 24 hr gabapentin 100 mg capsule 100 mg PO HS PRN cap 03/08/20 08/19/20 History Combivent Respimat 1 puff INHALATION QID PRN 08/13/20 08/19/20 History nitrofurantoin monohyd/m-cryst 100 mg PO Q12H 08/13/20 08/19/20 History [Macrobid] fluticasone propion-salmeterol 1 inh INHALATION BID #60 ea 08/14/20 08/19/20 Rx [Advair Diskus] Past Med/Surg History Medical History (Updated 08/20/20 @ 03:58 by Raul Miller MD) Anterior shoulder dislocation ARF (acute renal failure) Bronchitis C. difficile colitis Hypertension Pacemaker Paroxysmal A-fib Sinus pause Troponin I above reference range Surgical History No pertinent past surgical history Family History (Updated 08/13/20 @ 17:14 by Deangelo Echavarria MD) Mother Diabetes Hypertension Social History Smoking Status: Former smoker Second Hand Exposure: No; Do You Dip or Chew Tobacco: No; Tobacco Cessation Education Requested by Patient: No Hx Alcohol Use: No Hx Substance Use: No Preferred Language: Ukrainian Communication Ability: Effective Residential Therapist Required: No Beliefs That Will Affect Care: None marital status: Current Living Situation: Spouse Feels Safe at Home: Yes Safety Concerns: Feels Safe At This Time Assistive Devices: None Review of Systems Review of Systems: The patient denies chest pain, palpitations, lower extremity swelling, sore throat, fevers, chills, sweats, nausea, vomiting, diarrhea , constipation, abdominal pain, pelvic pain, blood in urine or stool, dysuria, urinary frequency or urgency, lightheadedness, dizziness, headache, memory loss, loss of consciousness, rash, abnormal bruising or bleeding, imbalance, focal or generalized weakness, numbness or tingling in arms or legs, generalized arthralgias or myalgias, back or neck pain, or night sweats. The review of systems is otherwise negative other than for that already noted above, and at least 10 systems have been reviewed. Physical Exam Physical Exam: The patient is awake, alert and oriented 3, well developed and well nourished, normocephalic and atraumatic, lying in bed and in no acute distress. HEENT--PERRL, EOMI, mucous membranes and oropharynx normal. Neck--supple. No JVD. No bruits. Thyroid normal, trachea midline, no adenopathy. Heart--normal S1 and S2. No murmurs, rubs or gallops. Lungs--coarse breath sounds bilaterally. No respiratory distress, no accessory muscle use. Abdomen--normal bowel sounds and soft. Nontender. Nondistended. Extremities--no cyanosis or clubbing. No edema. Dermatologic--normal skin turgor, normal color, no abnormal lymph nodes, no rash. Neurologic--cranial nerves II through XII grossly intact. Rheumatologic--normal range of motion. Psychiatric--normal affect. Results & Data Results & Data ([facility]) Vital Signs (Past 12 Hours) Vital Signs Temp Pulse Resp BP Pulse Ox 08/19/20 23:00 114 H 28 H 140/88 96 08/19/20 22:30 118 H 30 H 144/103 H 96 08/19/20 22:00 112 H 24 162/108 H 96 08/19/20 21:31 93 H 24 179/96 H 98 08/19/20 21:07 94 H 26 H 145/94 H 90 08/19/20 20:30 87 24 161/96 H 96 08/19/20 20:01 86 32 H 150/77 H 95 08/19/20 19:34 90 31 H 143/85 H 94 08/19/20 19:21 95 08/19/20 19:17 90 31 H 149/86 H 93 08/19/20 18:43 97.2 F L 101 H 24 149/83 H 87 L Laboratory Results Laboratory Results WBC 12.68 K/uL (4.8-10.8) H 08/19/20 19: RBC 4.81 M/uL (4.2-5.4) 08/19/20 19:22 Hgb 15.3 g/dL (12.0-16.0) 08/19/20 19:22 Hct 43.8 % (37-47) 08/19/20 19:22 MCV 91.1 fL (80-100) 08/19/20 19: MCH 31.8 pg (25-34) 08/19/20 19: MCHC 34.9 g/dL (32-36) 08/19/20 19: RDW Std Deviation 45.7 fL (36.4-46.3) 08/19/20: RDW Coeff of Marcus 13.7 % (11.5-14.5) 08/19/20: Plt Count 248 K/uL (130-400) 08/19/20: MPV 9.2 fL (7.4-10.4) 08/19/20 19: Immature Gran % (Auto) 0.9 % 08/19/20 19: Neut % (Auto) 90.7 % 08/19/20: Lymph % (Auto) 6.5 % 08/19/20: Lander % (Auto) 1.6 % 08/19/20: Eos % (Auto) 0.2 % 08/19/20: Baso % (Auto) 0.1 % 08/19/20: Neut # (Auto) 11.50 K/uL (1.4-6.5) H 08/19/20 19: Lymph # (Auto) 0.83 K/uL (1.2-3.4) L 08/19/20: Lander # (Auto) 0.20 K/uL (0.11-0.59) 08/19/20 19: Eos # (Auto) 0.03 K/uL (0-0.5) 08/19/20: Baso # (Auto) 0.01 K/uL (0-0.2) 08/19/20: Immature Gran # (Auto) 0.11 K/uL (0.00-0.02) H 08/19/20 19: Sodium 139 mmol/L (136-145) 08/19/20 19: Potassium 3.9 mmol/L (3.5-5.1) 08/19/20 19: Chloride 107 mmol/L (98-107) 08/19/20 19: Carbon Dioxide 24 mmol/L (21-32) 08/19/20 19: Anion Gap 8.0 (3-11) 08/19/20 19: BUN 27 mg/dl (7-18) H 08/19/20 19: Creatinine 1.27 mg/dl (0.6-1.2) H 08/19/20 19: Est Cr Clr Drug Dosing 28.4 ml/min 08/19/20 19: Est GFR ( Amer) 46.5 08/19/20 19: Est GFR (Non-Af Amer) 40.1 08/19/20 19:22 BUN/Creatinine Ratio 21.3 (10-20) H 08/19/20 19:22 Glucose 97 mg/dl (70-99) 08/19/20 19: Lactate 3.1 mmol/L (0.4-2.0) H* 08/19/20 21:43 Calcium 9.4 mg/dl (8.5-10.1) 08/19/20: Magnesium 1.8 mg/dl (1.8-2.4) 08/19/20 19: Total Bilirubin 0.8 mg/dl (0.2-1) 08/19/20 19: AST 14 U/L (15-37) L 08/19/20 19: ALT 13 U/L (12-78) 08/19/20 19: Alkaline Phosphatase 89 U/L (45-117) 08/19/20 19: Troponin I < 0.015 ng/ml (0-0.045) 08/19/20 19: Total Protein 7.8 gm/dl (6.4-8.2) 08/19/20 19: Albumin 3.3 gm/dl (3.4-5.0) L 08/19/20: Globulin 4.5 gm/dl (2.5-4.0) H 08/19/20 19: Albumin/Globulin Ratio 0.7 (0.9-2) L 08/19/20 19: TSH 2.680 uIu/ml (0.300-4.500) 08/19/20 19: COVID-19 Eval Order CovFluRsv at [facility] 08/20/20 00:05 SARS-CoV-2 (PCR) NEGATIVE (Negative) 08/20/20 00:05 Influenza Type A (PCR) Negative (Neg) 08/20/20 00:05 Influenza Type B (PCR) Negative (Neg) 08/20/20 00:05 RSV (RT-PCR) Negative (Neg) 08/20/20 00:05 Diagnostic Findings [facility] [place], [phone] XRay Report Patient: TEVIN ALFORD EAdmit Date: 08/19/20MR#: [id number]: [facility]:[id number]: Date: [address] [place] [address] Zip: [place] [id number]: 80Location: EDSex: FRoom/Bed:Att Phy:Diagnosis: SOBPri Phy: LauriViraj MDService Date: 08/19/20Fam Phy:Interpreting Phy: Chang WallisAdmit Phy: Ordering Phy: Onel Rodrigez MD cc: ~ XR chest 1V portable HISTORY: 80 years-old Female hypoxia acute hypoxia COMPARISON: Chest radiograph and CTA chest 08/13/2020 TECHNIQUE: Portable AP view of the chest FINDINGS: Cardiomediastinal and hilar silhouettes are unchanged. Calcified plaque of the thoracic aorta. Left subclavian pacer. Mild bibasilar opacities have slightly progressed from the comparison chest radiograph. Suggested emphysema. Degene rative changes of the shoulders and spine. IMPRESSION: 1. Mildly progressed bibasilar opacities suggestive of pneumonia or aspiration pneumonitis. Atelectasis could appear similarly. 2. Emphysema. ACT 112: Negative or not required by law. The above report was generated using voice recognition software. It may contain grammatical, syntax or spelling errors. Electronically signed by: Dony Wallis M.D. 08/19/2020 7:40 PM Dictated: 08/19/201937Transcribed: 08/19/201937 [facility] Patient: TEVIN ALFORD (Female) : 42 Status: ER Date: 08/19/20 21:02 Room #: History: HYPOXIA, SOB, 116 ML OPTIRAY Slices: [phone] Priors: Tech: Gamaliel Davalos @ [phone] Exams: CTA CHEST Contrast: IV Amt: 116 ml optiray Accession Numbers: [id number] Preliminary Findings Only See Final Report For Complete Findings CTA CHEST: Comparison is made to CT chest on 08/13/2020. No definite pulmonary embolus identified. Atherosclerotic changes of the aorta. No aortic aneurysm or dissection. Emphysematous changes. Consolidations in the lower lobes may represent atelectasis versus pneumonia. Trace bilateral pleural effusions. Bronchial wall thickening may represent bronchitis. Left-sided pacemaker. Borderline size of the heart. Nonspecific mildly prominent mediastinal and hilar lymph nodes. Small calcified granulomas. Radiologist: Valeri Velez M.D. Study ready at 21:05 and initial results transmitted at 21:12 *This report constitutes a preliminary interpretation only. Non-acute findings felt to be unrelated to the clinical presentation may not be discussed in this report. The study will be interpreted and a final report will be generated by the local Radiologist the following shift. To reach the hospital radiology department call [phone]. If a discrepancy is found between the preliminary and final interpretations of this study, please notify us via our Client Portal at [email or web address].You can also fax this report with a description of the discrepancy, or include the final report, to our daytime fax number [phone].If faxing, please indicate the severity of discrepancy using one of the following categories: [ ] 1 - Agree/Informational [ ] 2 - Unlikely to Affect Management [ ] 3 - Possible Eventual Change of Management [ ] 4 - Probable Immediate Change of Management For all other patient related information, please fax us at [phone]. [id number] Code Status & VTE Plan Code Status Full code VTE Prophylaxis Plan VTE Prophylaxis will be ordered: Yes PG Care Time/CCT Total # of Minutes Spent Total Time Spent with Patient: Total time spent is greater than 50% in coordination of care (as documented) at patient's floor/unit and/or counseling patient: Coding Level of Care Code 92201 Initial Inpt Care Lvl 3 Diagnoses Bronchopneumonia J18.0 Hypoxia R09.02 GERD (gastroesophageal reflux disease) K21.9 Paroxysmal A-fib I48.0 Hypertension I10 C. difficile colitis A04.72
[2020-08-20 00:59] LABS: Influenza A virus by PCR Negative (Neg); Influenza B virus by PCR Negative (Neg); RSV by PCR Negative (Neg); SARS CoV2 RNA(COVID-19) InHosp NEGATIVE (Negative)
[2020-08-20] MEDS ORDERED: VANCOMYCIN HCL 1,000 MG in SODIUM CHLORIDE 0.9% 250 ML IV SCH (06:00)
[2020-08-20] MEDS: PIPERACILLIN/TAZOBACTAM 3.375 GM in DEXTROSE 5% 100 ML IV SCH ×2 (06:01→14:21)
[2020-08-20] MEDS: ALBUT/IPRATROP 3MG/0.5MG NEB 3 ML VIAL NEB SCH ×2 (06:57→11:00)
--- NOTE | 2020-08-20 07:14 | CT Scan Report ---
CHEST CTA for PULMONARY ARTERIES CT DOSE: 255.43 mGy.cm HISTORY: Hypoxia. Shortness of breath. TECHNIQUE: Multiaxial CT images of the chest were performed following the intravenous administration of contrast to evaluate the pulmonary arteries. Maximal intensity projection images were also obtaine d. A dose lowering technique was utilized adhering to the principles of ALARA. COMPARISON STUDY: Chest CTA 08/13/2020. FINDINGS: Trace bilateral pleural effusions. Normal caliber thoracic aorta with no evidence for disse ction. The heart remains mildly enlarged. No pericardial effusion. Pacemaker wires are noted. No fill ing defects within the pulmonary arteries to suggest pulmonary embolus. Limited views of the upper ab domen demonstrate a normal liver and spleen. Normal caliber esophagus. No mediastinal or hilar lympha denopathy. No suspicious lytic or blastic osseous lesions. Bibasilar linear densities favor subsegmen adry atelectasis. Mild emphysema. No pneumothorax. The central airways are patent. Mild bronchial wall thickening. IMPRESSION: 1. No evidence for pulmonary embolus. 2. Trace bilateral pleural effusions. 3. Emphysema. 4. Bibasilar linear densities are nonspecific but favor subsegmental atelectasis. A pneumonia could a lso have a similar appearance in the appropriate clinical setting. ACT 112: Negative or not required by law. Electronically signed by: Kishore Evans M.D. 08/20/2020 7:13 AM
[2020-08-20 07:18] LABS: Appearance Urine Clear (Clear); Bilirubin Urine Negative (Negative); Blood Urine 1+ (Negative); Color Urine Yellow; Epithelial Cell Urine Auto 0-5 /lpf (0-5); Glucose Urine UA Negative (Negative); Ketones Urine Negative (Negative); Leukocyte Esterase Urine 2+ (Negative); Nitrite Urine Negative (Negative); Protein Urine Negative (Negative); RBC Urine Automated 0-4 /hpf (0-4); Specific Gravity Urine 1.039 (1.000-1.030); Urobilinogen Urine Negative (Negative); WBC Urine Automated >30 /hpf (0-5)
[2020-08-20 07:26] LABS: Albumin Level 2.6 gm/dl (3.4-5.0); BUN Creatinine Ratio 19.1 (10-20); Calcium 8.1 mg/dl (8.5-10.1); Creatinine Clr Calc Pharmacy 33.4 ml/min; Est GFR (African American) 56.5; Est GFR (Non-African American) 48.8; Potassium 3.7 mmol/L (3.5-5.1)
[2020-08-20 07:29] LABS: Albumin Globulin Ratio 0.7 (0.9-2); Bilirubin,Total 1.2 mg/dl (0.2-1); Total Protein 6.6 gm/dl (6.4-8.2)
[2020-08-20 07:38] LABS: Basophils # (auto) 0.01 K/uL (0-0.2); Hematocrit (blood only) 38.8 % (37-47); Hemoglobin 13.6 g/dL (12.0-16.0); Immature Granulocytes # (auto) 0.21 K/uL (0.00-0.02); Immature Granulocytes % (auto) 0.8 %; Lymphocytes # (auto) 1.18 K/uL (1.2-3.4); Lymphocytes % (auto) 4.6 %; Mean Corpuscular Hemoglobin 31.8 pg (25-34); Mean Corpuscular Hgb Conc 35.1 g/dL (32-36); Mean Corpuscular Volume 90.7 fL (80-100); Mean Platelet Volume 9.5 fL (7.4-10.4); Monocytes # (auto) 0.45 K/uL (0.11-0.59); Monocytes % (auto) 1.8 %; Neutrophils # (auto) 23.68 K/uL (1.4-6.5); Neutrophils % (auto) 92.8 %; Platelet Count 251 K/uL (130-400); RDW Coefficient of Variation 13.9 % (11.5-14.5); RDW Standard Deviation 45.6 fL (36.4-46.3); Red Blood Count 4.28 M/uL (4.2-5.4); White Blood Count 25.53 K/uL (4.8-10.8)
[2020-08-20 07:51] LABS: Bacteria Urine Automated 1+ (Negative)
[2020-08-20] MEDS: ESTROGENS, CONJUGATED 0.625 MG TAB PO SCH (09:13)
[2020-08-20] MEDS: ADVANCED PROBIOTIC 1250 MG CAPSULE PO SCH ×2 (09:13→20:18)
[2020-08-20] MEDS: methylPREDNISolone 40 MG in SYRINGE 0 ML IV SCH ×2 (09:13→15:24)
[2020-08-20] MEDS: PANTOprazole 40 MG TAB PO SCH (09:14)
[2020-08-20] MEDS: guaiFENesin 600 MG TABCR PO SCH ×2 (09:14→20:17)
[2020-08-20] MEDS: CYANOCOBALAMIN 500 MCG TABLET (VITAMIN B-12) PO SCH (09:14)
[2020-08-20] MEDS: METOPROLOL SUCC 50MG EXT REL TAB PO SCH (09:14)
--- NOTE | 2020-08-20 13:53 | Electrocardiogram Report ---
Test Reason : Blood Pressure : / mmHG Vent. Rate : 088 BPM Atrial Rate : 088 BPM P-R Int : 266 ms QRS Dur : 082 ms QT Int : 346 ms P-R-T Axes : 065 -03 035 degrees QTc Int : 418 ms Sinus rhythm with 1st degree A-V block Possible Left atrial enlargement Borderline ECG When compared with ECG of 14-AUG-2020 07:48, Nonspecific T wave abnormality, improved in Inferior leads T wave inversion no longer evident in Anterolateral leads Confirmed by Jordon Tolliver ([id number]) on 08/20/2020 1:52:51 PM Referred By: REFERRED SELF Confirmed By:Jordon Tolliver
[2020-08-20] MEDS ORDERED: ALBUT/IPRATROP 3MG/0.5MG NEB 3 ML VIAL NEB PRN (15:00)
--- NOTE | 2020-08-20 15:56 | Hospitalist Progress Note ---
Date of Service August 20, 2020 Assessment & Plan (1) Bronchopneumonia: Massiel is a 80-year-old female with a history of COPD, recent admission for CAP (08/13), and paroxysmal atrial fibrillation who presented to [facility] on 08/19 for progressive RUIZ, fatigue, and chills that occurred yesterday, subsequently found to have bibasilar opacities on CXR and CTA on arrival. Suspect at this time her symptoms are likely due to a COPD exacerbation, possibly with component of resolving PNA from previous hospitalizations. She remains hemodynamically stable. Acute Hypoxemic Respiratory Failure -- suspect likely sec to COPD exacerbation, possibly with resolving infectious component from previous hospitalization - Work-up on arrival significant for the following: - Bilateral crackles on exam - CXR - slightly progressed bibasilar opacities, c/f atelectasis vs. pneumonitis vs. infectious process - CTA-Chest - No PE. Bibasilar densities favoring atelectasis - however, PNA cannot be excluded - Troponin negative - No overt signs of volume overload - Supplemental O2 to maintain saturations >90-94% - Encourage ISBs Possible Pneumonia, possibly gram-negative or MRSA -- likely resolving infectious process from previous hospitalization - Leukocytosis (to 25) with left shift - Lactate on admission 2.5 despite fluids - Received IV cefepime and Vanc in ED and continued on admission. - Will d/c broad spectrum coverage - Considering drastic improvement overnight and possibility of resolving infectious process from previous hospital stay - Switch to doxycycline - CBC in AM COPD -- Suspect majority of symptoms are d/t exacerbation - Continue home Combivent q.i.d. PRN - Continue utilizing home Advair (LABA+ICS) b.i.d. - Start doxycycline x 7 days - Methylpred q8 --> Prednisone 40mg PO x 5 days - Guaifenesin XR b.i.d. - Intensify as needed - COPD care as below Chronic Medical Problems GERD: Pantoprazole qAM PAF, HTN: Continue Toprol 100 qAM C. Diff Colitis: Probiotics while here Code: Full code FEN/GI: Regular PPX: Lovenox Dispo: MS/Tele -- anticipate d/c home on 08/21 pending continued respiratory stability (2) Hypoxia: (3) GERD (gastroesophageal reflux disease): (4) Paroxysmal A-fib: (5) Hypertension: (6) C. difficile colitis: Admission and Anticipated Discharge Date Admission Date: August 19, 2020 Supervising Physician Co-Signing Physician Notes Resident Physician Supervision Note: I independently interviewed and examined the patient and verified the mcdonnell history and physical, reviewed labs and image studies, discussed the case with the resident Dr. Aden and agree with the findings and care plan. Subjective NAEO. Patient feels well this AM - breathing much easier than when she came in yesterday. Feels better overall too. Reviewed history with her - few days of progressive SOB, RUIZ without chest pain, pressure; associated with increasing chills despite 'being in a warm room.' Cisco ill and fatigued. No chest pain. Appetite OK. No n/v/d. Feels less fatigued. No other concerns. Review of Systems Review of Systems: as per HPI Physical Exam Constitutional: Well-appearing 80-year-old female who is sitting back in her hospital bed, awake but relaxed, and speaks freely without conversational dyspnea. NAD. Respiratory: Good respiratory effort with symmetric expansion of the chest. Lungs do demonstrate bibasilar crackles alongside diffuse, intermittent (but mild) crackles throughout all lung bui. No wheezes. No use of accessory muscles. Cardiovascular: NRRR. S1/S2 present without m/r/g. Capillary refill < 3 seconds in the upper extremity No pitting edema in the lower extremities No JVD Gastrointestinal (Abdomen): normal bowel sounds, soft, nontender, no hepatosplenomegaly Results & Data Results & Data ([facility]) Vital Signs (Past 12 Hours) Vital Signs Temp Pulse Pulse Resp BP Pulse Ox 08/20/20 15:28 36.5 C 76 18 147/79 H 93 08/20/20 11:38 36.8 C 71 18 135/70 94 08/20/20 11:00 64 20 94 08/20/20 07:35 78 08/20/20 07:29 36.5 C 80 18 119/69 97 08/20/20 07:00 74 20 97 Resident Activity Tracking Resident Involvement: Resident Care Provided Care Provided: Adult Hospital Medicine
[2020-08-20] MEDS: DOXYCYCLINE HYCLATE 100 MG CAP PO SCH (20:18)
[2020-08-20] MEDS ORDERED: ENOXAPARIN INJ 30 MG/0.3 ML SYR SQ SCH (21:00)
[2020-08-21 07:31] LABS: Basophils # (auto) 0.01 K/uL (0-0.2); Basophils % (auto) 0.1 %; Hematocrit (blood only) 35.1 % (37-47); Hemoglobin 11.9 g/dL (12.0-16.0); Immature Granulocytes # (auto) 0.05 K/uL (0.00-0.02); Immature Granulocytes % (auto) 0.3 %; Lymphocytes # (auto) 1.67 K/uL (1.2-3.4); Lymphocytes % (auto) 8.9 %; Mean Corpuscular Hemoglobin 31.1 pg (25-34); Mean Corpuscular Hgb Conc 33.9 g/dL (32-36); Mean Corpuscular Volume 91.6 fL (80-100); Mean Platelet Volume 9.4 fL (7.4-10.4); Monocytes # (auto) 0.84 K/uL (0.11-0.59); Monocytes % (auto) 4.5 %; Neutrophils # (auto) 16.24 K/uL (1.4-6.5); Neutrophils % (auto) 86.2 %; Platelet Count 240 K/uL (130-400); RDW Standard Deviation 46.8 fL (36.4-46.3); Red Blood Count 3.83 M/uL (4.2-5.4); White Blood Count 18.81 K/uL (4.8-10.8)
[2020-08-21 07:59] LABS: Albumin Level 2.4 gm/dl (3.4-5.0); BUN Creatinine Ratio 27.3 (10-20); Calcium 8.6 mg/dl (8.5-10.1); Creatinine Clr Calc Pharmacy 31.6 ml/min; Est GFR (Non-African American) 45.7; Potassium 3.7 mmol/L (3.5-5.1)
[2020-08-21 08:05] LABS: Albumin Globulin Ratio 0.6 (0.9-2); Bilirubin,Total 0.6 mg/dl (0.2-1); Globulin 3.8 gm/dl (2.5-4.0); Total Protein 6.2 gm/dl (6.4-8.2)
[2020-08-21] MEDS: guaiFENesin 600 MG TABCR PO SCH (08:12)
[2020-08-21] MEDS: ESTROGENS, CONJUGATED 0.625 MG TAB PO SCH (08:12)
[2020-08-21] MEDS: METOPROLOL SUCC 50MG EXT REL TAB PO SCH (08:13)
[2020-08-21] MEDS: DOXYCYCLINE HYCLATE 100 MG CAP PO SCH (08:13)
[2020-08-21] MEDS: PANTOprazole 40 MG TAB PO SCH (08:13)
[2020-08-21] MEDS: CYANOCOBALAMIN 500 MCG TABLET (VITAMIN B-12) PO SCH (08:13)
[2020-08-21] MEDS: ADVANCED PROBIOTIC 1250 MG CAPSULE PO SCH (08:13)
[2020-08-21] MEDS ORDERED: predniSONE 20 MG TAB PO SCH (09:00)
--- NOTE | 2020-08-21 10:39 | Discharge Summary ---
Date of Service August 21, 2020 Admission HPI Per Admitting Provider The patient is a 80-year-old female with a past medical history including GERD, urinary retention with incomplete bladder emptying, UTI, elevated troponin, paroxysmal atrial fibrillation, C. difficile colitis, anterior shoulder dislocation and acute renal failure. She presents with symptoms as noted above. Chest x-ray and CT angiography chest PE protocol showed bilateral lower lobe pneumonia with bronchitis, and mediastinal/hilar lymphadenopathy. Admission Exam Per Admitting Provider The patient is awake, alert and oriented 3, well developed and well nourished, normocephalic and atraumatic, lying in bed and in no acute distress. HEENT--PERRL, EOMI, mucous membranes and oropharynx normal. Neck--supple. No JVD. No bruits. Thyroid normal, trachea midline, no adenopathy. Heart--normal S1 and S2. No murmurs, rubs or gallops. Lungs--coarse breath sounds bilaterally. No respiratory distress, no accessory muscle use. Abdomen--normal bowel sounds and soft. Nontender. Nondistended. Extremities--no cyanosis or clubbing. No edema. Dermatologic--normal skin turgor, normal color, no abnormal lymph nodes, no rash. Neurologic--cranial nerves II through XII grossly intact. Rheumatologic--normal range of motion. Psychiatric--normal affect. Principal Diagnosis acute hypoxemic respiratory failure acute COPD exacerbation possible PNA Discharge Exam Constitutional well developed and well nourished; no acute distress Respiratory Good respiratory effort with symmetric expansion of the chest. No use of accessory muscles. Lungs demonstrating bibasilar crackles, but otherwise CTAB w/o wheezes. Cardiovascular RRR, no murmur, no edema Gastrointestinal (Abdomen) normal bowel sounds, soft, nontender, no hepatosplenomegaly Discharge Data Allergies Allergy/AdvReac Type Severity Reaction Status Date / Time ciprofloxacin AdvReac Intermediate HEADACHE Verified 08/19/20 20:02 "feel DRUNK" Consultations 08/19/20 22:56 ED Decision to Admit Stat 08/19/20 23:35 Consult Case Management - Discharge Planning Routine Ordered Studies Chest CTA (08/19) IMPRESSION: 1. No evidence for pulmonary embolus. 2. Trace bilateral pleural effusions. 3. Emphysema. 4. Bibasilar linear densities are nonspecific but favor subsegmental atelectasis. A pneumonia could also have a similar appearance in the appropriate clinical setting. Hospital Course (1) Bronchopneumonia: Massiel is a 80-year-old female with a history of COPD, recent admission for CAP (08/13), and paroxysmal atrial fibrillation who presented to [facility] on 08/19 for progressive RUIZ, fatigue, and chills that occurred yesterday, subsequently found to have bibasilar opacities on CXR and CTA on arrival. Suspect at this time her symptoms are likely due to a COPD exacerbation, possibly with component of resolving PNA from previous hospitalizations. She remains hemodynamically stable. Acute Hypoxemic Respiratory Failure -- suspect likely sec to COPD exacerbation, possibly with resolving infectious component from previous hospitalization - Initial O2 requirement on arrival --> decreased throughout hospitalization - Work-up on arrival significant for the following: - Bilateral crackles on exam (improved throughout course) - CXR - slightly progressed bibasilar opacities, c/f atelectasis vs. pneumonitis vs. infectious process - CTA-Chest - No PE. Bibasilar densities favoring atelectasis - however, PNA cannot be excluded - Troponin negative - No overt signs of volume overload - Easy respiratory effort, without O2 requirement on discharge Possible Pneumonia, possibly gram-negative or MRSA -- likely resolving infectious process from previous hospitalization - Leukocytosis (to 25) with left shift noted on arrival - Lactate on admission 2.5 despite fluids - Received IV cefepime and Vanc in ED and continued initially on admission. - Discontinued broad spectrum coverage given drastic improvement from first night - Doxycycline x 7 days on discharge COPD -- Suspect majority of symptoms are d/t exacerbation - Continue home Combivent PRN - Continue home Advair (LABA+ICS) - Doxycycline as above - Prednisone 40mg daily x 5 days - Continue Mucinex b.i.d. x 2 weeks Chronic Medical Problems GERD: Pantoprazole qAM PAF, HTN: Continue Toprol 100 qAM C. Diff Colitis: Probiotics used while here (2) Hypoxia: (3) GERD (gastroesophageal reflux disease): (4) Paroxysmal A-fib: (5) Hypertension: (6) C. difficile colitis: Total Time Total Time Spent Total Time Spent (In Minutes): < 30 min Discharge Plan Discharge Items Patient Disposition: Home - Self-Care Reason For Visit: BRONCHOPNEUMONIA Discharge Diagnosis: acute hypoxemic respiratory failure - resolved chronic obstructive pulmonary disease possible pneumonia Condition on Discharge: Good Activity: Per Instructions section Non-emergency contact: Primary Care Provider Call non-emergency contact if: you have any medication questions, your symptoms worsen and you have a fever Follow-up/Referrals: Viraj Carreon MD [Primary Care Provider] - Diet: Regular Addtl Attending Provider Instructions: By the time your discharge, your breathing was significantly improved compared to when you came in. We suspect that your difficulty breathing was likely due to a component of COPD exacerbation, general inflammation caused by your recent Covid vaccine, and possibly recovering pneumoniaalthough this seems less likely. Please continue the following medications as prescribed: Prednisone 40 mg, once in the morning, through August 25 [for inflammation] Doxycycline 100 mg, twice daily (about 12 hours apart) through August 26 --please take with food/water [for possible pneumonia, inflammation] Mucinex 600 mg, twice daily (about 12 hours apart) for approximately 2 weeks [for mucus clearance] Continue regular and daily use of your Advair inhaler [for COPD] No other inhalers were added while here. Please follow-up with your primary care physician within 1 week to review this visit. In the interim, if you experience any worsening or new shortness of breath, chest pain, palpitations, lightheadedness, dizziness, fevers, chills, night sweats, please seek medical attention, and if your symptoms are serious, please call 911 or report to the nearest emergency room for immediate evaluation. Pending Studies at Discharge: No Stand-Alone Forms: My [facility] [email or web address], Smoking Cessation Medications and DC Order Prescriptions: New doxycycline hyclate 100 mg tablet 100 mg PO Q12H Qty: 11 RF: 0 prednisone 20 mg tablet 40 mg PO DAILY 4 Days Qty: 8 RF: 0 guaifenesin 600 mg tablet extended release 12hr 600 mg PO Q12H PRN (Reason: congestion) Qty: 14 RF: 0 Continued metoprolol succinate 100 mg tablet extended release 24 hr 100 mg PO QAM Qty: 90 RF: 3 gabapentin 100 mg capsule 100 mg PO HS PRN (Reason: Pain) RF: 0 pantoprazole 40 mg tablet,delayed release (DR/EC) 40 mg PO QAM RF: 0 conjugated estrogens 1.25 mg tablet 1.25 mg PO QAM RF: 0 ondansetron 4 mg tablet,disintegrating 4 mg PO Q8H PRN (Reason: nausea and vomiting) Qty: 7 RF: 0 cyanocobalamin (vitamin B-12) 1,000 mcg Tablet 1,000 mcg PO QAM RF: 0 Combivent Respimat 20-100 mcg/actuation Mist 1 puff INHALATION QID PRN (Reason: Shortness Of Breath) RF: 0 fluticasone propion-salmeterol [Advair Diskus] 250-50 mcg/dose blister with device 1 inh INHALATION BID Qty: 60 RF: 0 Discontinued nitrofurantoin monohyd/m-cryst [Macrobid] 100 mg Capsule 100 mg PO Q12H RF: 0 Discharge Orders: Discharge Order (Routine); Ordered 08/21/20 Ordered By: Carlos Aden Admission Data Admit Date/Time: 08/19/20 23:32 Attending Provider: Magalie Graham Admit Provider: Raul Miller Primary Care Provider: Viraj Carreon Other Providers: Raul Miller Other Interventions: Discharge Summary Assessment (RN) Last Done: 08/21/20 10:45 Supervising Physician Co-Signing Physician Notes Resident Physician Supervision Note: I independently interviewed and examined the patient and verified the mcdonnell history and physical, reviewed labs and image studies, discussed the case with the resident Dr. Aden and agree with the findings and care plan.
== END 2020-08-21 14:34 | disposition home or self-care (01) ==
LOC: ED 18:15 → SUATTDRO 23:32 → INTOOBSV 23:32 → 2N 23:32

== ENCOUNTER 2020-09-12 18:38 | Observation (INO) ==
[2020-09-12] MEDS ORDERED: SODIUM CHLORIDE 0.9% 1000ML 1,000 ML IV SCH (20:30)
[2020-09-12 20:53] LABS: Basophils # (auto) 0.02 K/uL (0-0.2); Basophils % (auto) 0.2 %; Eosinophils # (auto) 0.08 K/uL (0-0.5); Eosinophils % (auto) 0.8 %; Hematocrit (blood only) 41.9 % (37-47); Hemoglobin 14.2 g/dL (12.0-16.0); Immature Granulocytes # (auto) 0.03 K/uL (0.00-0.02); Immature Granulocytes % (auto) 0.3 %; Lymphocytes # (auto) 1.29 K/uL (1.2-3.4); Lymphocytes % (auto) 13.7 %; Mean Corpuscular Hemoglobin 31.4 pg (25-34); Mean Corpuscular Hgb Conc 33.9 g/dL (32-36); Mean Corpuscular Volume 92.7 fL (80-100); Mean Platelet Volume 9.2 fL (7.4-10.4); Monocytes # (auto) 0.97 K/uL (0.11-0.59); Monocytes % (auto) 10.3 %; Neutrophils # (auto) 7.04 K/uL (1.4-6.5); Neutrophils % (auto) 74.7 %; Platelet Count 228 K/uL (130-400); RDW Standard Deviation 47.8 fL (36.4-46.3); Red Blood Count 4.52 M/uL (4.2-5.4); White Blood Count 9.43 K/uL (4.8-10.8)
[2020-09-12 21:12] LABS: Alanine Aminotransferase 11 U/L (12-78); Albumin Level 2.9 gm/dl (3.4-5.0); Aspartate Aminotransferase 11 U/L (15-37); BUN Creatinine Ratio 17.6 (10-20); Blood Urea Nitrogen 30 mg/dl (7-18); Calcium 8.8 mg/dl (8.5-10.1); Carbon Dioxide 20 mmol/L (21-32); Chloride 107 mmol/L (98-107); Creatinine Clr Calc Pharmacy 23.1 ml/min; Est GFR (African American) 32.9; Est GFR (Non-African American) 28.4; Glucose 108 mg/dl (70-99); Potassium 4.1 mmol/L (3.5-5.1); Sodium 137 mmol/L (136-145)
[2020-09-12 21:22] LABS: Albumin Globulin Ratio 0.7 (0.9-2); Alkaline Phosphatase 74 U/L (45-117); Bilirubin,Total 0.7 mg/dl (0.2-1); Globulin 4.1 gm/dl (2.5-4.0); Troponin I < 0.015 ng/ml (0-0.045)
[2020-09-12] MEDS ORDERED: cefTRIAXone SODIUM 2,000 MG/70 ML BAG IV STA (21:48)
--- NOTE | 2020-09-12 21:52 | Emergency Department Note ---
Impression & Plan Acute hypoxemic respiratory failure, DILMA (acute kidney injury), Acute UTI, Acute dehydration ED Provider Note NAME: TEVIN ALFORD AGE: 80 SEX: F : 1940 ARRIVES VIA: Walk-In INFORMANT: Patient, ED PROVIDER(S): Jerry Buckley MD Chief Complaint: Urinary symptoms HPI: Patient has noted some slight weakness and had some shakiness and describes that she had to have a urinary catheter placed today noticed that it was cloudy in nature. The patient has had some increasing urinary frequency having to urinate throughout the night. The patient denies any fevers. The patient denies any nausea or vomiting. The patient states that she has not had to have a catheter placed for urine in some time but does have a history of needing this on occasion. Patient states that her appetite has been appropriate. The patient and the patient's at the bedside were also concerned as a possible pneumonia but the patient denies any cough, chest pain or shortness of breath. Patient does have remote history of urinary retention with incomplete bladder emptying. The patient did have a recent admission at the beginning of August subsequent discharge on August 21 after treatment for bilateral lower lobe pneumonia. Patient was continued on doxycycline after discharge. Patient's most recent urine showed Manuela on August 20. Patient did have an indwelling urinary catheter mid May and a clean-catch in April that showed Klebsiella oxytoca. It is sensitive to Rocephin. ROS: See HPI for pertinent positives and negatives. A total of 10 systems were reviewed and otherwise negative. Past medical history: See below Surgical history: See below Social history: See below Physical Exam: GENERAL: Wearing a mask. NAD, non-toxic. EYE EXAM: Normal conjunctiva. PERRL, no anisocoria and EOM's grossly intact w/o pain. NECK: Supple, no nuchal rigidity, no adenopathy, non-tender. No signs of mening ismus. LUNGS: Clear to auscultation. Normal chest wall mechanics. HEART: NSR, no MRG. ABDOMEN: Abdomen soft, non-tender, normo-active bowel sounds, no masses, no rebound or guarding. BACK: No CVA TTP. SKIN: No rashes and no bruising. UPPER EXTREMITIES: Upper extremities are grossly normal. LOWER EXTREMITIES: Grossly normal, no edema. NEURO EXAM: A&O x3, cranial nerves II-XII grossly intact, normal speech, moves all 4 extremities on command w/o issue. Differential diagnoses: Infection, dehydration, metabolic abnormality, hypo/hyperglycemia, electrolyte disturbance, anemia, hypoxia, cardiac sources, intracerebral event, toxicologic, neurologic, as well as other pathologies. Course: Patient was seen and evaluated the bedside. Full history physical exam was performed. EKG: Indication: Weakness Sinus with first-degree AV block, rate of 86, prolonged RI, normal QRS, normal axis, no obvious ST changes. No significant change from comparison EKG August 19, 2020. Imaging Studies: 1 view chest x-ray No obvious consolidation pneumothorax or pleural effusion. Cardiac monitoring: An order was placed for continuous cardiac monitoring. The monitor shows a rate of 84 with sinus rhythm. MDM: Patient did present with concern for weakness and possible UTI type symptoms. The patient did have blood work pleaded and eventually did have a urine cath specimen obtained. I did review the prior cultures which show that the patient did have a Klebsiella oxytoca which was sensitive to Rocephin. Patient was ordered a first-time dose of this here. Patient has normal white count H&H and platelet count. Patient does have mild DILMA. Patient baseline creatinine no ones to 1.2 today at 1.6. The patient did receive a liter of IV fluids. Patient's dehydration may be some secondary to the increased urinary frequency. The patient was encouraged to drink more liquids. Troponin not detectable. The patient did have an episode of vomiting diarrhea. Upon subsequent reassessment the patient was having some difficulty with breathing and was having poor air movement and mild tachypnea. I did call the charge nurse in order for respiratory to present for BiPAP and an hour-long DuoNeb. Patient did have additional IV line placed, mag, duo nebs, IV fluids and steroids were given. Patient was to have a Covid swab as well. Patient was having difficulty with obtaining a good pulse oximetry reading but the patient was on 100 FiO2 on BiPAP. The patient did seem to tolerate this better than before and the patient was having improving air movement especially in the upper lung bui. Patient is a former smoker. No current smoking. Patient would like to be intubated if she requires a breathing tube. The patient's ABG does show a pH is 7.145 with a PCO2 52 PO2 was 299. The pa tient's color and respirations did improve on the BiPAP. The patient was ordered additional broad-spectrum antibiotics IV fluids lactate and cultures. I did speak to the on-call hospitalist and the patient was admitted to the medicine service. I did reevaluate this patient several times. I do do believe that the patient's acidosis was likely secondary to profound hypoxia as the patient's pulse oximeter was not picking up a good pulse ox even while the patient had been placed on oxygen. Over subsequent reassessments and staying in the room for approximately half hour the patient's color improved, respiratory rate improved, work of breathing improved color improved and the patient states that she was feeling better. I did complete a bedside ultrasound which showed that the heart appeared to have good squeeze with no obvious pericardial effusion. The patient does have some scant B-lines on exam in the bilateral lung bui but believe this is more related to her COPD as the patient's chest x-ray appears grossly unremarkable other than being hyperinflated. The patient's IVC is also fairly flat. I did asked the patient if the patient had any back or abdominal pain. Patient has no pain to palpation on abdominal exam do not believe that she has ischemic gut. Upon subsequent reassessments the patient did become more awake and alert. She states that she was feeling much better she was able to speak full sentences and was conversational and pleasant. The patient still denies any chest pains abdominal pains or back pains. The patient's abdomen was reassessed and still has no pain. Covid swab sent. The patient was on minimal BiPAP settings at 10/5 with an FiO2 of 28 satting in the mid 90s. The patient was receiving IV fluids, magnesium, vancomycin and Zosyn. Patient was admitted to the medicine service by Dr. Maloney. Critical Care: I have personally spent 95 minutes of critical care time in direct management of this patient. This includes bedside care, interpretation of diagnostic studies, and testing, discussion with consultants, patient, and family members, and other require inpatient management activities. This 95 minutes is in excess of all [facility] billable procedures. Past Med/Surg History Medical History Anterior shoulder dislocation ARF (acute renal failure) Bronchitis C. difficile colitis Hypertension Hypoxia Pacemaker Paroxysmal A-fib Sinus pause SOB (shortness of breath) Troponin I above reference range Surgical History No pertinent past surgical history Family History Mother Diabetes Hypertension Social History Smoking Status: Former smoker Second Hand Exposure: No; Hx Alcohol Use: No Hx Substance Use: No Preferred Language: Mauritian Communication Ability: Effective Finance Advisor Required: No Beliefs That Will Affect Care: None marital status: Current Living Situation: Spouse Feels Safe at Home: Yes Assistive Devices: Glasses Allergies Allergies Allergy/AdvReac Type Severity Reaction Status Date / Time ciprofloxacin AdvReac Intermediate HEADACHE Verified 09/12/20 21:06 "feel DRUNK" Home Meds Home Medications Medication Instructions Recorded Confirmed conjugated estrogens 1.25 mg tablet 1.25 mg PO QAM tab 02/14/19 09/12/20 pantoprazole 40 mg tablet,delayed 40 mg PO QAM tab 02/14/19 09/12/20 release cyanocobalamin (vitamin B-12) 1,000 mcg PO QAM 07/26/19 09/12/20 gabapentin 100 mg capsule 200 mg PO HS cap 03/08/20 09/12/20 Combivent Respimat 1 puff INHALATION QID PRN 08/13/20 09/12/20 Uricalm Cranberry With D-Mannose - 2 tab PO QDL 09/12/20 09/12/20 Chewable Tablets conjugated estrogens [Premarin] 1 applic VAGINAL 3XWK 09/12/20 09/12/20 nitrofurantoin monohyd/m-cryst 100 mg PO BID 09/12/20 09/12/20 valacyclovir 1,000 mg PO TID PRN 09/12/20 09/12/20 Previous Rx's Medication Instructions Recorded metoprolol succinate 100 mg 100 mg PO QAM #90 tab 09/08/19 tablet,extended release 24 hr fluticasone propion-salmeterol 1 inh INHALATION BID #60 ea 08/14/20 [Advair Diskus] Results & Data (ED) Vital Signs Vital Signs - 24 hr 09/12/20 18:46 09/12/20 21:05 09/12/20 22:55 Temperature 36.8 C Temperature Source Temporal Artery Scan Pulse Rate 92 H 84 66 Pulse Rate [Apical] 67 Pulse Rhythm Regular Respiratory Rate 16 18 32 H Respiratory Effort / Characteristics Non-Labored Spontaneous Spontaneous Respiratory Depth Normal Normal Respiratory Pattern Tachypnea Blood Pressure 138/75 Blood Pressure Mean 96 Blood Pressure Position Sitting Pulse Oximetry 94 96 100 Oxygen Delivery Method Room Air Room Air BiPAP Fraction of Inspired Oxygen 60 Sepsis Recent Fever Within 48 Hours No Sepsis New/Unexplained Change in Mental Status No Sepsis Action Taken by Nursing No Action Required Home Medications Current Medication List: was personally reviewed by me Laboratory Data Attestation: I reviewed the patient's lab results. Result diagrams: 09/12/20 20:40 09/12/20 20:40 Lab Results 09/12/20 09/12/20 09/12/20 Range/Units 20:40 20:40 Unknown WBC 9.43 (4.8-10.8) K/uL RBC 4.52 (4.2-5.4) M/uL Hgb 14.2 (12.0-16.0) g/dL Hct 41.9 (37-47) % MCV 92.7 (80-100) fL MCH 31.4 (25-34) pg MCHC 33.9 (32-36) g/dL RDW Std Deviation 47.8 H (36.4-46.3) fL RDW Coeff of Marcus 14.0 (11.5-14.5) % Plt Count 228 (130-400) K/uL MPV 9.2 (7.4-10.4) fL Immature Gran % (Auto) 0.3 % Neut % (Auto) 74.7 % Lymph % (Auto) 13.7 % [place] % (Auto) 10.3 % Eos % (Auto) 0.8 % Baso % (Auto) 0.2 % Neut # (Auto) 7.04 H (1.4-6.5) K/uL Lymph # (Auto) 1.29 (1.2-3.4) K/uL [place] # (Auto) 0.97 H (0.11-0.59) K/uL Eos # (Auto) 0.08 (0-0.5) K/uL Baso # (Auto) 0.02 (0-0.2) K/uL Immature Gran # (Auto) 0.03 H (0.00-0.02) K/uL Sodium 137 (136-145) mmol/L Potassium 4.1 (3.5-5.1) mmol/L Chloride 107 (98-107) mmol/L Carbon Dioxide 20 L (21-32) mmol/L Anion Gap 10.0 (3-11) BUN 30 H (7-18) mg/dl Creatinine 1.69 H (0.6-1.2) mg/dl Est Cr Clr Drug Dosing 23.1 ml/min Est GFR ( Amer) 32.9 Est GFR (Non-Af Amer) 28.4 BUN/Creatinine Ratio 17.6 (10-20) Glucose 108 H (70-99) mg/dl Calcium 8.8 (8.5-10.1) mg/dl Total Bilirubin 0.7 (0.2-1) mg/dl AST 11 L (15-37) U/L ALT 11 L (12-78) U/L Alkaline Phosphatase 74 (45-117) U/L Troponin I < 0.015 (0-0.045) ng/ml Total Protein 7.0 (6.4-8.2) gm/dl Albumin 2.9 L (3.4-5.0) gm/dl Globulin 4.1 H (2.5-4.0) gm/dl Albumin/Globulin Ratio 0.7 L (0.9-2) TSH 2.060 (0.300-4.500) uIu/ml Urine Color Yellow Urine Appearance Turbid A (Clear) Urine pH 5.5 (4.5-7.5) Ur Specific [place] 1.015 (1.000-1.030) Urine Protein 2+ H (Negative) Urine Glucose (UA) Negative (Negative) Urine Ketones Trace H (Negative) Urine Blood 3+ H (Negative) Urine Nitrite Negative (Negative) Urine Bilirubin Negative (Negative) Urine Urobilinogen Negative (Negative) Ur Leukocyte Esterase 3+ H (Negative) Urine WBC (Auto) >30 H (0-5) /hpf Urine RBC (Auto) >30 H (0-4) /hpf U Hyaline Cast (Auto) 1-5 (0-5) /lpf U Epithel Cells (Auto) 20-30 H (0-5) /lpf Urine Bacteria (Auto) 1+ H (Negative) Urine Yeast Not Reportable Administered Medications Magnesium Sulfate/Dextrose (Magnesium Sulfate / D5w) 1 gm in 100 mls @ 100 mls/hr IV Q1H JENY Stop: 09/13/20 00:14 Last Admin: 09/12/20 23:29 Dose: 100 mls/hr Documented by: [id number] Infusion: 09/12/20 23:28 Dose: 0 mls/hr Documented by: [id number] Admin: 09/12/20 22:26 Dose: 100 mls/hr Documented by: [id number] Vancomycin HCl 1,500 mg/ (Sodium Chloride) 530 mls @ 200 mls/hr IV NOW ONE Stop: 09/13/20 01:29 Last Admin: 09/12/20 23:28 Dose: 200 mls/hr Documented by: [id number] Discontinued Medications Albuterol (Albut/Ipratrop 3mg/0.5mg Neb 3 Ml Vial) 12 ml INH ONE STA Stop: 09/12/20 22:14 Last Admin: 09/12/20 22:55 Dose: 12 ml Documented by: [id number] Sodium Chloride (Nss 1000ml) 1,000 mls @ 999 mls/hr IV .Q1H1M JENY Stop: 09/12/20 21:30 Last Infusion: 09/12/20 23:23 Dose: 0 mls/hr Documented by: [id number] Admin: 09/12/20 21:00 Dose: 999 mls/hr Documented by: [id number] Ceftriaxone Sodium (Rocephin) 2,000 mg in 70 mls @ 140 mls/hr IV NOW STA Stop: 09/12/20 22:17 Last Infusion: 09/12/20 22:59 Dose: 0 mls/hr Documented by: [id number] Admin: 09/12/20 22:11 Dose: 140 mls/hr Documented by: [id number] Sodium Chloride (Nss 1000ml) 500 mls @ 999 mls/hr IV .Q31M ONE Stop: 09/12/20 22:35 Last Admin: 09/12/20 23:06 Dose: 999 mls/hr Documented by: [id number] Piperacillin Sod/Tazobactam Sod (Zosyn) 4.5 gm in 120 mls @ 240 mls/hr IV NOW ONE Stop: 09/12/20 23:20 Last Admin: 09/12/20 23:05 Dose: 240 mls/hr Documented by: [id number] Methylprednisolone (Methylprednisolone 125 Mg/2 Ml Vial) 125 mg IV NOW STA Stop: 09/12/20 22:14 Last Admin: 09/12/20 22:25 Dose: 125 mg Documented by: [id number] Ondansetron HCl (Ondansetron Inj 2 Mg/Ml 2 Ml Vial) 4 mg IV NOW STA Stop: 09/12/20 22:05 Last Admin: 09/12/20 22:11 Dose: 4 mg Documented by: [id number] Discharge Plan Visit Data Chief Complaint: Urinary Symptoms Stated Complaint: UTI, SHAKES ED Provider: Jerry Buckley Discharge Problem: Acute hypoxemic respiratory failure, DILMA (acute kidney injury), Acute UTI, Acute dehydration Forms Stand Alone Forms: My [facility] [employer] Prescriptions Prescriptions: No Action metoprolol succinate 100 mg tablet extended release 24 hr 100 mg PO QAM Qty: 90 RF: 3 gabapentin 100 mg capsule 200 mg PO HS RF: 0 pantoprazole 40 mg tablet,delayed release (DR/EC) 40 mg PO QAM RF: 0 conjugated estrogens 1.25 mg tablet 1.25 mg PO QAM RF: 0 cyanocobalamin (vitamin B-12) 1,000 mcg Tablet 1,000 mcg PO QAM RF: 0 valacyclovir 1 gram Tablet 1,000 mg PO TID PRN (Reason: out breaks) RF: 0 Premarin 0.625 mg/gram cream 1 applic vaginal 3XWK RF: 0 nitrofurantoin monohyd/m-cryst 100 mg capsule 100 mg PO BID RF: 0 Uricalm Cranberry With D-Mannose - Chewable Tablets 2 tab PO QDL RF: 0 Combivent Respimat 20-100 mcg/actuation Mist 1 puff INHALATION QID PRN (Reason: Shortness Of Breath) RF: 0 fluticasone propion-salmeterol [Advair Diskus] 250-50 mcg/dose blister with device 1 inh INHALATION BID Qty: 60 RF: 0
[2020-09-12] MEDS ORDERED: ONDANSETRON INJ 2 MG/ML 2 ML VIAL IV STA (22:04)
[2020-09-12] MEDS ORDERED: SODIUM CHLORIDE 0.9% 1000ML 500 ML IV ONE (22:05)
[2020-09-12 22:09] LABS: Appearance Urine Turbid (Clear); Bacteria Urine Automated 1+ (Negative); Bilirubin Urine Negative (Negative); Blood Urine 3+ (Negative); Color Urine Yellow; Epithelial Cell Urine Auto 20-30 /lpf (0-5); Glucose Urine UA Negative (Negative); Ketones Urine Trace (Negative); Leukocyte Esterase Urine 3+ (Negative); Nitrite Urine Negative (Negative); Protein Urine 2+ (Negative); RBC Urine Automated >30 /hpf (0-4); Specific Gravity Urine 1.015 (1.000-1.030); Urobilinogen Urine Negative (Negative); WBC Urine Automated >30 /hpf (0-5); pH Urine 5.5 (4.5-7.5)
[2020-09-12] MEDS ORDERED: methylPREDNISolone 125 MG/2 ML VIAL IV STA (22:13)
[2020-09-12] MEDS ORDERED: ALBUT/IPRATROP 3MG/0.5MG NEB 3 ML VIAL INH STA (22:13)
[2020-09-12] MEDS: MAGNESIUM SULFATE / D5W 1 GM/100 ML BAG IV SCH ×2 (22:26→23:29)
[2020-09-12] MEDS ORDERED: PIPERACILLIN/TAZOBACTAM 4.5 GM/120 ML BAG IV ONE (22:51)
[2020-09-12] MEDS ORDERED: PIPERACILL/TAZOBAC CONSULT ACTIVE PRN (22:51)
[2020-09-12] MEDS ORDERED: VANCOMYCIN CONSULT ACTIVE PRN (22:51)
[2020-09-12] MEDS ORDERED: VANCOMYCIN HCL 1,500 MG in SODIUM CHLORIDE 0.9% 500 ML IV ONE (22:51)
[2020-09-13 00:20] LABS: Influenza A virus by PCR Negative (Neg); Influenza B virus by PCR Negative (Neg); RSV by PCR Negative (Neg); SARS CoV2 RNA(COVID-19) InHosp NEGATIVE (Negative)
--- NOTE | 2020-09-13 00:49 | History & Physical Report ---
Date of Service September 13, 2020 Assessment & Plan (1) Acute hypoxemic respiratory failure: Acute hypoxemic respiratory failure/admission for CAP from 08/13-08/14 /bronchospasm in ED- We will continue patient on BiPAP at this time, however, anticipate relatively rapid conversion over to nasal cannula, due to acute difficulty breathing after becoming anxious in the ED following a loose stool event. Ceftriaxone 1 g IV daily Azithromycin 500 mg IV daily Methylprednisolone 40 mg IV every 8 hours Duonebs every 4 hours while awake and every 2 hours when necessary. Present on Admission?: Yes (2) Community acquired pneumonia: Patient did have an acute worsening of her breathing as noted above due to being anxious. However, patient and her did report that she was having some difficulty breathing prior to coming to the ED this evening Patient was COVID-19 negative in the ED Present on Admission?: Yes (3) Acute UTI: Acute urinary tract infection- Follow urine culture and sensitivity Continue ceftriaxone IV Present on Admission?: Yes (4) DILMA (acute kidney injury): Creatinine 1.69 upon admission, with most recent 1.14. May be associated with urinary tract infection, but ultimately be associated with Macrobid that the patient was given to empirically start for urinary tract infections. Patient's reports that he felt in the past that her symptoms may been worsened when she was on Macrobid. NSS at 80 mils per hour. Repeat laboratories in a.m. Present on Admission?: Yes (5) Paroxysmal A-fib: Continue metoprolol succinate Present on Admission?: Yes (6) Urinary retention with incomplete bladder emptying: Has required periodic placement of urinary catheter. reports that he did get 450 cc of urine with catheter placement Present on Admission?: Yes (7) GERD (gastroesophageal reflux disease): Continue pantoprazole 40 mg every morning Present on Admission?: Yes History of Present Illness Chief Complaint: The patient presents to the emergency department status post urinary catheter placement today due to episodically worsened urinary frequency, and concerns regarding recurrent pneumonia. Primary Care Provider: Viraj Carreon MD The patient is a 80-year-old female with a past medical history including hypertension, GERD, community-acquired pneumonia, urinary retention with incomplete bladder emptying requiring periodic Park placement, UTI, elevated troponin, paroxysmal atrial fibrillation, C. difficile colitis, bronchitis, anterior shoulder dislocation, acute renal failure. She had to have a urinary catheter placed earlier today, due to increasing urinary frequency and nocturia. Her reports that while she was in the restroom in the ED this evening, she had lost control of her bowels, became very anxious, and developed significant difficulty breathing and hypoxia while in the ED, and is presently on BiPAP. Allergies Allergy/AdvReac Type Severity Reaction Status Date / Time ciprofloxacin AdvReac Intermediate HEADACHE Verified 09/12/20 21:06 "feel DRUNK" Home Medications Medication Instructions Recorded Confirmed Type conjugated estrogens 1.25 mg tablet 1.25 mg PO QAM tab 02/14/19 09/12/20 History pantoprazole 40 mg tablet,delayed 40 mg PO QAM tab 02/14/19 09/12/20 History release cyanocobalamin (vitamin B-12) 1,000 mcg PO QAM 07/26/19 09/12/20 History metoprolol succinate 100 mg 100 mg PO QAM #90 tab 09/08/19 09/12/20 Rx tablet,extended release 24 hr gabapentin 100 mg capsule 200 mg PO HS cap 03/08/20 09/12/20 History Combivent Respimat 1 puff INHALATION QID PRN 08/13/20 09/12/20 History fluticasone propion-salmeterol 1 inh INHALATION BID #60 ea 08/14/20 09/12/20 Rx [Advair Diskus] Uricalm Cranberry With D-Mannose - 2 tab PO QDL 09/12/20 09/12/20 History Chewable Tablets conjugated estrogens [Premarin] 1 applic VAGINAL 3XWK 09/12/20 09/12/20 History nitrofurantoin monohyd/m-cryst 100 mg PO BID 09/12/20 09/12/20 History valacyclovir 1,000 mg PO TID PRN 09/12/20 09/12/20 History Past Med/Surg History Medical History Anterior shoulder dislocation ARF (acute renal failure) Bronchitis C. difficile colitis Hypertension Hypoxia Pacemaker Paroxysmal A-fib Sinus pause SOB (shortness of breath) Troponin I above reference range Surgical History No pertinent past surgical history Family History Mother Diabetes Hypertension Social History Smoking Status: Former smoker Smoking End Date: 20 years ago; Second Hand Exposure: No; Do You Dip or Chew Tobacco: No; Hx Alcohol Use: No Hx Substance Use: No Preferred Language: Micronesian Communication Ability: Effective Superintendent Meter Tests Required: No Beliefs That Will Affect Care: None marital status: Current Living Situation: Spouse Other Information That Helps Us Care for You: No Feels Safe at Home: Yes Safety Concerns: Feels Safe At This Time Assistive Devices: Glasses Review of Systems Review of Systems: The patient denies chest pain, palpitations, cough, lower extremity swelling, sore throat, fevers, chills, sweats, nausea, vomiting, diarrhea , constipation, abdominal pain, blood in urine or stool, lightheadedness, dizziness, headache, memory loss, loss of consciousness, rash, abnormal bruising or bleeding, imbalance, focal or generalized weakness, numbness or tingling in arms or legs, generalized arthralgias or myalgias, back or neck pain, or night sweats. The review of systems is otherwise negative other than for that already noted above, and at least 10 systems have been reviewed. Physical Exam Physical Exam: The patient is awake, alert and oriented 3, well developed and well nourished, normocephalic and atraumatic, wearing BiPAP, sitting upright in bed in no acute distress HEENT--PERRL, EOMI, mucous membranes and oropharynx dry. Neck--supple. No JVD. No bruits. Thyroid normal, trachea midline, no adenopathy. Heart--normal S1 and S2. No murmurs, rubs or gallops. Lungs--decreased breath sounds throughout. No respiratory distress, no accessory muscle use. Abdomen--normal bowel sounds and soft. Nontender. Nondistended. Extremities--no cyanosis or clubbing. No edema. Dermatologic--normal skin turgor, normal color, no abnormal lymph nodes, no rash. Neurologic--cranial nerves II through XII grossly intact. Rheumatologic--normal range of motion. Psychiatric--normal affect. Results & Data Results & Data ([facility]) Vital Signs (Past 12 Hours) Vital Signs Temp Pulse Pulse Resp BP BP Pulse Ox 09/12/20 23:52 118 H 22 118/69 97 09/12/20 23:41 118 H 16 115/69 96 09/12/20 22:55 66 67 32 H 100 09/12/20 21:05 84 18 96 09/12/20 18:46 98.2 F 92 H 16 138/75 94 Laboratory Results Laboratory Results WBC 9.43 K/uL (4.8-10.8) 09/12/20 20:40 RBC 4.52 M/uL (4.2-5.4) 09/12/20 20:40 Hgb 14.2 g/dL (12.0-16.0) 09/12/20 20:40 Hct 41.9 % (37-47) 09/12/20 20:40 MCV 92.7 fL (80-100) 09/12/20 20:40 MCH 31.4 pg (25-34) 09/12/20 20:40 MCHC 33.9 g/dL (32-36) 09/12/20 20:40 RDW Std Deviation 47.8 fL (36.4-46.3) H 09/12/20 20:40 RDW Coeff of Marcus 14.0 % (11.5-14.5) 09/12/20 20:40 Plt Count 228 K/uL (130-400) 09/12/20 20:40 MPV 9.2 fL (7.4-10.4) 09/12/20 20:40 Immature Gran % (Auto) 0.3 % 09/12/20 20:40 Neut % (Auto) 74.7 % 09/12/20 20:40 Lymph % (Auto) 13.7 % 09/12/20 20:40 Roosevelt % (Auto) 10.3 % 09/12/20 20:40 Eos % (Auto) 0.8 % 09/12/20 20:40 Baso % (Auto) 0.2 % 09/12/20 20:40 Neut # (Auto) 7.04 K/uL (1.4-6.5) H 09/12/20 20:40 Lymph # (Auto) 1.29 K/uL (1.2-3.4) 09/12/20 20:40 Roosevelt # (Auto) 0.97 K/uL (0.11-0.59) H 09/12/20 20:40 Eos # (Auto) 0.08 K/uL (0-0.5) 09/12/20 20:40 Baso # (Auto) 0.02 K/uL (0-0.2) 09/12/20 20:40 Immature Gran # (Auto) 0.03 K/uL (0.00-0.02) H 09/12/20 20:40 Sodium 137 mmol/L (136-145) 09/12/20 20:40 Potassium 4.1 mmol/L (3.5-5.1) 09/12/20 20:40 Chloride 107 mmol/L (98-107) 09/12/20 20:40 Carbon Dioxide 20 mmol/L (21-32) L 09/12/20 20:40 Anion Gap 10.0 (3-11) 09/12/20 20:40 BUN 30 mg/dl (7-18) H 09/12/20 20:40 Creatinine 1.69 mg/dl (0.6-1.2) H 09/12/20 20:40 Est Cr Clr Drug Dosing 23.1 ml/min 09/12/20 20:40 Est GFR ( Amer) 32.9 09/12/20 20:40 Est GFR (Non-Af Amer) 28.4 09/12/20 20:40 BUN/Creatinine Ratio 17.6 (10-20) 09/12/20 20:40 Glucose 108 mg/dl (70-99) H 09/12/20 20:40 Lactate 2.2 mmol/L (0.4-2.0) H* 09/13/20 01:22 Calcium 8.8 mg/dl (8.5-10.1) 09/12/20 20:40 Total Bilirubin 0.7 mg/dl (0.2-1) 09/12/20 20:40 AST 11 U/L (15-37) L 09/12/20 20:40 ALT 11 U/L (12-78) L 09/12/20 20:40 Alkaline Phosphatase 74 U/L (45-117) 09/12/20 20:40 Troponin I < 0.015 ng/ml (0-0.045) 09/12/20 20:40 Total Protein 7.0 gm/dl (6.4-8.2) 09/12/20 20:40 Albumin 2.9 gm/dl (3.4-5.0) L 09/12/20 20:40 Globulin 4.1 gm/dl (2.5-4.0) H 09/12/20 20:40 Albumin/Globulin Ratio 0.7 (0.9-2) L 09/12/20 20:40 TSH 2.060 uIu/ml (0.300-4.500) 09/12/20 20:40 Urine Color Yellow 09/12/20 Unknown Urine Appearance Turbid (Clear) A 09/12/20 Unknown Urine pH 5.5 (4.5-7.5) 09/12/20 Unknown Ur Specific Pisek 1.015 (1.000-1.030) 09/12/20 Unknown Urine Protein 2+ (Negative) H 09/12/20 Unknown Urine Glucose (UA) Negative (Negative) 09/12/20 Unknown Urine Ketones Trace (Negative) H 09/12/20 Unknown Urine Blood 3+ (Negative) H 09/12/20 Unknown Urine Nitrite Negative (Negative) 09/12/20 Unknown Urine Bilirubin Negative (Negative) 09/12/20 Unknown Urine Urobilinogen Negative (Negative) 09/12/20 Unknown Ur Leukocyte Esterase 3+ (Negative) H 09/12/20 Unknown Urine WBC (Auto) >30 /hpf (0-5) H 09/12/20 Unknown Urine RBC (Auto) >30 /hpf (0-4) H 09/12/20 Unknown U Hyaline Cast (Auto) 1-5 /lpf (0-5) 09/12/20 Unknown U Epithel Cells (Auto) 20-30 /lpf (0-5) H 09/12/20 Unknown Urine Bacteria (Auto) 1+ (Negative) H 09/12/20 Unknown Urine Yeast Not Reportable 09/12/20 Unknown COVID-19 Eval Order CovFluRsv at [facility] 09/12/20 23:31 SARS-CoV-2 (PCR) NEGATIVE (Negative) 09/12/20 23:31 Influenza Type A (PCR) Negative (Neg) 09/12/20 23:31 Influenza Type B (PCR) Negative (Neg) 09/12/20 23:31 RSV (RT-PCR) Negative (Neg) 09/12/20 23:31 Code Status & VTE Plan Code Status Full code VTE Prophylaxis Plan VTE Prophylaxis will be ordered: Yes PG Care Time/CCT Total # of Minutes Spent Total Time Spent with Patient: Total time spent is greater than 50% in coordination of care (as documented) at patient's floor/unit and/or counseling patient: Coding Level of Care Code 01957 Initial Inpt Care Lvl 3 Diagnoses Acute hypoxemic respiratory failure J96.01 Community acquired pneumonia J18.9 Laterality: unspecified laterality Acute UTI N39.0 DILMA (acute kidney injury) N17.9 Paroxysmal A-fib I48.0 Urinary retention with incomplete bladder emptying R33.9 GERD (gastroesophageal reflux disease) K21.9 (1) Community acquired pneumonia Laterality: unspecified laterality Qualified Code(s): J18.9 - Pneumonia, unspecified organism
[2020-09-13] MEDS ORDERED: ACETAMINOPHEN 325 MG TAB PO PRN (03:03)
[2020-09-13] MEDS ORDERED: ONDANSETRON INJ 2 MG/ML 2 ML VIAL IV PRN (03:03)
[2020-09-13] MEDS ORDERED: SODIUM CHLORIDE 0.9% 1000ML 1,000 ML IV SCH (03:03)
[2020-09-13] MEDS ORDERED: MAGNESIUM HYDROXIDE SUSP 30 ML UDC PO PRN (03:03)
[2020-09-13] MEDS ORDERED: ALUMINUM/MAGNESIUM SUSP 30 ML UDC PO PRN (03:03)
[2020-09-13] MEDS: methylPREDNISolone 40 MG in SYRINGE 0 ML IV SCH ×2 (05:52→14:38)
--- NOTE | 2020-09-13 06:51 | XRay Report ---
XR chest 1V portable HISTORY: 80 years-old Female sob, COPD acute shortness of breath COMPARISON: Chest radiograph and CTA chest 08/19/2020 TECHNIQUE: Portable upright AP view of the chest FINDINGS: Cardiac silhouette is mildly enlarged. Left subclavian pacer. Emphysema with chronic interstitial coa rsening. Mild right hemidiaphragmatic elevation. Mild right lung base opacities. No pneumothorax, lar ge pleural effusion or overt pulmonary edema. Degenerative changes of the shoulders and spine. IMPRESSION: 1. Mild right lung base opacities suggest atelectasis versus pneumonitis. 2. Emphysema with chronic interstitial coarsening. ACT 112: Negative or not required by law. The above report was generated using voice recognition software. It may contain grammatical, syntax o r spelling errors. Electronically signed by: Dony Wallis M.D. 09/13/2020 6:50 AM
[2020-09-13] MEDS ORDERED: ALBUT/IPRATROP 3MG/0.5MG NEB 3 ML VIAL NEB SCH (07:00)
[2020-09-13 07:04] LABS: Hematocrit (blood only) 37.9 % (37-47); Hemoglobin 13.1 g/dL (12.0-16.0); Mean Corpuscular Hgb Conc 34.6 g/dL (32-36); Mean Corpuscular Volume 92.4 fL (80-100); Mean Platelet Volume 9.6 fL (7.4-10.4); Platelet Count 225 K/uL (130-400); RDW Coefficient of Variation 14.3 % (11.5-14.5); RDW Standard Deviation 48.3 fL (36.4-46.3); White Blood Count 9.72 K/uL (4.8-10.8)
[2020-09-13 07:31] LABS: Albumin Level 2.3 gm/dl (3.4-5.0); BUN Creatinine Ratio 17.9 (10-20); Calcium 7.8 mg/dl (8.5-10.1); Creatinine Clr Calc Pharmacy 27.3 ml/min; Est GFR (African American) 44.4; Est GFR (Non-African American) 38.3; Phosphorus 3.3 mg/dl (2.5-4.9); Potassium 4.1 mmol/L (3.5-5.1)
[2020-09-13 07:33] LABS: Eosinophils # (auto) 0.01 K/uL (0-0.5); Eosinophils % (auto) 0.1 %; Immature Granulocytes # (auto) 0.02 K/uL (0.00-0.02); Immature Granulocytes % (auto) 0.2 %; Lymphocytes # (auto) 0.59 K/uL (1.2-3.4); Lymphocytes % (auto) 6.1 %; Monocytes # (auto) 0.33 K/uL (0.11-0.59); Monocytes % (auto) 3.4 %; Neutrophils # (auto) 8.77 K/uL (1.4-6.5); Neutrophils % (auto) 90.2 %; Toxic Vacuolation 1+
[2020-09-13] MEDS ORDERED: ALBUT/IPRATROP 3MG/0.5MG NEB 3 ML VIAL NEB PRN (08:01)
[2020-09-13] MEDS ORDERED: CYANOCOBALAMIN 500 MCG TABLET (VITAMIN B-12) PO SCH (09:00)
[2020-09-13] MEDS ORDERED: METOPROLOL SUCC 50MG EXT REL TAB PO SCH (09:00)
[2020-09-13] MEDS ORDERED: AZITHROMYCIN 500 MG in DEXTROSE 5% 250 ML IV SCH (09:00)
[2020-09-13] MEDS ORDERED: ESTROGENS, CONJUGATED 0.625 MG TAB PO SCH (09:00)
[2020-09-13] MEDS ORDERED: PANTOprazole 40 MG TAB PO SCH (09:00)
[2020-09-13] MEDS ORDERED: PREMARIN VAG CRM 14 APPLN/30 GM TUBE PV SCH (09:00)
[2020-09-13] MEDS ORDERED: ENOXAPARIN INJ 30 MG/0.3 ML SYR SQ SCH (09:00)
--- NOTE | 2020-09-13 09:20 | Electrocardiogram Report ---
Test Reason : Blood Pressure : / mmHG Vent. Rate : 086 BPM Atrial Rate : 086 BPM P-R Int : 250 ms QRS Dur : 078 ms QT Int : 352 ms P-R-T Axes : 016 -08 024 degrees QTc Int : 421 ms Sinus rhythm with 1st degree A-V block Otherwise normal ECG When compared with ECG of 19-AUG-2020 19:19, No significant change was found Confirmed by Giovanni Hernandez ([id number]) on 09/13/2020 9:20:07 AM Referred By: REFERRED SELF Confirmed By:Giovanni Hernandez
[2020-09-13 12:29] LABS: iSTAT Potassium 4.7 mmol/L (3.3-5.0); iSTAT Sodium 136 mmol/L (135-144)
[2020-09-13 12:30] LABS: iSTAT Arterial Blood Gas HCO3 18 meg/L (19-24); iSTAT Arterial Blood Gas pCO2 62 mmHg (35-46); iSTAT Arterial Blood Gas pH 7.15 (7.35-7.45); iSTAT Arterial Blood Gas pO2 299 mmHg (80-95); iSTAT Carbon Dioxide 20 mmol/L (24-31); iSTAT Hematocrit 40 % (37-47); iSTAT Hemoglobin 13.6 g/dl (12.0-16.0)
--- NOTE | 2020-09-13 14:16 | History & Physical Bridge Note ---
Date of Service September 13, 2020 History & Physical Bridge Note Patient seen and examined today. Breathing comfortably on room air. No wheezing. No definitive indication of pneumonia on CXR. No indication of COPD exacerbation with normal breaths sounds. Most of her shortness of breath, she reports as due to anxiety from having an accident. At this time, will get a procalcitonin to help determine if there is any infectious component. Will stop antibiotics and steroids if negative. For her DILMA, it is improving, and I do question how much is post-renal if she is having urinary retention. Will monitor PVRs.
--- NOTE | 2020-09-13 16:31 | Discharge Summary ---
Date of Service September 13, 2020 Admission HPI Per Admitting Provider The patient is a 80-year-old female with a past medical history including hypertension, GERD, community-acquired pneumonia, urinary retention with incomplete bladder emptying requiring periodic Park placement, UTI, elevated troponin, paroxysmal atrial fibrillation, C. difficile colitis, bronchitis, anterior shoulder dislocation, acute renal failure. She had to have a urinary catheter placed earlier today, due to increasing urinary frequency and nocturia. Her reports that while she was in the restroom in the ED this evening, she had lost control of her bowels, became very anxious, and developed signific ant difficulty breathing and hypoxia while in the ED, and is presently on BiPAP. Principal Diagnosis Anxiety-provoked shortness of breath Discharge Exam Constitutional WD/WN, vitals as above Eyes EOM intact bilaterally; no conjunctival abnormality ENMT external ear and nose normal, oropharynx normal Neck trachea midline, no thyromegaly normal visual inspection Respiratory normal respiratory effort, lungs clear to auscultation no respiratory distress Cardiovascular RRR, no murmur, no edema Gastrointestinal (Abdomen) Inspection/Auscultation: abdomen normal to inspection; abdomen not distended Musculoskeletal no cyanosis or clubbing, extremities motor strength 5/5 Skin no rashes, warm and dry Neurologic moves all extremities and awake Psychiatric Orientation: alert, oriented to person and cooperative Discharge Data Allergies Allergy/AdvReac Type Severity Reaction Status Date / Time ciprofloxacin AdvReac Intermediate HEADACHE Verified 09/12/20 21:06 "feel DRUNK" Consultations 09/12/20 23:13 ED Decision to Admit Stat Hospital Course (1) Acute hypoxemic respiratory failure: By 09/13, she was at her baseline breathing state. She had no wheezing, no prolonged expiration. She did not appear to be in any respiratory distress or COPD exacerbation. - I cannot explain her acute shortness of breath last night. There are some notes that she mostly became short of breath after having an accident by the commode and becoming very anxious about it. It is possible this episode was an anxiety-provoked incident. - By discharge, she is breathing comfortably on room air. I do not see any need to send her with antibiotics or steroids as she has no fever, no white count, and her CXR findings largely show pneumonitis vs. atelectasis. (2) Acute UTI: No indication of acute urinary tract infection at this time. No fever, no leukocytosis. Urinary culture growing only pinpoint growth (so low CFU). - She has significant urinary retention with 450 mL. She has required intermittent catheterizations at times. - I think this is the most likely cause of her urinary symptoms. - Discharged with no new abx. She can continue the course per outpatient provider. (3) DILMA (acute kidney injury): Creatinine 1.69 upon admission, with most recent 1.14. - Cr improving by discharge. She was encouraged to continue good hydration. I think some of this might be post-renal given her urinary retention. She has a follow up with her urology surgeon in 2 weeks time. (4) Paroxysmal A-fib: Continue metoprolol succinate (5) Urinary retention with incomplete bladder emptying: Has required periodic placement of urinary catheter. - See above (6) GERD (gastroesophageal reflux disease): Continue pantoprazole 40 mg every morning Total Time Total Time Spent Total Time Spent (In Minutes): 35 Discharge Plan Discharge Items Patient Disposition: Home - Self-Care Reason For Visit: COPD EXAC., ACUTE RESP FAILURE W/ HYPOXIA Discharge Diagnosis: Shortness of breath, anxiety Activity: Resume your previous activity Non-emergency contact: Primary Care Provider and [employer] Call non-emergency contact if: your symptoms worsen Follow-up/Referrals: Viraj Carreon MD [Primary Care Provider] - Diet: Heart Healthy Addtl Attending Provider Instructions: You were admitted to the hospital with shortness of breath that may have been a touch of COPD or some anxiety over an accident in the Emergency Department. Your breathing is back to baseline now, and we do not think you need more steroids. Please continue your Combivent and other inhalers as normal. For your urinary issues, it seems like your bladder retention may be getting a bit worse. I think that this is the largest contributor to your urinary issues & symptoms. Our urine culture did not grow any bacteria at this point, so I do not think your urine was infected. Please continue to see your bladder doctor in regards to any bladder issues. Pending Studies at Discharge: No Stand-Alone Forms: My Bill [employer]cher, Smoking Cessation Medications and DC Order Prescriptions: Continued metoprolol succinate 100 mg tablet extended release 24 hr 100 mg PO QAM Qty: 90 RF: 3 gabapentin 100 mg capsule 200 mg PO HS RF: 0 pantoprazole 40 mg tablet,delayed release (DR/EC) 40 mg PO QAM RF: 0 conjugated estrogens 1.25 mg tablet 1.25 mg PO QAM RF: 0 cyanocobalamin (vitamin B-12) 1,000 mcg Tablet 1,000 mcg PO QAM RF: 0 valacyclovir 1 gram Tablet 1,000 mg PO TID PRN (Reason: out breaks) RF: 0 Premarin 0.625 mg/gram cream 1 applic vaginal 3XWK RF: 0 nitrofurantoin monohyd/m-cryst 100 mg capsule 100 mg PO BID RF: 0 Uricalm Cranberry With D-Mannose - Chewable Tablets 2 tab PO QDL RF: 0 Combivent Respimat 20-100 mcg/actuation Mist 1 puff INHALATION QID PRN (Reason: Shortness Of Breath) RF: 0 fluticasone propion-salmeterol [Advair Diskus] 250-50 mcg/dose blister with device 1 inh INHALATION BID Qty: 60 RF: 0 Discharge Orders: Discharge Order (Routine); Ordered 09/13/20 Ordered By: Deangelo Echavarria Admission Data Admit Date/Time: 09/13/20 00:45 Attending Provider: Deangelo Echavarria Admit Provider: Raul Miller Primary Care Provider: Viraj Carreon Other Providers: Deangelo Echavarria Coding Level of Care Code D/C Day Management >30 mins Diagnoses Acute hypoxemic respiratory failure J96.01 Acute UTI N39.0 DILMA (acute kidney injury) N17.9 Paroxysmal A-fib I48.0 Urinary retention with incomplete bladder emptying R33.9 GERD (gastroesophageal reflux disease) K21.9
[2020-09-13] MEDS ORDERED: GABAPENTIN 100 MG CAP PO SCH (21:00)
[2020-09-13] MEDS ORDERED: cefTRIAXone SODIUM 1,000 MG in DEXTROSE 5% 50 ML IV SCH (22:00)
--- NOTE | 2020-09-19 07:54 | Coding Query ---
CODING QUERY To promote full compliance with coding requirements relating to patient care, provider participation is requested in all cases of first sampler uncertainty. Please assist us with the question(s) below: Coding Question(s): Per H&P patient has Community acquired pneumonia. This did not hit the Discharge Summary. Please clarify below: ( ) Patient has/had Pneumonia (x ) Pneumonia Ruled Out ( ) Other Please Explain: Physician's Response(s): Thank you Eduardo Gil Principal Diagnosis: "that condition established after study, to be chiefly responsible for occasioning the admission of the patient to the hospital for care." Co-Existing Principal Diagnosis: "when two or more diagnoses equally meet the criteria for principal diagnosis as determined by the circumstances of admission, diagnostic work up, and/or therapy provided, and the Alphabetic Index, Tabular List, or another coding guideline does not provide sequencing direction, any one of the diagnoses may be sequenced first." "When the physician has documented what appears to be a current diagnosis in the body of the record, but has not included the diagnosis in the final diagnostic statement, the physician should be asked whether the diagnosis should be added." (Source Coding Clinic 2 QTR90. p3-4) SUNITA
== END 2020-09-13 16:45 | disposition home or self-care (01) ==
LOC: ED 18:38 → INTOOBSV 09-13 00:45 → 2S 09-13 00:45 → SUATTDRO 09-13 00:45 → 2S 09-13 01:24

== ENCOUNTER 2024-06-06 12:10 | Inpatient (IN) ==
[2024-06-06 13:26] LABS: Basophils # (auto) 0.03 K/uL (0.00-0.20); Basophils % (auto) 0.5 %; Eosinophils # (auto) 0.11 K/uL (0.00-0.50); Eosinophils % (auto) 1.8 %; Hematocrit (blood only) 39.7 % (37.0-47.0); Hemoglobin 13.1 g/dl (12.0-16.0); Immature Granulocytes # (auto) 0.01 K/uL (0.01-0.20); Immature Granulocytes % (auto) 0.2 %; Lymphocytes # (auto) 2.26 K/uL (1.20-3.40); Lymphocytes % (auto) 37.5 %; Mean Corpuscular Hemoglobin 32.3 pg (25.0-34.0); Mean Platelet Volume 9.2 fL (9.4-12.4); Monocytes # (auto) 0.88 K/uL (0.11-0.59); Monocytes % (auto) 14.6 %; Neutrophils # (auto) 2.74 K/uL (1.40-6.50); Neutrophils % (auto) 45.4 %; Platelet Count 218 K/uL (130-400); RDW Coefficient of Variation 14.4 % (11.5-14.5); RDW Standard Deviation 51.9 fL (36.4-46.3); Red Blood Count 4.05 M/uL (4.20-5.40); White Blood Count 6.03 K/ul (4.8-10.8)
[2024-06-06 13:38] LABS: Alanine Aminotransferase 15 U/L (7-52); Albumin Globulin Ratio 1.2 (0.9-2); Albumin Level 3.7 gm/dl (3.4-5.0); Alkaline Phosphatase 66 U/L (34-104); Anion Gap 5 (3-11); Aspartate Aminotransferase 30 U/L (13-39); BUN Creatinine Ratio 22.1 (10-20); Bilirubin,Total 0.3 mg/dl (0.2-1.0); Blood Urea Nitrogen 25 mg/dl (6-23); Calcium 8.6 mg/dl (8.6-10.3); Carbon Dioxide 23 mmol/L (21-32); Chloride 110 mmol/L (98-107); Globulin 3.2 gm/dl (2.5-4.0); Glucose 96 mg/dl (70-99(Fasting)); Potassium 4.5 mmol/L (3.5-5.1); Sodium 138 mmol/L (136-145); Total Protein 6.9 gm/dl (6.0-8.3)
--- NOTE | 2024-06-06 14:34 | Emergency Department Note ---
Impression & Plan Acute UTI, Norovirus ED Provider Note Provider: Vikas Diamond MD CHIEF COMPLAINT: Abnormal cultures HISTORY OF PRESENT ILLNESS: Patient is a 84-year-old female past medical history including COPD, GERD, paroxysmal atrial fibrillation, C. difficile, hypertension presenting with for evaluation of ongoing weakness and some abnormal urine cultures. Evidently folks in the family of had nausea vomiting and diarrhea. Patient seen here early in the morning on Venkat with nausea vomiting diarrhea and abdominal pain. Reassuring workup at that time although was sent on cefdinir with question of a UTI and positive testing for norovirus. Patient's urine culture returned today showing Enterobacter complex resistant to the antibiotic she is on. Patient has several allergies to several antibiotics and contacted by PA today. Daughter reports the patient still has been have any significant amount of diarrhea. became ill last night. Daughter is visiting from out of town but usually assist with patient care. She follows with urologist as she has issues urinating and has to self cath several times a day. Does report urinary frequency but does have some incontinence issues. PAST MEDICAL HISTORY: As noted above MEDICATIONS: Reviewed home medications SOCIAL HISTORY: PHYSICAL EXAM: GENERAL: alert and oriented in no acute distress in chair Head: normocephalic and atraumatic EYES: No injection, discharge or icterus. EOMI. NECK: Trachea midline. Good range of motion ENT: Mucous membranes pink and moist. LUNGS: Airway patent. No retractions or tachypnea HEART: Regular rate and rhythm. ABDOMEN: Soft and non-tender, without guarding or rebound. SKIN: Acyanotic, warm, dry, without rashes EXTREMITIES: Without swelling, tenderness or deformity NEUROLOGICAL: No focal deficits. No aphasia. No facial droop or slurred speech. Ambulatory. Patient's laboratory studies and imaging reviewed. Differential includes Gastroenteritis, food borne illness, infections, appendicitis, diverticulitis, inflammatory bowel disease, obstruction, GI bleed, biliary pathology, volvulus, as well as other pathologies. IMPRESSION/MEDICAL DECISION MAKING: Reviewed workup from 2 days ago. Positive norovirus testing. From triage labs obtained here without significant anemia leukocytosis. No significant lecture light abnormality signs of renal function. Renal function actually somewhat improved compared to previous. No evidence of hepatitis. Did have concerning urinalysis and culture returns positive for Enterobacter complex with several resistances. Does not appear to have available oral option given her allergy profile. Discussed with patient and daughter present. Given her age and ongoing symptoms with weakness discussed treating. No believe she needs abdominal reimaging at this time. She does not appear grossly septic. Cover with a dose of cefepime given the urine culture from 2 days ago. Discussed given her UTI treatment options as well as with her age and urinary catheter issues with ill family at home, we will discuss with the hospital for further care here. Hospitalist contacted. DIAGNOSIS: Acute UTI, weakness, norovirus DISPOSITION: Hospitalist will evaluate Patient was agreeable with this plan. Past Med/Surg History Problem List (Updated 06/06/24 @ 20:13 by Vikas Diamond M.D.) Norovirus (Acute) Nausea, vomiting, and diarrhea (Acute) Acute UTI (Acute) Ascending aorta dilatation Mitral regurgitation Hypertension Neuropathy Renal cyst H/O cardiac pacemaker COPD (chronic obstructive pulmonary disease) MCFP (current) use of selective estrogen receptor modulators (serms) Recurrent UTI Hypertension GERD (gastroesophageal reflux disease) Sinus pause Paroxysmal A-fib C. difficile colitis Medical History Acute dehydration Acute hypoxemic respiratory failure Acute UTI DILMA (acute kidney injury) Community acquired pneumonia Urinary retention with incomplete bladder emptying SOB (shortness of breath) Hypoxia Anterior shoulder dislocation ARF (acute renal failure) Surgical History History of cataract extraction History of kidney surgery retrieval of kidney stones. History of appendectomy H/O total hysterectomy H/O wrist surgery L an R wrist History of bladder surgery x 3 for bladder tacking H/O foot surgery Pacemaker Family History Mother Diabetes Hypertension Denies family history of Ovarian cancer Prostate cancer Myocardial infarction Breast cancer Colorectal cancer Social History Smoking Status: Never smoker Tobacco Type: Cigarettes Age Started Using Tobacco: 19; Age Quit Using Tobacco: 66; packs per day: 0.5; Second Hand Exposure: No; Do You Dip or Chew Tobacco: No; Tobacco Cessation Education Requested by Patient: No Hx Alcohol Use: No Hx Substance Use: No Preferred Language: Argentine Communication Ability: Effective Communication Ability Comment: becomes confused at times to past events Visual Impairment: No Limitations Hearing Ability: Normal [place] Encaser Required: No Beliefs That Will Affect Care: None marital status: Current Living Situation: Spouse Current Living Situation Comment: live with spouse current occupational status: 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 Other Information That Helps Us Care for You: No Feels Safe at Home: Yes Childhood Exposure to Second-Hand Smoke: No Diet: regular Diet Comment: regular caffeine: No during the past year weight has: remained stable Dental Care, Regularly: No Physical Activity Frequency: Daily Seatbelt Use: always Sunscreen Use: Yes Assistive Devices: None Allergies Allergies Allergy/AdvReac Type Severity Reaction Status Date / Time Quinolones Allergy Unknown CAN'T Verified 06/06/24 16:01 REMEMBER nitrofurantoin AdvReac Severe "SOB" and Verified 06/06/24 16:01 [From Macrobid] other symptoms that pt cannot recall. ciprofloxacin AdvReac Intermediate HEADACHE Verified 06/06/24 16:01 "feel DRUNK" mupirocin [From Bactroban] AdvReac Unknown CAN'T Verified 06/06/24 16:01 REMEMBER Home Meds Home Medications Medication Instructions Recorded Confirmed cyanocobalamin (vitamin B-12) 1,000 mcg PO QAM 10/16/23 06/06/24 1,000 mcg tablet conjugated estrogens 0.625 mg/gram 0.625 mg vaginal 3XWK 11/13/23 06/06/24 vaginal cream fluticasone 250 mcg-salmeterol 50 1 inh inhalation BID 11/13/23 06/06/24 mcg/dose blistr powdr for inhalation (Advair Diskus) guaifenesin 600 mg tablet, 600 mg PO BID PRN Congestion 11/13/23 06/06/24 extended release 12 hr (Mucus Relief ER) conjugated estrogens 0.3 mg tablet 0.3 mg PO Q OTHER DAY 06/06/24 06/06/24 multivitamin 1 tab PO DAILY 06/06/24 06/06/24 valacyclovir 1 gram tablet 0 mg PO TID 06/06/24 06/06/24 Previous Rx's Medication Instructions Recorded metoprolol succinate 100 mg 100 mg PO QAM #90 tabs 09/04/23 tablet,extended release 24 hr trimethoprim 100 mg tablet 100 mg PO DAILY #90 tabs 03/20/24 pantoprazole 40 mg tablet,delayed 40 mg PO QAM #90 tabs 04/09/24 release ipratropium 20 mcg-albuterol 100 1 puff inhalation Q6H PRN 06/02/24 mcg/actuation mist for inhalation Shortness Of Breath Or Wheezing #4 (Combivent Respimat) grams cefdinir 300 mg capsule 300 mg PO BID 7 days #14 caps 06/04/24 Results & Data (ED) Vital Signs Vital Signs - 24 hr 06/06/24 12:25 06/06/24 15:51 Temperature 36.6 C Temperature Source Temporal Artery Scan Pulse Rate 66 Pulse Rate [Right Finger] 62 Respiratory Rate 18 20 Respiratory Effort / Characteristics Non-Labored Spontaneous Non-Labored Spontaneous Respiratory Depth Normal Normal Respiratory Pattern Regular Blood Pressure 142/85 H Blood Pressure [Right Arm] 156/96 H Blood Pressure Mean 104 Blood Pressure Mean [Right Arm] 116 Pulse Oximetry 95 97 Oxygen Delivery Method Room Air Room Air Sepsis Recent Fever Within 48 Hours No Sepsis New/Unexplained Change in Mental Status No Sepsis Action Taken by Nursing No Action Required Laboratory Data 06/06/24 12:40 06/06/24 12:40 Lab Results 06/06/24 Range/Units 12:40 WBC 6.03 (4.8-10.8) K/ul RBC 4.05 L (4.20-5.40) M/uL Hgb 13.1 (12.0-16.0) g/dl Hct 39.7 (37.0-47.0) % MCV 98.0 (80.0-100.0) fL MCH 32.3 (25.0-34.0) pg MCHC 33.0 (32.0-36.0) g/dL RDW Std Deviation 51.9 H (36.4-46.3) fL RDW Coeff of Marcus 14.4 (11.5-14.5) % Plt Count 218 (130-400) K/uL MPV 9.2 L (9.4-12.4) fL Immature Gran % (Auto) 0.2 % Neut % (Auto) 45.4 % Lymph % (Auto) 37.5 % [place] % (Auto) 14.6 % Eos % (Auto) 1.8 % Baso % (Auto) 0.5 % Neut # (Auto) 2.74 (1.40-6.50) K/uL Lymph # (Auto) 2.26 (1.20-3.40) K/uL [place] # (Auto) 0.88 H (0.11-0.59) K/uL Eos # (Auto) 0.11 (0.00-0.50) K/uL Baso # (Auto) 0.03 (0.00-0.20) K/uL Immature Gran # (Auto) 0.01 (0.01-0.20) K/uL Sodium 138 (136-145) mmol/L Potassium 4.5 (3.5-5.1) mmol/L Chloride 110 H (98-107) mmol/L Carbon Dioxide 23 (21-32) mmol/L Anion Gap 5 (3-11) BUN 25 H (6-23) mg/dl Creatinine 1.13 (0.6-1.2) mg/dl Est Cr Clr Drug Dosing Not Reportable eGFR 48.27 BUN/Creatinine Ratio 22.1 H (10-20) Glucose 96 (70-99(Fasting)) mg/dl Calcium 8.6 (8.6-10.3) mg/dl Total Bilirubin 0.3 (0.2-1.0) mg/dl AST 30 (13-39) U/L ALT 15 (7-52) U/L Alkaline Phosphatase 66 (34-104) U/L Total Protein 6.9 (6.0-8.3) gm/dl Albumin 3.7 (3.4-5.0) gm/dl Globulin 3.2 (2.5-4.0) gm/dl Albumin/Globulin Ratio 1.2 (0.9-2) Administered Medications Enoxaparin Sodium (Enoxaparin Inj 40 Mg/0.4 Ml Syr) 40 mg SQ Q24H [facility] Stop: 07/06/24 18:44 Last Admin: 06/06/24 20:00 Dose: 40 mg Documented By: JAJAK Estrogens Conjugated (Estrogens, Conjugated 0.3 Mg Tab) 0.3 mg PO Q2D [facility] Stop: 07/06/24 18:59 Last Admin: 06/06/24 20:01 Dose: 0.3 mg Documented By: ZUNILDA Fluticasone/Vilanterol (Fluticasone/Vilanterol 100/25mcg 14 Puffs/Inhaler) 1 puffs INH DAILY [facility]; Protocol Stop: 07/06/24 18:44 Last Admin: 06/06/24 20:02 Dose: 1 puffs Documented By: ZUNILDA Valacyclovir HCl (Valacyclovir Hcl 500 Mg Tablet) 1,000 mg PO TID JENY Stop: 06/08/24 21:01 Last Admin: 06/06/24 20:02 Dose: 1,000 mg Documented By: ZUNILDA Discontinued Medications Cefepime HCl (Maxipime 2000mg) 2,000 mg in 20 mls @ 5 mls/min IV NOW STA; Protocol Stop: 06/06/24 14:55 Last Admin: 06/06/24 15:47 Dose: 5 mls/min Documented By: ASHLEY Sodium Chloride (Nss) 500 mls @ 999 mls/hr IV .Q31M ONE Stop: 06/06/24 16:32 Last Infusion: 06/06/24 20:04 Dose: Infused Documented By: Admin: 06/06/24 17:46 Dose: 999 mls/hr Documented By: ASHLEY Discharge Plan Visit Data Chief Complaint: Referred by Doctor Stated Complaint: DOC REC, NEW ANTIBIOTIC NEEDED ED Provider: Vikas Diamond Discharge Problem: Acute UTI, Norovirus Patient Disposition: Being Evaluated by Hospitalist
[2024-06-06] MEDS: CEFEPIME 2000MG 2,000 MG/20 ML SYR IV STA (15:47)
--- NOTE | 2024-06-06 17:13 | History & Physical Report ---
Date of Service June 06, 2024 Assessment & Plan (1) Acute UTI: (2) COPD (chronic obstructive pulmonary disease): (3) Paroxysmal A-fib: Plan 84-year-old female PMHx HTN, COPD, GERD, paroxysmal A-fib not anticoagulated, and C. difficile who is presenting for generalized weakness as well as diarrhea that is black in color. Patient was recently seen on 06/04/2024 at ED and diagnosed with UTI. Ultimately placed on Cefdinir for UTI; Culture grew Enterobacter cloacae complex, resistant to Cefdinir, and patient could not tolerate outpatient medications to treat this as she is allergic. Required to come in for IV antibiotics. #UTI/Urinary retention with neurogenic bladder Symptoms of urinary frequency and dysuria; initally discharged from ED 06/04 on Cefdinir for UTI. Culture grew Enterobacter colacae, resistant to both cefdinir and bactrim. Pt requiring IV abx. Self-caths TID. Does follow w/ urology, on prophylactic bactrim, self-caths 3xday - UA 06/04 w/ turbid urine, 1+ protein, trace ketones, presence of blood, LE, WBC, hyaline cast, epithelial cells, but no bacteria; culture did grow out Enterobacter cloacae; pending repeat UA + cx - Continue cefepime q8hr + pyridium prn - On bactrim outpatient- HOLD until complete resolution of UTI -Consult case management to help arrange home IV cefepime for total of 7 days- can do peripheral ultrasound-guided IV prior to discharge. is capable of doing IV antibiotics as he has done in the past #Viral URI Norovirus positive on 06/04; Exposure within immediate family; has had diarrhea but no additional complaints currently. Reports of dark colored stool x 1 the morning of arrival, has started to return back to normal brown color. No recent Pepto-bismol or iron. Overall diarrhea is improving - Supportive management; encourage po fluids - Contact/droplet precautions - BMP am #Afib, paroxysmal, rate controlled/Dual chamber cardiac pacer/Sinus node dysfunction/HTN- Follows w/ cardiology, metoprolol, defers anticoag per PCP note (05/29) #GERD- Pantoprazole #COPD- Stable, follows w/ PCP; on Combivent prn; No O2 at baseline Dispo: Admit to receive IV antibiotics VTE Prophylaxis: Lovenox This document was dictated utilizing [employer]. Please excuse any grammatical errors that may be secondary to use of this software. Admission and Anticipated Discharge Date Admission Date: 06/06/2024 History of Present Illness Chief Complaint: UTI Primary Care Provider: KATHERYN Sullivan 84-year-old female PMHx HTN, COPD, GERD, paroxysmal A-fib not anticoagulated, and C. difficile who is presenting for generalized weakness as well as diarrhea that is black in color. States that she was called by the hospital who encouraged patient to return to the ER because she needed a different antibiotic for a urine infection. Patient was recently seen on 06/04/2024 at ED and diagnosed with UTI. Ultimately placed on Cefdinir for UTI. Culture grew Enterobacter cloacae complex, resistant to Cefdinir, and patient could not tolerate outpatient medications to treat this as she is allergic. Required to come in for IV antibiotics. States her overall symptoms at this time include urinary frequency and discomfort with urination. Has not noticed blood in her urine, abdominal pain, or back pain at the level of the kidneys. Patient did also test positive for norovirus per most recent ED visit, with sick contact involving immediate family. States only concern is that she has been having diarrhea, with an episode of very dark stool the morning of arrival. States that since being in the ED, her stool has started to return to normal color br own. Has not noticed blood per rectum otherwise, no recent Pepto-Bismol or oral iron use. Denying nausea/vomiting, abdominal pain, or dyspepsia. No fever/chills, chest pain, palpitations, shortness of breath, numbness/tingling, or URI symptoms otherwise. Took a.m. medications with exception of cefdinir. Please see Dr. Farrell's attestation for adjustments/additions to treatment plan. Allergies Allergy/AdvReac Type Severity Reaction Status Date / Time Quinolones Allergy Unknown CAN'T Verified 06/06/24 16:01 REMEMBER nitrofurantoin AdvReac Severe "SOB" and Verified 06/06/24 16:01 [From Macrobid] other symptoms that pt cannot recall. ciprofloxacin AdvReac Intermediate HEADACHE Verified 06/06/24 16:01 "feel DRUNK" mupirocin [From Bactroban] AdvReac Unknown CAN'T Verified 06/06/24 16:01 REMEMBER Home Medications Medication Instructions Recorded Confirmed Type metoprolol succinate 100 mg 100 mg PO QAM #90 tabs 09/04/23 06/06/24 Rx tablet,extended release 24 hr cyanocobalamin (vitamin B-12) 1,000 mcg PO QAM 10/16/23 06/06/24 History 1,000 mcg tablet conjugated estrogens 0.625 mg/gram 0.625 mg vaginal 3XWK 11/13/23 06/06/24 History vaginal cream fluticasone 250 mcg-salmeterol 50 1 inh inhalation BID 11/13/23 06/06/24 History mcg/dose blistr powdr for inhalation (Advair Diskus) guaifenesin 600 mg tablet, 600 mg PO BID PRN Congestion 11/13/23 06/06/24 History extended release 12 hr (Mucus Relief ER) trimethoprim 100 mg tablet 100 mg PO DAILY #90 tabs 03/20/24 06/06/24 Rx pantoprazole 40 mg tablet,delayed 40 mg PO QAM #90 tabs 04/09/24 06/06/24 Rx release ipratropium 20 mcg-albuterol 100 1 puff inhalation Q6H PRN 06/02/24 06/06/24 Rx mcg/actuation mist for inhalation Shortness Of Breath Or Wheezing #4 (Combivent Respimat) grams cefdinir 300 mg capsule 300 mg PO BID 7 days #14 caps 06/04/24 06/06/24 Rx conjugated estrogens 0.3 mg tablet 0.3 mg PO Q OTHER DAY 06/06/24 06/06/24 History multivitamin 1 tab PO DAILY 06/06/24 06/06/24 History valacyclovir 1 gram tablet 0 mg PO TID 06/06/24 06/06/24 History Past Med/Surg History Problem List Nausea, vomiting, and diarrhea (Acute) Acute UTI (Acute) Ascending aorta dilatation Mitral regurgitation Hypertension Neuropathy Renal cyst H/O cardiac pacemaker COPD (chronic obstructive pulmonary disease) alf (current) use of selective estrogen receptor modulators (serms) Recurrent UTI Hypertension GERD (gastroesophageal reflux disease) Sinus pause Paroxysmal A-fib C. difficile colitis Medical History Acute dehydration Acute hypoxemic respiratory failure Acute UTI DILMA (acute kidney injury) Community acquired pneumonia Urinary retention with incomplete bladder emptying SOB (shortness of breath) Hypoxia Anterior shoulder dislocation ARF (acute renal failure) Surgical History History of cataract extraction History of kidney surgery retrieval of kidney stones. History of appendectomy H/O total hysterectomy H/O wrist surgery L an R wrist History of bladder surgery x 3 for bladder tacking H/O foot surgery Pacemaker Family History Mother Diabetes Hypertension Denies family history of Ovarian cancer Prostate cancer Myocardial infarction Breast cancer Colorectal cancer Social History Smoking Status: Never smoker Tobacco Type: Cigarettes Age Started Using Tobacco: 19; Age Quit Using Tobacco: 66; packs per day: 0.5; Second Hand Exposure: No; Do You Dip or Chew Tobacco: No; Tobacco Cessation Education Requested by Patient: No Hx Alcohol Use: No Hx Substance Use: No Preferred Language: Bulgarian Communication Ability: Effective Communication Ability Comment: becomes confused at times to past events Visual Impairment: No Limitations Hearing Ability: Normal Air Vice Marshal Required: No Beliefs That Will Affect Care: None marital status: Current Living Situation: Spouse Current Living Situation Comment: live with spouse current occupational status: 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 Other Information That Helps Us Care for You: No Feels Safe at Home: Yes Childhood Exposure to Second-Hand Smoke: No Diet: regular Diet Comment: regular caffeine: No during the past year weight has: remained stable Dental Care, Regularly: No Physical Activity Frequency: Daily Seatbelt Use: always Sunscreen Use: Yes Assistive Devices: None Review of Systems Review of Systems: All systems reviewed & are unremarkable except as noted in Subjective Physical Exam Physical Exam: General: No acute distress Skin: Warm and dry Head: Normocephalic, atraumatic Eyes: PERRL, conjunctivae clear, sclera non-icteric; EOM intact ENT: External ear and ear canal without swelling; nose atraumatic; good dentition, tongue normal appearance, pharynx normal without tonsillar swelling or exudate Neck: Supple, no LAD Cardio: RRR, no M/G/R, S1 and S2 normal Resp: No respiratory distress, Lungs CTA in all lobes bilaterally, no wheezes, rales, or rhonchi Abdomen: Soft, symmetric, nontender; No masses or hepatosplenomegaly; Bowel sounds normoactive : No CVA tenderness bilaterally MSK: No deformities, full ROM throughout; pulses palpable and equal; no edema. Neuro: Awake, alert; Sensation intact bilaterally; CN grossly intact Psych: Appropriate mood and affect; good judgement and insight. Daughter present in room at time of visit. Results & Data Results & Data Vital Signs (Past 12 Hours) Vital Signs Temp Pulse Pulse Resp BP BP Pulse Ox 06/06/24 15:51 62 20 156/96 H 97 06/06/24 12:25 36.6 C 66 18 142/85 H 95 O2 Del Method 06/06/24 15:51 Room Air 06/06/24 12:25 Room Air Laboratory Results Reviewed CBC, CMP, urine cx Code Status & VTE Plan Code Status Full VTE Prophylaxis Plan VTE Prophylaxis will be ordered: Yes Supervising Physician Co-Signing Physician Notes NORMA Lange Note: I personally saw and examined the patient. I verified all mcdonnell points and agree with NORMA Biswas with the following exceptions and/or additions: S-patient called back to the ER for UTI resistant to oral antibiotics at home that she was given after an ER visit on 06/04. She reports ongoing diarrhea which is improving today from her previously diagnosed norovirus. She is having redness and soreness of her perineum from diarrhea and leakage of urine as per her daughter. Patient denies chest pains, shortness of breath, nausea, abdominal pain. She did eat food for dinner yesterday evening for the first time. O- Vitals reviewed Gen: AAOx2, NAD HEENT: Anicteric sclerae, EOMI, hard of hearing CV: RRR no mgr nl S1S2 Pulm: CTAB no wcr Abd: +BS soft NT ND no masses or hernias Ext: No edema Skin: No rashes, warm/dry Neuro: Full strength throughout A/K-82-ynhp-old female here with resistant Enterobacter cloacae UTI and recent norovirus Start IV cefepime and plan to discharge to home with case management arrangements for IV antibiotics at home due to allergies to Cipro and Macrobid Continue supportive care for norovirus which seems to be improving PG Care Time/CCT Total # of Minutes Spent Total Time Spent with Patient: Total time spent is greater than 50% in coordination of care (as documented) at patient's floor/unit and/or counseling patient: Coding Level of Care Code 82003 INT INP/OBS CARE 3/75MIN Diagnoses Acute UTI N39.0 COPD (chronic obstructive pulmonary disease) J44.9 Paroxysmal A-fib I48.0
[2024-06-06] MEDS: SODIUM CHLORIDE 0.9% 500 ML IV ONE (17:46)
[2024-06-06] MEDS ORDERED: IPRATROPIUM BROMIDE/ALBUTEROL respimat INH INH PRN (17:52)
[2024-06-06] MEDS ORDERED: guaiFENesin 600 MG TABCR PO PRN (17:52)
[2024-06-06] MEDS ORDERED: PHENAZOPYRIDINE HCL 100 MG TAB PO PRN (17:52)
[2024-06-06] MEDS: ENOXAPARIN INJ 40 MG/0.4 ML SYR SQ SCH (20:00)
[2024-06-06] MEDS: ESTROGENS, CONJUGATED 0.3 MG TAB PO SCH (20:01)
[2024-06-06] MEDS: valACYclovir HCL 500 MG TABLET PO SCH (20:02)
[2024-06-06] MEDS: FLUTICASONE/VILANTEROL 100/25MCG 14 PUFFS/INHALER INH SCH (20:02)
[2024-06-06] MEDS: PREMARIN VAG CRM 14 APPLN/30 GM TUBE PV SCH (21:05)
[2024-06-07] MEDS: CEFEPIME 2000MG 2,000 MG/20 ML SYR IV SCH (04:34)
[2024-06-07 07:30] LABS: BUN Creatinine Ratio 21.9 (10-20); Calcium 8.3 mg/dl (8.6-10.3); Creatinine Clr Calc Pharmacy 38.2 ml/min; Potassium 3.9 mmol/L (3.5-5.1)
[2024-06-07] MEDS: MULTIVITAMIN TAB PO SCH (08:53)
[2024-06-07] MEDS: PANTOprazole 40 MG TAB PO SCH (08:53)
[2024-06-07] MEDS: METOPROLOL SUCC 50MG EXT REL TAB PO SCH (10:05)
[2024-06-07] MEDS: CYANOCOBALAMIN (B-12) 500 MCG TABLET PO SCH (10:05)
--- NOTE | 2024-06-07 11:46 | Hospitalist Progress Note ---
<Statement entered by Heidy Castillo MD - 06/07/24 17:28> I have reviewed vital signs, chart notes, labs and imaging. I have also discussed the management of the patient with the RODRIGO and I agree with the exam findings documented in the history and physical examination and the documented assessment and plan unless otherwise stated below. Norovirus gastroenteritis appears to be resolving Enterobacter UTI which is resistant to any oral agents that she can tolerate, continue IV cefepime with her underlying neurogenic bladder should complete a 5- day course we will need to clarify when she did have C. difficile in the past, if this within the past year we should start her on oral vancomycin for prophylaxis. I do not see a positive C. difficile assay in [facility], added to problem list 2018 so may be remote. -she has some metabolic acidosis on BMP - related to diarrhea, stool bicarbonate losses will resolve -added probiotic Date of Service June 07, 2024 Assessment & Plan (1) Acute UTI: Plan: 84-year-old female PMHx HTN, COPD, GERD, paroxysmal A-fib not anticoagulated, and C. difficile who is presenting for generalized weakness as well as diarrhea that is black in color. Patient was recently seen on 06/04/2024 at ED and diagnosed with UTI. Ultimately placed on Cefdinir for UTI; Culture grew Enterobacter cloacae complex, resistant to Cefdinir, and patient could not tolerate outpatient medications to treat this as she is allergic. Required to come in for IV antibiotics. - Initially discharged from ED 06/04 on Cefdinir for UTI. Culture grew Enterobacter colacae, resistant to both cefdinir and bactrim. Pt requiring IV abx. Self-caths TID. Does follow w/ urology, on prophylactic bactrim - UA 06/04 w/ turbid urine, 1+ protein, trace ketones, presence of blood, LE, WBC, hyaline cast, epithelial cells, but no bacteria; culture did grow out Enterobacter cloacae - Continue cefepime q8hr + pyridium prn - On bactrim outpatient- HOLD until complete resolution of UTI - Consult case management to help arrange home IV cefepime for total of 7 days- can do peripheral ultrasound-guided IV prior to discharge. is capable of doing IV antibiotics as he has done in the past (2) Norovirus: Plan: Symptomatically improving - Norovirus positive on 06/04; Exposure within immediate family; has had diarrhea but no additional complaints currently. - Denies black, tarry stools. No recent Pepto-bismol or iron. (3) COPD (chronic obstructive pulmonary disease): Plan: - Stable, follows w/ PCP; on Combivent prn; No O2 at baseline (4) Paroxysmal A-fib: Plan: - Rate controlled/Dual chamber cardiac pacer/Sinus node dysfunction/HTN- Follows w/ cardiology, metoprolol, defers anticoag per PCP note (05/29) Plan GERD- Pantoprazole Dispo: Admit to receive IV antibiotics VTE Prophylaxis: Lovenox Admission and Anticipated Discharge Date Admission Date: June 06, 2024 Subjective Massiel is feeling better today. She reports one bowel movement this morning, soft/somewhat formed. Jayme black, tarry, bloody stool. Denies diarrhea today, but states she doesn't know how many times she had a bowel movement yesterday. Does have difficulty initiating urine stream, but denies blood, dysuria, frequency. Otherwise, reports that she feels well and has no pain. Review of Systems Constitutional: no fever and no chills Respiratory: no cough and no dyspnea Cardiovascular: no chest pain and no dyspnea Gastrointestinal: + diarrhea/loose stools (Improving); no abdominal pain, no nausea and no vomiting Genitourinary: + difficulty urinating; no dysuria, no u rinary frequency and no hematuria Musculoskeletal: no swelling Integumentary: no rash Physical Exam Constitutional: no acute distress Respiratory: no respiratory distress Auscultation: lungs clear to auscultation bilaterally Cardiovascular: Rate/Rhythm: regular rate and regular rhythm Extremities: no edema Gastrointestinal (Abdomen): Inspection/Auscultation: normal bowel sounds; no hyperactive bowel sounds Percussion/Palpation: abdomen soft; abdomen nontender Psychiatric: Orientation: alert and oriented x 3 Results & Data Results & Data Vital Signs (Past 12 Hours) Vital Signs Temp Pulse Resp BP Pulse Ox O2 Del Method 06/07/24 08:05 36.4 C L 61 15 105/62 96 Room Air Laboratory Results 06/07/24 Range/Units 06:12 Sodium 138 (136-145) mmol/L Potassium 3.9 (3.5-5.1) mmol/L Chloride 113 H (98-107) mmol/L Carbon Dioxide 19 L (21-32) mmol/L Anion Gap 6 (3-11) BUN 21 (6-23) mg/dl Creatinine 0.96 (0.6-1.2) mg/dl Est Cr Clr Drug Dosing 38.2 ml/min eGFR 58.71 BUN/Creatinine Ratio 21.9 H (10-20) Glucose 90 (70-99(Fasting)) mg/dl Calcium 8.3 L (8.6-10.3) mg/dl PG Care Time/CCT Total # of Minutes Spent Total Time Spent with Patient: Total time spent is greater than 50% in coordination of care (as documented) at patient's floor/unit and/or counseling patient: C[place] [address] SUB INP/OBS CARE 2/35MIN Patient Type Established History Expanded Problem Focused Exam Expanded Problem Focused Medical Decision Making Moderate Complexity Diagnoses Acute UTI N39.0 Norovirus A08.11 COPD (chronic obstructive pulmonary disease) J44.9 Paroxysmal A-fib I48.0
[2024-06-07] MEDS: INFLUENZA VACC TS2024-25(65y+)/PF (IIV3) 0.5mL Syr IM ONE (16:32)
[2024-06-07] MEDS: PNEUMOCOCCAL VACCINE (PCV20) 20-VAL CONJ-DIP CRM/PF 0.5 ML SYR IM ONE (16:33)
[2024-06-08 07:17] LABS: BUN Creatinine Ratio 20.2 (10-20); Calcium 8.6 mg/dl (8.6-10.3)
[2024-06-08] MEDS: ADVANCED PROBIOTIC 625 MG CAPSULE PO SCH (08:02)
--- NOTE | 2024-06-08 14:15 | Hospitalist Progress Note ---
Date of Service June 08, 2024 Assessment & Plan (1) Acute UTI: Plan: 84-year-old female PMHx HTN, COPD, GERD, paroxysmal A-fib not anticoagulated, and C. difficile who is presenting for generalized weakness as well as diarrhea. Patient was recently seen on 06/04/2024 at ED and diagnosed with UTI. Ultimately placed on Cefdinir for UTI; Culture grew Enterobacter cloacae complex, resistant to Cefdinir, and patient could not tolerate outpatient medications to treat this as she is allergic. Required to come in for IV antibiotics. - Initially discharged from ED 06/04 on Cefdinir for UTI. Culture grew Enterobacter colacae, resistant to both cefdinir and bactrim. Pt requiring IV abx. Self-caths TID. Does follow w/ urology, on prophylactic bactrim - UA 06/04 w/ turbid urine, 1+ protein, trace ketones, presence of blood, LE, WBC, hyaline cast, epithelial cells, but no bacteria; culture did grow out Enterobacter cloacae - Continue cefepime q12hr + pyridium prn - On bactrim outpatient- HOLD until complete resolution of UTI - Consult case management to help arrange home IV cefepime for total of 7 days- can do peripheral ultrasound-guided IV prior to discharge. is capable of doing IV antibiotics as he has done in the past. Not able to do this today since is unable to care for her. Daughter was going to help, but got sick as well. Massiel may need to complete her course of antibiotics inpatient. (2) Norovirus: Plan: Symptomatically improving - Norovirus positive on 06/04; Exposure within immediate family; has had diarrhea but no additional complaints currently. 2 soft bowel movements so far today. - Denies black, tarry stools. No recent Pepto-bismol or iron. (3) COPD (chronic obstructive pulmonary disease): Plan: - Stable, follows w/ PCP; on Combivent prn; No O2 at baseline (4) Paroxysmal A-fib: Plan: - Rate controlled/Dual chamber cardiac pacer/Sinus node dysfunction/HTN- Follows w/ cardiology, metoprolol, defers anticoag per PCP note (05/29) Plan GERD- Pantoprazole Dispo: Admit to receive IV antibiotics VTE Prophylaxis: Lovenox Admission and Anticipated Discharge Date Admission Date: June 06, 2024 Subjective Massiel is feeling better today. She reports two soft bowel movements so far this morning, soft/somewhat formed. Jayme black, tarry, bloody stool. Denies diarrhea today, but states she doesn't know how many times she had a bowel movement yesterday. Does have difficulty initiating urine stream, but denies blood, dysuria, frequency. Otherwise, reports that she feels well and has no pain. Nurse reports some confusion overnight, Massiel is oriented and acting the same as yesterday. AAO. Review of Systems Constitutional: no fever and no chills Respiratory: no cough and no dyspnea Cardiovascular: no chest pain and no dyspnea Gastrointestinal: + diarrhea/loose stools (Improving); no abdominal pain, no nausea and no vomiting Genitourinary: + difficulty urinating; no dysuria, no u rinary frequency and no hematuria Musculoskeletal: no swelling Integumentary: no rash Physical Exam Constitutional: no acute distress Respiratory: no respiratory distress Auscultation: lungs clear to auscultation bilaterally Cardiovascular: Rate/Rhythm: regular rate and regular rhythm Extremities: no edema Gastrointestinal (Abdomen): Inspection/Auscultation: normal bowel sounds; no hyperactive bowel sounds Percussion/Palpation: abdomen soft; abdomen nontender Psychiatric: Orientation: alert and oriented x 3 Results & Data Results & Data Vital Signs (Past 12 Hours) Vital Signs Temp Pulse Resp BP Pulse Ox O2 Del Method 06/08/24 07:04 36.3 C L 63 15 157/71 H 94 Room Air Laboratory Results 06/08/24 Range/Units 06:13 Sodium 136 (136-145) mmol/L Potassium 4.0 (3.5-5.1) mmol/L Chloride 109 H (98-107) mmol/L Carbon Dioxide 20 L (21-32) mmol/L Anion Gap 7 (3-11) BUN 19 (6-23) mg/dl Creatinine 0.94 (0.6-1.2) mg/dl Est Cr Clr Drug Dosing 39.0 ml/min eGFR 60.21 BUN/Creatinine Ratio 20.2 H (10-20) Glucose 92 (70-99(Fasting)) mg/dl Calcium 8.6 (8.6-10.3) mg/dl PG Care Time/CCT Total # of Minutes Spent Total Time Spent with Patient: Total time spent is greater than 50% in coordination of care (as documented) at patient's floor/unit and/or counseling patient: Coding [place] [address] SUB INP/OBS CARE 2/35MIN Patient Type Established History Expanded Problem Focused Exam Expanded Problem Focused Medical Decision Making Moderate Complexity Diagnoses Acute UTI N39.0 Norovirus A08.11 COPD (chronic obstructive pulmonary disease) J44.9 Paroxysmal A-fib I48.0
--- NOTE | 2024-06-09 18:21 | Hospitalist Progress Note ---
Date of Service June 09, 2024 Assessment & Plan (1) Acute UTI: Plan: 84-year-old female PMHx HTN, COPD, GERD, paroxysmal A-fib not anticoagulated, and C. difficile who is presenting for generalized weakness as well as diarrhea. Patient was recently seen on 06/04/2024 at ED and diagnosed with UTI. Ultimately placed on Cefdinir for UTI; Culture grew Enterobacter cloacae complex, resistant to Cefdinir, and patient could not tolerate outpatient medications to treat this as she is allergic. Required to come in for IV antibiotics. - Initially discharged from ED 06/04 on Cefdinir for UTI. Culture grew Enterobacter colacae, resistant to both cefdinir and bactrim. Pt requiring IV abx. Self-caths TID. Does follow w/ urology, on prophylactic bactrim - UA 06/04 w/ turbid urine, 1+ protein, trace ketones, presence of blood, LE, WBC, hyaline cast, epithelial cells, but no bacteria; culture did grow out Enterobacter cloacae - Continue cefepime q12hr + pyridium prn - On bactrim outpatient- HOLD until complete resolution of UTI - initially we planned for discharge home with home infusion to complete total 5-day course of cefepime, however, her family has developed gastroenteritis from norovirus and unable to take her home yesterday and today. Thus we will simply finish the course of antibiotics here in the hospital (2) Norovirus: Plan: gastroenteritis symptoms have resolved (3) COPD (chronic obstructive pulmonary disease): Plan: - Stable, follows w/ PCP; on Combivent prn; No O2 at baseline (4) Paroxysmal A-fib: Plan: - Rate controlled/Dual chamber cardiac pacer/Sinus node dysfunction/HTN- Follows w/ cardiology, metoprolol, defers anticoag per PCP note (05/29) Plan GERD- Pantoprazole VTE Prophylaxis: Lovenox Admission and Anticipated Discharge Date Admission Date: June 06, 2024 Kar Rankin is sitting up in the chair this morning looking at the window, she says she feels much much better, much stronger and feels like she is at her baseline no dysuria and no abdominal pain Physical Exam Physical Exam: PHYSICAL EXAMINATION Last 24h vital signs reviewed, see documentation in flowsheet General: comfortable appearing, no distress HEENT: Normocephalic, atraumatic, pupils round and equal, sclerae anicteric, no conjunctival injection, moist mucus membranes Lungs: Normal respiratory effort. Clear to auscultation bilaterally. No RRW Heart: Regular rate and rhythm, no murmurs. No JVD Abdomen: Soft, nontender, nondistended. Bowel sounds present. Extremities: Warm, dry, well-perfused. No extremity edema. Neuro: Alert and oriented x 4, face symmetric, moves 4 extremities well Psych: Normal affect and behavior Results & Data Results & Data Vital Signs (Past 12 Hours) Vital Signs Temp Pulse Resp BP Pulse Ox O2 Del Method 06/09/24 14:52 97.5 F L 60 18 134/80 96 Room Air 06/09/24 07:44 97.9 F 59 L 18 150/76 H 93 Room Air PG Care Time/CCT Total # of Minutes Spent Total Time Spent with Patient: Total time spent is greater than 50% in coordination of care (as documented) at patient's floor/unit and/or counseling patient: Coding Level of Care Code 90983 SUB INP/OBS CARE /25MIN Diagnoses Acute UTI N39.0 Norovirus A08.11 COPD (chronic obstructive pulmonary disease) J44.9 Paroxysmal A-fib I48.0
[2024-06-10 12:15] LABS: BUN Creatinine Ratio 27.5 (10-20); Blood Urea Nitrogen 25 mg/dl (6-23); Calcium 8.9 mg/dl (8.6-10.3); Carbon Dioxide 21 mmol/L (21-32); Chloride 108 mmol/L (98-107); Creatinine Clr Calc Pharmacy 40.3 ml/min; Glucose 116 mg/dl (70-99(Fasting))
[2024-06-10 12:26] LABS: Potassium 3.8 mmol/L (3.5-5.1)
--- NOTE | 2024-06-10 20:04 | Hospitalist Progress Note ---
Date of Service June 10, 2024 Assessment & Plan (1) Acute UTI: Plan: 2nd Enterobacter cloacae complex - multidrug resistant due to MDR of the enterobacter & her various allergies utilizing cefepime IV day #5 of 7 of cefepime q12hr On TMP chronically for UTI prevention - will discuss pros/cons & risks/benefits of resuming with patient/ (2) Norovirus: Plan: gastroenteritis symptoms have resolved cont contact precautions per infection control protocol (3) COPD (chronic obstructive pulmonary disease): Plan: stable no flare at this time (4) Paroxysmal A-fib: Plan: she is NOT on chronic anticoagulation has 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 cont metoprolol succ daily (5) Osteomyelitis of left foot: Plan: 2023 History of osteomyelitis third metatarsal left foot/dislocated third digit S/p foot surgery 03/14/2024 completed 6+ weeks of IV abx per records (via [facility]) Continue follow-up with podiatry as outpatient Plan GERD - Pantoprazole VTE Prophylaxis: Lovenox updated at bedside home 06/12/24 after cefepime is complete Admission and Anticipated Discharge Date Admission Date: June 06, 2024 Subjective patient denies any abd pain, diarrhea, nausea or emesis feels "more like herself" asks about when she can go home denies any UTI symptoms eating is improved at bedside Review of Systems Review of Systems: CV - no chest pain pulm - no dyspnea Physical Exam Physical Exam: gen - NAD, looks well mouth - MMM neck - no JVD heart - RRR, s1 s2 lungs - CTA b/l abd - soft NT ND BS+ ext - no edema, pulses 2+ b/l Results & Data Results & Data Vital Signs (Past 12 Hours) Vital Signs Temp Pulse Resp BP Pulse Ox O2 Del Method 06/10/24 19:48 36.3 C L 62 15 148/75 H 95 Room Air 06/10/24 17:01 36.4 C L 62 18 136/79 97 Room Air 06/10/24 08:17 36.5 C 74 18 162/96 H Laboratory Results Laboratory Results - last 24 hr 06/10/24 06/10/24 09:53 11:39 Sodium TNP 138 Potassium TNP 3.8 Chloride 108 H Carbon Dioxide 21 Anion Gap TNP BUN 25 H Creatinine 0.91 Est Cr Clr Drug Dosing 40.3 eGFR 62.60 BUN/Creatinine Ratio 27.5 H Glucose 116 H Calcium 8.9 Magnesium TNP 2.0 PG Care Time/CCT Total # of Minutes Spent Total Time Spent with Patient: Total time spent is greater than 50% in coordination of care (as documented) at patient's floor/unit and/or counseling patient: Coding Level of Care Code 31727 SUB INP/OBS CARE 07/05MIN Diagnoses Acute UTI N39.0 Norovirus A08.11 COPD (chronic obstructive pulmonary disease) J44.9 Paroxysmal A-fib I48.0 Osteomyelitis of left foot M86.9
[2024-06-11 07:44] VITALS: RESP 16
--- NOTE | 2024-06-11 19:22 | Hospitalist Progress Note ---
Date of Service June 11, 2024 Assessment & Plan (1) Acute UTI: Plan: 2nd Enterobacter cloacae complex - multidrug resistant due to MDR of the enterobacter & her various allergies utilizing cefepime IV day #6 of 7 of cefepime q12hr On TMP chronically for UTI prevention - will discuss pros/cons & risks/benefits of resuming with patient/ (2) Norovirus: Plan: gastroenteritis symptoms have resolved cont contact precautions per infection control protocol (3) COPD (chronic obstructive pulmonary disease): Plan: stable no flare at this time (4) Paroxysmal A-fib: Plan: she is NOT on chronic anticoagulation has 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 cont metoprolol succ daily (5) Osteomyelitis of left foot: Plan: 2023 History of osteomyelitis third metatarsal left foot/dislocated third digit S/p foot surgery 03/14/2024 completed 6+ weeks of IV abx per records (via [facility] system) Continue follow-up with podiatry as outpatient Foot exam wnl today Plan GERD - Pantoprazole VTE Prophylaxis: Lovenox updated at bedside once again today home 06/12/24 after cefepime is complete Admission and Anticipated Discharge Date Admission Date: June 06, 2024 Subjective no new issues feels good eating well no dizziness no diarrhea Review of Systems Review of Systems: cv - no orthopnea pulm - no dyspnea GI - no abd pain or N/V Physical Exam Physical Exam: gen - NAD, looks well mouth - MMM neck - no JVD heart - RRR, s1 s2 lungs - CTA b/l abd - soft NT ND BS+ ext - no edema, pulses 2+ b/l musculo - left foot - no ulcers or skin breakdown, missing 2nd/3rd toes Results & Data Results & Data Vital Signs (Past 12 Hours) Vital Signs Temp Pulse Resp BP Pulse Ox O2 Del Method 06/11/24 15:58 36.3 C L 70 16 147/71 H 97 Room Air 06/11/24 08:34 61 151/83 H 06/11/24 07:43 36.8 C 60 16 177/79 H 95 Room Air PG Care Time/CCT Total # of Minutes Spent Total Time Spent with Patient: Total time spent is greater than 50% in coordination of care (as documented) at patient's floor/unit and/or counseling patient: Coding Level of Care Code 68725 SUB INP/OBS CARE Diagnoses Acute UTI N39.0 Norovirus A08.11 COPD (chronic obstructive pulmonary disease) J44.9 Paroxysmal A-fib I48.0 Osteomyelitis of left foot M86.9
[2024-06-12 07:22] VITALS: TEMP 97.7; O2SAT 96
[2024-06-12 08:44] VITALS: BP 125/78; PULSE 64
[2024-06-12] MEDS: CEFEPIME 2000MG 2,000 MG/20 ML SYR IV STA (09:48)
--- NOTE | 2024-06-12 09:53 | Discharge Summary ---
Discharge Summary Date of Service date of admission - June 06, 2024 date of discharge - June 12, 2024 Principal Dx & Hospital Course #1 = Principal Diagnosis (1) Acute UTI: 2nd Enterobacter cloacae complex - multidrug resistant due to MDR of the enterobacter & her various allergies we utilized cefepime IV while here she completed 7 days of IV cefepime during the hospitalization she was hemodynamically stable the entire stay patient was on TMP chronically for UTI prevention pre-admission --> discussed pros/cons & risks/benefits of resuming such with patient/ while hospitalized potassium was elevated at 5.6 on 06/03/24 in light of hyperkalemia, borderline renal function (CrCl at baseline is 30-40), and development of pathogen resistance recommended against ongoing use of TMP I do think that continuing methenamine prophylaxis is reasonable, however of note - 06/04/24 CT abd/pelvis did not show any obstructing kidney stone or other urinary tract pathology that would contribute to ongoing recurrent UTIs patient previously had been self-cathing at home 3x's/day she will continue with such upon discharge (2) Norovirus: patient and nearly her entire family fell ill to norovirus gastroenteritis patient tested positive for such on 06/04/24 diarrhea resolved during the hospital stay and she was eating well in the days leading up to discharge (3) COPD (chronic obstructive pulmonary disease): stable no flare while hospitalized (4) Paroxysmal A-fib: she is NOT on chronic anticoagulation has 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 cont metoprolol succ daily (5) Osteomyelitis of left foot: 2023 History of osteomyelitis third metatarsal left foot as well as dislocated third digit S/p foot surgery 03/14/2024 via the [employer] system completed 6+ weeks of IV antibiotics per records (via [facility]) Continue follow-up with podiatry as outpatient Left foot exam wnl during the stay Plan GERD - cont Pantoprazole Notes For Next Care Provider Medication Changes From Visit HOLD daily trimethoprim for UTI prophy (see discussion in #1 above) Admission HPI Per Admitting Provider 84-year-old female PMHx HTN, COPD, GERD, paroxysmal A-fib not anticoagulated, and C. difficile who is presenting for generalized weakness as well as diarrhea that is black in color. States that she was called by the hospital who encouraged patient to return to the ER because she needed a different antibiotic for a urine infection. Patient was recently seen on 06/04/2024 at ED and diagnosed with UTI. Ultimately placed on Cefdinir for UTI. Culture grew Enterobacter cloacae complex, resistant to Cefdinir, and patient could not tolerate outpatient medications to treat this as she is allergic. Required to come in for IV antibiotics. States her overall symptoms at this time include urinary frequency and discomfort with urination. Has not noticed blood in her urine, abdominal pain, or back pain at the level of the kidneys. Patient did also test positive for norovirus per most recent ED visit, with sick contact involving immediate family. States only concern is that she has been having diarrhea, with an episode of very dark stool the morning of arrival. States that since being in the ED, her stool has started to return to normal color brown. Has not noticed blood per rectum otherwise, no recent Pepto-Bismol or oral iron use. Denying nausea/vomiting, abdominal pain, or dyspepsia. No fever/chills, chest pain, palpitations, shortness of breath, numbness/tingling, or URI symptoms otherwise. Took a.m. medications with exception of cefdinir. Discharge Exam gen - NAD, looks well mouth - MMM neck - no JVD heart - RRR, s1 s2, no murmur lungs - CTA b/l abd - soft NT ND BS+ ext - no edema, pulses 2+ b/l musculo - left foot - no ulcers or skin breakdown, missing 2nd/3rd toes Discharge Plan Discharge Items Patient Disposition: Home - Self-Care Reason For Visit: UTI Discharge Diagnosis: 1. Urinary tract infection - resolved 2. Need for self-cathing 3. Recent high potassium - resolved 4. Norovirus infection ("stomach bug") - resolved Activity: Resume your previous activity Non-emergency contact: Primary Care Provider Call non-emergency contact if: you have any medication questions, your symptoms worsen and you have a fever Follow-up/Referrals: Tyler Ji CRNP [Primary Care Provider] - 06/19/24 11:00 am (1 week ) Diet: Heart Healthy Addtl Attending Provider Instructions: Mrs Chaudhary, You were hospitalized due to a multi-drug resistant urinary tract infection. This means that the bacterium that caused this infection does not respond to many common oral antibiotics. Hence this is why you received 7 days of IV antibiotics for your infection. You improved nicely with treatment. Unfortunately you and your family also had norovirus infection of the bowels over the holiday. This, too, is resolved. Please continue to self-cath at home as previous. With respect to prevention of urinary tract infection I would strongly recommend discontinuation of TMP (trimethoprim). TMP can cause potassium to rise in the blood and you had this problem right before admission. Additionally, the bacterium that caused your recent urinary infection was resistant to TMP. Thus, the risks of taking TMP daily may be outweighed by any benefit. I do think you should continue to take methenamine daily for urinary infection prevention. I have re-prescribed this to you. Take once daily every day. Follow-up - see your family doctor in 1 week Return to [facility] if - * you have fevers over 100 degrees * you have severe diarrhea (3 or more loose stools in a 24 hour period) * you have abdominal pains * you have vomiting * you are short of breath * any other concerns It was our pleasure to care for you! Happy New Year :) -Dr Cam Pending Studies at Discharge: No Stand-Alone Forms: My [facility], Smoking Cessation Medications and DC Order Prescriptions: New methenamine hippurate 1 gram tablet 1 g PO DAILY Qty: 30 2RF Rx Instructions: for urinary tract infection prevention Continued metoprolol succinate 100 mg tablet extended release 24 hr 100 mg PO QAM Qty: 90 3RF pantoprazole 40 mg tablet,delayed release (DR/EC) 40 mg PO QAM Qty: 90 1RF Combivent Respimat 20-100 mcg/actuation mist 1 puff INHALATION Q6H PRN (Reason: Shortness Of Breath Or Wheezing) Qty: 4 1RF cyanocobalamin (vitamin B-12) 1,000 mcg tablet 1,000 mcg PO QAM fluticasone propion-salmeterol [Advair Diskus] 250-50 mcg/dose blister with device 1 inh inhalation BID conjugated estrogens 0.625 mg/gram Cream 0.625 mg VAGINAL 3XWK guaifenesin [Mucus Relief ER] 600 mg Tablet Extended Release 12hr 600 mg PO BID PRN (Reason: Congestion) conjugated estrogens 0.3 mg tablet 0.3 mg PO Q OTHER DAY Rx Instructions: daily x2 weeks, then decrease to every other day multivitamin Tablet 1 tab PO DAILY Held trimethoprim 100 mg tablet 100 mg PO DAILY Qty: 90 1RF Hold Instructions: hold for now unless your family doctor asks for you to resume Discontinued cefdinir 300 mg capsule 300 mg PO BID 7 Days Qty: 14 0RF Rx Instructions: Start Date 06/05/24 x7 day supply valacyclovir 1 gram tablet 0 mg PO TID Rx Instructions: Last filled 05/29/24 x7 day supply: Original Directions: 1000mg by mouth TID. Family unsure if pt finished this medication or not. Discharge Orders: Discharge Order (Routine); Ordered 06/12/24 Ordered By: Duy Cam Admission Data Admit Date/Time: 06/06/24 16:29 Attending Provider: Duy Cam Admit Provider: Iliana Farrell Primary Care Provider: Tyler Ji Other Interventions: Discharge Summary Assessment (RN) Last Done: 06/12/24 11:16 Hospital Stay Data Consultations PT, OT Pending Results Patient Have Any Pending Studies at Discharge: No Discharge Instructions Given to Patient (Per Discharging Provider) Giacomo Adames were hospitalized due to a multi-drug resistant urinary tract infection. This means that the bacterium that caused this infection does not respond to many common oral antibiotics. Hence this is why you received 7 days of IV antibiotics for your infection. You improved nicely with treatment. Unfortunately you and your family also had norovirus infection of the bowels over the holiday. This, too, is resolved. Please continue to self-cath at home as previous. With respect to prevention of urinary tract infection I would strongly recommend discontinuation of TMP (trimethoprim). TMP can cause potassium to rise in the blood and you had this problem right before admission. Additionally, the bacterium that caused your recent urinary infection was resistant to TMP. Thus, the risks of taking TMP daily may be outweighed by any benefit. I do think you should continue to take methenamine daily for urinary infection prevention. I have re-prescribed this to you. Take once daily every day. Follow-up - see your family doctor in 1 week Return to [facility] if - * you have fevers over 100 degrees * you have severe diarrhea (3 or more loose stools in a 24 hour period) * you have abdominal pains * you have vomiting * you are short of breath * any other concerns It was our pleasure to care for you! Happy New Year :) -Dr Cam Total Time Total Time Spent Total Time Spent (In Minutes): 25 Coding Level of Care Code 71025 IN/OBS DISCH 30 MIN/LESS Diagnoses Acute UTI N39.0 Norovirus A08.11 COPD (chronic obstructive pulmonary disease) J44.9 Paroxysmal A-fib I48.0 Osteomyelitis of left foot M86.9
== END 2024-06-12 13:01 | disposition home or self-care (01) | DRG 690 ==
LOC: ED 12:10 → SUATTDRO 16:29 → EDINP 16:29 → 3W 20:31

== ENCOUNTER 2025-04-03 10:56 | Inpatient (IN) ==
--- NOTE | 2025-04-03 11:11 | Emergency Department Note ---
Impression & Plan Complicated UTI (urinary tract infection) ED Provider Note CHIEF COMPLAINT: Catheter issues HISTORY OF PRESENTING ILLNESS: The patient is an 85-year-old female who arrives to the emergency department for evaluation of catheter issues. Patient has a history of a bladder prolapse with urinary retention, and self caths 3 times per day. reports he performs the catheterizations for his and states he had 2 episodes of dark red urine. He states the patient is not on an anticoagulant. He reports the patient does not appear to have any pain with catheterization, and he states he has had no difficulty. He reports the patient has had no recent falls, or trauma. She is not complaining of dysuria. She has had no fevers. He states the last time this occurred, she had a urinary tract infection. REVIEW OF SYSTEMS: See HPI for pertinent positives and pertinent negatives. ALLERGIES: See below MEDICATIONS: See below PAST MEDICAL HISTORY: See below PHYSICAL EXAM: VITALS: Vitals are noted on the nurse's note and reviewed by myself. Vital signs stable. GENERAL: 85-year-old female, in no acute distress, nondiaphoretic, well- developed well-nourished. SKIN: The skin was without rashes, erythema, edema, or bruising. HEART: Regular rate and rhythm without murmurs gallops or rubs. LUNGS: Clear to auscultation bilaterally without wheezes, rales or rhonchi. No retractions or accessory muscle use. ABDOMEN: Positive bowel sounds x 4. Soft, nontender, without masses or organomegaly. No suprapubic tenderness. No guarding or rebound tenderness. MUSCULOSKELETAL: No muscle atrophy, erythema, or edema noted. Normal gait. Strength 5/5 throughout. NEURO: Patient was alert and oriented to person place and time. No focal neurological deficits. DIFFERENTIAL DIAGNOSIS: Cystitis, urethritis, mass, trauma, UTI, as well as other pathologies. ED COURSE AND MEDICAL DECISION MAKING: HISTORY FROM INDEPENDENT HISTORIAN: at bedside serving as primary historian. MEDICATIONS GIVEN: 500 cc NSS bolus, 2 g IV cefepime INTERPRETATION OF LABS: I interpreted the labs with full lab results as below in the lab section of this note. Pertinent lab results discussed in the MDM section below. INTERPRETATION OF IMAGING: Imaging studies were interpreted by myself and read by radiology as per the imaging section of this note. CHRONIC MEDICAL/SOCIAL CONDITIONS AFFECTING CARE: Chronic self cath. MDM SUMMARY: The patient is a pleasant, 85-year-old female who arrives to the emergency department for evaluation of the above-stated complaint. Saline lock was established, lab work was obtained. CBC shows no leukocytosis, no anemia. CMP is unremarkable. CT imaging of the abdomen and pelvis with IV contrast was obtained which shows findings suggestive of cystitis with bilateral ascending infection/ureteritis, as well as asymmetric urinary bladder wall thickening. Urinalysis shows turbid appearance, with 3+ blood, 3+ leukocyte esterase, greater than 50 WBCs, and 4+ bacteria. Negative epithelial cells, negative nitrites. Previous urinalysis shows growth of Pseudomonas, as well as ESBL. Patient has a contraindication to quinolones due to an ascending aorta dilatation, and an allergy to macrolides. ID was consulted due to patient's complex history. It was decided that since the patient's CT imaging is consistent with infection, as well as the urinalysis, that the patient should be treated, until cultures resulted. Cefepime was chosen, and agreed upon by the ED pharmacist, ID, and myself. Initial dose was administered in the emergency department. The patient will require admission, as previous urinalysis, is not sensitive to oral antibiotics. The patient was admitted to the [facility]. Dr. Quigley, agreed to evaluate and accept her for admission. Please refer to his documentation for further patient workup and care. DIAGNOSIS: Complicated UTI The patient's case was discussed with Dr. Gomez, who agreed with my evaluation and treatment plan. The chart was completed utilizing [employer] Speech voice recognition software. Grammatical errors, random word insertions, pronoun errors, and incomplete sentences are an occasional consequence of this system due to software limitations, ambient noise, and hardware issues. Any formal questions or concerns about the content, text, or information contained within the body of this dictation should be directly addressed to the provider for clarification. 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 difficile colitis Acute dehydration Acute hypoxemic respiratory failure Acute UTI DILMA (acute kidney injury) Community acquired pneumonia Urinary retention with incomplete bladder emptying SOB (shortness of breath) Hypoxia Anterior shoulder dislocation ARF (acute renal failure) Surgical History History of cataract extraction History of kidney surgery retrieval of kidney stones. History of appendectomy H/O total hysterectomy H/O wrist surgery L an R wrist History of bladder surgery x 3 for bladder tacking H/O foot surgery Pacemaker Family History Mother Diabetes Hypertension Denies family history of Ovarian cancer Prostate cancer Myocardial infarction Breast cancer Colorectal cancer Social History Smoking Status: Former smoker Tobacco Type: Cigarettes Age Started Using Tobacco: 19; Age Quit Using Tobacco: 66; packs per day: 0.5; Second Hand Exposure: No; Do You Dip or Chew Tobacco: No; Hx Alcohol Use: Yes Alcohol type: beer Hx Substance Use: No Preferred Language: Turkish Communication Ability: Effective Communication Ability Comment: becomes confused at times to past events Visual Impairment: No Limitations Hearing Ability: Normal Organ Assembler Required: No Beliefs That Will Affect Care: None marital status: Current Living Situation: Spouse Current Living Situation Comment: live with spouse current occupational status: 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 Feels Safe at Home: Yes Childhood Exposure to Second-Hand Smoke: No Diet: regular Diet Comment: regular caffeine: No during the past year weight has: remained stable Dental Care, Regularly: No Physical Activity Frequency: Daily Seatbelt Use: always Sunscreen Use: Yes Assistive Devices: Denture - Upper Allergies Allergies Allergy/AdvReac Type Severity Reaction Status Date / Time Quinolones Allergy Unknown CAN'T Verified 03/11/25 10:00 REMEMBER nitrofurantoin AdvReac Severe "SOB" and Verified 03/11/25 10:00 [From Macrobid] other symptoms that pt cannot recall. ciprofloxacin AdvReac Intermediate HEADACHE Verified 03/11/25 10:00 "feel DRUNK" mupirocin [From Bactroban] AdvReac Unknown CAN'T Verified 03/11/25 10:00 REMEMBER Home Meds Home Medications Medication Instructions Recorded Confirmed cyanocobalamin (vitamin B-12) 1,000 mcg PO QAM 10/16/23 04/03/25 1,000 mcg tablet fluticasone 250 mcg-salmeterol 50 0 inh inhalation BID 11/13/23 04/03/25 mcg/dose blistr powdr for inhalation (Advair Diskus) guaifenesin 600 mg tablet, 600 mg PO BID PRN Congestion 11/13/23 04/03/25 extended release 12 hr (Mucus Relief ER) conjugated estrogens 0.625 mg/gram 0 mg vaginal 3XWK 04/03/25 04/03/25 vaginal cream Previous Rx's Medication Instructions Recorded metoprolol succinate 100 mg 100 mg PO QAM #90 tabs 09/12/24 tablet,extended release 24 hr ipratropium 20 mcg-albuterol 100 1 puff inhalation Q6H PRN 10/06/24 mcg/actuation mist for inhalation Shortness Of Breath Or Wheezing #4 (Combivent Respimat) grams pantoprazole 40 mg tablet,delayed 40 mg PO QAM #90 tabs 01/14/25 release methenamine hippurate 1 gram tablet 1 g PO BID #120 tabs 02/25/25 conjugated estrogens 0.3 mg tablet 0.3 mg PO Q OTHER DAY #30 tabs 03/25/25 Results & Data (ED) Vital Signs Vital Signs - 24 hr 04/03/25 11:04 Temperature 36.0 C L Temperature Source Temporal Artery Scan Pulse Rate 59 L Respiratory Rate 18 Blood Pressure 151/80 H Blood Pressure Mean 103 Pulse Oximetry 96 Oxygen Delivery Method Room Air Sepsis Recent Fever Within 48 Hours No Sepsis New/Unexplained Change in Mental Status No Sepsis Action Taken by Nursing No Action Required Home Medications Current Medication List: was personally reviewed by me Laboratory Data Attestation: I reviewed the patient's lab results. 04/04/25 07:28 04/04/25 07:28 Lab Results 04/03/25 04/03/25 Range/Units 11:06 11:33 WBC 7.36 (4.8-10.8) K/ul RBC 4.54 (4.20-5.40) M/uL Hgb 14.0 (12.0-16.0) g/dl Hct 42.8 (37.0-47.0) % MCV 94.3 (80.0-100.0) fL MCH 30.8 (25.0-34.0) pg MCHC 32.7 (32.0-36.0) g/dL RDW Std Deviation 49.1 H (36.4-46.3) fL RDW Coeff of Marcus 14.2 (11.5-14.5) % Plt Count 206 (130-400) K/uL MPV 8.7 L (9.4-12.4) fL Immature Gran % (Auto) 0.4 % Neut % (Auto) 73.2 % Lymph % (Auto) 14.8 % Gillespie % (Auto) 9.4 % Eos % (Auto) 1.9 % Baso % (Auto) 0.3 % Neut # (Auto) 5.39 (1.40-6.50) K/uL Lymph # (Auto) 1.09 L (1.20-3.40) K/uL Gillespie # (Auto) 0.69 H (0.11-0.59) K/uL Eos # (Auto) 0.14 (0.00-0.50) K/uL Baso # (Auto) 0.02 (0.00-0.20) K/uL Immature Gran # (Auto) 0.03 (0.01-0.20) K/uL Sodium 137 (136-145) mmol/L Potassium 4.2 (3.5-5.1) mmol/L Chloride 107 (98-107) mmol/L Carbon Dioxide 22 (21-32) mmol/L Anion Gap 8 (3-11) BUN 24 H (6-23) mg/dl Creatinine 0.95 (0.6-1.2) mg/dl Est Cr Clr Drug Dosing 34.9 ml/min eGFR 59.08 BUN/Creatinine Ratio 25.3 H (10-20) Glucose 85 (70-99(Fasting)) mg/dl Calcium 9.3 (8.6-10.3) mg/dl Total Bilirubin 0.5 (0.2-1.0) mg/dl AST 19 (13-39) U/L ALT 8 (7-52) U/L Alkaline Phosphatase 62 (34-104) U/L Total Creatine Kinase 51 (26-192) U/L Total Protein 7.5 (6.0-8.3) gm/dl Albumin 3.6 (3.4-5.0) gm/dl Globulin 3.9 (2.5-4.0) gm/dl Albumin/Globulin Ratio 0.9 (0.9-2) Urine Color Yellow Urine Appearance Turbid A (Clear) Urine pH 5.5 (4.5-7.5) Ur Specific [place] 1.006 (1.000-1.030) Urine Protein Trace H (Negative) Urine Glucose (UA) Negative (Negative) Urine Ketones Negative (Negative) Urine Blood 3+ H (Negative) Urine Nitrite Negative (Negative) Urine Bilirubin Negative (Negative) Urine Urobilinogen Negative (Negative) Ur Leukocyte Esterase 3+ H (Negative) Urine WBC (Auto) >50 H (0-5) /hpf Urine RBC (Auto) 0-2 (0-2) /hpf U Hyaline Cast (Auto) 3-5 H (0-2) /lpf U Epithel Cells (Auto) 0-2 (0-2) /hpf Urine Bacteria (Auto) 4+ H (None Seen) Urine Comment Administered Medications Cyanocobalamin (Cyanocobalamin (B-12) 500 Mcg Tablet) 1,000 mcg PO QAM PENDING SALE TO [facility] Stop: 05/04/25 08:59 Last Admin: 04/04/25 08:25 Dose: 1,000 mcg Documented By: TLM Estrogens Conjugated (Estrogens, Conjugated 0.3 Mg Tab) 0.3 mg PO Q2D@0900 PENDING SALE TO [facility] Stop: 05/03/25 17:29 Last Admin: 04/03/25 17:35 Dose: 0.3 mg Documented By: WILFRIDOM Fluticasone/Vilanterol (Fluticasone/Vilanterol 200/25mcg 14 Puffs/Inhaler) 1 puffs INH DAILY PENDING SALE TO [facility] Stop: 05/04/25 08:59 Last Admin: 04/04/25 08:25 Dose: 1 puffs Documented By: TLM Cefepime HCl (Maxipime 2000mg) 2,000 mg in 20 mls @ 5 mls/min IV Q12H PENDING SALE TO [facility]; Protocol Stop: 04/14/25 00:00 Last Admin: 04/04/25 12:15 Dose: 5 mls/min Documented By: Admin: 04/04/25 00:05 Dose: 5 mls/min Documented By: kamilah Metoprolol Succinate (Metoprolol Succ 50mg Ext Rel Tab) [facility] Stop: 05/04/25 08:59 Last Admin: 04/04/25 08:25 Dose: 100 mg Documented By: MILLA Pantoprazole Sodium (Pantoprazole 40 Mg Tab) 40 mg PO [facility] Stop: 05/04/25 08:59 Last Admin: 04/04/25 08:25 Dose: 40 mg Documented By: MILLA Discontinued Medications Sodium Chloride (Nss) 500 mls @ 999 mls/hr IV .Q31M ONE Stop: 04/03/25 12:01 Last Infusion: 04/03/25 12:33 Dose: Infused Documented By: Admin: 04/03/25 11:59 Dose: 999 mls/hr Documented By: ZHANNA Cefepime HCl (Maxipime 2000mg) 2,000 mg in 20 mls @ 5 mls/min IV NOW ONE Stop: 04/03/25 14:18 Last Admin: 04/03/25 14:22 Dose: 5 mls/min Documented By: ZHANNA Ioversol (Optiray 320 100ml) 93 ml IV ONCE ONE Stop: 04/03/25 12:25 Last Admin: 04/03/25 12:24 Dose: 93 ml Documented By: SARKIS Imaging Data Attestation: I personally reviewed and interpreted this imaging study as follows: Discharge Plan Visit Data Chief Complaint: Catheter Replacement Stated Complaint: CATHETER ISSUES ED Provider: Alley Gomez ED Midlevel Provider: Joselin Bautista Discharge Problem: Complicated UTI (urinary tract infection) Patient Disposition: Admitted As Inpatient Condition: Good Discharge Instructions Interventions: ED Discharge Assessment Last Done: 04/03/25 16:10
--- NOTE | 2025-04-03 11:17 | Emergency Department Note ---
ED Visit Note I was consulted by the Advanced Practice Provider, KATHERYN Buckner. I performed a substantive portion of the visit. This includes aspects of: History: Patient is a 85-year-old female presenting with discolored urine. Patient straight caths at home 3 times a day. Yesterday her urine was noted to be dark red/black in color and this persisted today. No reported fevers or chills. MDM: - Laboratory workup in the emergency department was negative for any acute abnormality. - UA showed evidence concerning for possible infection - CT abdomen/pelvis with IV contrast showed findings consistent with cystitis with bilateral ascending infection. - Infectious disease was consulted, given that patient has grown Pseudomonas aeruginosa in past urine cultures. Pseudomonas was pansensitive, but patient has allergies to ciprofloxacin and fluoroquinolones. They recommended treating the patient with cefepime given her CT imaging findings. - Patient given 2g IV cefepime in ER. - Patient to be admitted to the inpatient hospitalist service for further evaluation and management. .
[2025-04-03] MEDS: SODIUM CHLORIDE 0.9% 500 ML IV ONE (11:59)
[2025-04-03 12:02] LABS: Hematocrit (blood only) 42.8 % (37.0-47.0); Hemoglobin 14.0 g/dl (12.0-16.0); Immature Granulocytes # (auto) 0.03 K/uL (0.01-0.20); Immature Granulocytes % (auto) 0.4 %; Mean Corpuscular Hemoglobin 30.8 pg (25.0-34.0); Mean Corpuscular Volume 94.3 fL (80.0-100.0); Platelet Count 206 K/uL (130-400); RDW Standard Deviation 49.1 fL (36.4-46.3); Red Blood Count 4.54 M/uL (4.20-5.40); White Blood Count 7.36 K/ul (4.8-10.8)
[2025-04-03 12:12] LABS: Appearance Urine Turbid (Clear); Bacteria Urine Automated 4+ (None Seen); Epithelial Cell Urine Auto 0-2 /hpf (0-2); Glucose Urine UA Negative (Negative); RBC Urine Automated 0-2 /hpf (0-2); WBC Urine Automated >50 /hpf (0-5)
[2025-04-03 12:17] LABS: Alanine Aminotransferase 8.0 U/L (7-52); Albumin Globulin Ratio 0.9 (0.9-2); Albumin Level 3.6 gm/dl (3.4-5.0); Alkaline Phosphatase 62.0 U/L (34-104); Anion Gap 8.0 (3-11); Bilirubin,Total 0.5 mg/dl (0.2-1.0); Blood Urea Nitrogen 24.0 mg/dl (6-23); Calcium 9.3 mg/dl (8.6-10.3); Carbon Dioxide 22.0 mmol/L (21-32); Chloride 107.0 mmol/L (98-107); Creatine Kinase 51.0 U/L (26-192); Creatinine Clr Calc Pharmacy 34.9 ml/min; Globulin 3.9 gm/dl (2.5-4.0); Glucose 85.0 mg/dl (70-99(Fasting)); Potassium 4.2 mmol/L (3.5-5.1); Sodium 137.0 mmol/L (136-145); Total Protein 7.5 gm/dl (6.0-8.3)
[2025-04-03] MEDS: OPTIRAY 320 100ml IV ONE (12:24)
--- NOTE | 2025-04-03 12:56 | CT Scan Report ---
ABDOMEN AND PELVIS CT WITH IV CONTRAST CT DOSE: 685.27 mGy.cm HISTORY: Acute hematuria hematuria TECHNIQUE: Multiaxial CT images of the abdomen and pelvis were performed following the IV administrat ion of 93 cc of Optiray, A dose lowering technique was utilized adhering to the principles of ALARA. COMPARISON STUDY: 06/04/2024 FINDINGS: Ectasia of the ascending thoracic aorta, 3.9 cm. Partially imaged cardiac pacer leads. Mild linear consolidation of the basal right lower lobe with bronchial wall thickening and mild mucous pl ugging. Pulmonary emphysema. There is no pneumatosis or pneumoperitoneum. Unremarkable spleen and adrenal glands. Moderately atrophic pancreas. Unremarkable gallbladder and li galilea. Patency of the portal vein. Multifocal cortical scarring of the kidneys redemonstrated. Small ca lcifications of the superior pole left kidney measuring up to 3-4 mm. Cysts of the kidneys including a 5 mm partially calcified cyst of the superior pole right kidney. A thick-walled 2.2 cm cyst of the lateral interpolar right kidney noted on image 135. These appear generally stable from prior. No mariah d renal mass lesions are seen. Moderate field thickening of the ureters with symmetric mild bilateral hydroureter and no hydronephrosis. Moderate wall thickening noted along left lateral aspect of the b ladder with increased enhancement and perivesicular stranding. Punctate calcifications are noted reinaldo g the dependent bladder wall. Hysterectomy with air noted within the vaginal cuff. Atherosclerosis of the aorta with infrarenal ectasia measuring 2.8 cm. No lymphadenopathy. No bowel o bstruction or bowel wall thickening. No acute fracture is seen. Degenerative changes of the spine, pe lvis and hips. IMPRESSION: 1. Findings suggestive of cystitis with bilateral ascending infection/ureteritis. Correlate with urin alysis. Cystoscopy may also be considered to evaluate the asymmetric urinary bladder wall thickening. 2. Small calcifications of the superior pole left kidney are again noted, likely vascular. Nonobstruc ting calculi could appear similarly. 3. Emphysema with right basilar opacities, mild bronchial wall thickening and mucous plugging. Correl ate clinically to exclude aspiration pneumonitis. 4. No bowel obstruction or bowel wall thickening. 5. Additional findings as above. ACT 112: Negative or not required by law. The above report was generated using voice recognition software. It may contain grammatical, syntax o r spelling errors. Electronically signed by: Chang Wallis M.D. 04/03/2025 12:54 PM
[2025-04-03] MEDS ORDERED: CEFEPIME 2 GM VIAL IV ONE (14:07)
[2025-04-03] MEDS: CEFEPIME 2000MG 2,000 MG/20 ML SYR IV ONE (14:22)
[2025-04-03] MEDS ORDERED: ONDANSETRON INJ 2 MG/ML 2 ML VIAL IV PRN (15:17)
--- NOTE | 2025-04-03 15:39 | History & Physical Report ---
Date of Service April 03, 2025 Assessment & Plan (1) Acute UTI: Plan: Massiel Mireles is a 85 yo woman with PMH Of recurrent UTI, bladder prolapse s/p surgery; kidney cyst, urinary retention, memory impairment ssince 2 years ago), sick sinus s/p pacemaker, COPD, C. difficile colitis, hx of aortic aneurysm, PSVT, sinus node dysfunction. she's is independent at baseline. she's usually self cath. since yesterday; she was having hematuria; stated she making dark color blood and that filled out the entire toilet. her CT abdomen concern for cystitis, urethritis and descending infection. ED spoke with ID specialist, avoid ciprofloxacin given her hx of aortic aneurysm. plan for inpatient admission for IV cefepime 1. acute hematuria 2. acute UTI 3. hx of recurrent UTI, renal cyst, bladder prolapse 4. sick sinus s/p pacemaker, PSVT, A-fib 5. memory impairment, b12 deficiency 6. hx of COPD (room air baseline) 7. hx of C. difficile coltis 8. hx of aortic aneurysm 1. acute hematuria, acute UTI her CT abdomen show cystitis and ascending infection IV cefepime 2g q12 hours, f/u with urine culture avoiding ciprofloxacin given her hx of aneurysm f/u on bladder scan with PVR 3. sick sinus s/p pacemaker, PSVT, A-fib she on metoprolol 100mg, does not recall being on anticoagulation 4. memory impairment f/u on b12 level, she's still indpendent of her ADL. 5. COPD, on room air; stable, no wheezing. she's Advair diskus BID 6. GERd, protonix 40mg daily 7, recurrent UTI, she's on methenamine 1 BID 8. DVT prophyasix. heparin starting tomorrow. 9. diet, regular 10. code status; full code History of Present Illness Chief Complaint: hematuria, UTI since yesterday been self-cath for 2 years hx of MDR UTI Primary Care Provider: KATHERYN Sullivan Massiel Chaudhary is a 85 yo woman with PMH of bladder prolapse (s/p surgery 3 times), UTI, A-fib, sick sinus on pacemaker, aortic aneurysm, GERD renal cysts. per medical record; there is hx of C. difficile infection, but unable to confirm. she's self cath for past 1-2 years. she was schedule for bladder US with post- void residual however, since yesterday, she been having significant hematuria with dark color urine. she's came to our hospital on Sunday (04/03) for UTI, hematuria, her CT abdomen found cystitis with b/l ascending infection and ureteritis, also found small calcification with superior pole of left kidney she was seen by ID and recommended admission for IV cefepime. we are avoiding ciprofloxacin given her hx of aneurysm. on interview at 2pm, she's reported confusion which is usual with her UTI no fever; no chill; no nausea, no vomiting. she's has dementia for past 2-3 years. her was advised obtained sleep studies for polysomnography Allergies Allergy/AdvReac Type Severity Reaction Status Date / Time Quinolones Allergy Unknown CAN'T Verified 03/11/25 10:00 REMEMBER nitrofurantoin AdvReac Severe "SOB" and Verified 03/11/25 10:00 [From Macrobid] other symptoms that pt cannot recall. ciprofloxacin AdvReac Intermediate HEADACHE Verified 03/11/25 10:00 "feel DRUNK" mupirocin [From Bactroban] AdvReac Unknown CAN'T Verified 03/11/25 10:00 REMEMBER Home Medications Medication Instructions Recorded Confirmed Type cyanocobalamin (vitamin B-12) 1,000 mcg PO QAM 10/16/23 04/03/25 History 1,000 mcg tablet fluticasone 250 mcg-salmeterol 50 0 inh inhalation BID 11/13/23 04/03/25 History mcg/dose blistr powdr for inhalation (Advair Diskus) guaifenesin 600 mg tablet, 600 mg PO BID PRN Congestion 11/13/23 04/03/25 History extended release 12 hr (Mucus Relief ER) metoprolol succinate 100 mg 100 mg PO QAM #90 tabs 09/12/24 04/03/25 Rx tablet,extended release 24 hr ipratropium 20 mcg-albuterol 100 1 puff inhalation Q6H PRN 10/06/24 04/03/25 Rx mcg/actuation mist for inhalation Shortness Of Breath Or Wheezing #4 (Combivent Respimat) grams pantoprazole 40 mg tablet,delayed 40 mg PO QAM #90 tabs 01/14/25 04/03/25 Rx release methenamine hippurate 1 gram tablet 1 g PO BID #120 tabs 02/25/25 04/03/25 Rx conjugated estrogens 0.3 mg tablet 0.3 mg PO Q OTHER DAY #30 tabs 03/25/25 04/03/25 Rx conjugated estrogens 0.625 mg/gram 0 mg vaginal 3XWK 04/03/25 04/03/25 History vaginal cream Past Med/Surg History Problem List (Updated 03/11/25 @ 10:49 by Glynn Lynn PA-C) Paroxysmal A-fib Sinus node dysfunction Osteomyelitis of left foot Norovirus (Acute) Nausea, vomiting, and diarrhea (Acute) Acute UTI (Acute) Ascending aorta dilatation Mitral regurgitation Hypertension Neuropathy Renal cyst H/O cardiac pacemaker COPD (chronic obstructive pulmonary disease) 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 difficile colitis Paroxysmal A-fib Acute dehydration Acute hypoxemic respiratory failure Acute UTI DILMA (acute kidney injury) Community acquired pneumonia Urinary retention with incomplete bladder emptying SOB (shortness of breath) Hypoxia Anterior shoulder dislocation ARF (acute renal failure) Surgical History History of cataract extraction History of kidney surgery History of appendectomy H/O total hysterectomy H/O wrist surgery History of bladder surgery H/O foot surgery Pacemaker Family History Mother Diabetes Hypertension Denies family history of Ovarian cancer Prostate cancer Myocardial infarction Breast cancer Colorectal cancer Social History Smoking Status: Former smoker Tobacco Type: Cigarettes Age Started Using Tobacco: 19; Age Quit Using Tobacco: 66; packs per day: 0.5; Second Hand Exposure: No; Do You Dip or Chew Tobacco: No; Hx Alcohol Use: No Hx Substance Use: No Preferred Language: Arabic Communication Ability: Effective Communication Ability Comment: becomes confused at times to past events Visual Impairment: No Limitations Hearing Ability: Normal Data Collection Technician Required: No Beliefs That Will Affect Care: None marital status: Current Living Situation: Spouse Current Living Situation Comment: live with spouse current occupational status: retired 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 Feels Safe at Home: Yes Childhood Exposure to Second-Hand Smoke: No Diet: regular Diet Comment: regular caffeine: No during the past year weight has: remained stable Dental Care, Regularly: No Physical Activity Frequency: Daily Seatbelt Use: always Sunscreen Use: Yes Assistive Devices: None Review of Systems Review of Systems: Constitutional: No Weight Change, No Fever, No Chills, No Night Sweats, No Fatigue, No Malaise = Cardiovascular: No Chest Pain, No SOB, No PND, No Dyspnea on Exertion, No Orthopnea, No Claudication, No Edema, No Palpitations Respiratory: No Cough, No Sputum, No Wheezing, No Smoke Exposure, No Dyspnea Gastrointestinal: No Nausea, No Vomiting, No Diarrhea, No Constipation, \\ : for hx of bladder prolapse s/p surgery x 3; + for hematuria; + for hx of self cath Musculoskeletal: No Arthralgias, No Myalgias, No Joint Swelling, No Joint Stiffness, No Back Pain, No Neck Pain, No Injury History Skin: No Skin Lesions, No Pruritis, No Hair Changes, No Breast/Skin Changes, No Nipple Discharge Neuro: + for memory issues. forgetfulness. Psych: No Anxiety/Panic, No Depression, No Insomnia, No Personality Changes, No Delusions, No Rumination, No SI/HI/AH/VH, No Social Issues, No Memory Changes, No Violence/Abuse Hx., No Eating Concerns Physical Exam Physical Exam: VITALS: Reviewed. WEIGHT/BMI reviewed. GEN: Healthy appearing, well-developed, NAD. -Head: NC/AT; -Mouth and throat: MMM. Normal gums, muc saritha, palate,. Good dentition. NECK: Supple, with no masses. CV: RRR, no m/r/g. + for pacemaker LUNGS: CTAB, no w/r/c. no wheezing; no rales ABD: Soft, NT/ND, NBS, no masses or organomegaly. : no CVA tenderness MSK: No deformities, Normal gait. EXT: No clubbing, cyanosis, or edema. NEURO: following command; speaking in short sentence Results & Data Results & Data Vital Signs (Past 12 Hours) Vital Signs Temp Pulse Pulse Resp BP BP Pulse Ox 04/03/25 14:23 62 16 142/70 H 96 04/03/25 12:32 67 18 143/93 H 97 04/03/25 11:04 36.0 C L 59 L 18 151/80 H 96 O2 Del Method 04/03/25 14:23 Room Air 04/03/25 12:32 Room Air 04/03/25 11:04 Room Air Laboratory Results Laboratory Results - last 72 hr 04/03/25 04/03/25 11:06 11:33 WBC 7.36 RBC 4.54 Hgb 14.0 Hct 42.8 MCV 94.3 MCH 30.8 MCHC 32.7 RDW Std Deviation 49.1 H RDW Coeff of Marcus 14.2 Plt Count 206 MPV 8.7 L Immature Gran % (Auto) 0.4 Neut % (Auto) 73.2 Lymph % (Auto) 14.8 Ellis % (Auto) 9.4 Eos % (Auto) 1.9 Baso % (Auto) 0.3 Neut # (Auto) 5.39 Lymph # (Auto) 1.09 L Ellis # (Auto) 0.69 H Eos # (Auto) 0.14 Baso # (Auto) 0.02 Immature Gran # (Auto) 0.03 Sodium 137 Potassium 4.2 Chloride 107 Carbon Dioxide 22 Anion Gap 8 BUN 24 H Creatinine 0.95 Est Cr Clr Drug Dosing 34.9 eGFR 59.08 BUN/Creatinine Ratio 25.3 H Glucose 85 Calcium 9.3 Total Bilirubin 0.5 AST 19 ALT 8 Alkaline Phosphatase 62 Total Creatine Kinase 51 Total Protein 7.5 Albumin 3.6 Globulin 3.9 Albumin/Globulin Ratio 0.9 Urine Color Yellow Urine Appearance Turbid A Urine pH 5.5 Ur Specific [place] 1.006 Urine Protein Trace H Urine Glucose (UA) Negative Urine Ketones Negative Urine Blood 3+ H Urine Nitrite Negative Urine Bilirubin Negative Urine Urobilinogen Negative Ur Leukocyte Esterase 3+ H Urine WBC (Auto) >50 H Urine RBC (Auto) 0-2 U Hyaline Cast (Auto) 3-5 H U Epithel Cells (Auto) 0-2 Urine Bacteria (Auto) 4+ H Urine Comment Diagnostic Findings Laboratory Results WBC 7.36 K/ul (4.8-10.8) 04/03/25 11:06 RBC 4.54 M/uL (4.20-5.40) 04/03/25 11:06 Hgb 14.0 g/dl (12.0-16.0) 04/03/25 11:06 Hct 42.8 % (37.0-47.0) 04/03/25 11:06 MCV 94.3 fL (80.0-100.0) 04/03/25 11:06 MCH 30.8 pg (25.0-34.0) 04/03/25 11:06 MCHC 32.7 g/dL (32.0-36.0) 04/03/25 11:06 RDW Std Deviation 49.1 fL (36.4-46.3) H 04/03/25 11:06 RDW Coeff of Marcus 14.2 % (11.5-14.5) 04/03/25 11:06 Plt Count 206 K/uL (130-400) 04/03/25 11:06 MPV 8.7 fL (9.4-12.4) L 04/03/25 11:06 Immature Gran % (Auto) 0.4 % 04/03/25 11:06 Neut % (Auto) 73.2 % 04/03/25 11:06 Lymph % (Auto) 14.8 % 04/03/25 11:06 Ellis % (Auto) 9.4 % 04/03/25 11:06 Eos % (Auto) 1.9 % 04/03/25 11:06 Baso % (Auto) 0.3 % 04/03/25 11:06 Neut # (Auto) 5.39 K/uL (1.40-6.50) 04/03/25 11:06 Lymph # (Auto) 1.09 K/uL (1.20-3.40) L 04/03/25 11:06 Ellis # (Auto) 0.69 K/uL (0.11-0.59) H 04/03/25 11:06 Eos # (Auto) 0.14 K/uL (0.00-0.50) 04/03/25 11:06 Baso # (Auto) 0.02 K/uL (0.00-0.20) 04/03/25 11:06 Immature Gran # (Auto) 0.03 K/uL (0.01-0.20) 04/03/25 11:06 Sodium 137 mmol/L (136-145) 04/03/25 11:06 Potassium 4.2 mmol/L (3.5-5.1) 04/03/25 11:06 Chloride 107 mmol/L (98-107) 04/03/25 11:06 Carbon Dioxide 22 mmol/L (21-32) 04/03/25 11:06 Anion Gap 8 (3-11) 04/03/25 11:06 BUN 24 mg/dl (6-23) H 04/03/25 11:06 Creatinine 0.95 mg/dl (0.6-1.2) 04/03/25 11:06 Est Cr Clr Drug Dosing 34.9 ml/min 04/03/25 11:06 eGFR 59.08 04/03/25 11:06 BUN/Creatinine Ratio 25.3 (10-20) H 04/03/25 11:06 Glucose 85 mg/dl (70-99(Fasting)) 04/03/25 11:06 Calcium 9.3 mg/dl (8.6-10.3) 04/03/25 11:06 Total Bilirubin 0.5 mg/dl (0.2-1.0) 04/03/25 11:06 AST 19 U/L (13-39) 04/03/25 11:06 ALT 8 U/L (7-52) 04/03/25 11:06 Alkaline Phosphatase 62 U/L (34-104) 04/03/25 11:06 Total Creatine Kinase 51 U/L (26-192) 04/03/25 11:06 Total Protein 7.5 gm/dl (6.0-8.3) 04/03/25 11:06 Albumin 3.6 gm/dl (3.4-5.0) 04/03/25 11:06 Globulin 3.9 gm/dl (2.5-4.0) 04/03/25 11:06 Albumin/Globulin Ratio 0.9 (0.9-2) 04/03/25 11:06 Urine Color Yellow 04/03/25 11:33 Urine Appearance Turbid (Clear) A 04/03/25 11:33 Urine pH 5.5 (4.5-7.5) 04/03/25 11:33 Ur Specific [place] 1.006 (1.000-1.030) 04/03/25 11:33 Urine Protein Trace (Negative) H 04/03/25 11:33 Urine Glucose (UA) Negative (Negative) 04/03/25 11:33 Urine Ketones Negative (Negative) 04/03/25 11:33 Urine Blood 3+ (Negative) H 04/03/25 11:33 Urine Nitrite Negative (Negative) 04/03/25 11:33 Urine Bilirubin Negative (Negative) 04/03/25 11:33 Urine Urobilinogen Negative (Negative) 04/03/25 11:33 Ur Leukocyte Esterase 3+ (Negative) H 04/03/25 11:33 Urine WBC (Auto) >50 /hpf (0-5) H 04/03/25 11:33 Urine RBC (Auto) 0-2 /hpf (0-2) 04/03/25 11:33 U Hyaline Cast (Auto) 3-5 /lpf (0-2) H 04/03/25 11:33 U Epithel Cells (Auto) 0-2 /hpf (0-2) 04/03/25 11:33 Urine Bacteria (Auto) 4+ (None Seen) H 04/03/25 11:33 Urine Comment 04/03/25 11:33 Impressions Abdomen/Pelvis CT 04/03/25 11:[address] WITH IV CONTRAST CT DOSE: 685.27 mGy.cm HISTORY: Acute hematuria hematuria TECHNIQUE: Multiaxial CT images of the abdomen and pelvis were performed following the IV administration of 93 cc of Optiray, A dose lowering technique was utilized adhering to the principles of ALARA. COMPARISON STUDY: 06/04/2024 FINDINGS: Ectasia of the ascending thoracic aorta, 3.9 cm. Partially imaged cardiac pacer leads. Mild linear consolidation of the basal right lower lobe with bronchial wall thickening and mild mucous plugging. Pulmonary emphysema. There is no pneumatosis or pneumoperitoneum. Unremarkable spleen and adrenal glands. Moderately atrophic pancreas. Un remarkable gallbladder and liver. Patency of the portal vein. Multifocal cortical scarring of the kidneys redemonstrated. Small calcifications of the superior pole left kidney measuring up to 3-4 mm. Cysts of the kidneys including a 5 mm partially calcified cyst of the superior pole right kidney. A thick- walled 2.2 cm cyst of the lateral interpolar right kidney noted on image 135. These appear generally stable from prior. No solid renal mass lesions are seen. Moderate field thickening of the ureters with symmetric mild bilateral hydroureter and no hydronephrosis. Moderate wall thickening noted along left lateral aspect of the bladder with increased enhancement and perivesicular stranding. Punctate calcifications are noted along the dependent bladder wall. Hysterectomy with air noted within the vaginal cuff. Atherosclerosis of the aorta with infrarenal ectasia measuring 2.8 cm. No lymphadenopathy. No bowel obstruction or bowel wall thickening. No acute fracture is seen. Degenerative changes of the spine, pelvis and hips. IMPRESSION: 1. Findings suggestive of cystitis with bilateral ascending infection/ureteritis. Correlate with urinalysis. Cystoscopy may also be considered to evaluate the asymmetric urinary bladder wall thickening. 2. Small calcifications of the superior pole left kidney are again noted, likely vascular. Nonobstructing calculi could appear similarly. 3. Emphysema with right basilar opacities, mild bronchial wall thickening and mucous plugging. Correlate clinically to exclude aspiration pneumonitis. 4. No bowel obstruction or bowel wall thickening. 5. Additional findings as above. ACT 112: Negative or not required by law. The above report was generated using voice recognition software. It may contain grammatical, syntax or spelling errors. Electronically signed by: Chang Wallis M.D. 04/03/2025 12:54 PM Code Status & VTE Plan Code Status full code PG Care Time/CCT Total # of Minutes Spent Total Time Spent with Patient: Total time spent is greater than 50% in coordination of care (as documented) at patient's floor/unit and/or counseling patient: Coding Level of Care Code 74068 INT INP/OBS CARE 1/40MIN Diagnoses Acute UTI N39.0 Time Spent (min) 40
--- NOTE | 2025-04-03 16:32 | Ultrasound Report ---
Exam: Urinary bladder ultrasound. History: Recurrent UTIs. Comparison: October 24, 2022. Findings: Low-level internal echoes of the urinary bladder noted. This likely represents debris and/or sediment. Ureteral jets are not identified. Urinary bladder demonstrates questionable mild trabecular wall thickening. This may be artifactual due to incomplete distention. No discrete mass. Prevoid urinary bladder volume is 245 cc. Post catheter urinary bladder volume is 14 cc. Impression: No findings to indicate source for patient's symptoms. Please see above for details. Electronically signed by Giovanny Quinones 04-03-2025 4:31 PM
[2025-04-03] MEDS ORDERED: IPRATROPIUM BROMIDE/ALBUTEROL respimat INH INH PRN (16:38)
[2025-04-03] MEDS ORDERED: guaiFENesin 600 MG TABCR PO PRN (16:38)
[2025-04-03] MEDS ORDERED: IPRATROPIUM BROMIDE HFA INHALER INH PRN (17:01)
[2025-04-03] MEDS ORDERED: ALBUTEROL HFA 8 GM INHALER INH PRN (17:01)
[2025-04-03] MEDS: ESTROGENS, CONJUGATED 0.3 MG TAB PO SCH (17:35)
[2025-04-03] MEDS ORDERED: FLUTICASONE/SALMETEROL 250/50 (ADVAIR) 14 PUFF/1 INHALER INH SCH (21:00)
[2025-04-04] MEDS: CEFEPIME 2000MG 2,000 MG/20 ML SYR IV SCH (00:05)
[2025-04-04 07:46] LABS: Hematocrit (blood only) 38.6 % (37.0-47.0); Hemoglobin 12.8 g/dl (12.0-16.0); Mean Corpuscular Hemoglobin 30.9 pg (25.0-34.0); Mean Corpuscular Volume 93.2 fL (80.0-100.0); Platelet Count 192 K/uL (130-400); RDW Standard Deviation 48.8 fL (36.4-46.3); Red Blood Count 4.14 M/uL (4.20-5.40); White Blood Count 6.64 K/ul (4.8-10.8)
[2025-04-04 08:01] LABS: Anion Gap 6.0 (3-11); Blood Urea Nitrogen 25.0 mg/dl (6-23); Calcium 9.0 mg/dl (8.6-10.3); Carbon Dioxide 25.0 mmol/L (21-32); Chloride 108.0 mmol/L (98-107); Creatinine Clr Calc Pharmacy 29.1 ml/min; Glucose 91.0 mg/dl (70-99(Fasting)); Potassium 4.0 mmol/L (3.5-5.1); Sodium 139.0 mmol/L (136-145)
[2025-04-04] MEDS: FLUTICASONE/VILANTEROL 200/25MCG 14 PUFFS/INHALER INH SCH (08:25)
[2025-04-04] MEDS: CYANOCOBALAMIN (B-12) 500 MCG TABLET PO SCH (08:25)
[2025-04-04] MEDS: METOPROLOL SUCC 50MG EXT REL TAB PO SCH (08:25)
--- NOTE | 2025-04-04 13:37 | Hospitalist Progress Note ---
Date of Service April 04, 2025 Assessment & Plan (1) Acute UTI: Plan: Massiel Mireles is a 85 yo woman with PMH Of recurrent UTI, bladder prolapse s/p surgery; kidney cyst, urinary retention, memory impairment ssince 2 years ago), sick sinus s/p pacemaker, COPD, C. difficile colitis, hx of aortic aneurysm, PSVT, sinus node dysfunction. she's is independent at baseline. she's usually self cath. since yesterday; she was having hematuria; stated she making dark color blood and that filled out the entire toilet. her CT abdomen concern for cystitis, urethritis and descending infection. ED spoke with ID specialist, avoid ciprofloxacin given her hx of aortic aneurysm. plan for inpatient admission for IV cefepime 1. acute hematuria 2. acute UTI 3. hx of recurrent UTI, renal cyst, bladder prolapse 4. sick sinus s/p pacemaker, PSVT, A-fib 5. memory impairment, b12 deficiency 6. hx of COPD (room air baseline) 7. hx of C. difficile coltis 8. hx of aortic aneurysm 1. acute hematuria, acute UTI her CT abdomen show cystitis and ascending infection IV cefepime 2g q12 hours, f/u with urine culture expected her another 24-48 hours of inpatient stay avoiding ciprofloxacin given her hx of aneurysm bladder scan 3. sick sinus s/p pacemaker, PSVT, A-fib she on metoprolol 100mg, does not recall being on anticoagulation 4. memory impairment f/u on b12 level, she's still independent of her ADL. 5. COPD, on room air; stable, no wheezing. she's Advair diskus BID 6. GERd, protonix 40mg daily 7, recurrent UTI, she's on methenamine 1 BID 8. DVT prophyasix. heparin starting tomorrow. 9. diet, regular 10. code status; full code Admission and Anticipated Discharge Date Admission Date: April 03, 2025 Subjective she's on cefepime for UTI, denied further hematuria nurse noticed patient been straight cath herself overnight no fever;no chill BP stable f/u on urine culture we are avoid ciprofloxacin given her aortic aneurysm Physical Exam Physical Exam: VITALS: Reviewed. WEIGHT/BMI reviewed. GEN: Healthy appearing, well-developed, NAD. Neuro: AAox2; following command; able to speak in full sentence HEENT -Head: NC/AT; -Mouth and throat: MMM. Normal gums, muc saritha, palate,. Good dentition. NECK: Supple, with no masses. CV: RRR, no m/r/g. LUNGS: CTAB, no w/r/c. ABD: Soft, NT/ND, NBS, no masses or organomegaly. : no CVA tenderness MSK: No deformities, Normal gait. EXT: No clubbing, cyanosis, or edema. Results & Data Results & Data Vital Signs (Past 12 Hours) Vital Signs Temp Pulse Pulse Resp BP BP Pulse Ox 04/04/25 11:40 36.4 C L 58 L 20 132/73 94 04/04/25 08:25 04/04/25 08:03 36.7 C 60 20 157/77 H 95 04/04/25 06:45 58 L 04/04/25 03:20 36.3 C L 63 18 161/75 H 96 O2 Del Method 04/04/25 11:40 Room Air 04/04/25 08:25 Room Air 04/04/25 08:03 Room Air 04/04/25 06:45 04/04/25 03:20 Room Air Laboratory Results Laboratory Results - last 72 hr 04/03/25 04/03/25 04/04/25 11:06 11:33 07:28 WBC 7.36 6.64 RBC 4.54 4.14 L Hgb 14.0 12.8 Hct 42.8 38.6 MCV 94.3 93.2 MCH 30.8 30.9 MCHC 32.7 33.2 RDW Std Deviation 49.1 H 48.8 H RDW Coeff of Marcus 14.2 14.1 Plt Count 206 192 MPV 8.7 L 8.9 L Immature Gran % (Auto) 0.4 Neut % (Auto) 73.2 Lymph % (Auto) 14.8 [place] % (Auto) 9.4 Eos % (Auto) 1.9 Baso % (Auto) 0.3 Neut # (Auto) 5.39 Lymph # (Auto) 1.09 L [place] # (Auto) 0.69 H Eos # (Auto) 0.14 Baso # (Auto) 0.02 Immature Gran # (Auto) 0.03 Sodium 137 139 Potassium 4.2 4.0 Chloride 107 108 H Carbon Dioxide 22 25 Anion Gap 8 6 BUN 24 H 25 H Creatinine 0.95 1.14 Est Cr Clr Drug Dosing 34.9 29.1 eGFR 59.08 47.47 BUN/Creatinine Ratio 25.3 H 21.9 H Glucose 85 91 Calcium 9.3 9.0 Total Bilirubin 0.5 AST 19 ALT 8 Alkaline Phosphatase 62 Total Creatine Kinase 51 Total Protein 7.5 Albumin 3.6 Globulin 3.9 Albumin/Globulin Ratio 0.9 Urine Color Yellow Urine Appearance Turbid A Urine pH 5.5 Ur Specific [place] 1.006 Urine Protein Trace H Urine Glucose (UA) Negative Urine Ketones Negative Urine Blood 3+ H Urine Nitrite Negative Urine Bilirubin Negative Urine Urobilinogen Negative Ur Leukocyte Esterase 3+ H Urine WBC (Auto) >50 H Urine RBC (Auto) 0-2 U Hyaline Cast (Auto) 3-5 H U Epithel Cells (Auto) 0-2 Urine Bacteria (Auto) 4+ H Urine Comment Diagnostic Findings Abdomen/Pelvis CT 04/03/25 11:[address] WITH IV CONTRAST CT DOSE: 685.27 mGy.cm HISTORY: Acute hematuria hematuria TECHNIQUE: Multiaxial CT images of the abdomen and pelvis were performed following the IV administration of 93 cc of Optiray, A dose lowering technique was utilized adhering to the principles of ALARA. COMPARISON STUDY: 06/04/2024 FINDINGS: Ectasia of the ascending thoracic aorta, 3.9 cm. Partially imaged cardiac pacer leads. Mild linear consolidation of the basal right lower lobe with bronchial wall thickening and mild mucous plugging. Pulmonary emphysema. There is no pneumatosis or pneumoperitoneum. Unremarkable spleen and adrenal glands. Moderately atrophic pancreas. Unremarkable gallbladder and liver. Patency of the portal vein. Multifocal cortical scarring of the kidneys redemonstrated. Small calcifications of the superior pole left kidney measuring up to 3-4 mm. Cysts of the kidneys including a 5 mm partially calcified cyst of the superior pole right kidney. A thick- walled 2.2 cm cyst of the lateral interpolar right kidney noted on image 135. These appear generally stable from prior. No solid renal mass lesions are seen. Moderate field thickening of the ureters with symmetric mild bilateral hydroureter and no hydronephrosis. Moderate wall thickening noted along left lateral aspect of the bladder with increased enhancement and perivesicular stranding. Punctate calcifications are noted along the dependent bladder wall. Hysterectomy with air noted within the vaginal cuff. Atherosclerosis of the aorta with infrarenal ectasia measuring 2.8 cm. No lymphadenopathy. No bowel obstruction or bowel wall thickening. No acute fracture is seen. Degenerative changes of the spine, pelvis and hips. IMPRESSION: 1. Findings suggestive of cystitis with bilateral ascending infection/ureteritis. Correlate with urinalysis. Cystoscopy may also be cons idered to evaluate the asymmetric urinary bladder wall thickening. 2. Small calcifications of the superior pole left kidney are again noted, likely vascular. Nonobstructing calculi could appear similarly. 3. Emphysema with right basilar opacities, mild bronchial wall thickening and mucous plugging. Correlate clinically to exclude aspiration pneumonitis. 4. No bowel obstruction or bowel wall thickening. 5. Additional findings as above. ACT 112: Negative or not required by law. The above report was generated using voice recognition software. It may contain grammatical, syntax or spelling errors. Electronically signed by: Chang Wallis M.D. 04/03/2025 12:54 PM Bladder Ultrasound 04/03/25 15:17 Exam: Urinary bladder ultrasound. History: Recurrent UTIs. Comparison: October 24, 2022. Findings: Low-level internal echoes of the urinary bladder noted. This likely represents debris and/or sediment. Ureteral jets are not identified. Urinary bladder demonstrates questionable mild trabecular wall thickening. This may be artifactual due to incomplete distention. No discrete mass. Prevoid urinary bladder volume is 245 cc. Post catheter urinary bladder volume is 14 cc. Impression: No findings to indicate source for patient's symptoms. Please see above for details. Electronically signed by Giovanny Quinones 04-03-2025 4:31 PM Medications Administered Current Inpatient Medications Albuterol (Albuterol Hfa 8 Gm Inhaler) 1 puffs INH Q6H PRN; Protocol PRN Reason: SOB/WHEEZING Stop: 05/03/25 17:00 Cyanocobalamin (Cyanocobalamin (B-12) 500 Mcg Tablet) 1,000 mcg PO QAM [facility] Stop: 05/04/25 08:59 Last Admin: 04/04/25 08:25 Dose: 1,000 mcg Estrogens Conjugated (Estrogens, Conjugated 0.3 Mg Tab) 0.3 mg PO Q2D@0900 [facility] Stop: 05/03/25 17:29 Last Admin: 04/03/25 17:35 Dose: 0.3 mg Fluticasone/Vilanterol (Fluticasone/Vilanterol 200/25mcg 14 Puffs/Inhaler) 1 puffs INH DAILY JENY Stop: 05/04/25 08:59 Last Admin: 04/04/25 08:25 Dose: 1 puffs Guaifenesin (Guaifenesin 600 Mg Tabcr) 600 mg PO BID PRN PRN Reason: Congestion Stop: 05/03/25 16:37 Cefepime HCl (Maxipime 2000mg) 2,000 mg in 20 mls @ 5 mls/min IV Q12H JENY; Protocol Stop: 04/14/25 00:00 Last Admin: 04/04/25 12:15 Dose: 5 mls/min Ipratropium [place] (Ipratropium [place] Hfa Inhaler) 1 puffs INH Q6H PRN; Protocol PRN Reason: SOB/WHEEZING Stop: 05/03/25 17:00 Metoprolol Succinate (Metoprolol Succ 50mg Ext Rel Tab) 100 mg PO QAM [facility] Stop: 05/04/25 08:59 Last Admin: 04/04/25 08:25 Dose: 100 mg Ondansetron HCl (Ondansetron Inj 2 Mg/Ml 2 Ml Vial) 4 mg IV Q4H PRN PRN Reason: Nausea And Vomiting Stop: 05/03/25 15:16 Pantoprazole Sodium (Pantoprazole 40 Mg Tab) 40 mg PO QAM [facility] Stop: 05/04/25 08:59 Last Admin: 04/04/25 08:25 Dose: 40 mg PG Care Time/CCT Total # of Minutes Spent Total Time Spent with Patient: Total time spent is greater than 50% in coordination of care (as documented) at patient's floor/unit and/or counseling patient: Coding Level of Care Code 53371 SUB INP/OBS CARE 07/05MIN Diagnoses Acute UTI N39.0 Time Spent (min) 25
[2025-04-04] MEDS ORDERED: LIDOCAINE 5% OINT 30 GM TUBE EXT PRN (15:47)
[2025-04-05 07:58] LABS: Hematocrit (blood only) 39.4 % (37.0-47.0); Hemoglobin 12.8 g/dl (12.0-16.0); Mean Corpuscular Hemoglobin 30.8 pg (25.0-34.0); Mean Corpuscular Volume 94.9 fL (80.0-100.0); Platelet Count 192 K/uL (130-400); RDW Standard Deviation 49.1 fL (36.4-46.3); Red Blood Count 4.15 M/uL (4.20-5.40); White Blood Count 6.36 K/ul (4.8-10.8)
[2025-04-05 08:16] LABS: Anion Gap 6.0 (3-11); Blood Urea Nitrogen 33.0 mg/dl (6-23); Calcium 8.9 mg/dl (8.6-10.3); Carbon Dioxide 24.0 mmol/L (21-32); Chloride 108.0 mmol/L (98-107); Creatinine Clr Calc Pharmacy 35.2 ml/min; Glucose 100.0 mg/dl (70-99(Fasting)); Potassium 4.0 mmol/L (3.5-5.1); Sodium 138.0 mmol/L (136-145)
--- NOTE | 2025-04-05 10:45 | Hospitalist Progress Note ---
Date of Service April 05, 2025 Assessment & Plan (1) Acute UTI: Plan: Massiel Mireles is a 85 yo woman with PMH Of recurrent UTI, bladder prolapse s/p surgery; kidney cyst, urinary retention, memory impairment ssince 2 years ago), sick sinus s/p pacemaker, COPD, C. difficile colitis, hx of aortic aneurysm, PSVT, sinus node dysfunction. she's is independent at baseline. she's usually self cath. since yesterday; she was having hematuria; stated she making dark color blood and that filled out the entire toilet. her CT abdomen concern for cystitis, urethritis and descending infection. ED spoke with ID specialist, avoid ciprofloxacin given her hx of aortic aneurysm. plan for inpatient admission for IV cefepime 1. acute hematuria, acute UTI 2. hx of urinary retention 3. hx of recurrent UTI, renal cyst, bladder prolapse 4. sick sinus s/p pacemaker, PSVT, A-fib 5. memory impairment, b12 deficiency 6. hx of COPD (room air baseline) 7. hx of C. difficile coltis 8. hx of aortic aneurysm 1. acute hematuria, acute UTI her CT abdomen show cystitis and ascending infection IV cefepime 2g q12 hours, urine culture growing E. coli, sensitive to augmentin await final culture to ensure now pseudomonas UTI avoiding ciprofloxacin given her hx of aneurysm bladder scan 2. urinary retention, that started in spring 2024 she's been straight cath herself starting her on flomax 0.4mg on 04/05 deposition potential dc tomorrow with oral augmentin but need f/u with urology for retention if she's able to empyting her bladder with flomax, then dc home with flomax 3. sick sinus s/p pacemaker, PSVT, A-fib on metoprolol 100mg, does not recall being on anticoagulation 4. memory impairment f/u on b12 level, she's still independent of her ADL. 5. COPD, on room air; stable. she's Advair diskus BID 6. GERd, protonix 40mg daily 7, recurrent UTI, she's on methenamine 1 BID 8. DVT prophylasix 9. diet, regular 10. code status; full code Admission and Anticipated Discharge Date Admission Date: April 03, 2025 Subjective she's continue to has chill sensation and warrant ongoing cefepime her u/a still processing, grow E. coli bladder retention since spring 2024, starting flomax need urology evaluation hx of pseudomonas infection, avoiding ciprofloxacin given her aneurysm Review of Systems Review of Systems: Constitutional: No Weight Change, No Fever, No Chills, No Night Sweats, No Fatigue, No Malaise = Cardiovascular: No Chest Pain, No SOB, No PND, No Dyspnea on Exertion, No Orthopnea, No Claudication, No Edema, No Palpitations Respiratory: No Cough, No Sputum, No Wheezing, No Smoke Exposure, No Dyspnea Gastrointestinal: No Nausea, No Vomiting, No Diarrhea, No Constipation, \ : for hx of bladder prolapse s/p surgery x 3; + for hematuria; + for hx of self cath Musculoskeletal: No Arthralgias, No Myalgias, No Joint Swelling, No Joint Stiffness, No Back Pain, No Neck Pain, No Injury History Skin: No Skin Lesions, No Pruritis, No Hair Changes, No Breast/Skin Changes, No Nipple Discharge Neuro: + for memory issues. forgetfulness. Psych: No Anxiety/Panic, No Depression, No Insomnia, No Personality Changes, No Delusions, No Rumination, No SI/HI/AH/VH, No Social Issues, No Memory Changes, No Violence/Abuse Hx., No Eating Concerns Physical Exam Physical Exam: VITALS: Reviewed. WEIGHT/BMI reviewed. GEN: Healthy appearing, well-developed, NAD. Neuro: AAox2; following command; able to speak in full sentence. slow mentation, but responsive to question HEENT -Head: NC/AT;. NECK: Supple, with no masses. CV: RRR, no m/r/g. LUNGS: CTAB, no w/r/c. ABD: Soft, NT/ND, NBS, no masses or organomegaly. : no CVA tenderness MSK: No deformities, Normal gait. Results & Data Results & Data Vital Signs (Past 12 Hours) Vital Signs Temp Pulse Pulse Resp BP BP Pulse Ox 04/05/25 07:38 36.2 C L 54 L 18 144/76 H 94 04/05/25 07:11 60 04/05/25 04:47 04/05/25 00:10 36.9 C 63 20 132/68 94 04/05/25 00:05 61 O2 Del Method 04/05/25 07:38 Room Air 04/05/25 07:11 04/05/25 04:47 Room Air 04/05/25 00:10 Room Air 04/05/25 00:05 Laboratory Results Laboratory Results - last 72 hr 04/03/25 04/03/25 04/04/25 11:06 11:33 07:28 WBC 7.36 6.64 RBC 4.54 4.14 L Hgb 14.0 12.8 Hct 42.8 38.6 MCV 94.3 93.2 MCH 30.8 30.9 MCHC 32.7 33.2 RDW Std Deviation 49.1 H 48.8 H RDW Coeff of [place] 14.2 14.1 Plt Count 206 192 MPV 8.7 L 8.9 L Immature Gran % (Auto) 0.4 Neut % (Auto) 73.2 Lymph % (Auto) 14.8 [place] % (Auto) 9.4 Eos % (Auto) 1.9 Baso % (Auto) 0.3 Neut # (Auto) 5.39 Lymph # (Auto) 1.09 L [place] # (Auto) 0.69 H Eos # (Auto) 0.14 Baso # (Auto) 0.02 Immature Gran # (Auto) 0.03 Sodium 137 139 Potassium 4.2 4.0 Chloride 107 108 H Carbon Dioxide 22 25 Anion Gap 8 6 BUN 24 H 25 H Creatinine 0.95 1.14 Est Cr Clr Drug Dosing 34.9 29.1 eGFR 59.08 47.47 BUN/Creatinine Ratio 25.3 H 21.9 H Glucose 85 91 Calcium 9.3 9.0 Total Bilirubin 0.5 AST 19 ALT 8 Alkaline Phosphatase 62 Total Creatine Kinase 51 Total Protein 7.5 Albumin 3.6 Globulin 3.9 Albumin/Globulin Ratio 0.9 Urine Color Yellow Urine Appearance Turbid A Urine pH 5.5 Ur Specific [place] 1.006 Urine Protein Trace H Urine Glucose (UA) Negative Urine Ketones Negative Urine Blood 3+ H Urine Nitrite Negative Urine Bilirubin Negative Urine Urobilinogen Negative Ur Leukocyte Esterase 3+ H Urine WBC (Auto) >50 H Urine RBC (Auto) 0-2 U Hyaline Cast (Auto) 3-5 H U Epithel Cells (Auto) 0-2 Urine Bacteria (Auto) 4+ H Urine Comment 04/05/25 07:36 WBC 6.36 RBC 4.15 L Hgb 12.8 Hct 39.4 MCV 94.9 MCH 30.8 MCHC 32.5 RDW Std Deviation 49.1 H RDW Coeff of [place] 14.1 Plt Count 192 MPV 8.8 L Immature Gran % (Auto) Neut % (Auto) Lymph % (Auto) [place] % (Auto) Eos % (Auto) Baso % (Auto) Neut # (Auto) Lymph # (Auto) [place] # (Auto) Eos # (Auto) Baso # (Auto) Immature Gran # (Auto) Sodium 138 Potassium 4.0 Chloride 108 H Carbon Dioxide 24 Anion Gap 6 BUN 33 H Creatinine 0.94 Est Cr Clr Drug Dosing 35.2 eGFR 59.83 BUN/Creatinine Ratio 35.1 H Glucose 100 H Calcium 8.9 Total Bilirubin AST ALT Alkaline Phosphatase Total Creatine Kinase Total Protein Albumin Globulin Albumin/Globulin Ratio Urine Color Urine Appearance Urine pH Ur Specific [place] Urine Protein Urine Glucose (UA) Urine Ketones Urine Blood Urine Nitrite Urine Bilirubin Urine Urobilinogen Ur Leukocyte Esterase Urine WBC (Auto) Urine RBC (Auto) U Hyaline Cast (Auto) U Epithel Cells (Auto) Urine Bacteria (Auto) Urine Comment Diagnostic Findings Abdomen/Pelvis CT 04/03/25 11:[address] WITH IV CONTRAST CT DOSE: 685.27 mGy.cm HISTORY: Acute hematuria hematuria TECHNIQUE: Multiaxial CT images of the abdomen and pelvis were performed following the IV administration of 93 cc of Optiray, A dose lowering technique was utilized adhering to the principles of ALARA. COMPARISON STUDY: 06/04/2024 FINDINGS: Ectasia of the ascending thoracic aorta, 3.9 cm. Partially imaged cardiac pacer leads. Mild linear consolidation of the basal right lower lobe with bronchial wall thickening and mild mucous plugging. Pulmonary emphysema. There is no pneumatosis or pneumoperitoneum. Unremarkable spleen and adrenal glands. Moderately atrophic pancreas. Unremarkable gallbladder and liver. Patency of the portal vein. Multifocal cortical scarring of the kidneys redemonstrated. Small calcifications of the superior pole left kidney measuring up to 3-4 mm. Cysts of the kidneys including a 5 mm partially calcified cyst of the superior pole right kidney. A thick- walled 2.2 cm cyst of the lateral interpolar right kidney noted on image 135. These appear generally stable from prior. No solid renal mass lesions are seen. Moderate field thickening of the ureters with symmetric mild bilateral hydroureter and no hydronephrosis. Moderate wall thickening noted along left lateral aspect of the bladder with increased enhancement and perivesicular stranding. Punctate calcifications are noted along the dependent bladder wall. Hysterectomy with air noted within the vaginal cuff. Atherosclerosis of the aorta with infrarenal ectasia measuring 2.8 cm. No lymphadenopathy. No bowel obstruction or bowel wall thickening. No acute fracture is seen. Degenerative changes of the spine, pelvis and hips. IMPRESSION: 1. Findings suggestive of cystitis with bilateral ascending infection/ureteritis. Correlate with urinalysis. Cystoscopy may also be considered to evaluate the asymmetric urinary bladder wall thickening. 2. Small calcifications of the superior pole left kidney are again noted, likely vascular. Nonobstructing calculi could appear similarly. 3. Emphysema with right basilar opacities, mild bronchial wall thickening and mucous plugging. Correlate clinically to exclude aspiration pneumonitis. 4. No bowel obstruction or bowel wall thickening. 5. Additional findings as above. ACT 112: Negative or not required by law. The above report was generated using voice recognition software. It may contain grammatical, syntax or spelling errors. Electronically signed by: Chang Wallis M.D. 04/03/2025 12:54 PM Bladder Ultrasound 04/03/25 15:17 Exam: Urinary bladder ultrasound. History: Recurrent UTIs. Comparison: October 24, 2022. Findings: Low-level internal echoes of the urinary bladder noted. This likely represents debris and/or sediment. Ureteral jets are not identified. Urinary bladder demonstrates questionable mild trabecular wall thickening. This may be artifactual due to incomplete distention. No discrete mass. Prevoid urinary bladder volume is 245 cc. Post catheter urinary bladder volume is 14 cc. Impression: No findings to indicate source for patient's symptoms. Please see above for details. Electronically signed by Giovanny Quinones 04-03-2025 4:31 PM Medications Administered Current Inpatient Medications Albuterol (Albuterol Hfa 8 Gm Inhaler) 1 puffs INH Q6H PRN; Protocol PRN Reason: SOB/WHEEZING Stop: 05/03/25 17:00 Cyanocobalamin (Cyanocobalamin (B-12) 500 Mcg Tablet) 1,000 mcg PO QAM [facility] Stop: 05/04/25 08:59 Last Admin: 04/05/25 09:01 Dose: 1,000 mcg Estrogens Conjugated (Estrogens, Conjugated 0.3 Mg Tab) 0.3 mg PO Q2D@0900 [facility] Stop: 05/03/25 17:29 Last Admin: 04/05/25 09:01 Dose: 0.3 mg Fluticasone/Vilanterol (Fluticasone/Vilanterol 200/25mcg 14 Puffs/Inhaler) 1 puffs INH DAILY [facility] Stop: 05/04/25 08:59 Last Admin: 04/05/25 09:01 Dose: 1 puffs Guaifenesin (Guaifenesin 600 Mg Tabcr) 600 mg PO BID PRN PRN Reason: Congestion Stop: 05/03/25 16:37 Cefepime HCl (Maxipime 2000mg) 2,000 mg in 20 mls @ 5 mls/min IV Q12H JENY; Protocol Stop: 04/14/25 00:00 Last Admin: 04/05/25 01:00 Dose: 5 mls/min Ipratropium [place] (Ipratropium [place] Hfa Inhaler) 1 puffs INH Q6H PRN; Protocol PRN Reason: SOB/WHEEZING Stop: 05/03/25 17:00 Lidocaine (Lidocaine 5% Oint 30 Gm Tube) 1 appln EXT Q8H PRN PRN Reason: Pain Stop: 05/04/25 15:46 Metoprolol Succinate (Metoprolol Succ 50mg Ext Rel Tab) 100 mg PO [facility] Stop: 05/04/25 08:59 Last Admin: 04/05/25 09:01 Dose: 100 mg Ondansetron HCl (Ondansetron Inj 2 Mg/Ml 2 Ml Vial) 4 mg IV Q4H PRN PRN Reason: Nausea And Vomiting Stop: 05/03/25 15:16 Pantoprazole Sodium (Pantoprazole 40 Mg Tab) [facility] Stop: 05/04/25 08:59 Last Admin: 04/05/25 09:04 Dose: 40 mg Tamsulosin HCl (Tamsulosin Hcl 0.4 Mg Cap) 0.4 mg PO [facility] Stop: 05/05/25 10:44 PG Care Time/CCT Total # of Minutes Spent Total Time Spent with Patient: Total time spent is greater than 50% in coordination of care (as documented) at patient's floor/unit and/or counseling patient: Coding Level of Care Code 22645 SUB INP/OBS CARE 07/05MIN Diagnoses Acute UTI N39.0 Time Spent (min) 25
[2025-04-05] MEDS: TAMSULOSIN HCL 0.4 MG CAP PO SCH (11:59)
[2025-04-05 23:49] LABS: Influenza A virus by PCR Negative (Neg); Influenza B virus by PCR Negative (Neg); SARS CoV2 RNA(COVID-19) Ceph NEGATIVE (Negative)
[2025-04-06 06:14] LABS: Hematocrit (blood only) 38.4 % (37.0-47.0); Hemoglobin 13.2 g/dl (12.0-16.0); Mean Corpuscular Hemoglobin 31.8 pg (25.0-34.0); Mean Corpuscular Volume 92.5 fL (80.0-100.0); Platelet Count 174 K/uL (130-400); RDW Standard Deviation 47.1 fL (36.4-46.3); Red Blood Count 4.15 M/uL (4.20-5.40); White Blood Count 7.07 K/ul (4.8-10.8)
[2025-04-06 07:06] LABS: Anion Gap 7.0 (3-11); Blood Urea Nitrogen 35.0 mg/dl (6-23); Calcium 9.1 mg/dl (8.6-10.3); Carbon Dioxide 24.0 mmol/L (21-32); Chloride 107.0 mmol/L (98-107); Creatinine Clr Calc Pharmacy 24.4 ml/min; Glucose 96.0 mg/dl (70-99(Fasting)); Potassium 4.2 mmol/L (3.5-5.1); Sodium 138.0 mmol/L (136-145)
[2025-04-06 07:55] VITALS: O2SAT 95
[2025-04-06 11:49] VITALS: PULSE 58; RESP 16; TEMP 97.7
[2025-04-06 14:00] VITALS: BP 132/68
[2025-04-06] MEDS: INFLUENZA VACC TS2025-26(65y+)/PF (IIV3) 0.5mL Syr IM ONE (14:43)
--- NOTE | 2025-04-06 16:39 | Discharge Summary ---
Discharge Summary Date of Service April 06, 2025 Principal Dx & Hospital Course #1 = Principal Diagnosis (1) Acute UTI: Hospital course Massiel Mireles is a 85 yo woman with pMH of bladder prolpase s/p surgery (at [place], [place]), kidney cysts, urinary retention, memory impairment, hx of sick sinus with pacemaker, COPD C. difficile colitis, PSVT, sinus node dysfunction. she has pseudomonas UTI in spring 2024. She's been having issue emptying her bladder can be self-cath since spring 2024, she's following with our urologist Lawrence for evaluation ond day of admission, she been noticing hematuria, black color urine, and hypothermia she's was admitted for UTI, hematuria, started on cefepime, given her hx of aortic aneurysm, we are avoiding quinolone antibiotics her CT abdomen concern for ascending infection with cystitis; ureteritis, and s mall calcification of superior pole of left kidney her hypothermia resolved. her urine culture is positive for E. coli sensitive to Augmentin, and Bactrim. she was dc on 04/06/2025 and provided with augmentin. neither patient nor was unable to clarify whether she's has had C. difficile infection in the past. in abundance of caution, she was provided with vancomycin 125mg oral daily for 15 days. she's will need to f/u with urology; Lawrence, and f/u with hod carrier to for pelvic exam. Massiel Mireles is a 85 yo woman with PMH Of recurrent UTI, bladder prolapse s/p surgery; kidney cyst, urinary retention, memory impairment ssince 2 years ago), sick sinus s/p pacemaker, COPD, C. difficile colitis, hx of aortic aneurysm, PSVT, sinus node dysfunction. she's is independent at baseline. she's usually self cath. since yesterday; she was having hematuria; stated she making dark color blood and that filled out the entire toilet. her CT abdomen concern for cystitis, urethritis and descending infection. ED spoke with ID specialist, avoid ciprofloxacin given her hx of aortic aneurysm. plan for inpatient admission for IV cefepime 1. acute hematuria, acute UTI 2. hx of urinary retention 3. hx of recurrent UTI, renal cyst, bladder prolapse 4. sick sinus s/p pacemaker, PSVT, A-fib 5. memory impairment, b12 deficiency 6. hx of COPD (room air baseline) 7. hx of C. difficile coltis 8. hx of aortic aneurysm 1. acute hematuria, acute UTI her CT abdomen show cystitis and ascending infection IV cefepime 2g q12 hours, urine culture growing E. coli, sensitive to augmentin await final culture to ensure now pseudomonas UTI avoiding ciprofloxacin given her hx of aneurysm bladder scan 2. urinary retention, that started in spring 2024 she's been straight cath herself starting her on flomax 0.4mg on 04/05 deposition potential dc tomorrow with oral augmentin but need f/u with urology for retention if she's able to empyting her bladder with flomax, then dc home with flomax 3. sick sinus s/p pacemaker, PSVT, A-fib on metoprolol 100mg, does not recall being on anticoagulation 4. memory impairment f/u on b12 level, she's still independent of her ADL. 5. COPD, on room air; stable. she's Advair diskus BID 6. GERd, protonix 40mg daily 7, recurrent UTI, she's on methenamine 1 BID 8. DVT prophylasix 9. diet, regular 10. code status; full code Notes For Next Care Provider pelvis exam to rule out cervical lesion referral to urology for cystoscopy repeat urine analysis Medication Changes From Visit started on augmentin BID for UTI vancomycin oral 125mg for 15 days to prevent C. difficile Admission HPI Per Admitting Provider Massiel Chaudhary is a 85 yo woman with PMH of bladder prolapse (s/p surgery 3 times), UTI, A-fib, sick sinus on pacemaker, aortic aneurysm, GERD renal cysts. per medical record; there is hx of C. difficile infection, but unable to confirm. she's self cath for past 1-2 years. she was schedule for bladder US with post- void residual however, since yesterday, she been having significant hematuria with dark color urine. she's came to our hospital on Sunday (04/03) for UTI, hematuria, her CT abdomen found cystitis with b/l ascending infection and ureteritis, also found small calcification with superior pole of left kidney she was seen by ID and recommended admission for IV cefepime. we are avoiding ciprofloxacin given her hx of aneurysm. on interview at 2pm, she's reported confusion which is usual with her UTI no fever; no chill; no nausea, no vomiting. she's has dementia for past 2-3 years. her was advised obtained sleep studies for polysomnography Discharge Exam VITALS: Reviewed. WEIGHT/BMI reviewed. GEN: Healthy appearing, well-developed, NAD. Neuro: AAox2; following command; able to speak in full sentence. slow mentation, but responsive to question HEENT -Head: NC/AT;. NECK: Supple, with no masses. CV: RRR, no m/r/g. LUNGS: CTAB, no w/r/c. ABD: Soft, NT/ND, NBS, no masses or organomegaly. : no CVA tenderness MSK: No deformities, Normal gait. Discharge Plan Discharge Items Patient Disposition: Home - Home Health Services Reason For Visit: UTI, HEMATURIA, HX OF ANEURYSM Discharge Diagnosis: hematuria, UTI hx of urinary retention memory impairment Condition on Discharge: Good Activity: Per Instructions section Lifting: Gradually increase as tolerated Non-emergency contact: Primary Care Provider and Paper Machine Operator Call non-emergency contact if: you have any medication questions, your symptoms worsen and you have a fever Follow-up/Referrals: Tyler Ji CRNP [Primary Care Provider] - 04/15/25 8:20 am Diet: Regular Addtl Attending Provider Instructions: follow up urology for cystoscopy to assess the blood in the urine follow up with hod carrier for pap smear to evaluate for lesion in the cervix Pending Studies at Discharge: Yes Studies:: cystoscopy (with urologist) Stand-Alone Forms: My [employer], Smoking Cessation Medications and DC Order Prescriptions: New amoxicillin-pot clavulanate 875-125 mg tablet 1 tab PO Q12H 10 Days Qty: 20 0RF vancomycin 125 mg capsule 125 mg PO DAILY 15 Days Qty: 15 0RF Continued metoprolol succinate 100 mg tablet extended release 24 hr 100 mg PO QAM Qty: 90 3RF Combivent Respimat 20-100 mcg/actuation mist 1 puff INHALATION Q6H PRN (Reason: Shortness Of Breath Or Wheezing) Qty: 4 1RF pantoprazole 40 mg tablet,delayed release (DR/EC) 40 mg PO QAM Qty: 90 1RF methenamine hippurate 1 gram tablet 1 g PO BID Qty: 120 3RF Rx Instructions: for urinary tract infection prevention conjugated estrogens 0.3 mg tablet 0.3 mg PO Q OTHER DAY Qty: 30 2RF cyanocobalamin (vitamin B-12) 1,000 mcg tablet 1,000 mcg PO QAM Patient Comments: 04/03- otc unable to verify fluticasone propion-salmeterol [Advair Diskus] 250-50 mcg/dose blister with device 0 inh inhalation BID Patient Comments: 04/01- last filled 02/03 30 day supply #60 guaifenesin [Mucus Relief ER] 600 mg Tablet Extended Release 12hr 600 mg PO BID PRN (Reason: Congestion) Patient Comments: 04/03- otc unable to verify conjugated estrogens 0.625 mg/gram cream 0 mg VAGINAL [id number] Patient Comments: 04/03- no fill history unable to verify Discharge Orders: Discharge Order (Routine); Ordered 04/06/25 Ordered By: Tiana Manning/Other Patient Handouts: Pap Test, Hematuria: Possible Causes, ED UTIs Women Admission Data Admit Date/Time: 04/03/25 14:43 Attending Provider: Tiana Quigley Admit Provider: Tiana Quigley Primary Care Provider: Tyler Ji Other Providers: Tiana Quigley Other Interventions: Discharge Summary Assessment (RN) Last Done: 04/06/25 13:59 Hospital Stay Data Consultations 04/03/25 14:34 ED Decision to Admit Stat Diagnostic Imagining Performed 04/03/25 11:28 CT abd pelvis IV con only Stat 04/03/25 15:17 US Bladder and Retroperitoneal [US retro bladder ltd] Stat Pending Results Patient Have Any Pending Studies at Discharge: Yes Discharge Instructions Given to Patient (Per Discharging Provider) follow up urology for cystoscopy to assess the blood in the urine follow up with hod carrier for pap smear to evaluate for lesion in the cervix Total Time Total Time Spent Total Time Spent (In Minutes): 25 Coding Level of Care Code 26500 IN/OBS DISCH 30 MIN/LESS Diagnoses Acute UTI N39.0 Time Spent (min) 25
== END 2025-04-06 15:27 | disposition home health service (06) | DRG 690 ==
LOC: ED 10:56 → 2N 14:43 → 2W 04-04 20:34